=== PATIENT | female | born 1990 | race Two or more races ===

== ENCOUNTER → 2023-01-03 | Emergency (ER) | payer MEDICAID, OTHER | END | disposition left against medical advice (07) | LOC: ER 19:39 | DX: R10.9 Unspecified abdominal pain (principal); Z53.21 Procedure and treatment not carried out due to patient leaving prior to being seen by health care provider ==

== ENCOUNTER 2024-03-14 17:35 | Emergency (ER) | payer MEDICAID | END 2024-03-14 18:50 | disposition left against medical advice (07) | LOC: ER 17:38 | DX: R10.9 Unspecified abdominal pain (principal); Z53.21 Procedure and treatment not carried out due to patient leaving prior to being seen by health care provider ==

== ENCOUNTER 2024-03-20 08:19 | Emergency (ER) | payer MEDICAID ==
[~2024-03-20] VITALS: Ht 160 cm; Wt 75.2 kg
[2024-03-20] MEDS: ONDANSETRON HCL 4 MG/2 ML VIAL IV ONE (08:45)
[2024-03-20] MEDS: MORPHINE SULFATE 4 MG/ML SYR/VIAL IV ONE (08:45)
[2024-03-20 09:00] VITALS: BP 189/111; PULSE 82; RESP 18; TEMP 97.8; O2SAT 97
[2024-03-20 09:13] LABS: Urine Bacteria None Seen /hpf (None Seen)
[2024-03-20] MEDS: SODIUM CHLORIDE 0.9% 1,000 ML IV ONE (09:28)
[2024-03-20 09:34] LABS: Basophils # (auto) 0 10 ^3/uL (0-0.2); Eosinophils # (auto) 0 10 ^3/uL (0-0.8); Hemoglobin 9.3 g/dL (12.2-16.2); Monocytes # (auto) 0.8 10 ^3/uL (0-1.3); White Blood Cell 12.6 10^3/uL (4.4-10.8)
[2024-03-20 09:37] LABS: Eosinophils % (auto) 0.3 % (0.0-7.0); Hematocrit 29.8 % (36.0-46.0); Lymphocytes % (auto) 8.1 % (10.0-50.0); Mean Corpuscular Hemoglobin 20.7 pg (28.0-32.0); Mean Corpuscular Hgb Conc. 31.4 g/dL (32.0-36.0); Mean Corpuscular Volume 66.1 fL (80.0-100.0); Monocytes % (auto) 6.1 % (0.0-12.0); Neutrophils # (auto) 10.7 10 ^3/uL (1.6-8.6); Neutrophils % (auto) 85.5 % (37.0-80.0); Nucleated Red Blood Cells % 0.2 %; Platelet Count (auto) 552 10^3/uL (140-450)
[2024-03-20 09:46] LABS: Albumin 3.4 g/dL (3.2-4.8); Alkaline Phosphatase 61 U/L (46-116); Anion Gap 5 (5-15); Aspartate Aminotransferase < 8 U/L (13-40); BUN/Creatinine Ratio 22.2 (10.0-20.0); Blood Urea Nitrogen 16 mg/dL (9-23); Calcium 8.7 mg/dL (8.7-10.4); Carbon Dioxide 23 mmol/L (20-31); Chloride 108 mmol/L (98-107); Glucose 87 mg/dL (74-106); Sodium 136 mmol/L (136-145)
[2024-03-20 09:47] LABS: Bilirubin, Total 0.3 mg/dL (0.2-1.0); Total Protein 6.8 g/dL (5.7-8.2)
[2024-03-20 09:50] LABS: Alanine Aminotransferase < 9 U/L (7-40)
[2024-03-20] MEDS: IOHEXOL 300 MG/ML 100ML BOTTLE IJ ONE (09:54)
[2024-03-20 09:59] LABS: Urine Blood 3+ /uL (Negative); Urine Clarity Clear (Clear); Urine Color Colorless (Yellow); Urine Protein, UAD 2+ (Negative); Urine Specific Gravity 1.004 (1.001-1.035); Urine Urobilinogen Normal (Negative); Urine WBC 33 /hpf (0 - 5)
[2024-03-20 10:44] LABS: Lipase 28 U/L (12-53)
[2024-03-20] MEDS: KETOROLAC TROMETH 30 MG/ML 1ML VIAL IV ONE (10:45)
[2024-03-20 11:08] VITALS: PULSE 81; RESP 24; O2SAT 97
[2024-03-20 12:20] LABS: Hypochromia Marked; Platelet Estimate Increased
[2024-03-20] MEDS: PANTOPRAZOLE 40 MG/10 ML VIAL INJ IV ONE (12:45)
[2024-03-20] MEDS ORDERED: OMEP20TA PO (12:54)
[2024-03-20] MEDS ORDERED: CEFD300C2 PO (12:54)
[2024-03-20] MEDS: cefTRIAXone 1GM/50ML D5W 50 ML IV ONE (14:00)
== END 2024-03-20 15:08 | disposition home or self-care (01) ==
LOC: ER 08:19
DX: N39.0 Urinary tract infection, site not specified (principal); M32.9 Systemic lupus erythematosus, unspecified; J90 Pleural effusion, not elsewhere classified; Z32.02 Encounter for pregnancy test, result negative
CPT/HCPCS: 36415; 74177; 80053; 81001; 81025; 83690; 85025; 93005; 96361; 96365; 96375; 99285; J0696; J1885; J7030; Q9967; J2405

== ENCOUNTER 2024-03-23 19:25 | Inpatient (IN) | payer MEDICAID ==
[~2024-03-23] VITALS: Ht 160 cm; Wt 71.8 kg
[~2024-03-23 19:25] MED LIST: CEFD300C2 PO; OMEP20TA PO
[2024-03-23] MEDS: HYDROcodone-ACET 10/325MG TAB PO ONE (20:35)
[2024-03-23] MEDS: ONDANSETRON ODT 4 MG TAB PO ONE (20:35)
--- NOTE | 2024-03-23 20:39 | DVH ---
Exam: CT CT AB PEL WO CON-NO ORAL OR IV History: Right lower quadrant pain Comparison Study: None available at time of dictation. TECHNIQUE: Multidetector CT of the abdomen was performed from lung bases to pubic symphysis. Imaging was performed without IV contrast. Axial, coronal and sagittal multiplanar reformats were obtained fr om the axial data set by the technologist. Radiation Dose Information: CT Dose: CTDI volume is 6.98 mGy. Dose-length product is 421.27 mGy*cm FINDINGS: Evaluation of solid organs is limited due to lack of intravenous contrast use. Findings: Lung Bases: No acute or significant lung base finding. Trace left pleural effusion. Normal heart size . Trace pericardial effusion. Liver: The liver is normal in size. No focal lesions. Gallbladder and Biliary Tree: No calcifications in the gallbladder. Spleen: Unremarkable Pancreas: The pancreas is grossly normal in appearance. Adrenal Glands: Unremarkable Kidneys: Kidneys are grossly normal without calculi or hydronephrosis. No nephrolithiasis or hydronep hrosis. Bladder: Grossly unremarkable for degree of distention. Bowel: The stomach is grossly normal in appearance. Small bowel and colon are normal in caliber and d istribution. The appendix is not visualized; however, no secondary findings of acute appendicitis id entified. Ascites: Small amount of free fluid posterior to the uterus in the cul-de-sac. Lymphadenopathy: No mesenteric, retroperitoneal or periportal lymphadenopathy. Abdominal Wall and Mesentery: Mild amount of subcutaneous edema over the anterior abdominal wall in t he right and left. Vasculature: The visualized abdominal aorta is normal in size and caliber. Evaluation of abdominal a nd pelvic vessels is limited due to lack of intravenous contrast. Pelvic Organs: Unremarkable Musculoskeletal: No aggressive focal bony lesions, acute fractures or dislocation. Soft tissues: Unremarkable IMPRESSION: 1. Trace left pleural effusion. 2. Trace pericardial effusion 3. Small amount of fluid in the cul-de-sac. Radiation optimization: All CT scans at this facility use at least one of these dose optimization te chniques: automated exposure control mA and/or kV adjustment per patient size (includes targeted exa ms where dose is matched to clinical indication) or iterative reconstruction.
[2024-03-23 20:41] LABS: Basophils # (auto) 0 10 ^3/uL (0-0.2); Eosinophils # (auto) 0 10 ^3/uL (0-0.8); Lymphocytes # (auto) 0.4 10 ^3/uL (0.4-5.4); Monocytes # (auto) 0.6 10 ^3/uL (0-1.3); Neutrophils # (auto) 10.7 10 ^3/uL (1.6-8.6); Neutrophils % (auto) 91.1 % (37.0-80.0); White Blood Cell 11.7 10^3/uL (4.4-10.8)
[2024-03-23 20:44] LABS: Basophils % (auto) 0.1 % (0.0-2.0); Hematocrit 29.4 % (36.0-46.0); Hemoglobin 9.1 g/dL (12.2-16.2); Lymphocytes % (auto) 3.5 % (10.0-50.0); Mean Corpuscular Hemoglobin 20.8 pg (28.0-32.0); Mean Corpuscular Hgb Conc. 30.9 g/dL (32.0-36.0); Mean Corpuscular Volume 67.1 fL (80.0-100.0); Monocytes % (auto) 5.3 % (0.0-12.0); Platelet Count (auto) 514 10^3/uL (140-450); Red Blood Cells 4.38 10^6/uL (4.0-5.20); Red Cell Distribution Width 19.5 % (11.8-14.3)
[2024-03-23 20:47] LABS: Urine Bacteria FEW /hpf (None Seen); Urine Blood 2+ /uL (Negative); Urine Clarity Clear (Clear); Urine Color Colorless (Yellow); Urine Protein, UAD 2+ (Negative); Urine Specific Gravity 1.007 (1.001-1.035); Urine Urobilinogen Normal (Negative); Urine WBC 44 /hpf (0 - 5)
[2024-03-23 20:51] LABS: Chloride 108 mmol/L (98-107); Sodium 134 mmol/L (136-145)
[2024-03-23 20:52] LABS: Anion Gap 3 (5-15); Calcium 8.3 mg/dL (8.7-10.4); Carbon Dioxide 23 mmol/L (20-31)
[2024-03-23 20:57] LABS: Blood Urea Nitrogen 20 mg/dL (9-23); Glucose 113 mg/dL (74-106); Lipase 31 U/L (12-53)
[2024-03-23 21:07] LABS: Potassium 5.7 mmol/L (3.5-5.1)
[2024-03-23] MEDS: NITROFURANTOIN 100 mg CAP PO ONE (22:20)
[2024-03-23 22:23] VITALS: PULSE 85; RESP 16; O2SAT 100
[2024-03-23] MEDS: ACETAMINOPHEN 500 MG TAB PO ONE (22:23)
[2024-03-23] MEDS: cloNIDine HCL 0.1 MG TAB PO ONE (22:27)
[2024-03-24] MEDS: cloNIDine HCL 0.1 MG TAB PO ONE (00:11)
[2024-03-24] MEDS: hydrALAZINE HCL 20 MG/ML VL IV ONE (01:19)
--- NOTE | 2024-03-24 01:30 | ECG ---
[facility] Test Date: 2024-03-24 Test Time: 01:23:27 Pat Name: KEHINDE TINSLEY Department: ER Room: 0221T Gender: F Pot Operator: NICOLA : 1990 Requested By: SREEKANTH MORTENSEN Order Number: [id number] Reading MD: Arnaldo Emmanuel Measurements Intervals [place] Rate: 63 P: 13 UT: 109 QRS: 36 QRSD: 89 T: 39 QT: 426 QTc: 437 Interpretive Statements Sinus rhythm Short UT interval Electronically Signed On 03-28-2024 14:15:19 PDT by Arnaldo Emmanuel Please click the below link to view image of tracing.
--- NOTE | 2024-03-24 01:31 | ED.PDOC ---
GI ASSESSMENT HPI Comments This patient is a 37-year-old female who arrives the ED today for evaluation of right-sided lower abdominal/pelvic pain concerns for past few days. Patient was seen this facility three days ago and prescribed antibiotics for UTI. Patient states that the medication has not been effective and she continues to have white lower quadrant pain concerns. Additionally, patient arrives with a blood pressure that is 200+ over 100+. Patient states she has no history of hypertension but rather, states that she believes is this is white coat hypertension. Patient denies any fever nausea or vomiting. Chief Complaint: Abdominal Pain Time Seen by MD: 19:29 Reviewed Notes: Nurses Notes Allergies: Coded Allergies: NO KNOWN ALLERGIES (Unverified , 03/20/24) Home Meds Active Scripts Omeprazole (Gnp Omeprazole) 20 Mg Tab, 1 TAB PO DAILY for 14 Days, #14 TAB 1 Refill Prov:BALDEV MIRZA MD 03/20/24 Cefdinir (Cefdinir) 300 Mg Cap, 1 CAP PO BID for 5 Days, #14 CAP Prov:BALDEV MIRZA MD 03/20/24 Information Source: Patient Mode of Arrival: Ambulatory Timing: Days Duration: Since onset Prehospital treatment: Treatment Quality: Aching, Cramping Vomitus: None Severity: Moderate Recent: Antibiotics Recent Hx of: Other (Currently being treated for a UTI.) Pain Location: RLQ Modifying Factors: Nothing Past Medical History PAST MEDICAL HISTORY: Denies Past Medical History (Other): Recently on antibiotics for UTI. 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 all AUDIO VISUAL DESIGN ENGINEER Hx Family History Family History: Reviewed,noncontributory to illness Social History Smoker: Non-Smoker Alcohol: Denies ETOH Use Drugs: Denies Drug Use Lives In: Home Constitutional: denies: chills, diaphoresis, fatigue, fever, malaise, sweats, weakness, others EENTM: denies: blurred vision, double vision, ear bleeding, ear discharge, ear drainage, ear pain, ear ringing, eye pain, eye redness, hearing loss, mouth pain, mouth swelling, nasal discharge, nose bleeding, nose congestion, nose pain, photophobia, tearing, throat pain, throat swelling, voice changes, others Respiratory: denies: cough, hemoptysis, orthopnea, SOB at rest, shortness of breath, SOB with excertion, stridor, wheezing, others Cardiovascular: denies: chest pain, dizzy spells, diaphoresis, Dyspnea on exertion, edema, irregular heart beat, left arm pain, lightheadedness, palpitations, PND, syncope, others Gastrointestinal: reports: abdominal pain; denies: abdomen distended, blood streaked bowels, constipated, diarrhea, dysphagia, difficulty swallowing, hematemesis, melena, nausea, poor appetite, poor fluid intake, rectal bleeding, rectal pain, vomiting, others Genitourinary: denies: abnormal vagina bleeding, burning, dyspareunia, dysuria, flank pain, frequency, hematuria, incontinence, pain, , vagina discharge, urgency, others Neurological: denies: dizziness, fainting, headache, left sided numbness, left sided weakness, numbness, paresthesia, pre-existing deficit, right sided numbness, right sided weakness, seizure, speech problems, tingling, tremors, weakness, others Musculoskeletal: denies: back pain, gout, joint pain, joint swelling, muscle pain, muscle stiffness, neck pain, others Integumetry: denies: bruises, change in color, change in hair/nails, dryness, laceration, lesions, lumps, rash, wounds, others Allergic/Immunocompromised: denies: Difficulty Healing, Frequent Infections, Hives, Itching, others Hematologic/Lymphatic: denies: anemia, blood clots, easy bleeding, easy bruising, swollen glands, others Endocrine: denies: excessive hunger, excessive sweating, excessive thirst, excessive urination, flushing, intolerance to cold, intolerance to heat, unexplained weight gain, unexplained weight loss, others Psychiatric: denies: anxiety, bipolar disorder, depression, hopeless, panic disorder, schizophrenia, sleepless, suicidal, others Physical Exam General Appearance: Moderate Distress (Moderate distress due to right-sided lower abdominal pain), Normal HEENT: Normal ENT Inspection, Pharynx Normal, TMs Normal Neck: Full Range of Motion, Non-Tender, Normal, Normal Inspection Respiratory: Chest Non-Tender, Lungs Clear, No Accessory Muscle Use, No Respiratory Distress, Normal Breath Sounds Cardiovascular: No Edema, No JVD, No Murmur, No Gallop, Normal Peripheral Pulses, Regular Rate/Rhythm Breast Exam: Deferred Gastrointestinal: Other (Diffuse right-sided lower abdominal/pelvic pain radiating towards the right flank. No pulsatile masses. Abdomen was mildly rigid.) Genitalia: Deferred Pelvic: Deferred Rectal: Deferred Extremities: No calf tenderness, Normal capillary refill, Normal inspection, Normal range of motion, Non-tender, No pedal edema Neurologic: Alert, slab inspector II-XII nml as Tested, No Motor Deficits, Normal Affect, Normal Mood, No Sensory Deficits Cerebellar Function: Normal Reflexes: Normal Skin: Dry, Normal Color, Warm Lymphatic: No Adenopathy Was a procedure done? Was a procedure done?: No GI differential Dx Differential Diagnosis: Appendicitis, Bowel Obstruction, Cholangitis, Cholecystitis, Constipation, Gastritis/PUD, Gastroenteritis, Pancreatitis, UTI X-Ray, Labs, Meds, VS Vital Signs Date Time Temp Pulse Resp B/P (MAP) Pulse Ox O2 Delivery O2 Flow Rate FiO2 03/24/24 01:19 174/99 03/24/24 01:00 185/102 03/24/24 00:11 177/101 03/23/24 23:54 98.7 67 16 194/114 (140) 100 98.7 03/23/24 23:53 194/114 03/23/24 22:27 204/114 03/23/24 22:23 85 16 100 Room Air* 0 21 03/23/24 21:25 192/112 (138) 03/23/24 20:22 Room Air 03/23/24 19:36 97.7 85 18 197/117 (143) 100 03/23/24 19:36 97.7 85 18 206/125 (152) 100 97.7 Lab Test 03/23/24 20:21 03/23/24 20:20 Range/Units White Blood Count 11.7 H 4.4-10.8 10^3/uL Red Blood Count 4.38 4.0-5.20 10^6/uL Hemoglobin 9.1 L 12.2-16.2 g/dL Hematocrit 29.4 L 36.0-46.0 % Mean Corpuscular Volume 67.1 L 80.0-100.0 fL Mean Corpuscular Hemoglobin 20.8 L 28.0-32.0 pg Mean Corpuscular Hemoglobin Concent 30.9 L 32.0-36.0 g/dL Red Cell Distribution Width 19.5 H 11.8-14.3 % Platelet Count 514 H 140-450 10^3/uL Mean Platelet Volume 7.4 6.9-10.8 fL Neutrophils (%) (Auto) 91.1 H 37.0-80.0 % Lymphocytes (%) (Auto) 3.5 L 10.0-50.0 % Monocytes (%) (Auto) 5.3 0.0-12.0 % Eosinophils (%) (Auto) 0.0 0.0-7.0 % Basophils (%) (Auto) 0.1 0.0-2.0 % Neutrophils # (Auto) 10.7 H 1.6-8.6 10 ^3/uL Lymphocytes # (Auto) 0.4 0.4-5.4 10 ^3/uL Monocytes # (Auto) 0.6 0-1.3 10 ^3/uL Eosinophils # (Auto) 0 0-0.8 10 ^3/uL Basophils # (Auto) 0 0-0.2 10 ^3/uL Nucleated Red Blood Cells 0.0 % Sodium Level 134 L 136-145 mmol/L Potassium Level 5.7 *H 3.5-5.1 mmol/L Chloride Level 108 H 98-107 mmol/L Carbon Dioxide Level 23 20-31 mmol/L Anion Gap 3 L 5-15 Blood Urea Nitrogen 20 9-23 mg/dL Creatinine 0.87 0.550-1.02 mg/dL Glomerular Filtration Rate Calc 91 >90 mL/min BUN/Creatinine Ratio 23.0 H 10.0-20.0 Serum Glucose 113 H 74-106 mg/dL Calcium Level 8.3 L 8.7-10.4 mg/dL Lipase 31 12-53 U/L Beta HCG, Quantitative 0.3 L 1.5-4.2 mIU/mL Urine Color Colorless Yellow Urine Clarity Clear Clear Urine pH 6.0 5.0-9.0 Urine Specific [place] 1.007 1.001-1.035 Urine Protein 2+ H Negative Urine Ketones Negative Negative Urine Blood 2+ H Negative /uL Urine Nitrite Negative Negative Urine Bilirubin Negative Negative Urine Urobilinogen Normal Negative mg/dL Urine Leukocyte Esterase 2+ Negative /uL Urine RBC 32 0 - 4 /hpf Urine WBC 44 0 - 5 /hpf Urine Squamous Epithelial Cells Few <5 /hpf Urine Bacteria Few H None Seen /hpf Urine Glucose Normal Normal mg/dL Current Medications Medications (Trade) Dose Ordered Sig/Mica Route Start Time Stop Time Status Last Admin Nitrofurantoin Macrocrystals (Macrobid) 100 mg ONCE ONCE PO 03/23/24 22:15 03/23/24 22:16 DC 03/23/24 22:20 Acetaminophen (Tylenol Tablet) 1,000 mg ONCE ONCE PO 03/23/24 22:30 03/23/24 22:31 DC 03/23/24 22:23 Clonidine HCl (Catapres Tablet) 0.2 mg ONCE ONCE PO 03/23/24 22:30 03/23/24 22:31 DC 03/23/24 22:27 Clonidine HCl (Catapres Tablet) 0.2 mg ONCE ONCE PO 03/24/24 00:00 03/24/24 00:01 DC 03/24/24 00:11 Hydralazine HCl (Apresoline Injection) 10 mg ONCE ONCE IV 03/24/24 01:15 03/24/24 01:16 DC 03/24/24 01:19 X-Ray, Labs, Meds, VS Comment All studies performed the ED today reviewed by me personally. Serum laboratories were unremarkable for any systemic process. Urine returned a result of a positive large urinary tract infection. Or concerning was the fact with the patient's blood pressure could not be managed for some time. Patient received two doses of 0.2 clonidine and had minimal response. At time of this note, patient was currently receiving 10 mg of IV hydralazine to improve blood pressure concerns. Patient will be admitted for antibiotics to address her UTI as well as a cardiac evaluation to address her difficult to control blood pressure issues. Time of 1ST Reevaluation: 01:29 Reevaluation 1ST: Improved Consultation: PCP, Cardiology Patient Education/Counseling: Diagnosis, Treatment Family Education/Counseling: Diagnosis, Treatment Departure 1 Departure Time of Disposition: 01:30 Impression: Primary Impression: UTI (urinary tract infection) Additional Impression: Hypertension, uncontrolled Disposition: 09 ADMITTED INPATIENT Condition: Stable Discharged With: Self Critical Care Note Critical Care Time?: No Stability Stability form required: No Heart Score Heart Score: Heart Score Response (Comments) Value History Slightly Suspicious 0 EKG Repolarization Disturb 1 Age <45 0 Risk Factors No known risk factors 0 Troponin Normal limit 0 Total 1 SREEKANTH MORTENSEN PAC Mar 24, 2024 01:31
[2024-03-24] MEDS ORDERED: DOCUSATE SOD 100 MG CAP PO PRN (03:00)
[2024-03-24] MEDS ORDERED: cloNIDine HCL 0.1 MG TAB PO PRN (03:00)
[2024-03-24] MEDS: cefTRIAXone 1GM/50ML D5W 50 ML IV ONE (03:31)
[2024-03-24] MEDS: SODIUM ZIRCONIUM CYCL 10 GM PAK PO ONE ×2 (03:35→15:07)
[2024-03-24] MEDS: SODIUM CHLORIDE 0.9% 1,000 ML IV SCH (03:35)
[2024-03-24] MEDS: cefTRIAXone 1GM/50ML D5W 50 ML IV SCH (04:47)
[2024-03-24 05:02] LABS: Basophils # (auto) 0 10 ^3/uL (0-0.2); Eosinophils # (auto) 0 10 ^3/uL (0-0.8); Monocytes # (auto) 0.6 10 ^3/uL (0-1.3); Neutrophils % (auto) 87.8 % (37.0-80.0)
[2024-03-24 05:04] LABS: Basophils % (auto) 0.3 % (0.0-2.0); Hematocrit 28.8 % (36.0-46.0); Hemoglobin 8.9 g/dL (12.2-16.2); Lymphocytes # (auto) 0.6 10 ^3/uL (0.4-5.4); Lymphocytes % (auto) 6.1 % (10.0-50.0); Mean Corpuscular Hemoglobin 20.5 pg (28.0-32.0); Mean Corpuscular Volume 66.1 fL (80.0-100.0); Monocytes % (auto) 5.8 % (0.0-12.0); Neutrophils # (auto) 8.3 10 ^3/uL (1.6-8.6); Nucleated Red Blood Cells % 0.1 %; Platelet Count (auto) 431 10^3/uL (140-450); Red Blood Cells 4.35 10^6/uL (4.0-5.20); Red Cell Distribution Width 19.1 % (11.8-14.3); White Blood Cell 9.5 10^3/uL (4.4-10.8)
[2024-03-24 05:25] LABS: Albumin 3.1 g/dL (3.2-4.8); Alkaline Phosphatase 62 U/L (46-116); Anion Gap 2 (5-15); Aspartate Aminotransferase < 8 U/L (13-40); Blood Urea Nitrogen 20 mg/dL (9-23); Calcium 8.3 mg/dL (8.7-10.4); Carbon Dioxide 23 mmol/L (20-31); Chloride 110 mmol/L (98-107); Glucose 106 mg/dL (74-106); Sodium 135 mmol/L (136-145)
[2024-03-24 05:26] LABS: Bilirubin, Total 0.2 mg/dL (0.2-1.0); Total Protein 6.2 g/dL (5.7-8.2)
[2024-03-24 05:27] LABS: Alanine Aminotransferase < 9 U/L (7-40)
[2024-03-24 05:29] LABS: Potassium 5.8 mmol/L (3.5-5.1)
[2024-03-24] MEDS: ACETAMINOPHEN 325 MG TAB PO PRN (06:07)
[2024-03-24] MEDS: hydrALAZINE HCL 20 MG/ML VL IV PRN (06:07)
--- NOTE | 2024-03-24 07:24 | DVHHP2 ---
History of Present Illness Reason for Visit: Hypertensive urgency History of Present Illness The patient is a 33-year-old female with past medical history UTIs who presented to [facility] with complaint acute abdominal pain. Patient reports symptoms progressively get worse with right-sided lower abdominal/pelvic, rating 7/10 numeric scale, getting worse that prompted this visit. Patient was seen and evaluated in the ED, laboratory data shows WBC 11.7, platelets 514, hemoglobin 9.1, hematocrit 29.4 sodium 134, potassium 5.7, BUN 20, creatinine 0.87, glucose 113, urinalysis positive for urinary tract infection. Abdomen/pelvis CT revealing trace left effusion, trace pericardial effusion. Patient was started IV antibiotic regimen Rocephin, please see medication orders section in the computer. On my assessment, patient denied chest pain, no headache, no dizziness, no shortness of breath, no nausea, no vomiting, no fever, no chills. Patient was admitted for further evaluation and medical management. Past Medical History Recently on antibiotics for UTI. Past Surgical History Denies all surgeries Family History Reviewed, noncontributory to the management of this case. Past Social History The patient lives at home, denies smoking, alcohol or illicit drugs abuse. Review of Systems Constitutional: No: Fever, Chills, Sweats, Weakness, Malaise, Other Eyes: No: Pain, Vision change, Conjunctivae inflammation, Eyelid inflammation, Other, Redness ENT: No: Ear pain, Ear discharge, Nose pain, Nose discharge, Nose congestion, Mouth pain, Mouth swelling, Throat pain, Throat swelling, Other Respiratory: No: Cough, Dry, Shortness of breath, SOB with excertion, Wheezing, Hemoptysis, Pleuritic Pain, Sputum, Wheezing, Other Cardiovascular: No: Chest Pain, Palpitations, Orthopnea, Paroxysmal Noc. Dyspnea, Edema, Lt Headedness, Other Gastrointestinal: Abdominal Pain; No: Nausea, Vomiting, Diarrhea, Constipation, Melena, Hematochezia, Other Genitourinary: No Dysuria, No Frequency, No Incontinence, No Hematuria, No Retention, No Other Musculoskeletal: No: other, neck pain, shoulder pain, arm pain, back pain, hand pain, leg pain, foot pain Skin: No: Rash, Lesions, Jaundice, Bruising, Other Neurological: No: Weakness, Numbness, Incoordination, Change in speech, Confusion, Seizures, Other Allergies: Coded Allergies: NO KNOWN ALLERGIES (Unverified , 03/20/24) Medications Current Medications Medications Dose Ordered Sig/Mica Route Start Time Stop Time Status Last Admin Dose Admin Ceftriaxone Sodium 50 ml @ 100 mls/hr DAILY@0400 IV 03/24/24 04:00 03/24/24 04:47 100 MLS/HR Hydralazine HCl 10 mg Q6HP PRN IV 03/24/24 03:00 03/24/24 06:07 10 MG Clonidine HCl 0.1 mg Q6HP PRN PO 03/24/24 03:00 Sodium Chloride 1,000 ml @ 60 mls/hr [id number] IV 03/24/24 03:00 03/24/24 03:35 60 MLS/HR Acetaminophen/ Hydrocodone Bitart 1 tab Q4HP PRN PO 03/24/24 03:00 Ondansetron HCl 4 mg Q4HP PRN IV 03/24/24 03:00 Docusate Sodium 100 mg BIDPRN PRN PO 03/24/24 03:00 Acetaminophen 650 mg Q6HP PRN PO 03/24/24 03:00 03/24/24 06:07 650 MG Morphine Sulfate 2 mg Q4HPRN PRN IV 03/24/24 03:00 Exam Vital Signs Vital Signs Date Time Temp Pulse Resp B/P (MAP) Pulse Ox O2 Delivery O2 Flow Rate FiO2 03/24/24 06:07 157/99 03/24/24 05:00 70 19 100 03/23/24 23:54 98.7 98.7 03/23/24 22:23 Room Air* 0 21 General Appearance: Alert, Oriented X3, Cooperative, No acute distress HEENT: Atraumatic, PERRLA, EOMI, Mucous membr. moist/pink Respiratory: Clear to auscultation, Normal air movement Cardiovascular: Regular rate, Normal S1, Normal S2, No murmurs Abdominal: Normal bowel sounds, Soft, No hepatospenomegaly, No masses, Other (Reports tenderness) Extremities: No clubbing, No cyanosis, No edema, Normal pulses, No tenderness/swelling Skin: No rashes, No breakdown, No significant lesion Neuro: Normal gait, Normal speech, Strength at 5/5 X4 ext, Normal tone, Sensation intact, Cranial nerves 3-12 NL, Reflexes 2+ Psych/Mental Status: Mental status NL, Mood NL Labs/Xrays Labs Test 03/24/24 04:42 03/23/24 20:21 03/23/24 20:20 Range/Units White Blood Count 9.5 4.4-10.8 10^3/uL Red Blood Count 4.35 4.0-5.20 10^6/uL Hemoglobin 8.9 L 12.2-16.2 g/dL Hematocrit 28.8 L 36.0-46.0 % Mean Corpuscular Volume 66.1 L 80.0-100.0 fL Mean Corpuscular Hemoglobin 20.5 L 28.0-32.0 pg Mean Corpuscular Hemoglobin Concent 31.0 L 32.0-36.0 g/dL Red Cell Distribution Width 19.1 H 11.8-14.3 % Platelet Count 431 140-450 10^3/uL Mean Platelet Volume 7.0 6.9-10.8 fL Neutrophils (%) (Auto) 87.8 H 37.0-80.0 % Lymphocytes (%) (Auto) 6.1 L 10.0-50.0 % Monocytes (%) (Auto) 5.8 0.0-12.0 % Eosinophils (%) (Auto) 0.0 0.0-7.0 % Basophils (%) (Auto) 0.3 0.0-2.0 % Neutrophils # (Auto) 8.3 1.6-8.6 10 ^3/uL Lymphocytes # (Auto) 0.6 0.4-5.4 10 ^3/uL Monocytes # (Auto) 0.6 0-1.3 10 ^3/uL Eosinophils # (Auto) 0 0-0.8 10 ^3/uL Basophils # (Auto) 0 0-0.2 10 ^3/uL Nucleated Red Blood Cells 0.1 % Sodium Level 135 L 136-145 mmol/L Potassium Level 5.8 *H 3.5-5.1 mmol/L Chloride Level 110 H 98-107 mmol/L Carbon Dioxide Level 23 20-31 mmol/L Anion Gap 2 L 5-15 Blood Urea Nitrogen 20 9-23 mg/dL Creatinine 0.80 0.550-1.02 mg/dL Glomerular Filtration Rate Calc 101 >90 mL/min BUN/Creatinine Ratio 25.0 H 10.0-20.0 Serum Glucose 106 74-106 mg/dL Calcium Level 8.3 L 8.7-10.4 mg/dL Total Bilirubin 0.2 0.2-1.0 mg/dL Aspartate Amino Transferase (AST) < 8 L 13-40 U/L Alanine Aminotransferase (ALT) < 9 7-40 U/L Alkaline Phosphatase 62 46-116 U/L Total Protein 6.2 5.7-8.2 g/dL Albumin 3.1 L 3.2-4.8 g/dL Lipase 31 12-53 U/L Beta HCG, Quantitative 0.3 L 1.5-4.2 mIU/mL Urine Color Colorless Yellow Urine Clarity Clear Clear Urine pH 6.0 5.0-9.0 Urine Specific [place] 1.007 1.001-1.035 Urine Protein 2+ H Negative Urine Ketones Negative Negative Urine Blood 2+ H Negative /uL Urine Nitrite Negative Negative Urine Bilirubin Negative Negative Urine Urobilinogen Normal Negative mg/dL Urine Leukocyte Esterase 2+ Negative /uL Urine RBC 32 0 - 4 /hpf Urine WBC 44 0 - 5 /hpf Urine Squamous Epithelial Cells Few <5 /hpf Urine Bacteria Few H None Seen /hpf Urine Glucose Normal Normal mg/dL PATIENT: KEHINDE TINSLEY ACCT: [id number] UNIT: [id number] : 1990 LOC: ER ROOM / BED: / AGE / SEX: 33 / F ADM STATUS: REG ER SERVICE 57 ORDERING PHYSICIAN: SREEKANTH MORTENSEN PAC PROCEDURE(s): ABPL - CT AB PEL WO CON-NO ORAL OR IV REASON: Right lower quadrant pain ORDER NUMBER(s): [id number], ACCESSION NUMBER(s): [id number] Exam: CT CT AB PEL WO CON-NO ORAL OR IV History: Right lower quadrant pain Comparison Study: None available at time of dictation. TECHNIQUE: Multidetector CT of the abdomen was performed from lung bases to pubic symphysis. Imaging was performed without IV contrast. Axial, coronal and sagittal multiplanar reformats were obtained from the axial data set by the technologist. Radiation Dose Information: CT Dose: CTDI volume is 6.98 mGy. Dose-length product is 421.27 mGy*cm FINDINGS: Evaluation of solid organs is limited due to lack of intravenous contrast use. Findings: Lung Bases: No acute or significant lung base finding. Trace left pleural effusion. Normal heart size. Trace pericardial effusion. Liver: The liver is normal in size. No focal lesions. Gallbladder and Biliary Tree: No calcifications in the gallbladder. Spleen: Unremarkable Pancreas: The pancreas is grossly normal in appearance. Adrenal Glands: Unremarkable Kidneys: Kidneys are grossly normal without calculi or hydronephrosis. No nephrolithiasis or hydronephrosis. Bladder: Grossly unremarkable for degree of distention. Bowel: The stomach is grossly normal in appearance. Small bowel and colon are normal in caliber and distribution. The appendix is not visualized; however, no secondary findings of acute appendicitis identified. Ascites: Small amount of free fluid posterior to the uterus in the cul-de-sac. Lymphadenopathy: No mesenteric, retroperitoneal or periportal lymphadenopathy. Abdominal Wall and Mesentery: Mild amount of subcutaneous edema over the anterior abdominal wall in the right and left. Vasculature: The visualized abdominal aorta is normal in size and caliber. Evaluation of abdominal and pelvic vessels is limited due to lack of intravenous contrast. Pelvic Organs: Unremarkable Musculoskeletal: No aggressive focal bony lesions, acute fractures or dislocation. Soft tissues: Unremarkable IMPRESSION: 1. Trace left pleural effusion. 2. Trace pericardial effusion 3. Small amount of fluid in the cul-de-sac. Assessment/Plan Assessment/Plan Acute abdominal pain Hypertensive urgency Urinary tract infection Plan 1. Admit to telemetry unit 2. Breathing treatment 3. Pain control management 4. IV antibiotic management 5. Management of fluids and electrolytes 6. Consultation for hospitalist 7. Diagnostic test abdomen/pelvis CT 8. DVT prophylaxis on SCDs 9. Repeat labs CBC, CMP in a.m. 10. Home medication reviewed and reconciled 11. Continue with current medical management 12. Treatment plan discussed with patient and RN. Patient verbalized understanding. Plan discussed with: Patient, Other (RN) My Orders Orders - SISSY WINSTON DNP Procedure Category Date Status Time Ceftriaxone 1gm/50ml PHA 03/24/24 In Process D5w (Rocephin) 04:00 Hydralazine Injection PHA 03/24/24 In Process (Apresoline Inject 03:00 Clonidine Hcl Tablet PHA 03/24/24 In Process (Catapres Tablet) 03:00 Allergies ALEENA 03/24/24 In Process 02:57 Code Status CODE 03/24/24 Transmitted 02:57 Sodium Chloride 0.9% PHA 03/24/24 In Process 03:00 Oxygen Per Hour RT 03/24/24 Transmitted 02:57 Hydrocodone-Acet PHA 03/24/24 In Process 5/325mg Tab (Hermosa 03:00 Ondansetron Hcl PHA 03/24/24 In Process (Zofran) 03:00 Docusate Sodium PHA 03/24/24 In Process Capsule (Colace 03:00 Complete Blood Count LAB 03/25/24 Verified 04:00 Comprehensive LAB 03/25/24 Verified Metabolic Panel 04:00 Cardiac DIET 03/24/24 Transmitted Diet-2gna,Lofat,Lochol Breakfast Condition: Serious ALEENA 03/24/24 In Process 02:57 Acetaminophen Tablet PHA 03/24/24 In Process (Tylenol Tablet) 03:00 Bedrest With Bathroom ALEENA 03/24/24 In Process Privileg 02:57 Morphine Sulfate PHA 03/24/24 In Process Injection 03:00 Sequential ALEENA 03/24/24 In Process Compression Device Problem List: (1) Acute abdominal pain (2) Hypertensive urgency (3) Urinary tract infection Date of Service: Mar 24, 2024 Billing Provider: SISSY WINSTON DNP Common Visit Codes: [id number] INP/OBS CARE (HIGH) SISSY WINSTON DNP Mar 24, 2024 07:24
[2024-03-24] MEDS ORDERED: MORPHINE SULFATE INJ 2 MG/ml SYRG IV PRN (07:30)
[2024-03-24] MEDS ORDERED: NITROGLYCERIN 0.4 MG SL TAB SL PRN (07:30)
[2024-03-24 09:07] VITALS: PULSE 81; RESP 18; O2SAT 97
[2024-03-24] MEDS: HYDROcodone-ACET 5/325MG TAB PO PRN (13:24)
[2024-03-24] MEDS: ONDANSETRON HCL 4 MG/2 ML VIAL IV PRN (19:00)
[2024-03-24 19:30] VITALS: PULSE 109; RESP 22; O2SAT 99
[2024-03-24] MEDS: MORPHINE SULFATE INJ 2 MG/ml SYRG IV PRN (23:04)
[2024-03-25 06:13] LABS: Basophils # (auto) 0 10 ^3/uL (0-0.2); Eosinophils # (auto) 0 10 ^3/uL (0-0.8); Monocytes # (auto) 0.2 10 ^3/uL (0-1.3); Neutrophils # (auto) 4.8 10 ^3/uL (1.6-8.6); White Blood Cell 5.8 10^3/uL (4.4-10.8)
[2024-03-25 06:16] LABS: Basophils % (auto) 0.5 % (0.0-2.0); Eosinophils % (auto) 0.6 % (0.0-7.0); Hematocrit 31.2 % (36.0-46.0); Lymphocytes # (auto) 0.8 10 ^3/uL (0.4-5.4); Lymphocytes % (auto) 13.1 % (10.0-50.0); Mean Corpuscular Hgb Conc. 31.9 g/dL (32.0-36.0); Mean Corpuscular Volume 66.6 fL (80.0-100.0); Monocytes % (auto) 3.3 % (0.0-12.0); Neutrophils % (auto) 82.5 % (37.0-80.0); Nucleated Red Blood Cells % 0.1 %; Platelet Count (auto) 382 10^3/uL (140-450); Red Blood Cells 4.68 10^6/uL (4.0-5.20)
[2024-03-25 06:24] LABS: Mean Corpuscular Hemoglobin 21.3 pg (28.0-32.0)
[2024-03-25 07:16] LABS: Albumin 3.2 g/dL (3.2-4.8); Alkaline Phosphatase 68 U/L (46-116); Anion Gap 6 (5-15); Aspartate Aminotransferase 8 U/L (13-40); BUN/Creatinine Ratio 18.4 (10.0-20.0); Bilirubin, Total 0.3 mg/dL (0.2-1.0); Blood Urea Nitrogen 16 mg/dL (9-23); Calcium 8.4 mg/dL (8.7-10.4); Carbon Dioxide 23 mmol/L (20-31); Chloride 106 mmol/L (98-107); Glucose 78 mg/dL (74-106); Potassium 4.2 mmol/L (3.5-5.1); Sodium 135 mmol/L (136-145); Total Protein 6.3 g/dL (5.7-8.2)
[2024-03-25 07:20] LABS: Alanine Aminotransferase < 9 U/L (7-40)
[2024-03-25 07:30] VITALS: PULSE 111; RESP 16; O2SAT 99
--- NOTE | 2024-03-25 13:04 | DVHPN2 ---
Reviewed: Care Plan, H&P, Labs, Medications, Previous Orders, Radiology Changes from previous H/P or p: No Changes Eyes: No Pain, No Vision change, No Conjunctivae inflammation, No Eyelid inflammation, No Other, No Redness ENT: No Ear pain, No Ear discharge, No Nose pain, No Nose discharge, No Nose congestion, No Mouth pain, No Mouth swelling, No Throat pain, No Throat swelling, No Other Cardiovascular: No Chest Pain, No Palpitations, No Orthopnea, No Paroxysmal Noc. Dyspnea, No Edema, No Lt Headedness, No Other Respiratory: No Cough, No Dry, No Shortness of breath, No SOB with excertion, No Wheezing, No Hemoptysis, No Pleuritic Pain, No Sputum, No Other Gastrointestinal: No Nausea, No Vomiting; Abdominal Pain; No Diarrhea, No Constipation, No Melena, No Hematochezia, No Other Genitourinary: No Dysuria, No Frequency, No Incontinence, No Hematuria, No Retention, No Other Musculoskeletal: No other, No neck pain, No shoulder pain, No arm pain, No back pain, No hand pain, No leg pain, No foot pain Skin: No Rash, No Lesions, No Jaundice, No Bruising, No Other Objective Vitals Vital Signs Date Time Temp Pulse Resp B/P (MAP) Pulse Ox O2 Delivery O2 Flow Rate FiO2 03/25/24 12:00 109 16 128/73 (91) 98 03/25/24 11:26 99.2 03/25/24 07:30 Room Air* 0 21 Intake/Output Intake and Output 03/25/24 07:00 Intake Total 1480 ml Balance 1480 ml Intake IV Total 1480 ml General Appearance: Alert, Oriented X3, Cooperative HEENT: Atraumatic Abdomen: Normal bowel sounds Medications Current Medications Medications Dose Ordered Sig/Mica Route Start Time Stop Time Status Last Admin Dose Admin Ceftriaxone Sodium 50 ml @ 100 mls/hr DAILY@0400 IV 03/24/24 04:00 03/25/24 04:03 100 MLS/HR Hydralazine HCl 10 mg Q6HP PRN IV 03/24/24 03:00 03/24/24 06:07 10 MG Clonidine HCl 0.1 mg Q6HP PRN PO 03/24/24 03:00 Sodium Chloride 1,000 ml @ 60 mls/hr [id number] IV 03/24/24 03:00 03/25/24 12:21 60 MLS/HR Acetaminophen/ Hydrocodone Bitart 1 tab Q4HP PRN PO 03/24/24 03:00 03/25/24 12:29 1 TAB Ondansetron HCl 4 mg Q4HP PRN IV 03/24/24 03:00 03/24/24 19:00 4 MG Docusate Sodium 100 mg BIDPRN PRN PO 03/24/24 03:00 Acetaminophen 650 mg Q6HP PRN PO 03/24/24 03:00 03/25/24 10:22 650 MG Morphine Sulfate 2 mg Q4HPRN PRN IV 03/24/24 03:00 Nitroglycerin 0.4 mg Q5MINP PRN SL 03/24/24 07:30 Morphine Sulfate 2 mg Q30M PRN IV 03/24/24 07:30 Laboratory Results Laboratory Tests 03/25/24 05:37 Chemistry Test 03/25/24 05:37 Albumin 3.2 g/dL (3.2-4.8) Calcium Level 8.4 mg/dL (8.7-10.4) L Total Protein 6.3 g/dL (5.7-8.2) LFT Test 03/25/24 05:37 Alanine Aminotransferase (ALT) < 9 U/L (7-40) Alkaline Phosphatase 68 U/L (46-116) Aspartate Amino Transferase (AST) 8 U/L (13-40) L Total Bilirubin 0.3 mg/dL (0.2-1.0) Urinalysis Test 03/23/24 20:20 Urine Color Colorless (Yellow) Urine Clarity Clear (Clear) Urine pH 6.0 (5.0-9.0) Urine Specific [place] 1.007 (1.001-1.035) Urine Protein 2+ (Negative) H Urine Ketones Negative (Negative) Urine Blood 2+ /uL (Negative) H Urine Nitrite Negative (Negative) Urine Bilirubin Negative (Negative) Urine Urobilinogen Normal mg/dL (Negative) Urine Leukocyte Esterase 2+ /uL (Negative) Urine RBC 32 /hpf (0 - 4) Urine WBC 44 /hpf (0 - 5) Urine Squamous Epithelial Cells Few /hpf (<5) Urine Bacteria Few /hpf (None Seen) H Urine Glucose Normal mg/dL (Normal) Microbiology Microbiology Date/Time Source Procedure Growth Status 03/23/24 20:20 Voided Urine Urine Culture - Preliminary Resulted Labs and/or images reviewed: Labs reviewed by me, Image(s) reviewed by me Assessment/Plan Assessment/Plan (1) Acute abdominal pain (2) Hypertensive urgency (3) Urinary tract infection 03/2024: remain on IV ABx. Pt has several episodes of pyrexia Plan discussed with: Patient Date of Service: Mar 25, 2024 Billing Provider: BASILIA TOURE DO Common Visit Codes: [id number] INP/OBS CARE(HIGH) BASILIA TOURE DO Mar 25, 2024 13:04
[2024-03-25] MEDS: dilTIAZem 25 MG/5 ML VIAL IV ONE (21:49)
[2024-03-25 21:55] VITALS: BP 171/108; PULSE 132; RESP 96; TEMP 101; O2SAT 96
[2024-03-25 21:58] VITALS: BP 166/101; PULSE 140
[2024-03-25 22:00] VITALS: PULSE 136
[2024-03-25 22:50] VITALS: BP 147/89; PULSE 134
[2024-03-26] VITALS (9 sets, daily range): BP systolic 137–159; BP diastolic 80–103; PULSE 111–133; RESP 17–22; TEMP 98.6–99.7; O2SAT 96–99
[2024-03-26] MEDS ORDERED: METO25TA93 PO (03:20)
[2024-03-26] MEDS ORDERED: PRED20TA2 PO (03:30)
[2024-03-26] MEDS ORDERED: LOSA-533 PO (03:30)
[2024-03-26] MEDS ORDERED: FURO20TA3 PO (03:30)
[2024-03-26] MEDS ORDERED: HYDR200T36 PO (03:30)
[2024-03-26] MEDS ORDERED: FOLI-119 PO (03:30)
[2024-03-26] MEDS: HYDROCORTONE 1% TOPICAL CREAM 30 GM TUBE TOP SCH (11:16)
[2024-03-26] MEDS: PIPERACILLIN-TAZOB 3.375GM 100 ML IV SCH (20:55)
--- NOTE | 2024-03-26 23:00 | DVHPN2 ---
Subjective The patient is a 33-year-old female with past medical history UTIs who presented to [facility] with complaint acute abdominal pain. Patient reports symptoms progressively get worse with right-sided lower abdominal/pelvic, rating 7/10 numeric scale, getting worse that prompted this visit. Patient was seen and evaluated in the ED, laboratory data shows WBC 11.7, platelets 514, hemoglobin 9.1, hematocrit 29.4 sodium 134, potassium 5.7, BUN 20, creatinine 0.87, glucose 113, urinalysis positive for urinary tract infection. Abdomen/pelvis CT revealing trace left effusion, trace pericardial effusion. Patient was started IV antibiotic regimen Rocephin, please see medication orders section in the computer. On my assessment, patient denied chest pain, no headache, no dizziness, no shortness of breath, no nausea, no vomiting, no fever, no chills. Patient was admitted for further evaluation and medical management. Update - 03/26: Patient overnight having tachycardia episodes, no longer having febrile episodes. Dysuria is improving. She complains of pruritic rash on right inner thigh. She does have cats at home who is asleep with her. She continues to tolerate p.o., no nausea or vomiting, no abdominal pain. Reviewed: Care Plan, H&P, Labs, Medications, Previous Orders, Radiology Changes from previous H/P or p: No Changes General: Per HPI Objective Vitals Vital Signs Date Time Temp Pulse Resp B/P (MAP) Pulse Ox O2 Delivery O2 Flow Rate FiO2 03/26/24 21:00 98.6 121 18 137/88 (104) 98 98.6 03/26/24 08:00 Room Air* 0 21 Intake/Output Intake and Output 03/26/24 07:00 Intake Total 460 ml Balance 460 ml Intake Oral 400 ml IV Total 60 ml # Voids 2 Exam - GEN: Healthy appearing, well-developed, NAD. - HEENT: NC/AT, PERRLA, MMM. - CV: RRR, no m/r/g. - LUNGS: CTAB, no w/r/c. - ABD: Soft, NT/ND, NBS, no masses or organomegaly. No suprapubic tenderness - EXTREM: Warm, well perfused. Right medial thigh with nonblanching, pruritic rash extending from knee towards upper medial thigh, there is also similar rash on the lower back on the right side - NEURO: ambulating. grossly no focal deficits, CN2-12 intact Medications Current Medications Medications Dose Ordered Sig/Mica Route Start Time Stop Time Status Last Admin Dose Admin Hydralazine HCl 10 mg Q6HP PRN IV 03/24/24 03:00 03/26/24 04:27 10 MG Clonidine HCl 0.1 mg Q6HP PRN PO 03/24/24 03:00 Sodium Chloride 1,000 ml @ 60 mls/hr [id number] IV 03/24/24 03:00 03/25/24 12:21 60 MLS/HR Acetaminophen/ Hydrocodone Bitart 1 tab Q4HP PRN PO 03/24/24 03:00 03/26/24 20:50 1 TAB Ondansetron HCl 4 mg Q4HP PRN IV 03/24/24 03:00 03/24/24 19:00 4 MG Docusate Sodium 100 mg BIDPRN PRN PO 03/24/24 03:00 Acetaminophen 650 mg Q6HP PRN PO 03/24/24 03:00 03/25/24 10:22 650 MG Morphine Sulfate 2 mg Q4HPRN PRN IV 03/24/24 03:00 Nitroglycerin 0.4 mg Q5MINP PRN SL 03/24/24 07:30 Morphine Sulfate 2 mg Q30M PRN IV 03/24/24 07:30 Hydrocortisone 1 applic BID TOP 03/26/24 10:00 03/26/24 20:55 1 APPLIC Piperacillin Sod/ Tazobactam Sod 100 ml @ 25 mls/hr Q8HR IV 03/26/24 22:00 03/26/24 20:55 25 MLS/HR Laboratory Results Laboratory Tests 03/25/24 05:37 Urinalysis Test 03/23/24 20:20 Urine Color Colorless (Yellow) Urine Clarity Clear (Clear) Urine pH 6.0 (5.0-9.0) Urine Specific [place] 1.007 (1.001-1.035) Urine Protein 2+ (Negative) H Urine Ketones Negative (Negative) Urine Blood 2+ /uL (Negative) H Urine Nitrite Negative (Negative) Urine Bilirubin Negative (Negative) Urine Urobilinogen Normal mg/dL (Negative) Urine Leukocyte Esterase 2+ /uL (Negative) Urine RBC 32 /hpf (0 - 4) Urine WBC 44 /hpf (0 - 5) Urine Squamous Epithelial Cells Few /hpf (<5) Urine Bacteria Few /hpf (None Seen) H Urine Glucose Normal mg/dL (Normal) Microbiology Microbiology Date/Time Source Procedure Growth Status 03/25/24 15:00 Blood Blood Culture - Preliminary NO GROWTH AFTER 24 HOURS OF INCUBATION. Resulted 03/23/24 20:20 Voided Urine Urine Culture - Final Complete Labs and/or images reviewed: Labs reviewed by me, Image(s) reviewed by me Assessment/Plan Assessment/Plan Acute Pyelonephritis, complicated, with recurrent fevers Sinus tachycardia - patient admits she presented with CC of UTI/dysuria - On day 2 she also develops right thigh cellulitis -UA persistent with infection - urine culture pending - initially started on ceftriaxone, given cellulitis is also a source will escalate to Zosyn (also given recurrent febrile episodes, sinus tachycardia episodes) Right thigh rash (possible cellulitis, possible drug reaction) - we will treat as cellulitis for now Hypertensive urgency - blood pressure likely related to pain from dysuria will monitor and start antihypertensives as needed Diet regular GI prophylaxis-patient tolerating diet DVT prophylaxis patient ambulating Maintain med/tele Plan discussed with: Patient My Orders Orders - JESSY WHITTAKER MD Procedure Category Date Status Time Piperacillin-Tazob PHA 03/26/24 In Process 3.375gm (Zosyn 3.375g 22:00 Date of Service: Mar 26, 2024 Billing Provider: JESSY WHITTAKER MD Common Visit Codes: [id number] INP/OBS CARE(HIGH) JESSY WHITTAKER MD Mar 26, 2024 23:00
[2024-03-27] VITALS (10 sets, daily range): BP systolic 126–155; BP diastolic 67–94; PULSE 104–135; RESP 16–18; TEMP 97.1–98.7; O2SAT 95–97
[2024-03-27 07:28] LABS: Basophils # (auto) 0 10 ^3/uL (0-0.2); Basophils % (auto) 0.6 % (0.0-2.0); Eosinophils # (auto) 0.1 10 ^3/uL (0-0.8); Eosinophils % (auto) 1.5 % (0.0-7.0); Hematocrit 26.1 % (36.0-46.0); Hemoglobin 8.1 g/dL (12.2-16.2); Lymphocytes # (auto) 0.4 10 ^3/uL (0.4-5.4); Lymphocytes % (auto) 6.6 % (10.0-50.0); Mean Corpuscular Hemoglobin 20.7 pg (28.0-32.0); Mean Corpuscular Hgb Conc. 31.2 g/dL (32.0-36.0); Mean Corpuscular Volume 66.5 fL (80.0-100.0); Monocytes # (auto) 0.2 10 ^3/uL (0-1.3); Monocytes % (auto) 3.3 % (0.0-12.0); Neutrophils # (auto) 5.3 10 ^3/uL (1.6-8.6); Nucleated Red Blood Cells % 0.1 %; Platelet Count (auto) 245 10^3/uL (140-450); Red Blood Cells 3.93 10^6/uL (4.0-5.20)
[2024-03-27 08:26] LABS: Platelet Estimate Adequate
[2024-03-27 08:27] LABS: Hypochromia Marked; Ovalocytes FEW
[2024-03-27] MEDS: FOLIC ACID 1 MG TAB PO ONE (13:00)
[2024-03-27] MEDS: predniSONE 20 MG TAB PO ONE (13:00)
[2024-03-27] MEDS: METOPROLOL SUCCINATE XL 50 MG TAB PO ONE (13:01)
[2024-03-27] MEDS: hydrOXYchloroQUINE SULFATE 200 MG TAB PO ONE (13:01)
[2024-03-27] MEDS: predniSONE 20 MG TAB PO SCH (21:19)
--- NOTE | 2024-03-27 22:10 | DVHPN2 ---
Subjective The patient is a 33-year-old female with past medical history UTIs who presented to [facility] with complaint acute abdominal pain. Patient reports symptoms progressively get worse with right-sided lower abdominal/pelvic, rating 7/10 numeric scale, getting worse that prompted this visit. Patient was seen and evaluated in the ED, laboratory data shows WBC 11.7, platelets 514, hemoglobin 9.1, hematocrit 29.4 sodium 134, potassium 5.7, BUN 20, creatinine 0.87, glucose 113, urinalysis positive for urinary tract infection. Abdomen/pelvis CT revealing trace left effusion, trace pericardial effusion. Patient was started IV antibiotic regimen Rocephin, please see medication orders section in the computer. On my assessment, patient denied chest pain, no headache, no dizziness, no shortness of breath, no nausea, no vomiting, no fever, no chills. Patient was admitted for further evaluation and medical management. Update - 03/26: Patient overnight having tachycardia episodes, no longer having febrile episodes. Dysuria is improving. She complains of pruritic rash on right inner thigh. She does have cats at home who is asleep with her. She continues to tolerate p.o., no nausea or vomiting, no abdominal pain. - 03/27: Her right thigh rash is improving, but she having sinus tachycardia, although afebrile. Antibiotics were upgraded yesterday to Zosyn Reviewed: Care Plan, H&P, Labs, Medications, Previous Orders, Radiology Changes from previous H/P or p: No Changes General: Per HPI Objective Vitals Vital Signs Date Time Temp Pulse Resp B/P (MAP) Pulse Ox O2 Delivery O2 Flow Rate FiO2 03/27/24 17:00 97.1 104 17 150/67 (94) 96 97.1 03/27/24 07:55 Room Air* 0 21 Intake/Output Intake and Output 03/27/24 07:00 Intake Total 1759 ml Balance 1759 ml Intake Oral 1129 ml IV Total 630 ml # Voids 5 Exam - GEN: Healthy appearing, well-developed, NAD. - HEENT: NC/AT, PERRLA, MMM. - CV: RRR, no m/r/g. - LUNGS: CTAB, no w/r/c. - ABD: Soft, NT/ND, NBS, no masses or organomegaly. No suprapubic tenderness - EXTREM: Warm, well perfused. Right medial thigh with nonblanching, pruritic rash extending from knee towards upper medial thigh, there is also similar rash on the lower back on the right side - NEURO: ambulating. grossly no focal deficits, CN2-12 intact Medications Current Medications Medications Dose Ordered Sig/Mica Route Start Time Stop Time Status Last Admin Dose Admin Hydralazine HCl 10 mg Q6HP PRN IV 03/24/24 03:00 03/26/24 04:27 10 MG Clonidine HCl 0.1 mg Q6HP PRN PO 03/24/24 03:00 Sodium Chloride 1,000 ml @ 60 mls/hr [id number] IV 03/24/24 03:00 03/25/24 12:21 60 MLS/HR Acetaminophen/ Hydrocodone Bitart 1 tab Q4HP PRN PO 03/24/24 03:00 03/27/24 13:03 1 TAB Ondansetron HCl 4 mg Q4HP PRN IV 03/24/24 03:00 03/24/24 19:00 4 MG Docusate Sodium 100 mg BIDPRN PRN PO 03/24/24 03:00 Acetaminophen 650 mg Q6HP PRN PO 03/24/24 03:00 03/25/24 10:22 650 MG Morphine Sulfate 2 mg Q4HPRN PRN IV 03/24/24 03:00 Nitroglycerin 0.4 mg Q5MINP PRN SL 03/24/24 07:30 Morphine Sulfate 2 mg Q30M PRN IV 03/24/24 07:30 Hydrocortisone 1 applic BID TOP 03/26/24 10:00 03/27/24 21:21 1 APPLIC Piperacillin Sod/ Tazobactam Sod 100 ml @ 25 mls/hr Q8HR IV 03/26/24 22:00 03/27/24 21:21 25 MLS/HR Folic Acid 1 mg DAILY PO 03/28/24 10:00 Hydroxychloroquine Sulfate 200 mg DAILY PO 03/28/24 10:00 Metoprolol Succinate 25 mg DAILY PO 03/28/24 10:00 Prednisone 20 mg BID PO 03/27/24 22:00 03/27/24 21:19 20 MG Laboratory Results Laboratory Tests 03/25/24 05:37 03/27/24 06:24 Urinalysis Test 03/23/24 20:20 Urine Color Colorless (Yellow) Urine Clarity Clear (Clear) Urine pH 6.0 (5.0-9.0) Urine Specific [place] 1.007 (1.001-1.035) Urine Protein 2+ (Negative) H Urine Ketones Negative (Negative) Urine Blood 2+ /uL (Negative) H Urine Nitrite Negative (Negative) Urine Bilirubin Negative (Negative) Urine Urobilinogen Normal mg/dL (Negative) Urine Leukocyte Esterase 2+ /uL (Negative) Urine RBC 32 /hpf (0 - 4) Urine WBC 44 /hpf (0 - 5) Urine Squamous Epithelial Cells Few /hpf (<5) Urine Bacteria Few /hpf (None Seen) H Urine Glucose Normal mg/dL (Normal) Microbiology Microbiology Date/Time Source Procedure Growth Status 03/25/24 15:00 Blood Blood Culture - Preliminary NO GROWTH AFTER 48 HOURS OF INCUBATION. Resulted 03/23/24 20:20 Voided Urine Urine Culture - Final Complete Labs and/or images reviewed: Labs reviewed by me, Image(s) reviewed by me Assessment/Plan Assessment/Plan Acute Pyelonephritis, complicated, with recurrent fevers Sinus tachycardia Leukocytosis, resolved Neutrophilia, resolved - patient admits she presented with CC of UTI/dysuria - On day 2 she also develops right thigh cellulitis -UA persistent with infection - urine culture - return with mixed genet, this was a dirty sample. Repeat if needed - Zosyn (previously on ceftriaxone) - with no urine culture sample to guide antibiotic deescalation, we will continue with IV antibiotics until the patient shows improvement. We will deescalate empirically for outpatient treatment if patient keeps improving Right thigh rash (possible cellulitis, possible drug reaction) - we will treat as cellulitis for now - p.r.n. Benadryl, precipitated this with drug reaction versus allergic dermatitis Hypertensive urgency - blood pressure likely related to pain from dysuria will monitor and start antihypertensives as needed Hyperkalemia (resolved) -hyperkalemia on initial labs, resolved after IV Diet regular GI prophylaxis-patient tolerating diet DVT prophylaxis patient ambulating Maintain med/tele Plan discussed with: Patient My Orders Orders - JESSY WHITTAKER MD Procedure Category Date Status Time Folic Acid Tablet PHA 03/28/24 In Process 10:00 Hydroxychloroquine PHA 03/28/24 In Process Tablet (Plaquenil Tab 10:00 Metoprolol Xl PHA 03/28/24 In Process Succinate (Toprol Xl) 10:00 Prednisone Tablet PHA 03/27/24 In Process 22:00 Date of Service: Mar 27, 2024 Billing Provider: JESSY WHITTAKER MD Common Visit Codes: [id number] INP/OBS CARE(HIGH) JESSY WHITTAKER MD Mar 27, 2024 22:10
[2024-03-28] VITALS (8 sets, daily range): BP systolic 132–158; BP diastolic 78–110; PULSE 97–115; RESP 17–20; TEMP 97.9–98.6; O2SAT 95–99
[2024-03-28 07:02] LABS: Basophils # (auto) 0 10 ^3/uL (0-0.2); Eosinophils # (auto) 0 10 ^3/uL (0-0.8); Hemoglobin 8.6 g/dL (12.2-16.2); Lymphocytes # (auto) 0.3 10 ^3/uL (0.4-5.4); Monocytes # (auto) 0.1 10 ^3/uL (0-1.3); Monocytes % (auto) 3.4 % (0.0-12.0); Neutrophils # (auto) 3.1 10 ^3/uL (1.6-8.6); White Blood Cell 3.5 10^3/uL (4.4-10.8)
[2024-03-28 07:05] LABS: Basophils % (auto) 0.1 % (0.0-2.0); Hematocrit 27.1 % (36.0-46.0); Lymphocytes % (auto) 8.2 % (10.0-50.0); Mean Corpuscular Hgb Conc. 31.6 g/dL (32.0-36.0); Mean Corpuscular Volume 66.3 fL (80.0-100.0); Neutrophils % (auto) 88.3 % (37.0-80.0); Nucleated Red Blood Cells % 0.1 %; Platelet Count (auto) 278 10^3/uL (140-450); Red Blood Cells 4.08 10^6/uL (4.0-5.20)
[2024-03-28] MEDS: diphenhdrAMINE HCL 50 MG/1 ML VL IV ONE (08:21)
--- NOTE | 2024-03-28 08:28 | DVHINCON2 ---
Date Seen: Mar 28, [address] Moore Reason for Consultation Sinus tachycardia History of Present Illness Torie Starks is a 33-year-old female patient who presents to the ED with complaint of right lower quadrant stabbing abdominal pain intensity 7/10 which has progressively been getting worse. Patient reports multiple UTIs, one recently diagnosed less than one month ago under antibiotic treatment. Patient also complains of right lower extremity rash which is painful and started less than five days before her admission. Denies palpitation, syncope, chest pain, dyspnea, nausea, vomiting, diarrhea, dysuria, pollakiuria, sick contacts and motor or sensory deficits. Cardiology was consulted for sinus tachycardia. Past medical history: Systemic lupus erythematosus treated with hydr ochloroquine and prednisone, multiple UTIs Surgical history: Denies Family history: Noncontributory Social history: Denies current tobacco, alcohol and other drug abuse Allergies: Denies Home medication: Folic acid 1 mg p.o. daily, furosemide 20 mg p.o. daily, hydroxychloroquine 200 mg p.o. daily, losartan 25 mg p.o. b.i.d., metoprolol 25 mg p.o. daily, omeprazole 20 mg p.o. daily, prednisone 20 mg p.o. b.i.d. Patient seen and examined at bedside. Patient is not complaining of palpitations at this time, does not have abdominal pain nor pain on her rash at this moment. Past Medical History Per HPI Past Surgical History Per HPI Family History: Hypertension G8 FATHER Family History Per HPI Social History Per HPI Allergies: Coded Allergies: NO KNOWN ALLERGIES (Unverified , 03/20/24) Home Meds Active Scripts Omeprazole (Gnp Omeprazole) 20 Mg Tab, 1 TAB PO DAILY for 14 Days, #14 TAB 1 Refill Prov:BALDEV MIRZA MD 03/20/24 Cefdinir (Cefdinir) 300 Mg Cap, 1 CAP PO BID for 5 Days, #14 CAP Prov:BALDEV MIRZA MD 03/20/24 Reported Medications Losartan Potassium (Losartan Potassium) 25 Mg Tab, 25 MG PO BID for 30 Days, MG 03/26/24 Prednisone (Prednisone) 20 Mg Tab, 20 MG PO BID, MG 03/26/24 Hydroxychloroquine Sulfate (Hydroxychloroquine Sulfat) 200 Mg Tab, 200 MG PO, TAB 03/26/24 Furosemide (Furosemide) 20 Mg Tab, 20 MG PO DAILY for 30 Days, MG 03/26/24 Folic Acid (Folic Acid) 1 Mg Tab, 1 MG PO, TAB 03/26/24 Metoprolol Succinate (Metoprolol Succinate Er) 25 Mg Tab, 1 TAB PO DAILY, #30 TAB 5 Refills 03/26/24 Current Medications Current Medications Medications (Trade) Dose Ordered Sig/Mica Route PRN Reason Start Time Stop Time Status Last Admin Folic Acid 1 mg DAILY PO 03/28/24 10:00 Hydroxychloroquine Sulfate (Plaquenil Tablet) 200 mg DAILY PO 03/28/24 10:00 Metoprolol Succinate (Toprol Xl) 25 mg DAILY PO 03/28/24 10:00 Prednisone 20 mg BID PO 03/27/24 22:00 03/27/24 21:19 Review of Systems Per HPI Vital Signs Vital Signs Date Time Temp Pulse Resp B/P (MAP) Pulse Ox O2 Delivery O2 Flow Rate FiO2 03/28/24 05:00 98.0 99 18 158/92 (114) 95 98.0 03/27/24 20:00 Room Air* 0 21 Physical Exam Patient lying in bed, in no acute distress General: Lucid, afebrile, mucosae are moist Cardiovascular: Normal S1 and S2. No murmurs, gallops or rubs Respiratory: Normal ventilation mechanics. Clear lung sounds on auscultation Abdomen: Soft, nontender, no organomegaly, normal bowel sounds MSK/skin: Mobilizes 4 limbs. Skin is dry and warm, presents lower right extremity rash in L3-L4 dermatome which is macular papular vesicular. Neurological: Oriented in 3 spheres. No motor no sensitive deficits. Pupils are isocoric and reactive Labs/Diagnostic Data Labs Test 03/28/24 05:53 03/27/24 06:24 03/25/24 05:37 03/24/24 22:36 Range/Units White Blood Count 3.5 #L 4.4-10.8 10^3/uL Red Blood Count 4.08 4.0-5.20 10^6/uL Hemoglobin 8.6 L 12.2-16.2 g/dL Hematocrit 27.1 L 36.0-46.0 % Mean Corpuscular Volume 66.3 L 80.0-100.0 fL Mean Corpuscular Hemoglobin 21.0 L 28.0-32.0 pg Mean Corpuscular Hemoglobin Concent 31.6 L 32.0-36.0 g/dL Red Cell Distribution Width 19.0 H 11.8-14.3 % Platelet Count 278 140-450 10^3/uL Mean Platelet Volume 7.5 6.9-10.8 fL Neutrophils (%) (Auto) 88.3 H 37.0-80.0 % Lymphocytes (%) (Auto) 8.2 L 10.0-50.0 % Monocytes (%) (Auto) 3.4 0.0-12.0 % Eosinophils (%) (Auto) 0.0 0.0-7.0 % Basophils (%) (Auto) 0.1 0.0-2.0 % Neutrophils # (Auto) 3.1 1.6-8.6 10 ^3/uL Lymphocytes # (Auto) 0.3 L 0.4-5.4 10 ^3/uL Monocytes # (Auto) 0.1 0-1.3 10 ^3/uL Eosinophils # (Auto) 0 0-0.8 10 ^3/uL Basophils # (Auto) 0 0-0.2 10 ^3/uL Nucleated Red Blood Cells 0.1 % D-Dimer, Quantitative 2.42 H 0.0-0.49 mg/L FEU Hypochromasia (manual) Marked Microcytosis Marked Ovalocytes Few Sodium Level 135 L 136-145 mmol/L Potassium Level 4.2 3.5-5.1 mmol/L Chloride Level 106 98-107 mmol/L Carbon Dioxide Level 23 20-31 mmol/L Anion Gap 6 5-15 Blood Urea Nitrogen 16 9-23 mg/dL Creatinine 0.87 0.550-1.02 mg/dL Glomerular Filtration Rate Calc 91 >90 mL/min BUN/Creatinine Ratio 18.4 10.0-20.0 Serum Glucose 78 74-106 mg/dL Calcium Level 8.4 L 8.7-10.4 mg/dL Total Bilirubin 0.3 0.2-1.0 mg/dL Aspartate Amino Transferase (AST) 8 L 13-40 U/L Alanine Aminotransferase (ALT) < 9 7-40 U/L Alkaline Phosphatase 68 46-116 U/L Total Protein 6.3 5.7-8.2 g/dL Albumin 3.2 3.2-4.8 g/dL Lactic Acid Level 1.2 0.4-2.0 mmol/L Test 03/23/24 20:21 03/23/24 20:20 Range/Units Lipase 31 12-53 U/L Beta HCG, Quantitative 0.3 L 1.5-4.2 mIU/mL Urine Color Colorless Yellow Urine Clarity Clear Clear Urine pH 6.0 5.0-9.0 Urine Specific [place] 1.007 1.001-1.035 Urine Protein 2+ H Negative Urine Ketones Negative Negative Urine Blood 2+ H Negative /uL Urine Nitrite Negative Negative Urine Bilirubin Negative Negative Urine Urobilinogen Normal Negative mg/dL Urine Leukocyte Esterase 2+ Negative /uL Urine RBC 32 0 - 4 /hpf Urine WBC 44 0 - 5 /hpf Urine Squamous Epithelial Cells Few <5 /hpf Urine Bacteria Few H None Seen /hpf Urine Glucose Normal Normal mg/dL Microbiology Date/Time Source Procedure Growth Status 03/25/24 15:00 Blood Blood Culture - Preliminary NO GROWTH AFTER 48 HOURS OF INCUBATION. Resulted 03/23/24 20:20 Voided Urine Urine Culture - Final Complete Assessment Sinus tachycardia probably secondary to infectious process Probable pyelonephritis Probable herpes zoster History of systemic lupus erythematosus - under immunosuppressants Bicytopenia Plan/Recommendation Sinus tachycardia probably secondary to underlying cause (probable infection). Ordered echocardiogram, pending TSH is within normal limits. Ordered UDS, pending Patient may need diagnosis of herpes zoster, if positive she will receive antiviral treatment and gabapentin. May have to be isolated. Discussed case with Dr. Jay, patient, family, hospitalist and nurses: Suggest treating underlying cause of sinus tachycardia, ruling out herpes zoster, and continue with IV antibiotics for pyelonephritis. Awaiting results of echocardiogram Plan discussed with: Patient, Spouse, Other (Hospitalist and nurses) Date of Service: Mar 28, 2024 Billing Provider: CHERYL JAY MD Cardiology Common Codes: [id number] INP/OBS CARE (High), [id number] CARE 30-74 MIN JOSUÉ MATHUR RESIDENT Mar 28, 2024 08:28
[2024-03-28 09:20] LABS: Magnesium 2.7 mg/dL (1.6-2.6)
[2024-03-28 09:21] LABS: Phosphorus 3.4 mg/dL (2.4-5.1)
[2024-03-28 09:26] LABS: Hypochromia Moderate; Platelet Estimate Adequate
[2024-03-28] MEDS: diphenhdrAMINE HCL 25 MG CAP PO SCH (10:00)
[2024-03-28] MEDS: diphenhdrAMINE-ZINC ACETATE 1 APPLIC APPL TOP ONE (10:30)
[2024-03-28] MEDS: METOPROLOL SUCCINATE XL 50 MG TAB PO SCH (10:33)
[2024-03-28] MEDS: hydrOXYchloroQUINE SULFATE 200 MG TAB PO SCH (10:33)
[2024-03-28] MEDS: FOLIC ACID 1 MG TAB PO SCH (10:33)
[2024-03-28] MEDS: CYANOCOBALAMIN 500 MCG TAB PO SCH (10:33)
[2024-03-28] MEDS: ERGOCALCIFEROL 50,000 UNIT(1.25MG) CAP PO SCH (10:39)
--- NOTE | 2024-03-28 13:26 | DVHSR ---
APPROVED REPORT EXAM: Two-dimensional and M-mode echocardiogram with Doppler and color Doppler. Blood Pressure: 158/92 mmHg INDICATION Tachycardia RISK FACTORS Height: 63, Weight: 167 DIMENSIONS LVDd4.8 (3.8-5.7cm)LA (2D)4.3 (1.9-4.0cm)Aortic Root3.5 (2.0-3.7cm) LVDs3.4 (2.5-4.0cm)LA (MM) (1.9-4.0cm)Aortic Cusp Exc2.2 (1.5-2.0cm) EF (%) 55.0 (55-70%)Rt. Atrium3.7 (1.9-4.0cm)Asc. Aorta cm IVSd1.2 (0.7-1.1cm)RV (D) (1.8-2.4cm) PWd1.1 (0.7-1.1cm) Mitral Valve MitralMitral Stenosis E wave1.11m/sMV Mean GR.mmHg A wave1.14m/sMV Peak GR.97mmHg E/A ratio1.02D MVAcm2 DECEL [id number] 1/2 Timems Aortic Valve Aortic ValveAortic Stenosis V11.14m/Deanne Mean GR.5mmHg V21.64m/Deanne Peak GR.11mmHg LVOT Diameter2.3 (1.8-2.4cm)Doppler AVA2.89cm2 Pulmonic Valve V21.39m/s Conclusion Normal left ventricular size and dimension. Normal left ventricular systolic function estimated ejec tion fraction 55%. There is a grade 1 diastolic dysfunction. Normal right ventricular size and dimension. Normal right ventricular systolic function. Normal biatrial size and dimension. Normal aortic valve structure. Normal mitral structure function Normal tricuspid valve structure function. Pulmonary valve is grossly normal. No pericardial effusion.
[2024-03-28] MEDS: CLINDAMYCIN 600MG IV 50 ML IV SCH (14:00)
--- NOTE | 2024-03-28 21:37 | DVHPN2 ---
Subjective The patient is a 33-year-old female with past medical history UTIs who presented to [facility] with complaint acute abdominal pain. Patient reports symptoms progressively get worse with right-sided lower abdominal/pelvic, rating 7/10 numeric scale, getting worse that prompted this visit. Patient was seen and evaluated in the ED, laboratory data shows WBC 11.7, platelets 514, hemoglobin 9.1, hematocrit 29.4 sodium 134, potassium 5.7, BUN 20, creatinine 0.87, glucose 113, urinalysis positive for urinary tract infection. Abdomen/pelvis CT revealing trace left effusion, trace pericardial effusion. Patient was started IV antibiotic regimen Rocephin, please see medication orders section in the computer. On my assessment, patient denied chest pain, no headache, no dizziness, no shortness of breath, no nausea, no vomiting, no fever, no chills. Patient was admitted for further evaluation and medical management. Update - 03/26: Patient overnight having tachycardia episodes, no longer having febrile episodes. Dysuria is improving. She complains of pruritic rash on right inner thigh. She does have cats at home who is asleep with her. She continues to tolerate p.o., no nausea or vomiting, no abdominal pain. - 03/27: Her right thigh rash is improving, but she having sinus tachycardia, although afebrile. Antibiotics were upgraded yesterday to Zosyn - 03/28 - her sinus tachycardia overnight remains but a little improved in right. We will have to consult Cardiology today. She is not feeling her UTI symptoms any longer. The rash in her right thigh appears to be confined but progressing in stage. The rash is not bothering her anymore, there is no report of pruritus, pain/burning or weeping of wounds. Reviewed: Care Plan, H&P, Labs, Medications, Previous Orders, Radiology Changes from previous H/P or p: No Changes General: Per HPI Objective Vitals Vital Signs Date Time Temp Pulse Resp B/P (MAP) Pulse Ox O2 Delivery O2 Flow Rate FiO2 03/28/24 20:54 97.9 115 17 132/78 (96) 97 97.9 03/28/24 08:00 Room Air* 0 21 Intake/Output Intake and Output 03/28/24 06:59 Intake Total 1300 ml Balance 1300 ml Intake Oral 1100 ml IV Total 200 ml # Voids 2 Exam - GEN: Healthy appearing, well-developed, NAD. - HEENT: NC/AT, PERRLA, MMM. - CV: RRR, no m/r/g. - LUNGS: CTAB, no w/r/c. - ABD: Soft, NT/ND, NBS, no masses or organomegaly. No suprapubic tenderness, no CVA tenderness - EXTREM: Warm, well perfused. Right medial thigh with nonblanching, pruritic rash extending from knee towards upper medial thigh, there is also similar rash on the lower back on the right side. Rash remains confined to its original size but is progressing stage. There is no purulent drainage anywhere, no blisters,. - NEURO: ambulating. grossly no focal deficits, CN2-12 intact Medications Current Medications Medications Dose Ordered Sig/Mica Route Start Time Stop Time Status Last Admin Dose Admin Hydralazine HCl 10 mg Q6HP PRN IV 03/24/24 03:00 03/28/24 04:01 10 MG Clonidine HCl 0.1 mg Q6HP PRN PO 03/24/24 03:00 Sodium Chloride 1,000 ml @ 60 mls/hr [id number] IV 03/24/24 03:00 03/25/24 12:21 60 MLS/HR Acetaminophen/ Hydrocodone Bitart 1 tab Q4HP PRN PO 03/24/24 03:00 03/27/24 22:47 1 TAB Ondansetron HCl 4 mg Q4HP PRN IV 03/24/24 03:00 03/24/24 19:00 4 MG Docusate Sodium 100 mg BIDPRN PRN PO 03/24/24 03:00 Acetaminophen 650 mg Q6HP PRN PO 03/24/24 03:00 03/25/24 10:22 650 MG Morphine Sulfate 2 mg Q4HPRN PRN IV 03/24/24 03:00 Nitroglycerin 0.4 mg Q5MINP PRN SL 03/24/24 07:30 Morphine Sulfate 2 mg Q30M PRN IV 03/24/24 07:30 Hydrocortisone 1 applic BID TOP 03/26/24 10:00 03/28/24 10:39 1 APPLIC Piperacillin Sod/ Tazobactam Sod 100 ml @ 25 mls/hr Q8HR IV 03/26/24 22:00 03/28/24 14:09 25 MLS/HR Folic Acid 1 mg DAILY PO 03/28/24 10:00 03/28/24 10:33 1 MG Hydroxychloroquine Sulfate 200 mg DAILY PO 03/28/24 10:00 03/28/24 10:33 200 MG Metoprolol Succinate 25 mg DAILY PO 03/28/24 10:00 03/28/24 10:33 25 MG Prednisone 20 mg BID PO 03/27/24 22:00 03/28/24 10:39 20 MG Cyanocobalamin 1,000 mcg DAILY PO 03/28/24 10:00 03/28/24 10:33 1,000 MCG Ergocalciferol 50,000 unit Q7D PO 03/28/24 09:45 03/28/24 10:39 50,000 UNIT Diphenhydramine HCl 25 mg BID PO 03/28/24 10:00 Clindamycin Phosphate 50 ml @ 50 mls/hr Q8HR IV 03/28/24 14:00 Laboratory Results Laboratory Tests 03/25/24 05:37 03/28/24 05:53 Chemistry Test 03/28/24 05:53 Magnesium Level 2.7 mg/dL (1.6-2.6) H Phosphorus Level 3.4 mg/dL (2.4-5.1) Coagulation Test 03/28/24 05:53 D-Dimer, Quantitative 2.42 mg/L FEU (0.0-0.49) H Lipid panel Test 03/28/24 05:53 Cholesterol Level 141 mg/dL (< 200) HDL Cholesterol 41 mg/dL (40-59) Triglycerides Level 121 mg/dL (< 150) Cardiac Markers Test 03/28/24 05:53 B-Type Natriuretic Peptide 199.18 pg/mL (0-100) HgA1c, TSH Test 03/28/24 05:53 Hemoglobin A1c 4.9 % A1C (<5.7) Thyroid Stimulating Hormone (TSH) 2.34 uIU/mL (0.55-4.78) Urinalysis Test 03/23/24 20:20 Urine Color Colorless (Yellow) Urine Clarity Clear (Clear) Urine pH 6.0 (5.0-9.0) Urine Specific [place] 1.007 (1.001-1.035) Urine Protein 2+ (Negative) H Urine Ketones Negative (Negative) Urine Blood 2+ /uL (Negative) H Urine Nitrite Negative (Negative) Urine Bilirubin Negative (Negative) Urine Urobilinogen Normal mg/dL (Negative) Urine Leukocyte Esterase 2+ /uL (Negative) Urine RBC 32 /hpf (0 - 4) Urine WBC 44 /hpf (0 - 5) Urine Squamous Epithelial Cells Few /hpf (<5) Urine Bacteria Few /hpf (None Seen) H Urine Glucose Normal mg/dL (Normal) Microbiology Microbiology Date/Time Source Procedure Growth Status 03/25/24 15:00 Blood Blood Culture - Preliminary NO GROWTH AFTER 72 HOURS OF INCUBATION. Resulted 03/23/24 20:20 Voided Urine Urine Culture - Final Complete Labs and/or images reviewed: Labs reviewed by me, Image(s) reviewed by me Assessment/Plan Assessment/Plan update - 03/28 - her sinus tachycardia overnight remains but a little improved in right. We will have to consult Cardiology today. She is not feeling her UTI symptoms any longer. The rash in her right thigh appears to be confined but progressing in stage. The rash is not bothering her anymore, there is no report of pruritus, pain/burning or weeping of wounds. Acute Pyelonephritis, complicated, with recurrent fevers Sinus tachycardia Leukocytosis, resolved Neutrophilia, resolved - patient admits she presented with CC of UTI/dysuria - On day 2 she also develops right thigh cellulitis -UA persistent with infection - urine culture - return with mixed genet, this was a dirty sample. Repeat if needed - Zosyn (previously on ceftriaxone) - with no urine culture sample to guide antibiotic deescalation, we will continue with IV antibiotics until the patient shows improvement. We will deescalate empirically for outpatient treatment if patient keeps improving Sinus tachycardia -we started her home metoprolol (might for her blood pressure). Her rate remains high overnight cardiology is consulted today - cardiology thinks it is likely from the infection. They are obtaining TSH - we will obtain D-dimer, although there is no hypoxia no shortness - if these symptoms occur PE will be higher on ddx Right thigh rash (possible cellulitis, possible drug reaction) - we will treat as cellulitis for now. This is appearing less like cellulitis, most likely allergic dermatitis. Cardiology raises concern for possible shingles mixed this is done appear like. No vesicles to sample for PCR - scheduled Benadryl ,,will add 1 time Benadryl, - for possibility of allergic dermatitis - if wound becomes vesicular drainage, we will sample for VZV PCR. Shingles possible because she is immunocompromised - we will obtain Infectious Disease consult rule out erysipelas versus History of SLE - continue home medications, hydroxychloroquine, prednisone Hypertensive urgency - blood pressure likely related to pain from dysuria will monitor and start antihypertensives as needed Hyperkalemia (resolved) -hyperkalemia on initial labs, resolved after IV Diet regular GI prophylaxis-patient tolerating diet DVT prophylaxis patient ambulating Maintain med/tele Plan discussed with: Patient My Orders Orders - JESSY WHITTAKER MD Procedure Category Date Status Time * Cardiology Consult CONS 03/28/24 Transmitted 07:33 Record Ekg ALEENA 03/28/24 In Process 07:34 Diphenhdramine PHA 03/28/24 In Process Capsule (Benadryl 10:00 * Infectious [place]- CONS 03/28/24 Transmitted Wilfred Lopez 13:10 Clindamycin 600mg Iv PHA 03/28/24 In Process (Cleocin Iv) 14:00 Date of Service: Mar 28, 2024 Billing Provider: JESSY WHITTAKER MD Common Visit Codes: [id number] INP/OBS CARE(HIGH) JESSY WHITTAKER MD Mar 28, 2024 21:37
[2024-03-29] VITALS (8 sets, daily range): BP systolic 134–161; BP diastolic 84–103; PULSE 94–115; RESP 16–18; TEMP 97.4–98.3; O2SAT 97–100
[2024-03-29 06:53] LABS: Albumin 2.9 g/dL (3.2-4.8); Alkaline Phosphatase 62 U/L (46-116); Anion Gap 5 (5-15); Aspartate Aminotransferase 9 U/L (13-40); BUN/Creatinine Ratio 21.4 (10.0-20.0); Basophils # (auto) 0 10 ^3/uL (0-0.2); Basophils % (auto) 0.1 % (0.0-2.0); Blood Urea Nitrogen 25 mg/dL (9-23); Calcium 8.2 mg/dL (8.7-10.4); Carbon Dioxide 22 mmol/L (20-31); Chloride 109 mmol/L (98-107); Eosinophils # (auto) 0 10 ^3/uL (0-0.8); Glucose 122 mg/dL (74-106); Mean Corpuscular Hemoglobin 20.6 pg (28.0-32.0); Mean Corpuscular Volume 66.4 fL (80.0-100.0); Monocytes # (auto) 0.3 10 ^3/uL (0-1.3); Neutrophils # (auto) 4.7 10 ^3/uL (1.6-8.6); Potassium 5.2 mmol/L (3.5-5.1); Red Cell Distribution Width 19.2 % (11.8-14.3); Sodium 136 mmol/L (136-145)
[2024-03-29 06:54] LABS: Bilirubin, Total 0.2 mg/dL (0.2-1.0); Total Protein 5.8 g/dL (5.7-8.2)
[2024-03-29 06:55] LABS: Alanine Aminotransferase < 9 U/L (7-40)
[2024-03-29 06:57] LABS: Lymphocytes # (auto) 0.5 10 ^3/uL (0.4-5.4); Monocytes % (auto) 4.9 % (0.0-12.0); Platelet Count (auto) 329 10^3/uL (140-450); Red Blood Cells 3.91 10^6/uL (4.0-5.20); White Blood Cell 5.4 10^3/uL (4.4-10.8)
[2024-03-29 08:43] LABS: Hypochromia Marked; Platelet Estimate Adequate
--- NOTE | 2024-03-29 09:10 | DVHPNRES ---
Progress Note Date Seen: Mar 29, 2024 Resident Creating Document: JOSUÉ MATHUR RESIDENT Medical Necessity Reason Pt with a Central, PICC or Fol: No Subjective Review of Systems Torie Starks is a 33-year-old female patient who presents to the ED with complaint of right lower quadrant stabbing abdominal pain intensity 7/10 which has progressively been getting worse. Patient reports multiple UTIs, one recently diagnosed less than one month ago under antibiotic treatment. Patient also complains of right lower extremity rash which is painful and started less than five days before her admission. Denies palpitation, syncope, chest pain, dyspnea, nausea, vomiting, diarrhea, dysuria, pollakiuria, sick contacts and motor or sensory deficits. Cardiology was consulted for sinus tachycardia. Past medical history: Systemic lupus erythematosus treated with hydrochloroquine and prednisone, multiple UTIs Surgical history: Denies Family history: Noncontributory Social history: Denies current tobacco, alcohol and other drug abuse Allergies: Denies Home medication: Folic acid 1 mg p.o. daily, furosemide 20 mg p.o. daily, hydroxychloroquine 200 mg p.o. daily, losartan 25 mg p.o. b.i.d., metoprolol 25 mg p.o. daily, omeprazole 20 mg p.o. daily, prednisone 20 mg p.o. b.i.d. Patient seen and examined at bedside. Patient is not complaining of palpitations at this time, does not have abdominal pain nor pain on her rash at this moment. Complementary workup: EKG: Normal sinus rhythm at 90 beats per minute, no ST alteration Abdomen and pelvis CT: Trace pleural empiric cardial effusion, trace fluid in cul-de-sac Echocardiogram: LVEF 55%, grade 1 diastolic dysfunction, normal RV systolic function. No pericardial effusion Objective vital signs Vital Sign Date Time Temp Pulse Resp B/P (MAP) Pulse Ox O2 Delivery O2 Flow Rate FiO2 03/29/24 04:50 98.3 106 17 150/99 (116) 98 98.3 03/28/24 20:00 Room Air* 0 21 Total Intake and Output 03/28/24 03/28/24 03/29/24 14:59 22:59 06:59 Intake Total 100 ml 650 ml 1420 ml Balance 100 ml 650 ml 1420 ml medications Current Medications Medications Dose Ordered Sig/Mica Route Start Time Stop Time Status Last Admin Dose Admin Hydralazine HCl 10 mg Q6HP PRN IV 03/24/24 03:00 03/28/24 04:01 10 MG Clonidine HCl 0.1 mg Q6HP PRN PO 03/24/24 03:00 Sodium Chloride 1,000 ml @ 60 mls/hr [id number] IV 03/24/24 03:00 03/25/24 12:21 60 MLS/HR Acetaminophen/ Hydrocodone Bitart 1 tab Q4HP PRN PO 03/24/24 03:00 03/27/24 22:47 1 TAB Ondansetron HCl 4 mg Q4HP PRN IV 03/24/24 03:00 03/24/24 19:00 4 MG Docusate Sodium 100 mg BIDPRN PRN PO 03/24/24 03:00 Acetaminophen 650 mg Q6HP PRN PO 03/24/24 03:00 03/25/24 10:22 650 MG Morphine Sulfate 2 mg Q4HPRN PRN IV 03/24/24 03:00 Nitroglycerin 0.4 mg Q5MINP PRN SL 03/24/24 07:30 Morphine Sulfate 2 mg Q30M PRN IV 03/24/24 07:30 Hydrocortisone 1 applic BID TOP 03/26/24 10:00 03/28/24 22:31 1 APPLIC Piperacillin Sod/ Tazobactam Sod 100 ml @ 25 mls/hr Q8HR IV 03/26/24 22:00 03/29/24 05:39 25 MLS/HR Folic Acid 1 mg DAILY PO 03/28/24 10:00 03/28/24 10:33 1 MG Hydroxychloroquine Sulfate 200 mg DAILY PO 03/28/24 10:00 03/28/24 10:33 200 MG Metoprolol Succinate 25 mg DAILY PO 03/28/24 10:00 03/28/24 10:33 25 MG Prednisone 20 mg BID PO 03/27/24 22:00 03/28/24 21:09 20 MG Cyanocobalamin 1,000 mcg DAILY PO 03/28/24 10:00 03/28/24 10:33 1,000 MCG Ergocalciferol 50,000 unit Q7D PO 03/28/24 09:45 03/28/24 10:39 50,000 UNIT Diphenhydramine HCl 25 mg BID PO 03/28/24 10:00 03/28/24 21:11 25 MG Clindamycin Phosphate 50 ml @ 50 mls/hr Q8HR IV 03/28/24 14:00 03/29/24 05:39 50 MLS/HR Examination Patient lying in bed, in no acute distress General: Lucid, afebrile, mucosae are moist Cardiovascular: Normal S1 and S2. No murmurs, gallops or rubs Respiratory: Normal ventilation mechanics. Clear lung sounds on auscultation Abdomen: Soft, nontender, no organomegaly, normal bowel sounds MSK/skin: Mobilizes 4 limbs. Skin is dry and warm, presents lower right extremity rash in L3-L4 dermatome which is macular papular vesicular. Neurological: Oriented in 3 spheres. No motor no sensitive deficits. Pupils are isocoric and reactive laboratory and microbiology Laboratory Tests 03/29/24 05:42 Test 03/29/24 05:42 Range/Units Serum Glucose 122 H 74-106 mg/dL Microbiology Date/Time Source Procedure Growth Status 03/25/24 15:00 Blood Blood Culture - Preliminary NO GROWTH AFTER 72 HOURS OF INCUBATION. Resulted 03/23/24 20:20 Voided Urine Urine Culture - Final Complete Problem List/Assessment/Plan Problem List/Assessment/Plan Assessment Sinus tachycardia probably secondary to infectious process Probable pyelonephritis Probable herpes zoster History of systemic lupus erythematosus - under immunosuppressants Bicytopenia Plan/Recommendation Sinus tachycardia probably secondary to underlying cause (probable infection). Echocardiogram: Within normal limits. TSH is within normal limits. Ordered UDS, pending Patient may need diagnosis of herpes zoster, if positive she will receive antiviral treatment and gabapentin. May have to be isolated. Discussed case with Dr. Perdomo, patient, family, hospitalist and nurses: Suggest treating underlying cause of sinus tachycardia, ruling out herpes zoster, and continue with IV antibiotics for pyelonephritis. Echocardiogram is within normal limits. We will sign off the case at this time. Thank you for including us in patient's care. Please reconsult if needed. Plan discussed with: Patient, Other (Nurses) My Orders My Orders Orders - JOSUÉ MATHUR RESIDENT Procedure Category Date Status Time Cyanocobalamin PHA 03/28/24 In Process (Vitamin B-12) 10:00 Ergocalciferol PHA 03/28/24 In Process (Vitamin D 50,000 09:45 Dietary Evaluation Review Comments: Follow cardiac 2gN Lofat LoChol Diet, monitor intake to meet 75% of her needs Expected Outcomes/Goals: gradual weight loss Visit Coding Cardiology RES Date of Service: Mar 29, 2024 Billing Provider: CHERYL PERDOMO MD Cardiology Common Codes: [id number] HOSP CARE(High, [id number] CARE 30-74 MIN JOSUÉ MATHUR RESIDENT Mar 29, 2024 09:10
[2024-03-29] MEDS ORDERED: VALA500T33 PO (18:10)
[2024-03-29] MEDS ORDERED: CLIN1CAP70 PO (18:10)
[2024-03-29] MEDS ORDERED: CIPR-173 PO (18:10)
--- NOTE | 2024-03-29 18:17 | DVHDS2 ---
Discharge Summary Date of Admission Mar 24, 2024 at 07:23 Date of Discharge: Mar 29, 2024 Admitting Diagnosis UTI cystitis Labs/Diagnostic Data: Laboratory Results Test 03/29/24 05:42 03/28/24 05:53 03/27/24 06:24 03/24/24 22:36 White Blood Count 5.4 10^3/uL (4.4-10.8) Red Blood Count 3.91 10^6/uL (4.0-5.20) Hemoglobin 8.0 g/dL (12.2-16.2) Hematocrit 26.0 % (36.0-46.0) Mean Corpuscular Volume 66.4 fL (80.0-100.0) Mean Corpuscular Hemoglobin 20.6 pg (28.0-32.0) Mean Corpuscular Hemoglobin Concent 31.0 g/dL (32.0-36.0) Red Cell Distribution Width 19.2 % (11.8-14.3) Platelet Count 329 10^3/uL (140-450) Mean Platelet Volume 7.3 fL (6.9-10.8) Neutrophils (%) (Auto) 86.0 % (37.0-80.0) Lymphocytes (%) (Auto) 9.0 % (10.0-50.0) Monocytes (%) (Auto) 4.9 % (0.0-12.0) Eosinophils (%) (Auto) 0.0 % (0.0-7.0) Basophils (%) (Auto) 0.1 % (0.0-2.0) Neutrophils # (Auto) 4.7 10 ^3/uL (1.6-8.6) Lymphocytes # (Auto) 0.5 10 ^3/uL (0.4-5.4) Monocytes # (Auto) 0.3 10 ^3/uL (0-1.3) Eosinophils # (Auto) 0 10 ^3/uL (0-0.8) Basophils # (Auto) 0 10 ^3/uL (0-0.2) Nucleated Red Blood Cells 0.0 % Platelet Estimate Adequate Hypochromasia (manual) Marked Microcytosis Marked Sodium Level 136 mmol/L (136-145) Potassium Level 5.2 mmol/L (3.5-5.1) Chloride Level 109 mmol/L (98-107) Carbon Dioxide Level 22 mmol/L (20-31) Anion Gap 5 (5-15) Blood Urea Nitrogen 25 mg/dL (9-23) Creatinine 1.17 mg/dL (0.550-1.02) Glomerular Filtration Rate Calc 64 mL/min (>90) BUN/Creatinine Ratio 21.4 (10.0-20.0) Serum Glucose 122 mg/dL (74-106) Calcium Level 8.2 mg/dL (8.7-10.4) Total Bilirubin 0.2 mg/dL (0.2-1.0) Aspartate Amino Transferase (AST) 9 U/L (13-40) Alanine Aminotransferase (ALT) < 9 U/L (7-40) Alkaline Phosphatase 62 U/L (46-116) Total Protein 5.8 g/dL (5.7-8.2) Albumin 2.9 g/dL (3.2-4.8) D-Dimer, Quantitative 2.42 mg/L FEU (0.0-0.49) Hemoglobin A1c 4.9 % A1C (<5.7) Phosphorus Level 3.4 mg/dL (2.4-5.1) Magnesium Level 2.7 mg/dL (1.6-2.6) Troponin I High Sensitivity < 3 ng/L (</=34) B-Type Natriuretic Peptide 199.18 pg/mL (0-100) Triglycerides Level 121 mg/dL (< 150) Cholesterol Level 141 mg/dL (< 200) LDL Cholesterol 79 mg/dL (< 100) HDL Cholesterol 41 mg/dL (40-59) Vitamin B12 Level 339 pg/mL (211-911) Vitamin D 25-Hydroxy 31.6 ng/mL (30.0-100) Thyroid Stimulating Hormone (TSH) 2.34 uIU/mL (0.55-4.78) Ovalocytes Few Lactic Acid Level 1.2 mmol/L (0.4-2.0) Test 03/23/24 20:21 03/23/24 20:20 Lipase 31 U/L (12-53) Beta HCG, Quantitative 0.3 mIU/mL (1.5-4.2) Urine Color Colorless (Yellow) Urine Clarity Clear (Clear) Urine pH 6.0 (5.0-9.0) Urine Specific [place] 1.007 (1.001-1.035) Urine Protein 2+ (Negative) Urine Ketones Negative (Negative) Urine Blood 2+ /uL (Negative) Urine Nitrite Negative (Negative) Urine Bilirubin Negative (Negative) Urine Urobilinogen Normal mg/dL (Negative) Urine Leukocyte Esterase 2+ /uL (Negative) Urine RBC 32 /hpf (0 - 4) Urine WBC 44 /hpf (0 - 5) Urine Squamous Epithelial Cells Few /hpf (<5) Urine Bacteria Few /hpf (None Seen) Urine Glucose Normal mg/dL (Normal) Other Laboratory Tests 03/29/24 05:42 Brief Hx & Hospital Course: The patient is a 33-year-old female with past medical history UTIs, SLE, HTN, who presented to [facility] with complaint acute abdominal pain. Patient reports symptoms progressively get worse with right-sided lower abdominal/pelvic, rating 7/10 numeric scale, getting worse that prompted this visit. urinalysis positive for urinary tract infection and she had CVA ttp, with suprapubic ttp. Abdomen/pelvis CT revealing trace left effusion, trace pericardial effusion. Patient was started IV antibiotic CTX, upgraded to zosyn when she started having tachycardia and febrile episodes. Ucx with mix genet, likely dirty catch. Pyelonephritis treated empirically with zosyn and outpt further with cipro. Then she had R leg/back rash, likely shingles > allergic dermatitis. She had cats recently give but is also on HCQ+pdn for SLE causing immunosuppression. She is given valacyclovir at d/c. She also has sinus tachycardia likely 2/2 pyelo +shingles but rates are not very high, cardiology evaluated (TSH nl. UDS pending but she is never drug user). her VSS, OOB ambulating and tolerating PO, she is safe to dc with close f/u outpt with plan below. Diagnosis: Acute Pyelonephritis, complicated, with recurrent fevers; Shingles VZV infection on LE dermatome in setting of immunosuppression from pharmaceuticals; Sinus tachycardia; Leukocytosis, resolved; Neutrophilia, resolved; Hx SLE on immunosuppressants; HTN; hypertensive urgency (resolved); hyperkalemia (resolved) visit and plan required 35 min. discharge plan: - for UTI take cipro 500mg 2x/day for 5 days - for rash- take valacyclovir 1000mg 3x/day for 14 days and take clindamycin 300mg 4x/day for 5 days. limit contact of household members with rash (cover rash during day). follow-up with PCP and see nanotechnologist. 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 Off until atleast april 09 2024. - return to ED if rash starts worsening or develop recurrent dysuria with fevers. Condition at Discharge: Fair Final Diagnosis/Problems List pyelonephritis Discharge Disposition: Home Discharge Instruct/Medications Diet: Regular Activity: No Restrictions, As Tolerated Follow Up/Referral: PCP, cardiology, dermatology Medications: as below Discharge Statement: "Patient was advised to return to the ER or call 911 if any headaches, dizziness, shortness of breath, chest pain, abdominal pain, bleeding, fevers, or worsening of medical condition. Patient was counseled about treatment plan, medications, possible side effects, patientverbalized understanding. All questions were answered to the best of my ability. This discharge took greater then 30 minutes in planning, reviewing documentation, counseling the patient, and discussing with other team members." ASSESSMENT ASSESSMENT Hospital Course as above Assessment Acute Pyelonephritis, complicated, with recurrent fevers; Shingles VZV infection on LE dermatome in setting of immunosuppression from pharmaceuticals; Sinus tachycardia; Leukocytosis, resolved; Neutrophilia, resolved; Hx SLE on immunosuppressants; HTN; hypertensive urgency (resolved); hyperkalemia (resolved) Date of Service: Mar 29, 2024 Billing Provider: JESSY WHITTAKER MD Common Visit Codes: 10926-GLC/OBS DISCH DAY >30min JESSY WHITTAKER MD Mar 29, 2024 18:17
--- NOTE | 2024-03-29 18:54 | DVHINCON2 ---
Date of service: Mar 28, 2024 Family History: Hypertension G8 FATHER Allergies: Coded Allergies: NO KNOWN ALLERGIES (Unverified , 03/20/24) Home Meds Active Scripts Ciprofloxacin Hcl (Cipro) 500 Mg Tab, 500 MG PO BID for 5 Days, #10 TAB Prov:JESSY WHITTAKER MD 03/29/24 Clindamycin Hcl (Clindamycin Hcl) 300 Mg Cap, 300 MG PO QID for 5 Days, #20 CAP Prov:JESSY WHITTAKER MD 03/29/24 Valacyclovir Hcl (Valacyclovir Hcl) 500 Mg Tab, 1000 MG PO TID for 14 Days, #84 TAB Prov:JESSY WHITTAKER MD 03/29/24 Omeprazole (Gnp Omeprazole) 20 Mg Tab, 1 TAB PO DAILY for 14 Days, #14 TAB 1 Refill Prov:BALDEV MIRZA MD 03/20/24 Reported Medications Losartan Potassium (Losartan Potassium) 25 Mg Tab, 25 MG PO BID for 30 Days, MG 03/26/24 Prednisone (Prednisone) 20 Mg Tab, 20 MG PO BID, MG 03/26/24 Hydroxychloroquine Sulfate (Hydroxychloroquine Sulfat) 200 Mg Tab, 200 MG PO, TAB 03/26/24 Furosemide (Furosemide) 20 Mg Tab, 20 MG PO DAILY for 30 Days, MG 03/26/24 Folic Acid (Folic Acid) 1 Mg Tab, 1 MG PO, TAB 03/26/24 Metoprolol Succinate (Metoprolol Succinate Er) 25 Mg Tab, 1 TAB PO DAILY, #30 TAB 5 Refills 03/26/24 Discontinued Scripts Cefdinir (Cefdinir) 300 Mg Cap, 1 CAP PO BID for 5 Days, #14 CAP Prov:BALDEV MIRZA MD 03/20/24 Vital Signs Vital Signs Date Time Temp Pulse Resp B/P (MAP) Pulse Ox O2 Delivery O2 Flow Rate FiO2 03/29/24 16:10 98.1 115 16 146/94 (111) 98 98.1 03/29/24 08:00 Room Air* 0 21 Labs/Diagnostic Data Labs Test 03/29/24 05:42 03/28/24 05:53 03/27/24 06:24 03/24/24 22:36 Range/Units White Blood Count 5.4 # 4.4-10.8 10^3/uL Red Blood Count 3.91 L 4.0-5.20 10^6/uL Hemoglobin 8.0 L 12.2-16.2 g/dL Hematocrit 26.0 L 36.0-46.0 % Mean Corpuscular Volume 66.4 L 80.0-100.0 fL Mean Corpuscular Hemoglobin 20.6 L 28.0-32.0 pg Mean Corpuscular Hemoglobin Concent 31.0 L 32.0-36.0 g/dL Red Cell Distribution Width 19.2 H 11.8-14.3 % Platelet Count 329 140-450 10^3/uL Mean Platelet Volume 7.3 6.9-10.8 fL Neutrophils (%) (Auto) 86.0 H 37.0-80.0 % Lymphocytes (%) (Auto) 9.0 L 10.0-50.0 % Monocytes (%) (Auto) 4.9 0.0-12.0 % Eosinophils (%) (Auto) 0.0 0.0-7.0 % Basophils (%) (Auto) 0.1 0.0-2.0 % Neutrophils # (Auto) 4.7 1.6-8.6 10 ^3/uL Lymphocytes # (Auto) 0.5 0.4-5.4 10 ^3/uL Monocytes # (Auto) 0.3 0-1.3 10 ^3/uL Eosinophils # (Auto) 0 0-0.8 10 ^3/uL Basophils # (Auto) 0 0-0.2 10 ^3/uL Nucleated Red Blood Cells 0.0 % Platelet Estimate Adequate Hypochromasia (manual) Marked Microcytosis Marked Sodium Level 136 136-145 mmol/L Potassium Level 5.2 H 3.5-5.1 mmol/L Chloride Level 109 H 98-107 mmol/L Carbon Dioxide Level 22 20-31 mmol/L Anion Gap 5 5-15 Blood Urea Nitrogen 25 H 9-23 mg/dL Creatinine 1.17 #H 0.550-1.02 mg/dL Glomerular Filtration Rate Calc 64 >90 mL/min BUN/Creatinine Ratio 21.4 H 10.0-20.0 Serum Glucose 122 H 74-106 mg/dL Calcium Level 8.2 L 8.7-10.4 mg/dL Total Bilirubin 0.2 0.2-1.0 mg/dL Aspartate Amino Transferase (AST) 9 L 13-40 U/L Alanine Aminotransferase (ALT) < 9 7-40 U/L Alkaline Phosphatase 62 46-116 U/L Total Protein 5.8 5.7-8.2 g/dL Albumin 2.9 L 3.2-4.8 g/dL D-Dimer, Quantitative 2.42 H 0.0-0.49 mg/L FEU Hemoglobin A1c 4.9 <5.7 % A1C Phosphorus Level 3.4 2.4-5.1 mg/dL Magnesium Level 2.7 H 1.6-2.6 mg/dL Troponin I High Sensitivity < 3 L </=34 ng/L B-Type Natriuretic Peptide 199.18 0-100 pg/mL Triglycerides Level 121 < 150 mg/dL Cholesterol Level 141 < 200 mg/dL LDL Cholesterol 79 < 100 mg/dL HDL Cholesterol 41 40-59 mg/dL Vitamin B12 Level 339 211-911 pg/mL Vitamin D 25-Hydroxy 31.6 30.0-100 ng/mL Thyroid Stimulating Hormone (TSH) 2.34 0.55-4.78 uIU/mL Ovalocytes Few Lactic Acid Level 1.2 0.4-2.0 mmol/L Test 03/23/24 20:21 03/23/24 20:20 Range/Units Lipase 31 12-53 U/L Beta HCG, Quantitative 0.3 L 1.5-4.2 mIU/mL Urine Color Colorless Yellow Urine Clarity Clear Clear Urine pH 6.0 5.0-9.0 Urine Specific [place] 1.007 1.001-1.035 Urine Protein 2+ H Negative Urine Ketones Negative Negative Urine Blood 2+ H Negative /uL Urine Nitrite Negative Negative Urine Bilirubin Negative Negative Urine Urobilinogen Normal Negative mg/dL Urine Leukocyte Esterase 2+ Negative /uL Urine RBC 32 0 - 4 /hpf Urine WBC 44 0 - 5 /hpf Urine Squamous Epithelial Cells Few <5 /hpf Urine Bacteria Few H None Seen /hpf Urine Glucose Normal Normal mg/dL Microbiology Date/Time Source Procedure Growth Status 03/25/24 15:00 Blood Blood Culture - Preliminary NO GROWTH AFTER 72 HOURS OF INCUBATION. Resulted 03/23/24 20:20 Voided Urine Urine Culture - Final Complete Plan/Recommendation ASSESSMENT AND PLAN: ID Problem List:- Lupus UTI Abdominal pain Rash Hypertensive urgency Assessment:- Torie Starks is a 33-year-old female with a past medical history of lupus, who presents with acute abdominal pain and lower extremity swelling related to lupus. The pain is progressively worse in the right lower abdominal and pelvic area, characterized by a burning sensation. The patient has a rash on the right thigh and buttock that is not macular, papular, with no vesicles, drainage, or open wounds. The rash is widespread, not following dermatomes, with thin plaques and papules. Laboratory results show leukocytosis with WBC of 11, thrombocytosis with platelets of 514, hemoglobin of 9.1, glucose of 113, creatinine of 1.7, and a positive urinalysis for UTI. Plan:- 1. Restart Prednisone 20 mg daily. 2. Rheumatology consultation for adjusting Prednisone dose and controlling the lupus flare. 3. If lupus rash worsens or signs of acute decompensation appear, patient should return to the ER for urgent rheumatology evaluation. 4. For UTI, due to positive urine culture with mixed gram-positive genet, start Keflex 500 mg QID for 5 days. 5. Monitor for hypertensive urgency and ensure blood pressure control. 6. continue ceftriaxone while inpatient for uti 7. low concern for shingles at this time, can stop acyclovir Isolation Precautions:- Standard Assessment and plan were discussed with the patient as written above. Plan is subject to change pending incorporation of new incoming information/diagnostics. Updates may be added as addendum at the bottom (or top) of this note.- Thank you for the interesting consult. ID will continue to follow. Please contact Infectious Disease for any questions or concerns. Josette Lopez M.D.- [facility] History: The patient's chart and medications were reviewed in detail and the patient was seen and examined. History obtained from: patient and medical records History:- Torie Starks is a 33-year-old female with a past medical history of lupus diagnosed last year. She presents with acute abdominal pain, progressively worse on the right lower abdominal and pelvic area with a burning sensation. She also has a rash on the right thigh and buttock which has been getting progressively worse. Review of Systems:- A complete 10 system review of systems was completed and negative except as noted in the HPI or here. ROS:- -CONSTITUTIONAL:- Denies weight loss, fever, and chills. -HEENT:- Denies changes in vision and hearing. -RESPIRATORY:- Denies SOB and cough. -CV:- Denies palpitations and CP. -GI:- Denies abdominal pain, nausea, vomiting, and diarrhea. -:- Denies dysuria and urinary frequency. -MSK:- Denies myalgia and joint pain. -SKIN:- Denies rash and pruritus. -NEUROLOGICAL:- Denies headache and syncope. -PSYCHIATRIC:- Denies recent changes in mood. Denies anxiety and depression. Past Medical History:- Lupus, diagnosed last year. Recent UTI. Past Surgical History:- History reviewed. No pertinent surgical history. Home Medications:- Prednisone 20 mg tablet, 1 tablet daily. Hydroxychloroquine 200 mg tablet, 1 tablet daily. Folic Acid 1 mg tablet, 1 tablet daily. Furosemide 40 mg tablet, 1 tablet daily. Metoprolol 25 mg tablet, 1 tablet daily. Omeprazole 20 mg tablet, 1 tablet daily. Allergies:- No known allergies. Family History:- Prostate cancer (Father) Diabetes (Sister) Prostate cancer (Brother) Social History:- Marital status: Smoking status: Never Alcohol use: Never Drug use: Never Objective:- Vital Signs on Arrival:- Temp: 36.3 C (97.4 F) BP: 110/68 Pulse: 75 Resp: 16 SpO2: 96% Physical Exam:- -General:- NAD -Neck:- Supple. No masses. -HEENT:- PERRL. Normal lids and conjunctiva. Moist mucous membranes. Oropharynx without lesions, exudates, or excessive erythema. Normal appearance of the external aspects of the nose and ears. -Heart:- Regular rhythm, normal rate. No murmur. No lower extremity edema. -Lungs:- Normal respiratory effort. Clear to auscultation bilaterally. No wheezes. No crackles. -Abdomen:- Soft. Non-tender. Non-distended. No masses or abdominal hernia. -Msk:- No digital cyanosis. Normal strength and tone in all 4 limbs. -Skin:- Warm and dry, no rashes. Noted rash on right lower extremity and buttock. -Neuro:- Alert. No facial droop or slurred speech. Extra-ocular movements intact. Sensation intact to soft touch in all 4 limbs. -Psych:- Appropriate mood. Full affect. Oriented to person, place, time, and situation. Lines:- Active Lines Diagnostic Studies:- Available diagnostic studies were reviewed personally. Significant relevant results and findings are outlined below or addressed in the Assessment and Plan above. Pertinent Imaging:- -XR Chest 2 Vw- -Impression:- 1. No pneumothorax. 2. Normal lung volumes. The lungs are grossly clear. 3. The cardiac silhouette is within normal limits. No pulmonary vascular congestion. No pleural effusion. 4. Osteopenia. Degenerative changes in the shoulders and spine. High riding humerus bilaterally with decreased acromiohumeral interval suggestive of underlying rotator cuff pathology. -XR Foot Left 3 + Vw- -Impression:- No fracture, dislocation, or destructive osseous lesion seen. Osteopenia. Scattered degenerative changes. Plan discussed with: Patient JOSETTE LOPEZ MD Mar 29, 2024 18:53
--- NOTE | 2024-03-30 17:27 | DVHPN2 ---
Consult Progress Note Date Seen: Mar 29, 2024 Subjective Patient reports: Feels better (rash is unchanged, no pain) Objective vital signs Vital Sign Date Time Temp Pulse Resp B/P (MAP) Pulse Ox O2 Delivery O2 Flow Rate FiO2 03/29/24 21:00 97.4 108 18 149/88 (108) 98 97.4 03/29/24 20:00 Room Air* 0 21 Total Intake and Output 03/29/24 03/29/24 03/30/24 15:00 23:00 07:00 Intake Total 150 ml 600 ml Balance 150 ml 600 ml medications Physical Exam:- -General:- NAD -Neck:- Supple. No masses. -HEENT:- PERRL. Normal lids and conjunctiva. Moist mucous membranes. Oropharynx without lesions, exudates, or excessive erythema. Normal appearance of the external aspects of the nose and ears. -Heart:- Regular rhythm, normal rate. No murmur. No lower extremity edema. -Lungs:- Normal respiratory effort. Clear to auscultation bilaterally. No wheezes. No crackles. -Abdomen:- Soft. Non-tender. Non-distended. No masses or abdominal hernia. -Msk:- No digital cyanosis. Normal strength and tone in all 4 limbs. -Skin:- Warm and dry, no rashes. Noted rash on right lower extremity and buttock. -Neuro:- Alert. No facial droop or slurred speech. Extra-ocular movements intact. Sensation intact to soft touch in all 4 limbs. -Psych:- Appropriate mood. Full affect. Oriented to person, place, time, and situation. laboratory and microbiology Laboratory Tests 03/29/24 05:42 Test 03/29/24 05:42 Range/Units Serum Glucose 122 H 74-106 mg/dL Problem List/Assessment/Plan Problem List/Assessment/Plan ASSESSMENT AND PLAN: ID Problem List:- Lupus UTI Abdominal pain Rash Hypertensive urgency Assessment:- Torie Starks is a 33-year-old female with a past medical history of lupus, who presents with acute abdominal pain and lower extremity swelling related to lupus. The pain is progressively worse in the right lower abdominal and pelvic area, characterized by a burning sensation. The patient has a rash on the right thigh and buttock that is not macular, papular, with no vesicles, drainage, or open wounds. The rash is widespread, not following dermatomes, with thin plaques and papules. Laboratory results show leukocytosis with WBC of 11, thrombocytosis with platelets of 514, hemoglobin of 9.1, glucose of 113, creatinine of 1.7, and a positive urinalysis for UTI. Plan:- 1. Restart Prednisone 20 mg daily. 2. Rheumatology consultation for adjusting Prednisone dose and controlling the lupus flare. 3. If lupus rash worsens or signs of acute decompensation appear, patient should return to the ER for urgent rheumatology evaluation. 4. For UTI, due to positive urine culture with mixed gram-positive genet, start Keflex 500 mg QID for 5 days. 5. Monitor for hypertensive urgency and ensure blood pressure control. 6. continue ceftriaxone while inpatient for uti 7. low concern for shingles at this time, can stop acyclovir Isolation Precautions:- Standard Assessment and plan were discussed with the patient as written above. Plan is subject to change pending incorporation of new incoming information/diagnostics. Updates may be added as addendum at the bottom (or top) of this note.- Thank you for the interesting consult. ID will continue to follow. Please contact Infectious Disease for any questions or concerns. Reynaldo Lopez M.D.- [facility] Plan discussed with: Patient Dietary Evaluation Review Comments: Follow cardiac 2gN Lofat LoChol Diet, monitor intake to meet 75% of her needs Expected Outcomes/Goals: gradual weight loss REYNALDO LOPEZ MD Mar 30, 2024 17:27
== END 2024-03-29 21:50 | disposition home or self-care (01) | DRG 463 ==
LOC: ER 19:25 → TELE 03-24 07:23 → TELE-EAST 03-24 14:50 → TELE 03-24 21:34 → TELE-CENTR 03-25 19:40
PROVIDERS: ADMIT Nurse Practitioner Family; ATTEND Student in an Organized Health Care Education/Training Program
DX: N10 Acute pyelonephritis (principal); D84.821 Immunodeficiency due to drugs; M32.9 Systemic lupus erythematosus, unspecified; I16.0 Hypertensive urgency; I10 Essential (primary) hypertension; B02.9 Zoster without complications; D75.839 Thrombocytosis, unspecified; T50.995A Adverse effect of other drugs, medicaments and biological substances, initial encounter; E87.5 Hyperkalemia; Z79.60 Long term (current) use of unspecified immunomodulators and immunosuppressants; Z83.3 Family history of diabetes mellitus; Z82.49 Family history of ischemic heart disease and other diseases of the circulatory system; Z80.42 Family history of malignant neoplasm of prostate; Y92.89 Other specified places as the place of occurrence of the external cause
CPT/HCPCS: 36415; 74176; 80048; 80053; 80061; 81001; 82306; 82607; 83036; 83605; 83690; 83735; 83880; 84100; 84443; 84484; 84702; 85025; 85379; 87040; 87086; 93005; 93306; G0378; J2405; J2543; J3490; Q0162

== ENCOUNTER 2024-04-20 15:48 | Emergency (ER) | payer MEDICAID ==
[~2024-04-20] VITALS: Ht 160 cm; Wt 65.4 kg
[~2024-04-20 15:48] MED LIST changes: -CEFD300C2 PO; +CIPR-173 PO; +FOLI-119 PO; +FURO20TA3 PO; +HYDR200T36 PO; +LOSA-533 PO; +METO25TA93 PO; +PRED20TA2 PO
[2024-04-20 15:59] VITALS: BP 153/103; TEMP 98
[2024-04-20 16:41] VITALS: PULSE 108; RESP 18; O2SAT 97
[2024-04-20] MEDS ORDERED: CLOB0.05 TOP (16:46)
[2024-04-20] MEDS ORDERED: CEPH500C PO (16:46)
--- NOTE | 2024-04-20 16:47 | ED.PDOC ---
History of Present Illness(SKN HPI Comments A 33 YEAR OLD FEMALE PRESENTS TO THE ED WITH COMPLAINT OF RASH OF RIGHT THIGH AND RIGHT LOWER LEG. PATIENT STATES SHE HAS A RASH ON HER RIGHT THIGH THAT EXT ENDS TO HER RIGHT LOWER LEG FOR THE PAST 1 WEEK. PATIENT REPORTS THIS RASH HAS BEEN ITCHING. PATIENT NOTES THAT SHE WAS HERE IN THIS ED 1 WEEK AGO WHEN SHE WAS ADMITTED AND WAS TOLD SHE WAS SHINGLES, BUT NOTES SHE HAS NEVER WENT AWAY. PATIENT DENIES FEVER, CHILLS, SHORTNESS OF BREATH, CHEST PAIN, ABDOMINAL PAIN, NAUSEA, VOMITING, HEADACHE, OR OTHER COMPLAINTS. NO OTHER SYMPTOMS OR MODIFYING FACTORS AT THIS TIME. PATIENT IS ALERT, ORIENTED X 4, AND HAS STEADY GAIT. Chief Complaint: Rash Time Seen by MD: 16:06 History of Present Illness: Nurses Notes, Medications, Allergies Allergies: Coded Allergies: NO KNOWN ALLERGIES (Unverified , 03/20/24) Home Meds Active Scripts Clobetasol Propionate (Clobetasol Propionate) 0.05 % Oin, 1 APPLIC TOP BID, #30 GRAMS Prov:SHELLI HAGEN 04/20/24 Cephalexin Monohydrate (Cephalexin) 500 Mg Cap, 1 CAP PO TID, #24 CAP Prov:SHELLI HAGEN 04/20/24 Ciprofloxacin Hcl (Cipro) 500 Mg Tab, 500 MG PO BID for 5 Days, #10 TAB Prov:JESSY WHITTAKER MD 03/29/24 Omeprazole (Gnp Omeprazole) 20 Mg Tab, 1 TAB PO DAILY for 14 Days, #14 TAB 1 Refill Prov:BALDEV MIRZA MD 03/20/24 Reported Medications Losartan Potassium (Losartan Potassium) 25 Mg Tab, 25 MG PO BID for 30 Days, MG 03/26/24 Prednisone (Prednisone) 20 Mg Tab, 20 MG PO BID, MG 03/26/24 Hydroxychloroquine Sulfate (Hydroxychloroquine Sulfat) 200 Mg Tab, 200 MG PO, TAB 03/26/24 Furosemide (Furosemide) 20 Mg Tab, 20 MG PO DAILY for 30 Days, MG 03/26/24 Folic Acid (Folic Acid) 1 Mg Tab, 1 MG PO, TAB 03/26/24 Metoprolol Succinate (Metoprolol Succinate Er) 25 Mg Tab, 1 TAB PO DAILY, #30 TAB 5 Refills 03/26/24 Information Source: Patient Mode of Arrival: Ambulatory Severity: Moderate Timing: Days Duration: Since onset, Days Prehospital treatment: None Location: Leg (RIGHT LOWER LEG), Other (RIGHT THIGH) Mechanism: Spontaneous Onset Developed: Pruritus, Rash Occurence: Indoors Object: None Condition of Object: None Retained Foreign Body: No Wound Type: None Immunization Status of Animal: NA Tetanus: Unknown History of: None Associated Signs and Symptoms: Redness Past Medical History PAST MEDICAL HISTORY: Denies Surgical History: Denies all surgeries SUPERVISOR DENTURE DEPARTMENT History: Denies all SUPERVISOR DENTURE DEPARTMENT Hx Family History Family History: Reviewed,noncontributory to illness Social History Smoker: Non-Smoker Alcohol: Denies ETOH Use Drugs: Denies Drug Use Lives In: Home Constitutional: denies: chills, diaphoresis, fatigue, fever, malaise, sweats, weakness, others EENTM: denies: blurred vision, double vision, ear bleeding, ear discharge, ear drainage, ear pain, ear ringing, eye pain, eye redness, hearing loss, mouth pain, mouth swelling, nasal discharge, nose bleeding, nose congestion, nose pain, photophobia, tearing, throat pain, throat swelling, voice changes, others Respiratory: denies: cough, hemoptysis, orthopnea, SOB at rest, shortness of breath, SOB with excertion, stridor, wheezing, others Cardiovascular: denies: chest pain, dizzy spells, diaphoresis, Dyspnea on exertion, edema, irregular heart beat, left arm pain, lightheadedness, palpitations, PND, syncope, others Gastrointestinal: denies: abdomen distended, abdominal pain, blood streaked bowels, constipated, diarrhea, dysphagia, difficulty swallowing, hematemesis, melena, nausea, poor appetite, poor fluid intake, rectal bleeding, rectal pain, vomiting, others Genitourinary: denies: abnormal vagina bleeding, burning, dyspareunia, dysuria, flank pain, frequency, hematuria, incontinence, pain, , vagina discharge, urgency, others Neurological: denies: dizziness, fainting, headache, left sided numbness, left sided weakness, numbness, paresthesia, pre-existing deficit, right sided numbness, right sided weakness, seizure, speech problems, tingling, tremors, weakness, others Musculoskeletal: denies: back pain, gout, joint pain, joint swelling, muscle pain, muscle stiffness, neck pain, others Integumetry: reports: rash; denies: bruises, change in color, change in hair/nails, dryness, laceration, lesions, lumps, wounds, others Allergic/Immunocompromised: reports: Itching; denies: Difficulty Healing, Frequent Infections, Hives, others Hematologic/Lymphatic: denies: anemia, blood clots, easy bleeding, easy bruising, swollen glands, others Endocrine: denies: excessive hunger, excessive sweating, excessive thirst, excessive urination, flushing, intolerance to cold, intolerance to heat, unexplained weight gain, unexplained weight loss, others Psychiatric: denies: anxiety, bipolar disorder, depression, hopeless, panic disorder, schizophrenia, sleepless, suicidal, others All Other Systems: Reviewed and Negative Physical Exam General Appearance: No Apparent Distress, Normal HEENT: Normal ENT Inspection, PERRL/EOMI, Pharynx Normal, TMs Normal Neck: Full Range of Motion, Non-Tender, Normal, Normal Inspection Respiratory: Chest Non-Tender, Lungs Clear, No Accessory Muscle Use, No Respiratory Distress, Normal Breath Sounds Cardiovascular: No Edema, No JVD, No Murmur, No Gallop, Normal Peripheral Pulses, Regular Rate/Rhythm Breast Exam: Deferred Gastrointestinal: No Organomegaly, Non Tender, No Pulsatile Mass, Normal Bowel Sounds, Soft Genitalia: Deferred Pelvic: Deferred Rectal: Deferred Extremities: No calf tenderness, Normal capillary refill, Normal inspection, Normal range of motion, Non-tender, No pedal edema Musculoskeletal : Apperance: Normal Neurologic: Alert, combat systems officer II-XII nml as Tested, No Motor Deficits, Normal Affect, Normal Mood, No Sensory Deficits Cerebellar Function: Normal Reflexes: Normal Skin: Dry, Rash (ECZEMATOUS PAPULAR AND MACULAR SKIN RASH ON RIGHT THIGH TO RIGHT LOWER LEG, NO OPEN WOUND AND SWELLING. ), Warm Peripheral Pulses: 2+ carotid (R), 2+ carotid (L), 2+ dorsalis pedis (R), 2+ dorsalis pedis (L) Lymphatic: No Adenopathy Was a procedure done? Was a procedure done?: No Differential Diagnosis (INTG) Differential Diagnosis: N/A Differential Diagnosis: Atopic dermatitis, Contact Dermatitis, Impetigo, Intertrigo, Scabies, Tinea, Urticaria Differential Diagnosis: N/A Abscess: N/A Differential Diagnosis: N/A X-Ray, Labs, Meds, VS Vital Signs Date Time Temp Pulse Resp B/P (MAP) Pulse Ox O2 Delivery O2 Flow Rate FiO2 04/20/24 16:41 108 18 97 Room Air 04/20/24 15:59 98.0 108 18 153/103 (120) 97 98.0 04/20/24 15:59 98.0 108 18 153/103 (120) 97 Time of 1ST Reevaluation: 17:00 Reevaluation 1ST: Unchanged Patient Education/Counseling: Diagnosis, Treatment, Need For Follow Up Family Education/Counseling: Diagnosis, Treatment, Need For Follow Up Medical Screening: No EMC Exist At This Time Departure 1 Departure Time of Disposition: 17:00 Impression: Primary Impression: Atopic dermatitis Qualified Codes: L20.9 - Atopic dermatitis, unspecified Disposition: HOME / SELF CARE / HOMELESS Condition: Stable Additional Instructions: FOLLOW-UP WITH PCP IN 1 TO 2 DAYS. TAKE MEDICATIONS PRESCRIBED. RETURN TO ED FOR ANY NEW OR WORSENING SYMPTOMS. e-Prescriptions Clobetasol Propionate (Clobetasol Propionate) 0.05 % Oin 1 APPLIC TOP BID, #30 GRAMS Prov: HSELLI HAGEN 04/20/24 Cephalexin Monohydrate (Cephalexin) 500 Mg Cap 1 CAP PO TID, #24 CAP Prov: SHELLI HAGEN 04/20/24 Discharged With: Self Critical Care Note Critical Care Time?: No Stability Stability form required: No I personally scribed for SHELLI HAGEN ([email or web address]) on 04/20/24 at 16:47. Electronically submitted by [employer] ([email or web address]). SHELLI HAGEN Apr 20, 2024 16:47
== END 2024-04-20 16:52 | disposition home or self-care (01) ==
LOC: ER 15:48
DX: L20.9 Atopic dermatitis, unspecified (principal); Z79.52 Long term (current) use of systemic steroids; Z79.899 Other long term (current) drug therapy

== ENCOUNTER 2024-11-08 11:01 | Emergency (ER) | payer MEDICAID ==
[~2024-11-08] VITALS: Ht 160 cm; Wt 68.3 kg
[~2024-11-08 11:01] MED LIST changes: +CEPH500C PO; +CLOB0.05 TOP
--- NOTE | 2024-11-08 11:50 | ED.PDOC ---
History of Present Illness(SKN HPI Comments 34 y.o female with PMHx of lupus, presents to the ED with a bilateral malar rash, notably more pronounced on the left side. The rash presented 2 days ago, appearing erythematous and nonpruritic, with no associated scaling or ulceration. Patient denies fever, chills, chest pain, SOB. Patient is currently on 10mg Prednisone taken consistently without symptom relief. Chief Complaint: Face pain Time Seen by MD: 11:38 Primary Care Provider: MOUNIKA History of Present Illness: Nurses Notes, Medications, Allergies Allergies: Coded Allergies: NO KNOWN ALLERGIES (Unverified , 03/20/24) Home Meds Active Scripts Prednisone (Prednisone) 20 Mg Tab, 20 MG PO DAILY for 5 Days, #5 MG Prov:GUSTAVO VELASQUEZ MD 11/08/24 Clobetasol Propionate (Clobetasol Propionate) 0.05 % Oin, 1 APPLIC TOP BID, #30 GRAMS Prov:SHELLI HAGEN 04/20/24 Cephalexin Monohydrate (Cephalexin) 500 Mg Cap, 1 CAP PO TID, #24 CAP Prov:SHELLI HAGEN 04/20/24 Ciprofloxacin Hcl (Cipro) 500 Mg Tab, 500 MG PO BID for 5 Days, #10 TAB Prov:JESSY WHITTAKER MD 03/29/24 Omeprazole (Gnp Omeprazole) 20 Mg Tab, 1 TAB PO DAILY for 14 Days, #14 TAB 1 Refill Prov:BALDEV MIRZA MD 03/20/24 Reported Medications Losartan Potassium (Losartan Potassium) 25 Mg Tab, 25 MG PO BID for 30 Days, MG 03/26/24 Prednisone (Prednisone) 20 Mg Tab, 20 MG PO BID, MG 03/26/24 Hydroxychloroquine Sulfate (Hydroxychloroquine Sulfat) 200 Mg Tab, 200 MG PO, TAB 03/26/24 Furosemide (Furosemide) 20 Mg Tab, 20 MG PO DAILY for 30 Days, MG 03/26/24 Folic Acid (Folic Acid) 1 Mg Tab, 1 MG PO, TAB 03/26/24 Metoprolol Succinate (Metoprolol Succinate Er) 25 Mg Tab, 1 TAB PO DAILY, #30 TAB 5 Refills 03/26/24 Information Source: Patient Mode of Arrival: Ambulatory Severity: Moderate Timing: Days (2) Duration: Since onset Location: Face Mechanism: Spontaneous Onset Developed: Facial Swelling Object: None Condition of Object: None History of: Previous Similar Rash (Lupus ) Associated Signs and Symptoms: Swelling, Pain Past Medical History PAST MEDICAL HISTORY: HTN Past Medical History (Other): Lupus Surgical History: Denies all surgeries [employer] History: Denies all [employer] Hx Family History Family History: Reviewed,noncontributory to illness Social History Smoker: Non-Smoker Alcohol: Denies ETOH Use Drugs: Denies Drug Use Lives In: Home Constitutional: denies: chills, diaphoresis, fatigue, fever, malaise, sweats, weakness, others EENTM: denies: blurred vision, double vision, ear bleeding, ear discharge, ear drainage, ear pain, ear ringing, eye pain, eye redness, hearing loss, mouth pain, mouth swelling, nasal discharge, nose bleeding, nose congestion, nose pain, photophobia, tearing, throat pain, throat swelling, voice changes, others Respiratory: denies: cough, hemoptysis, orthopnea, SOB at rest, shortness of breath, SOB with excertion, stridor, wheezing, others Cardiovascular: denies: chest pain, dizzy spells, diaphoresis, Dyspnea on exertion, edema, irregular heart beat, left arm pain, lightheadedness, palpitations, PND, syncope, others Gastrointestinal: denies: abdomen distended, abdominal pain, blood streaked bowels, constipated, diarrhea, dysphagia, difficulty swallowing, hematemesis, melena, nausea, poor appetite, poor fluid intake, rectal bleeding, rectal pain, vomiting, others Genitourinary: denies: abnormal vagina bleeding, burning, dyspareunia, dysuria, flank pain, frequency, hematuria, incontinence, pain, , vagina discharge, urgency, others Neurological: denies: dizziness, fainting, headache, left sided numbness, left sided weakness, numbness, paresthesia, pre-existing deficit, right sided numbness, right sided weakness, seizure, speech problems, tingling, tremors, weakness, others Musculoskeletal: denies: back pain, gout, joint pain, joint swelling, muscle pain, muscle stiffness, neck pain, others Integumetry: reports: rash (face ); denies: bruises, change in color, change in hair/nails, dryness, laceration, lesions, lumps, wounds, others Allergic/Immunocompromised: denies: Difficulty Healing, Frequent Infections, Hives, Itching, others Hematologic/Lymphatic: denies: anemia, blood clots, easy bleeding, easy bruising, swollen glands, others Endocrine: denies: excessive hunger, excessive sweating, excessive thirst, excessive urination, flushing, intolerance to cold, intolerance to heat, unexplained weight gain, unexplained weight loss, others Psychiatric: denies: anxiety, bipolar disorder, depression, hopeless, panic disorder, schizophrenia, sleepless, suicidal, others All Other Systems: Reviewed and Negative Physical Exam General Appearance: Moderate Distress HEENT: Normal ENT Inspection, Pharynx Normal, TMs Normal Neck: Full Range of Motion, Non-Tender, Normal, Normal Inspection Respiratory: Chest Non-Tender, Lungs Clear, No Accessory Muscle Use, No Respiratory Distress, Normal Breath Sounds Cardiovascular: No Edema, No JVD, No Murmur, No Gallop, Normal Peripheral Pulses, Regular Rate/Rhythm Breast Exam: Deferred Gastrointestinal: No Organomegaly, Non Tender, No Pulsatile Mass, Normal Bowel Sounds, Soft Genitalia: Deferred Pelvic: Deferred Rectal: Deferred Extremities: No calf tenderness, Normal capillary refill, Normal inspection, Normal range of motion, Non-tender, No pedal edema Musculoskeletal : Apperance: Normal Neurologic: Alert, clinical trial leader II-XII nml as Tested, No Motor Deficits, Normal Affect, Normal Mood, No Sensory Deficits Cerebellar Function: Normal Reflexes: Normal Skin: Rash (Face) Peripheral Pulses: 3+ Radial (R), 3+ Radial (L) Lymphatic: No Adenopathy Was a procedure done? Was a procedure done?: No Differential Diagnosis (INTG) Differential Diagnosis: Other (SLE) Differential Diagnosis: Contact Dermatitis, Drug Reaction, Lyme disease, Psoriasis, Rosacea X-Ray, Labs, Meds, VS Vital Signs Date Time Temp Pulse Resp B/P (MAP) Pulse Ox O2 Delivery O2 Flow Rate FiO2 11/08/24 11:20 98.1 80 18 172/90 (117) 98 98.1 Lab Test 11/08/24 11:41 Range/Units Urine Color Colorless Yellow Urine Clarity Turbid H Clear Urine pH 6.0 5.0-9.0 Urine Specific [place] 1.006 1.001-1.035 Urine Protein 2+ H Negative Urine Ketones Negative Negative Urine Blood 2+ H Negative /uL Urine Nitrite Negative Negative Urine Bilirubin Negative Negative Urine Urobilinogen Normal Negative mg/dL Urine Leukocyte Esterase 2+ Negative /uL Urine RBC 5 0 - 4 /hpf Urine Microscopic WBC 16 H 0-5 /HPF Urine Squamous Epithelial Cells Few <5 /hpf Urine Bacteria Few H None Seen /hpf Urine Glucose Normal Normal mg/dL Patient alert. Has a butterfly rash on her face. Vitals stable. Answering all questions. Saturation pristine on room air. No tongue swelling. Complaining full sentence. No distress. No leg swelling. Urinalysis shows UTI. Was given steroid. Was given prescription of prednisolone Macrobid. Explained to the patient. Was told to follow up with her primary care physician. Was told to come back if there is any problem. Time of 1ST Reevaluation: 11:44 Reevaluation 1ST: Improved Patient Education/Counseling: Diagnosis, Treatment Family Education/Counseling: No Family Present Departure 1 Departure Time of Disposition: 12:39 Impression: Primary Impression: Hypertensive urgency Additional Impressions: SLE exacerbation Urinary tract infection Qualified Codes: N30.00 - Acute cystitis without hematuria Disposition: HOME / SELF CARE / HOMELESS Condition: Good e-Prescriptions Nitrofurantoin Monohydrate Mac (Macrobid) 100 Mg Cap 100 MG PO BID for 7 Days, #14 CAP Prov: GUSTAVO VELASQUEZ MD 11/08/24 Prednisone (Prednisone) 20 Mg Tab 20 MG PO DAILY for 5 Days, #5 MG Prov: GUSTAVO VELASQUEZ MD 11/08/24 Discharged With: Self Critical Care Note Critical Care Time?: No Stability Stability form required: No I personally scribed for GUSTAVO VELASQUEZ MD ([email or web address]) on 11/08/24 at 11:50. Electronically submitted by Krys Quiroz ([facility]). GUSTAVO VELASQUEZ MD Nov 08, 2024 11:50
[2024-11-08] MEDS ORDERED: PRED20TA2 PO (11:56)
[2024-11-08 12:04] LABS: Urine Bacteria FEW /hpf (None Seen); Urine Blood 2+ /uL (Negative); Urine Clarity Turbid (Clear); Urine Color Colorless (Yellow); Urine Protein, UAD 2+ (Negative); Urine Specific Gravity 1.006 (1.001-1.035); Urine Squamous Epithelial Cell FEW /hpf (<5); Urine Urobilinogen Normal (Negative); Urine WBC 16 /HPF (0-5)
[2024-11-08] MEDS ORDERED: NITR-87 PO (12:40)
[2024-11-08] MEDS: predniSONE 20 MG TAB PO ONE (12:53)
[2024-11-08 12:57] VITALS: BP 143/93; PULSE 80; RESP 19; TEMP 99.2; O2SAT 97
== END 2024-11-08 13:09 | disposition home or self-care (01) ==
LOC: ER 11:01
DX: I16.0 Hypertensive urgency (principal); M32.9 Systemic lupus erythematosus, unspecified; N39.0 Urinary tract infection, site not specified; I10 Essential (primary) hypertension; Z87.898 Personal history of other specified conditions; Z79.899 Other long term (current) drug therapy
CPT/HCPCS: 81001; 99283; J7512

== ENCOUNTER 2025-03-20 09:40 | Inpatient (IN) | payer MEDICAID ==
[~2025-03-20] VITALS: Ht 160 cm; Wt 78.8 kg
[~2025-03-20 09:40] MED LIST changes: +NITR-87 PO
[2025-03-20 10:07] VITALS: PULSE 84; RESP 19; O2SAT 95
--- NOTE | 2025-03-20 10:17 | ED.PDOC ---
History of Present Illness HPI Comments 34-year-old female presents to the ER with a prior medical history of lupus, hypertension(normally elevated in the ER) and the chief complaint of back pain. Patient reports on having back pain which started yesterday, that came in go. The back pain today is more constant in has a pinching feeling. In triage the patient had the 1st blood pressure of 234 systolic in the 2nd blood pressure being 222 systolic. Denies any other symptoms at this time. Denies chills, fever, N/V/D, SOB, CP. No other associated symptoms, modifiers, recent injuries or sick contacts present at this time. Chief Complaint: Back Pain Time Seen by MD: 10:15 Primary Care Provider: MOUNIKA Gonzalez Notes: Nurses Notes, Medications, Allergies Allergies: Coded Allergies: NO KNOWN ALLERGIES (Unverified , 03/20/24) Home Meds Active Scripts Nitrofurantoin Monohydrate Mac (Macrobid) 100 Mg Cap, 100 MG PO BID for 7 Days, #14 CAP Prov:GUSTAVO VELASQUEZ MD 11/08/24 Prednisone (Prednisone) 20 Mg Tab, 20 MG PO DAILY for 5 Days, #5 MG Prov:GUSTAVO VELASQUEZ MD 11/08/24 Clobetasol Propionate (Clobetasol Propionate) 0.05 % Oin, 1 APPLIC TOP BID, #30 GRAMS Prov:SHELLI HAGEN 04/20/24 Cephalexin Monohydrate (Cephalexin) 500 Mg Cap, 1 CAP PO TID, #24 CAP Prov:SHELLI HAGEN 04/20/24 Ciprofloxacin Hcl (Cipro) 500 Mg Tab, 500 MG PO BID for 5 Days, #10 TAB Prov:JESSY WHITTAKER MD 03/29/24 Omeprazole (Gnp Omeprazole) 20 Mg Tab, 1 TAB PO DAILY for 14 Days, #14 TAB 1 Refill Prov:BALDEV MIRZA MD 03/20/24 Reported Medications Losartan Potassium (Losartan Potassium) 25 Mg Tab, 25 MG PO BID for 30 Days, MG 03/26/24 Prednisone (Prednisone) 20 Mg Tab, 20 MG PO BID, MG 03/26/24 Hydroxychloroquine Sulfate (Hydroxychloroquine Sulfat) 200 Mg Tab, 200 MG PO, TAB 03/26/24 Furosemide (Furosemide) 20 Mg Tab, 20 MG PO DAILY for 30 Days, MG 03/26/24 Folic Acid (Folic Acid) 1 Mg Tab, 1 MG PO, TAB 03/26/24 Metoprolol Succinate (Metoprolol Succinate Er) 25 Mg Tab, 1 TAB PO DAILY, #30 TAB 5 Refills 03/26/24 Information Source: Patient Mode of Arrival: Ambulatory Severity: Moderate Timing: Hours Duration: Since onset, Hours Prehospital treatment: None Past Medical History PAST MEDICAL HISTORY: HTN (Normally elevated in the ER) Past Medical History (Other): Lupus Surgical History: Denies all surgeries [employer] History: Denies all O[employer] Hx Family History Family History: Reviewed,noncontributory to illness, Unknown Social History Smoker: Non-Smoker Alcohol: Denies ETOH Use Drugs: Denies Drug Use Lives In: Home Constitutional: denies: chills, diaphoresis, fatigue, fever, malaise, sweats, weakness, others EENTM: denies: blurred vision, double vision, ear bleeding, ear discharge, ear drainage, ear pain, ear ringing, eye pain, eye redness, hearing loss, mouth pain, mouth swelling, nasal discharge, nose bleeding, nose congestion, nose pain, photophobia, tearing, throat pain, throat swelling, voice changes, others Respiratory: denies: cough, hemoptysis, orthopnea, SOB at rest, shortness of breath, SOB with excertion, stridor, wheezing, others Cardiovascular: denies: chest pain, dizzy spells, diaphoresis, Dyspnea on exertion, edema, irregular heart beat, left arm pain, lightheadedness, palpitations, PND, syncope, others Gastrointestinal: denies: abdomen distended, abdominal pain, blood streaked bowels, constipated, diarrhea, dysphagia, difficulty swallowing, hematemesis, melena, nausea, poor appetite, poor fluid intake, rectal bleeding, rectal pain, vomiting, others Genitourinary: denies: abnormal vagina bleeding, burning, dyspareunia, dysuria, flank pain, frequency, hematuria, incontinence, pain, , vagina discharge, urgency, others Neurological: denies: dizziness, fainting, headache, left sided numbness, left sided weakness, numbness, paresthesia, pre-existing deficit, right sided numbness, right sided weakness, seizure, speech problems, tingling, tremors, weakness, others Musculoskeletal: reports: back pain; denies: gout, joint pain, joint swelling, muscle pain, muscle stiffness, neck pain, others Integumetry: denies: bruises, change in color, change in hair/nails, dryness, laceration, lesions, lumps, rash, wounds, others Allergic/Immunocompromised: denies: Difficulty Healing, Frequent Infections, Hives, Itching, others Hematologic/Lymphatic: denies: anemia, blood clots, easy bleeding, easy bruising, swollen glands, others Endocrine: denies: excessive hunger, excessive sweating, excessive thirst, excessive urination, flushing, intolerance to cold, intolerance to heat, unexplained weight gain, unexplained weight loss, others Psychiatric: denies: anxiety, bipolar disorder, depression, hopeless, panic disorder, schizophrenia, sleepless, suicidal, others All Other Systems: Reviewed and Negative Physical Exam General Appearance: Moderate Distress, Normal HEENT: Normal ENT Inspection, Pharynx Normal, TMs Normal Neck: Full Range of Motion, Non-Tender, Normal, Normal Inspection Respiratory: Chest Non-Tender, Lungs Clear, No Accessory Muscle Use, No Respiratory Distress, Normal Breath Sounds Cardiovascular: No Edema, No JVD, No Murmur, No Gallop, Normal Peripheral Pulses, Regular Rate/Rhythm Breast Exam: Deferred Gastrointestinal: No Organomegaly, Non Tender, No Pulsatile Mass, Normal Bowel Sounds, Soft Genitalia: Deferred Pelvic: Deferred Rectal: Deferred Extremities: No calf tenderness, Normal capillary refill, Normal inspection, Normal range of motion, Non-tender, No pedal edema Musculoskeletal : Apperance: Normal Neurologic: Alert, scrap kettle tender II-XII nml as Tested, No Motor Deficits, Normal Affect, Normal Mood, No Sensory Deficits Cerebellar Function: Normal Reflexes: Normal Skin: Dry, Normal Color, Warm Peripheral Pulses: 3+ Radial (R), 3+ Radial (L) Lymphatic: No Adenopathy Was a procedure done? Was a procedure done?: No Differential Dx Considerations may include: Anemia Electrolyte imbalance X-Ray, Labs, Meds, VS Vital Signs Date Time Temp Pulse Resp B/P (MAP) Pulse Ox O2 Delivery O2 Flow Rate FiO2 03/20/25 10:07 84 19 95 Room Air* 0 21 03/20/25 09:57 232/121 03/20/25 09:49 232/121 (158) 03/20/25 09:48 97.5 105 18 224/125 (158) 100 97.5 03/20/25 09:44 97.5 105 15 224/125 100 97.5 Lab Test 03/20/25 10:22 Range/Units White Blood Count 7.9 4.4-10.8 10^3/uL Red Blood Count 3.51 L 4.0-5.20 10^6/uL Hemoglobin 9.0 L 12.2-16.2 g/dL Hematocrit 27.7 L 36.0-46.0 % Mean Corpuscular Volume 78.9 L 80.0-100.0 fL Mean Corpuscular Hemoglobin 25.6 L 28.0-32.0 pg Mean Corpuscular Hemoglobin Concent 32.5 32.0-36.0 g/dL Red Cell Distribution Width 18.8 H 11.8-14.3 % Platelet Count 263 140-450 10^3/uL Mean Platelet Volume 8.4 6.9-10.8 fL Neutrophils (%) (Auto) 76.7 37.0-80.0 % Lymphocytes (%) (Auto) 13.7 10.0-50.0 % Monocytes (%) (Auto) 7.9 0.0-12.0 % Eosinophils (%) (Auto) 1.5 0.0-7.0 % Basophils (%) (Auto) 0.2 0.0-2.0 % Neutrophils # (Auto) 6.1 1.6-8.6 10 ^3/uL Lymphocytes # (Auto) 1.1 0.4-5.4 10 ^3/uL Monocytes # (Auto) 0.6 0-1.3 10 ^3/uL Eosinophils # (Auto) 0.1 0-0.8 10 ^3/uL Basophils # (Auto) 0 0-0.2 10 ^3/uL Nucleated Red Blood Cells 0.0 % Sodium Level 138 136-145 mmol/L Potassium Level 4.6 3.5-5.1 mmol/L Chloride Level 107 98-107 mmol/L Carbon Dioxide Level 20 20-31 mmol/L Anion Gap 11 5-15 Blood Urea Nitrogen 43 H 9-23 mg/dL Creatinine 2.53 H 0.550-1.02 mg/dL Glomerular Filtration Rate Calc 25 >90 mL/min BUN/Creatinine Ratio 17.0 10.0-20.0 Serum Glucose 85 74-106 mg/dL Calcium Level 8.3 L 8.7-10.4 mg/dL Current Medications Medications (Trade) Dose Ordered Sig/Mica Route Start Time Stop Time Status Last Admin Clonidine HCl (Catapres Tablet) 0.2 mg ONCE STAT PO 03/20/25 09:51 03/20/25 09:53 DC 03/20/25 09:57 Patient alert. Blood pressure elevated. BUN creatinine elevated. Saturation pristine on room air. WBC within normal limits. Was given clonidine. She does have a history of autoimmune disease. Explained to the patient. Continue monitoring. Time of 1ST Reevaluation: 10:45 Reevaluation 1ST: Unchanged Patient Education/Counseling: Diagnosis, Treatment, Prognosis Family Education/Counseling: No Family Present SEPSIS Sepsis Screen Date sepsis recognized/suspect: Mar 20, 2025 Time Sepsis recognized/suspect: 946 Recent Procedure: No On Antibiotic Therapy: No Respiratory Rate >20: No Heart Rate >90: Yes Temp<36 C (96.8 F) or >38.3 C: No SBP <90 or MAP <65 mmHG: No New Acute Mental Status Change: No Is the patient on CPAP, BIPAP,: No Physician Orders Urinalysis (03/20/25 09:54) Vital Signs Date Time Temp Pulse Resp B/P (MAP) Pulse Ox O2 Delivery O2 Flow Rate FiO2 03/20/25 10:07 84 19 95 Room Air* 0 21 03/20/25 09:57 232/121 03/20/25 09:49 232/121 (158) 03/20/25 09:48 97.5 105 18 224/125 (158) 100 97.5 03/20/25 09:44 97.5 105 15 224/125 100 97.5 Laboratory Tests Test 03/20/25 10:22 White Blood Count 7.9 10^3/uL (4.4-10.8) Medications Medications Dose Ordered Sig/Mica Route Start Time Stop Time Status Last Admin Dose Admin Clonidine HCl 0.2 mg ONCE STAT PO 03/20/25 09:51 03/20/25 09:53 DC 03/20/25 09:57 Departure 1 Departure Time of Disposition: 11:56 Impression: Primary Impression: Hypertensive emergency Disposition: ADMITTED INPATIENT Admit to: Med Surg Condition: Guarded Critical Care Note Critical Care Time?: Yes (90 min-critical care time only) Stability Stability form required: No Heart Score Heart Score: Heart Score Response (Comments) Value History N/A 0 EKG N/A 0 Age N/A 0 Risk Factors N/A 0 Troponin N/A 0 Total 0 I personally scribed for GUSTAVO VELASQUEZ MD ([email or web address]) on 03/20/25 at 10:17. Electronically submitted by Eliazar Drew ([email or web address]). GUSTAVO VELASQUEZ MD Mar 20, 2025 10:17
[2025-03-20 10:43] LABS: Mean Corpuscular Hemoglobin 25.6 pg (28.0-32.0); Mean Corpuscular Volume 78.9 fL (80.0-100.0); Nucleated Red Blood Cells % 0.0 %
[2025-03-20 10:45] LABS: Hematocrit 27.7 % (36.0-46.0); Hemoglobin 9.0 g/dL (12.2-16.2)
[2025-03-20 10:52] LABS: Potassium 4.6 mmol/L (3.5-5.1); Sodium 138 mmol/L (136-145)
[2025-03-20 10:53] LABS: Anion Gap 11 (5-15); Carbon Dioxide 20 mmol/L (20-31)
[2025-03-20 10:58] LABS: BUN/Creatinine Ratio 17.0 (10.0-20.0); Blood Urea Nitrogen 43 mg/dL (9-23); Calcium 8.3 mg/dL (8.7-10.4); Chloride 107 mmol/L (98-107); Glucose 85 mg/dL (74-106)
[2025-03-20 12:32] LABS: Urine Protein, UAD 2+ (Negative)
--- NOTE | 2025-03-20 14:38 | DVHHP2 ---
History of Present Illness Reason for Visit: Hypertensive urgency and back pain History of Present Illness Torie Starks is a 34 year old female with past medical history of UTIs, lupus, and hypertension who presents to the ED with back pain that started yesterday, reports that the pain is 8/10 pressure-like and intermittent nature. She states that it is worse when she is sitting down. She also reports that her blood pressure has been high systolics in the 230s. She reports that she is compliant with her medications. She states that she had eaten food with hot sauce yesterday. She reports that her daughter is home sick with a cold. She denies any recent trauma or injury, recent travels, recent ingestion of spoiled food, chest pain, fever, chills, lightheadedness, weakness, dizziness, abdominal pain nausea, vomiting, diarrhea, or urinary symptoms. She also reports that she has no history of kidney issues. Cardiovascular: HTN Renal/: UTI Past Medical History Lupus Past Surgical History: None Family History: Hypertension, Other (Dad with hypertension) Smoke: No ALCOHOL: none Drugs: None Lives: with Family Domestic Violence: Neg Review of Systems Constitutional: Yes: Other (High blood pressure) Musculoskeletal: back pain Allergies: Coded Allergies: NO KNOWN ALLERGIES (Unverified , 03/20/24) Exam Vital Signs Vital Signs Date Time Temp Pulse Resp B/P (MAP) Pulse Ox O2 Delivery O2 Flow Rate FiO2 03/20/25 14:02 195/109 03/20/25 10:07 84 19 95 Room Air* 0 21 03/20/25 09:48 97.5 97.5 General Appearance: Alert, Oriented X3, Cooperative, No acute distress HEENT: Atraumatic, PERRLA, EOMI, Mucous membr. moist/pink Respiratory: Normal air movement Cardiovascular: Normal S1, Normal S2 Abdominal: Normal bowel sounds, Soft Extremities: No clubbing, No cyanosis Skin: No significant lesion Neuro: Normal gait, Normal speech, Strength at 5/5 X4 ext, Normal tone, Sensation intact Psych/Mental Status: Mental status NL, Mood NL Labs/Xrays Labs Test 03/20/25 12:08 03/20/25 10:22 Range/Units Urine Color Colorless Yellow Urine Clarity Clear Clear Urine pH 6.0 5.0-9.0 Urine Specific [place] 1.007 1.001-1.035 Urine Protein 2+ H Negative Urine Ketones Negative Negative Urine Blood 1+ H Negative /uL Urine Nitrite Negative Negative Urine Bilirubin Negative Negative Urine Urobilinogen Normal Negative mg/dL Urine Leukocyte Esterase Negative Negative /uL Urine RBC 1 0 - 4 /hpf Urine Microscopic WBC 2 0-5 /HPF Urine Squamous Epithelial Cells Few <5 /hpf Urine Bacteria None seen None Seen /hpf Urine Glucose Normal Normal mg/dL White Blood Count 7.9 4.4-10.8 10^3/uL Red Blood Count 3.51 L 4.0-5.20 10^6/uL Hemoglobin 9.0 L 12.2-16.2 g/dL Hematocrit 27.7 L 36.0-46.0 % Mean Corpuscular Volume 78.9 L 80.0-100.0 fL Mean Corpuscular Hemoglobin 25.6 L 28.0-32.0 pg Mean Corpuscular Hemoglobin Concent 32.5 32.0-36.0 g/dL Red Cell Distribution Width 18.8 H 11.8-14.3 % Platelet Count 263 140-450 10^3/uL Mean Platelet Volume 8.4 6.9-10.8 fL Neutrophils (%) (Auto) 76.7 37.0-80.0 % Lymphocytes (%) (Auto) 13.7 10.0-50.0 % Monocytes (%) (Auto) 7.9 0.0-12.0 % Eosinophils (%) (Auto) 1.5 0.0-7.0 % Basophils (%) (Auto) 0.2 0.0-2.0 % Neutrophils # (Auto) 6.1 1.6-8.6 10 ^3/uL Lymphocytes # (Auto) 1.1 0.4-5.4 10 ^3/uL Monocytes # (Auto) 0.6 0-1.3 10 ^3/uL Eosinophils # (Auto) 0.1 0-0.8 10 ^3/uL Basophils # (Auto) 0 0-0.2 10 ^3/uL Nucleated Red Blood Cells 0.0 % Sodium Level 138 136-145 mmol/L Potassium Level 4.6 3.5-5.1 mmol/L Chloride Level 107 98-107 mmol/L Carbon Dioxide Level 20 20-31 mmol/L Anion Gap 11 5-15 Blood Urea Nitrogen 43 H 9-23 mg/dL Creatinine 2.53 H 0.550-1.02 mg/dL Glomerular Filtration Rate Calc 25 >90 mL/min BUN/Creatinine Ratio 17.0 10.0-20.0 Serum Glucose 85 74-106 mg/dL Calcium Level 8.3 L 8.7-10.4 mg/dL SEPSIS Sepsis Screen Date sepsis recognized/suspect: Mar 20, 2025 Time Sepsis recognized/suspect: 09 Recent Procedure: No On Antibiotic Therapy: No Respiratory Rate >20: No Heart Rate >90: Yes Temp<36 C (96.8 F) or >38.3 C: No SBP <90 or MAP <65 mmHG: No New Acute Mental Status Change: No Is the patient on CPAP, BIPAP,: No Vital Signs Date Time Temp Pulse Resp B/P (MAP) Pulse Ox O2 Delivery O2 Flow Rate FiO2 03/20/25 14:02 195/109 03/20/25 10:07 84 19 95 Room Air* 0 21 03/20/25 09:57 232/121 03/20/25 09:49 232/121 (158) 03/20/25 09:48 97.5 105 18 224/125 (158) 100 97.5 03/20/25 09:44 97.5 105 15 224/125 100 97.5 Laboratory Tests Test 03/20/25 10:22 White Blood Count 7.9 10^3/uL (4.4-10.8) Medications Medications Dose Ordered Sig/Mica Route Start Time Stop Time Status Last Admin Dose Admin Clonidine HCl 0.2 mg ONCE STAT PO 03/20/25 09:51 03/20/25 09:53 DC 03/20/25 09:57 0.2 MG Assessment/Plan Assessment/Plan Assessment Hypertensive urgency Intractable back pain unrelieved with p.o. medications History of lupus History of hypertension History of UTIs Plan Admit to [facility] Nicardipine drip Antiemetics Pain management X-ray lumbar spine Chest x-ray ordered EKG ordered Echo on 03/28/24 ejection fraction 55% IV morphine Diet Home medications reconciled DVT prophylaxis admitted SCDs PUD prophylaxis-PPIs Discussed plan of care with patient and nurse [id number] Preventive counseling healthy eating habits, physical activity, and regular checkups Plan discussed with: Patient Date of Service: Mar 20, 2025 Billing Provider: TERELL RILEY Common Visit Codes: 46475-[id number] INP/OBS CARE (HIGH) Secondary Visit Codes: [id number] COUNSELING IND TERELL RILEY [facility] Mar 20, 2025 14:38
[2025-03-20] MEDS ORDERED: MORPHINE SULFATE INJ 2 MG/ml SYRG IV PRN ×2 (14:45)
[2025-03-20] MEDS ORDERED: NITROGLYCERIN 0.4 MG SL TAB SL PRN (14:45)
--- NOTE | 2025-03-20 15:02 | DVH ---
XY LUMBAR SPINE 3 VIEW, HISTORY: back pain COMPARISON: None TECHNICAL DATA: Frontal and lateral views were obtained of the lumbar spine . FINDINGS: There are 5 lumbar type vertebral bodies. Lumbar curvature is within normal limits. There is no spond ylolisthesis. Vertebral body heights are maintained. Disk heights are normal. The facet joints appear normal. The sacroiliac joints are symmetric. Paraspinal soft tissues are within normal limits. IMPRESSION: No acute fracture or dislocation of the lumbar spine.
--- NOTE | 2025-03-20 16:00 | DVH ---
CHEST RADIOGRAPH Indication: baseline Technique: XY CHEST XRAY 1 VIEW COMPARISON: None FINDINGS: The cardiac silhouette is enlarged. The lungs demonstrate bilateral patchy airspace opacities, most p ronounced in the lower lungs, [id number]. The pulmonary vasculature is prominent. Large left pleural effusion. There is no pneumothorax. IMPRESSION: Cardiomegaly with pulmonary vascular congestion and bilateral patchy airspace opacities, left-greater -than-right. Large left pleural effusion.
[2025-03-20] MEDS: FUROSEMIDE 40 MG/4 ML VIAL IV SCH (17:40)
[2025-03-20] MEDS: LABETALOL HCL 20 MG/4 ML VL IV PRN (17:40)
[2025-03-20] MEDS: LABETALOL HCL 20 MG/4 ML VL IV ONE (17:41)
[2025-03-20] MEDS: HYDROcodone-ACET 5/325MG TAB PO PRN (17:41)
[2025-03-20 19:52] VITALS: PULSE 91; RESP 23; O2SAT 100
[2025-03-20] MEDS ORDERED: PATIENTS OWN MEDICATION (Prednisone 20 MG) PO SCH (22:00)
[2025-03-21] MEDS: ONDANSETRON HCL 4 MG/2 ML VIAL IV PRN (00:07)
[2025-03-21 05:11] LABS: Hematocrit 25.3 % (36.0-46.0); Hemoglobin 8.2 g/dL (12.2-16.2); Mean Corpuscular Hemoglobin 25.7 pg (28.0-32.0); Mean Corpuscular Volume 78.7 fL (80.0-100.0); Nucleated Red Blood Cells % 0.1 %
[2025-03-21 05:27] LABS: Anion Gap 10 (5-15); BUN/Creatinine Ratio 15.5 (10.0-20.0); Glucose 79 mg/dL (74-106); Sodium 137 mmol/L (136-145); Total Protein 5.9 g/dL (5.7-8.2)
[2025-03-21 05:34] LABS: Alanine Aminotransferase < 9 U/L (7-40); Albumin 2.8 g/dL (3.2-4.8); Alkaline Phosphatase 46 U/L (46-116); Bilirubin, Total 0.3 mg/dL (0.2-1.0); Blood Urea Nitrogen 45 mg/dL (9-23); Calcium 8.0 mg/dL (8.7-10.4); Carbon Dioxide 19 mmol/L (20-31); Chloride 108 mmol/L (98-107)
[2025-03-21 05:36] LABS: Potassium 5.8 mmol/L (3.5-5.1)
[2025-03-21] MEDS: ALBUTEROL SULF 2.5 MG/0.5ML(0.5%) NEB SOLN NEB ONE ×2 (06:09→23:28)
[2025-03-21] MEDS: CALCIUM GLUC 1,000mg/50ml-NS 50 ML IV ONE ×2 (06:19→15:30)
[2025-03-21] MEDS: SODIUM BICARB 8.4% 50Meq/50ml SYR INJ IV ONE ×2 (06:23→23:59)
[2025-03-21] MEDS: DEXTROSE (50%) 50ML SYRG IV ONE ×3 (06:25→23:59)
[2025-03-21] MEDS: SODIUM ZIRCONIUM CYCL 10 GM PAK PO ONE ×2 (06:29→16:01)
[2025-03-21] MEDS: DEXTROSE (25%) 10 ML SYRG IV ONE (06:39)
[2025-03-21] MEDS: InsuLIN REG 1unit/0.01ml Soln (100units/ml) IV ONE ×2 (06:40→16:23)
[2025-03-21 07:30] VITALS: PULSE 129; RESP 20; O2SAT 96
[2025-03-21] MEDS: METOPROLOL SUCCINATE XL 50 MG TAB PO SCH (09:54)
[2025-03-21] MEDS: predniSONE 20 MG TAB PO SCH (10:01)
[2025-03-21] MEDS: PANTOPRAZOLE 40 MG TAB PO SCH (10:01)
[2025-03-21] MEDS: FOLIC ACID 1 MG TAB PO SCH (10:02)
[2025-03-21] MEDS ORDERED: SODIUM CHLORIDE 0.9% 1,000 ML IV SCH (12:30)
--- NOTE | 2025-03-21 12:44 | DVHINCON2 ---
Date of service: Mar 21, 2025 Referring Physician nichelle Reason for Consultation MELLY History of Present Illness 34 years old female with past medical history of lupus diagnosed two years ago, hypertension diagnosed two years ago presented with chief complaints of low back pain left-sided acutely and uncontrolled high blood pressure at home Patient follows [facility] [place],, patient tells me she had a kidney biopsy done two years ago in [place] however she is not aware of the results she said she can not remember,, she has never seen a horse exerciser Admits to taking lupus medications every day,, Past Medical History As per HPI Allergies: Coded Allergies: NO KNOWN ALLERGIES (Unverified , 03/20/24) Home Meds Active Scripts Nitrofurantoin Monohydrate Mac (Macrobid) 100 Mg Cap, 100 MG PO BID for 7 Days, #14 CAP Prov:GUSTAVO VELASQUEZ MD 11/08/24 Prednisone (Prednisone) 20 Mg Tab, 20 MG PO DAILY for 5 Days, #5 MG Prov:GUSTAVO VELASQUEZ MD 11/08/24 Clobetasol Propionate (Clobetasol Propionate) 0.05 % Oin, 1 APPLIC TOP BID, #30 GRAMS Prov:SHELLI HAGEN 04/20/24 Cephalexin Monohydrate (Cephalexin) 500 Mg Cap, 1 CAP PO TID, #24 CAP Prov:SHELLI HAGEN 04/20/24 Ciprofloxacin Hcl (Cipro) 500 Mg Tab, 500 MG PO BID for 5 Days, #10 TAB Prov:JESSY WHITTAKER MD 03/29/24 Omeprazole (Gnp Omeprazole) 20 Mg Tab, 1 TAB PO DAILY for 14 Days, #14 TAB 1 Refill Prov:BALDEV MIRZA MD 03/20/24 Reported Medications Losartan Potassium (Losartan Potassium) 25 Mg Tab, 25 MG PO BID for 30 Days, MG 03/26/24 Prednisone (Prednisone) 20 Mg Tab, 20 MG PO BID, MG 03/26/24 Hydroxychloroquine Sulfate (Hydroxychloroquine Sulfat) 200 Mg Tab, 200 MG PO, TAB 03/26/24 Furosemide (Furosemide) 20 Mg Tab, 20 MG PO DAILY for 30 Days, MG 03/26/24 Folic Acid (Folic Acid) 1 Mg Tab, 1 MG PO, TAB 03/26/24 Metoprolol Succinate (Metoprolol Succinate Er) 25 Mg Tab, 1 TAB PO DAILY, #30 TAB 5 Refills 03/26/24 Current Medications Current Medications Medications (Trade) Dose Ordered Sig/Mica Route PRN Reason Start Time Stop Time Status Last Admin Acetaminophen/ Hydrocodone Bitart ([place] 5/325MG Tab) 1 tab Q4HP PRN PO MODERATE PAIN (4-6 PAIN SCALE) 03/20/25 14:45 03/21/25 10:01 Ondansetron HCl (Zofran) 4 mg Q4HP PRN IV NAUSEA / VOMITING 03/20/25 14:45 03/21/25 06:54 Acetaminophen (Tylenol Tablet) 650 mg Q6HP PRN PO PAIN SCALE 1-3 OR TEMP>100.4 03/20/25 14:45 Morphine Sulfate 2 mg Q4HPRN PRN IV SEVERE PAIN (7-10 PAIN SCALE) 03/20/25 14:45 Nitroglycerin (Ntrostat Sublingual) 0.4 mg Q5MINP PRN SL FOR CHEST PAIN 03/20/25 14:45 Morphine Sulfate 2 mg Q30M PRN IV FOR CHEST PAIN 03/20/25 14:45 Nicardipine/ Sodium Chloride 200 ml @ 50 mls/hr Q4H IV 03/20/25 14:45 03/20/25 20:00 Hydroxychloroquine Sulfate (Plaquenil Tablet) 200 mg DAILY PO 03/21/25 10:00 03/21/25 10:02 Metoprolol Succinate (Toprol Xl) 25 mg DAILY PO 03/21/25 10:00 03/21/25 09:54 Pantoprazole Sodium (Protonix Tablet) 40 mg DAILY PO 03/21/25 10:00 03/21/25 10:01 Patient Own Medication 20 mg BID PO 03/20/25 22:00 03/20/25 15:04 DC Folic Acid 1 mg DAILY PO 03/21/25 10:00 03/21/25 10:02 Furosemide (Lasix Injection) 40 mg DAILY IV 03/20/25 14:45 03/21/25 10:00 Prednisone 20 mg DAILY PO 03/21/25 10:00 03/21/25 12:32 DC 03/21/25 10:01 Labetalol HCl (Labetalol HCl) 20 mg Q2HPRN PRN IV SBP>160 03/20/25 17:45 03/20/25 17:40 Sodium Chloride 1,000 ml @ 100 mls/hr Q10H IV 03/21/25 12:30 UNV Family History: Hypertension G8 FATHER Social History denies Review of Systems HEENT-denies headache, denies vision changes, no hearing issue, denies neck complaints, denies throat issues Respiratory system-denies cough, denies shortness of breath Cardiovascular system-denies chest pain, denies palpitations Abdomen-denies abdominal pain, denies nausea, denies vomiting, denies constipation or diarrhea Musculoskeletal-denies swelling in the legs, positive low back pain more on the left Genitourinary-denies urinary symptoms like dysuria, stream issues Neuro-denies dizziness, denies seizures Psychiatric-denies psychiatric history H&P Exam Vital Signs/I&O Vital Sign Date Time Temp Pulse Resp B/P (MAP) Pulse Ox O2 Delivery O2 Flow Rate FiO2 03/21/25 11:30 110 23 124/67 (86) 96 03/21/25 07:30 Room Air* 0 21 03/21/25 07:30 98.3 98.3 Intake and Output 03/20/25 03/21/25 19:00 07:00 Intake Total 275 ml Balance 275 ml Intake IV Total 275 ml Physical Exam General-not in any distress HEENT-normocephalic, no icterus, no pallor, neck supple Respiratory-reduced air entry at bases [id number] heard, no murmurs appreciated Abdominal-soft, nontender, nondistended Musculoskeletal-no pedal edema, no calf tenderness Genitourinary-deferred Neuro-awake alert oriented x3, Psychiatric-not agitated, cooperative, Labs/Diagnostic Data Labs/Diagnostic Data Laboratory Tests Test 03/21/25 12:31 03/21/25 10:22 03/21/25 04:49 03/20/25 12:08 Range/Units White Blood Count 5.5 # 4.4-10.8 10^3/uL Red Blood Count 3.21 L 4.0-5.20 10^6/uL Hemoglobin 8.2 L 12.2-16.2 g/dL Hematocrit 25.3 L 36.0-46.0 % Mean Corpuscular Volume 78.7 L 80.0-100.0 fL Mean Corpuscular Hemoglobin 25.7 L 28.0-32.0 pg Mean Corpuscular Hemoglobin Concent 32.6 32.0-36.0 g/dL Red Cell Distribution Width 18.6 H 11.8-14.3 % Platelet Count 206 140-450 10^3/uL Mean Platelet Volume 8.0 6.9-10.8 fL Neutrophils (%) (Auto) 79.2 37.0-80.0 % Lymphocytes (%) (Auto) 10.8 10.0-50.0 % Monocytes (%) (Auto) 7.6 0.0-12.0 % Eosinophils (%) (Auto) 1.5 0.0-7.0 % Basophils (%) (Auto) 0.9 0.0-2.0 % Neutrophils # (Auto) 4.4 1.6-8.6 10 ^3/uL Lymphocytes # (Auto) 0.6 0.4-5.4 10 ^3/uL Monocytes # (Auto) 0.4 0-1.3 10 ^3/uL Eosinophils # (Auto) 0.1 0-0.8 10 ^3/uL Basophils # (Auto) 0.1 0-0.2 10 ^3/uL Nucleated Red Blood Cells 0.1 % Sodium Level 137 136-145 mmol/L Potassium Level 5.8 *H 3.5-5.1 mmol/L Chloride Level 108 H 98-107 mmol/L Carbon Dioxide Level 19 L 20-31 mmol/L Anion Gap 10 5-15 Blood Urea Nitrogen 45 H 9-23 mg/dL Creatinine 2.91 H 0.550-1.02 mg/dL Glomerular Filtration Rate Calc 21 >90 mL/min BUN/Creatinine Ratio 15.5 10.0-20.0 Serum Glucose 79 74-106 mg/dL Calcium Level 8.0 L 8.7-10.4 mg/dL Total Bilirubin 0.3 0.2-1.0 mg/dL Aspartate Amino Transferase (AST) 15 13-40 U/L Alanine Aminotransferase (ALT) < 9 7-40 U/L Alkaline Phosphatase 46 46-116 U/L Total Protein 5.9 5.7-8.2 g/dL Albumin 2.8 L 3.2-4.8 g/dL Urine Color Colorless Yellow Urine Clarity Clear Clear Urine pH 6.0 5.0-9.0 Urine Specific [place] 1.007 1.001-1.035 Urine Protein 2+ H Negative Urine Ketones Negative Negative Urine Blood 1+ H Negative /uL Urine Nitrite Negative Negative Urine Bilirubin Negative Negative Urine Urobilinogen Normal Negative mg/dL Urine Leukocyte Esterase Negative Negative /uL Urine RBC 1 0 - 4 /hpf Urine Microscopic WBC 2 0-5 /HPF Urine Squamous Epithelial Cells Few <5 /hpf Urine Bacteria None seen None Seen /hpf Urine Glucose Normal Normal mg/dL Test 03/20/25 10:22 Range/Units White Blood Count 7.9 4.4-10.8 10^3/uL Red Blood Count 3.51 L 4.0-5.20 10^6/uL Hemoglobin 9.0 L 12.2-16.2 g/dL Hematocrit 27.7 L 36.0-46.0 % Mean Corpuscular Volume 78.9 L 80.0-100.0 fL Mean Corpuscular Hemoglobin 25.6 L 28.0-32.0 pg Mean Corpuscular Hemoglobin Concent 32.5 32.0-36.0 g/dL Red Cell Distribution Width 18.8 H 11.8-14.3 % Platelet Count 263 140-450 10^3/uL Mean Platelet Volume 8.4 6.9-10.8 fL Neutrophils (%) (Auto) 76.7 37.0-80.0 % Lymphocytes (%) (Auto) 13.7 10.0-50.0 % Monocytes (%) (Auto) 7.9 0.0-12.0 % Eosinophils (%) (Auto) 1.5 0.0-7.0 % Basophils (%) (Auto) 0.2 0.0-2.0 % Neutrophils # (Auto) 6.1 1.6-8.6 10 ^3/uL Lymphocytes # (Auto) 1.1 0.4-5.4 10 ^3/uL Monocytes # (Auto) 0.6 0-1.3 10 ^3/uL Eosinophils # (Auto) 0.1 0-0.8 10 ^3/uL Basophils # (Auto) 0 0-0.2 10 ^3/uL Nucleated Red Blood Cells 0.0 % Sodium Level 138 136-145 mmol/L Potassium Level 4.6 3.5-5.1 mmol/L Chloride Level 107 98-107 mmol/L Carbon Dioxide Level 20 20-31 mmol/L Anion Gap 11 5-15 Blood Urea Nitrogen 43 H 9-23 mg/dL Creatinine 2.53 H 0.550-1.02 mg/dL Glomerular Filtration Rate Calc 25 >90 mL/min BUN/Creatinine Ratio 17.0 10.0-20.0 Serum Glucose 85 74-106 mg/dL Calcium Level 8.3 L 8.7-10.4 mg/dL Assessment Acute kidney injury--in the setting of hypertensive emergency plus history of systemic lupus erythematosus rule out lupus nephritis Hypertensive emergency Hyperkalemia Systemic lupus erythematosus Pleural effusion Cardiomegaly on chest x-ray recs Check ELVIA comprehensive panel, C3, C4, Anca panel, ESR, CRP, quantify proteinuria, NS iv as ordered+lasix for kaliuresis Medical management of hyperkalemia as ordered Recommend kidney biopsy for definitive diagnosis given history of lupus Pulse dose steroids for three days In March 2024 patient has normal kidney function Patient reports she has not done any blood work in the past one year Hold losartan Continue Plaquenil All questions answered discussed with bedside Reviewed vital signs, lab work, imaging studies, medications, microbiology, other physician recommendations Total time spent 80 minutes More than 50% of the time spent providing direct [id number] care . Thank you for allowing me to participate in the care of your patient. Plan discussed with: Patient, Spouse MARY AZAR MD Mar 21, 2025 12:44
[2025-03-21] MEDS ORDERED: methylPREDNISolone SOD SUCC 40 MG/ML VL IV SCH (12:45)
[2025-03-21] MEDS: SODIUM CHLORIDE 0.9% 1,000 ML IV SCH (12:45)
--- NOTE | 2025-03-21 13:14 | DVH ---
INDICATION: MELLY TECHNIQUE: Multiple real-time sonographic images of the kidneys and bladder were obtained. COMPARISON: None FINDINGS: RIGHT kidney measures 10.8 cm in length. Increased cortical echogenicity No hydronephrosis. LEFT kidney measures 11.2 cm in length. Increased cortical echogenicity. No hydronephrosis. Left pleural No large intraluminal masses are seen in the bladder. Prevoid bladder volume 673 ML. No postvoid bladder image received. IMPRESSION: 1. 10.8 cm long right kidney. 11.2 cm long left kidney. 2. Echogenic renal cortex bilaterally 3. Incidental finding of the left pleural effusion.
[2025-03-21 13:25] LABS: Magnesium 1.7 mg/dL (1.6-2.6)
--- NOTE | 2025-03-21 13:32 | DVHINCON2 ---
Date of service: Mar 21, [address] Doyle Reason for Consultation Left pleural effusion History of Present Illness 34-year-old woman history of UTIs, lupus, chronic kidney disease, hypertension who presented with back pain. She reports 8/10 pressure-like an intermittent in nature. It is worse when she is sitting down. She also notes that her blood pressure has been elevated in the 200s. Chest x-ray was notable for left pleural effusion. She states that she previously had pleural effusion drained in the past. Pulmonary consultation is called for evaluation of left pleural effusion and possible thoracentesis. Review of systems: 14 point review of systems is negative unless otherwise noted above. Past medical history: Hypertension, UTIs, systemic lupus erythematosus Past surgical history: Prior left thoracentesis Medications: Reviewed Allergies: No known drug allergies. Family history: No family history of premature CAD. No family history of lung disease Father with hypertension. Social history: Nonsmoker. No alcohol or illicit drug use. Lives with family. Family History: Hypertension G8 FATHER Allergies: Coded Allergies: NO KNOWN ALLERGIES (Unverified , 03/20/24) Home Meds Active Scripts Nitrofurantoin Monohydrate Mac (Macrobid) 100 Mg Cap, 100 MG PO BID for 7 Days, #14 CAP Prov:GUSTAVO VELASQUEZ MD 11/08/24 Prednisone (Prednisone) 20 Mg Tab, 20 MG PO DAILY for 5 Days, #5 MG Prov:GUSTAVO VELASQUEZ MD 11/08/24 Clobetasol Propionate (Clobetasol Propionate) 0.05 % Oin, 1 APPLIC TOP BID, #30 GRAMS Prov:SHELLI HAGEN 04/20/24 Cephalexin Monohydrate (Cephalexin) 500 Mg Cap, 1 CAP PO TID, #24 CAP Prov:SHELLI HAGEN 04/20/24 Ciprofloxacin Hcl (Cipro) 500 Mg Tab, 500 MG PO BID for 5 Days, #10 TAB Prov:JESSY WHITTAKER MD 03/29/24 Omeprazole (Gnp Omeprazole) 20 Mg Tab, 1 TAB PO DAILY for 14 Days, #14 TAB 1 Refill Prov:BALDEV MIRZA MD 03/20/24 Reported Medications Losartan Potassium (Losartan Potassium) 25 Mg Tab, 25 MG PO BID for 30 Days, MG 03/26/24 Prednisone (Prednisone) 20 Mg Tab, 20 MG PO BID, MG 03/26/24 Hydroxychloroquine Sulfate (Hydroxychloroquine Sulfat) 200 Mg Tab, 200 MG PO, TAB 03/26/24 Furosemide (Furosemide) 20 Mg Tab, 20 MG PO DAILY for 30 Days, MG 03/26/24 Folic Acid (Folic Acid) 1 Mg Tab, 1 MG PO, TAB 03/26/24 Metoprolol Succinate (Metoprolol Succinate Er) 25 Mg Tab, 1 TAB PO DAILY, #30 TAB 5 Refills 03/26/24 Current Medications Current Medications Medications (Trade) Dose Ordered Sig/Mica Route PRN Reason Start Time Stop Time Status Last Admin Acetaminophen/ Hydrocodone Bitart ([place] 5/325MG Tab) 1 tab Q4HP PRN PO MODERATE PAIN (4-6 PAIN SCALE) 03/20/25 14:45 03/21/25 10:01 Ondansetron HCl (Zofran) 4 mg Q4HP PRN IV NAUSEA / VOMITING 03/20/25 14:45 03/21/25 06:54 Acetaminophen (Tylenol Tablet) 650 mg Q6HP PRN PO PAIN SCALE 1-3 OR TEMP>100.4 03/20/25 14:45 Morphine Sulfate 2 mg Q4HPRN PRN IV SEVERE PAIN (7-10 PAIN SCALE) 03/20/25 14:45 Nitroglycerin (Ntrostat Sublingual) 0.4 mg Q5MINP PRN SL FOR CHEST PAIN 03/20/25 14:45 Morphine Sulfate 2 mg Q30M PRN IV FOR CHEST PAIN 03/20/25 14:45 Nicardipine/ Sodium Chloride 200 ml @ 50 mls/hr Q4H IV 03/20/25 14:45 03/20/25 20:00 Hydroxychloroquine Sulfate (Plaquenil Tablet) 200 mg DAILY PO 03/21/25 10:00 03/21/25 10:02 Metoprolol Succinate (Toprol Xl) 25 mg DAILY PO 03/21/25 10:00 03/21/25 09:54 Pantoprazole Sodium (Protonix Tablet) 40 mg DAILY PO 03/21/25 10:00 03/21/25 10:01 Patient Own Medication 20 mg BID PO 03/20/25 22:00 03/20/25 15:04 DC Folic Acid 1 mg DAILY PO 03/21/25 10:00 03/21/25 10:02 Furosemide (Lasix Injection) 40 mg DAILY IV 03/20/25 14:45 03/21/25 10:00 Prednisone 20 mg DAILY PO 03/21/25 10:00 03/21/25 12:32 DC 03/21/25 10:01 Labetalol HCl (Labetalol HCl) 20 mg Q2HPRN PRN IV SBP>160 03/20/25 17:45 03/20/25 17:40 Sodium Chloride 1,000 ml @ 100 mls/hr Q10H IV 03/21/25 12:30 03/21/25 12:45 DC Methylprednisolone Sodium Succinate (Solu Medrol) 1,000 mg DAILY IV 03/21/25 12:45 03/23/25 10:01 Cancel Sodium Chloride 1,000 ml @ 75 mls/hr [id number] IV 03/21/25 12:45 Vital Signs Vital Signs Date Time Temp Pulse Resp B/P (MAP) Pulse Ox O2 Delivery O2 Flow Rate FiO2 03/21/25 13:00 104 19 137/81 (99) 99 03/21/25 07:30 Room Air* 0 21 03/21/25 07:30 98.3 98.3 Physical Exam Gen.: Patient lying in bed in no apparent distress. On supplemental oxygen. He is breathing comfortably on room air. Head: Normocephalic, atraumatic Eyes: EOMI/PERRLA. Ears: Normal hearing. Normal anatomy. Neck/trachea: Trachea midline, supple. Nose: Normal external anatomy. Mouth: Moist mucous membranes. Chest: Decreased air entry bilaterally. No wheezing or rhonchi. Dullness to percussion in the left lower lung field. Basilar crackles in left lower lung field. Cardio vascular: Positive S1, positive S2. Regular rate and rhythm. Abdomen: Positive bowel sounds in all 4 quadrants. Soft, non-tender, non- distended. : Deferred. Rectal: Deferred Skin: Warm, dry. Extremities: 2+ radial pulses bilaterally. No lower extremity edema. Neuro: Awake, alert, oriented x3. No gross motor or sensory deficits. Cranial nerves II through XII intact. Gait not assessed. Labs/Diagnostic Data Labs Test 03/21/25 12:40 03/21/25 10:22 03/21/25 04:49 03/20/25 12:08 Range/Units Phosphorus Level 6.3 H 2.4-5.1 mg/dL Magnesium Level 1.7 1.6-2.6 mg/dL White Blood Count 5.5 # 4.4-10.8 10^3/uL Red Blood Count 3.21 L 4.0-5.20 10^6/uL Hemoglobin 8.2 L 12.2-16.2 g/dL Hematocrit 25.3 L 36.0-46.0 % Mean Corpuscular Volume 78.7 L 80.0-100.0 fL Mean Corpuscular Hemoglobin 25.7 L 28.0-32.0 pg Mean Corpuscular Hemoglobin Concent 32.6 32.0-36.0 g/dL Red Cell Distribution Width 18.6 H 11.8-14.3 % Platelet Count 206 140-450 10^3/uL Mean Platelet Volume 8.0 6.9-10.8 fL Neutrophils (%) (Auto) 79.2 37.0-80.0 % Lymphocytes (%) (Auto) 10.8 10.0-50.0 % Monocytes (%) (Auto) 7.6 0.0-12.0 % Eosinophils (%) (Auto) 1.5 0.0-7.0 % Basophils (%) (Auto) 0.9 0.0-2.0 % Neutrophils # (Auto) 4.4 1.6-8.6 10 ^3/uL Lymphocytes # (Auto) 0.6 0.4-5.4 10 ^3/uL Monocytes # (Auto) 0.4 0-1.3 10 ^3/uL Eosinophils # (Auto) 0.1 0-0.8 10 ^3/uL Basophils # (Auto) 0.1 0-0.2 10 ^3/uL Nucleated Red Blood Cells 0.1 % Sodium Level 137 136-145 mmol/L Potassium Level 5.8 *H 3.5-5.1 mmol/L Chloride Level 108 H 98-107 mmol/L Carbon Dioxide Level 19 L 20-31 mmol/L Anion Gap 10 5-15 Blood Urea Nitrogen 45 H 9-23 mg/dL Creatinine 2.91 H 0.550-1.02 mg/dL Glomerular Filtration Rate Calc 21 >90 mL/min BUN/Creatinine Ratio 15.5 10.0-20.0 Serum Glucose 79 74-106 mg/dL Calcium Level 8.0 L 8.7-10.4 mg/dL Total Bilirubin 0.3 0.2-1.0 mg/dL Aspartate Amino Transferase (AST) 15 13-40 U/L Alanine Aminotransferase (ALT) < 9 7-40 U/L Alkaline Phosphatase 46 46-116 U/L Total Protein 5.9 5.7-8.2 g/dL Albumin 2.8 L 3.2-4.8 g/dL Urine Color Colorless Yellow Urine Clarity Clear Clear Urine pH 6.0 5.0-9.0 Urine Specific [place] 1.007 1.001-1.035 Urine Protein 2+ H Negative Urine Ketones Negative Negative Urine Blood 1+ H Negative /uL Urine Nitrite Negative Negative Urine Bilirubin Negative Negative Urine Urobilinogen Normal Negative mg/dL Urine Leukocyte Esterase Negative Negative /uL Urine RBC 1 0 - 4 /hpf Urine Microscopic WBC 2 0-5 /HPF Urine Squamous Epithelial Cells Few <5 /hpf Urine Bacteria None seen None Seen /hpf Urine Glucose Normal Normal mg/dL Assessment Impression: Acute hypoxic respiratory failure secondary to compressive atelectasis due to pleural effusion Left pleural effusion Compressive atelectasis due to pleural effusion Hypertensive urgency Systemic lupus erythematosus Plan: Supplemental oxygen Keep O2 saturation above 92%. Consent for left thoracentesis Plan for left thoracentesis this afternoon Obtain supplies. Will send pleural fluid for cell count and differential, cultures and cytology. Chest x-ray imaging report reviewed. Large left pleural effusion. Cardiomegaly with pulmonary vascular congestion. Bilateral patchy airspace opacities, [id number]. Diuresis tolerated. Monitor renal function Monitor ins and outs Monitor electrolytes. Received IV steroids. BP control per Nephrology. DVT prophylaxis GI prophylaxis-Protonix Prognosis: Poor given multiple comorbidities. Rest of plan per hospitalist and other consultants. Thank you Dr. Doyle for allowing me to participate in this patient's care. Further recommendations will depend on patient's clinical course. Please do not hesitate to contact me if you have any questions or concerns. This medical document was created using an electronic medical record system with [employer] system. Although this document has been carefully reviewed, there may still be some phonetic and typographical errors. These areas are purely typographical due to imperfections of the software programs, and do not reflect any compromise in the patient's medical care. Plan discussed with: Patient, Other (RN [place], Dr Doyle) Visit Coding Pulmonary Billing Provider: NORI SINGH MD Date of Service if different f: Mar 21, 2025 Common Visit Codes: [id number] INP/OBS CARE (HIGH) NORI SINGH MD Mar 21, 2025 13:32
[2025-03-21 13:40] LABS: Iron 14.0 ug/dL (50-170)
[2025-03-21 13:43] LABS: Total Iron Binding Capacity 240.0 ug/dL (250-425)
--- NOTE | 2025-03-21 14:14 | DVHPN2 ---
Subjective Continues to having minor lower back pain Reviewed: Care Plan, H&P, Labs, Medications Changes from previous H/P or p: No Changes General: Per HPI Musculoskeletal: back pain Objective Vitals Vital Signs Date Time Temp Pulse Resp B/P (MAP) Pulse Ox O2 Delivery O2 Flow Rate FiO2 03/21/25 13:00 104 19 137/81 (99) 99 03/21/25 07:30 Room Air* 0 21 03/21/25 07:30 98.3 98.3 Intake/Output Intake and Output 03/21/25 07:00 Intake Total 275 ml Balance 275 ml Intake IV Total 275 ml General Appearance: Alert, Oriented X3, Cooperative, mild distress HEENT: Atraumatic, PERRLA Lungs: Normal air movement, Other (Decreased breath sounds in lower lobe) Cardiovascular: Normal S1, Normal S2 Abdomen: Normal bowel sounds, Soft, No tenderness Musculoskeletal: Normal sensory function, Normal motor function Neuro: Normal gait, Normal speech Psych/Mental Status: Mental status NL, Mood NL Medications Current Medications Medications Dose Ordered Sig/Mica Route Start Time Stop Time Status Last Admin Dose Admin Acetaminophen/ Hydrocodone Bitart 1 tab Q4HP PRN PO 03/20/25 14:45 03/21/25 10:01 1 TAB Ondansetron HCl 4 mg Q4HP PRN IV 03/20/25 14:45 03/21/25 06:54 4 MG Acetaminophen 650 mg Q6HP PRN PO 03/20/25 14:45 Morphine Sulfate 2 mg Q4HPRN PRN IV 03/20/25 14:45 Nitroglycerin 0.4 mg Q5MINP PRN SL 03/20/25 14:45 Morphine Sulfate 2 mg Q30M PRN IV 03/20/25 14:45 Hydroxychloroquine Sulfate 200 mg DAILY PO 03/21/25 10:00 03/21/25 10:02 200 MG Metoprolol Succinate 25 mg DAILY PO 03/21/25 10:00 03/21/25 09:54 25 MG Pantoprazole Sodium 40 mg DAILY PO 03/21/25 10:00 03/21/25 10:01 40 MG Folic Acid 1 mg DAILY PO 03/21/25 10:00 03/21/25 10:02 1 MG Furosemide 40 mg DAILY IV 03/20/25 14:45 03/21/25 10:00 40 MG Labetalol HCl 20 mg Q2HPRN PRN IV 03/20/25 17:45 03/20/25 17:40 20 MG Methylprednisolone Sodium Succinate 1,000 mg DAILY IV 03/21/25 12:45 03/23/25 10:01 Cancel Sodium Chloride 1,000 ml @ 75 mls/hr [id number] IV 03/21/25 12:45 03/21/25 12:45 75 MLS/HR Labetalol HCl 10 mg Q2HPRN PRN IV 03/21/25 13:45 UNV Laboratory Results Laboratory Tests 03/21/25 04:49 Chemistry Test 03/21/25 04:49 03/21/25 10:22 Albumin 2.8 g/dL (3.2-4.8) L Calcium Level 8.0 mg/dL (8.7-10.4) L Total Protein 5.9 g/dL (5.7-8.2) Magnesium Level 1.7 mg/dL (1.6-2.6) Phosphorus Level 6.3 mg/dL (2.4-5.1) H Cardiac Markers Test 03/21/25 10:22 B-Type Natriuretic Peptide 548.49 pg/mL (0-100) LFT Test 03/21/25 04:49 Alanine Aminotransferase (ALT) < 9 U/L (7-40) Alkaline Phosphatase 46 U/L (46-116) Aspartate Amino Transferase (AST) 15 U/L (13-40) Total Bilirubin 0.3 mg/dL (0.2-1.0) Urinalysis Test 03/20/25 12:08 Urine Color Colorless (Yellow) Urine Clarity Clear (Clear) Urine pH 6.0 (5.0-9.0) Urine Specific [place] 1.007 (1.001-1.035) Urine Protein 2+ (Negative) H Urine Ketones Negative (Negative) Urine Blood 1+ /uL (Negative) H Urine Nitrite Negative (Negative) Urine Bilirubin Negative (Negative) Urine Urobilinogen Normal mg/dL (Negative) Urine Leukocyte Esterase Negative /uL (Negative) Urine RBC 1 /hpf (0 - 4) Urine Microscopic WBC 2 /HPF (0-5) Urine Squamous Epithelial Cells Few /hpf (<5) Urine Bacteria None seen /hpf (None Seen) Urine Glucose Normal mg/dL (Normal) Labs and/or images reviewed: Labs reviewed by me, Image(s) reviewed by me Assessment/Plan Assessment/Plan Impression: -hypertensive crisis -probable lupus flare -acute kidney injury, probable lupus nephritis -large left pleural effusion -microcytic, hypochromic anemia Plan: -consultations: Nephrology, pulmonology, rheumatology -weaned off of nicardipine drip, add p.o. antihypertensives -plans for thoracentesis -IV fluids per Nephrology -ESR, CRP elevated. Iron panel reveals ZOILA -nicardipine drip weaned off. Transfer to telemetry floor -weaned off O2 supplementation to keep saturation greater than 93% Total time spent with patient discussing and formulating plan of care: 35 minutes. This medical document was created using an electronic medical record system with [employer] dictation system. Although this document has been carefully reviewed, there may still be some phonetic and typographical errors. These areas are purely typographical due to imperfections of the software programs, and do not reflect any compromise in the patient's medical care. Plan discussed with: Patient, Other (RN) My Orders Orders - JUSTIN YEPEZ NP Procedure Category Date Status Time Potassium LAB 03/21/25 Logged 13:38 Transfer Orders XFER 03/21/25 Transmitted 13:38 Labetalol Hcl PHA 03/21/25 Logged (Labetalol Hcl) 13:45 * Rheumatology Consult CONS 03/21/25 Transmitted Date of Service: Mar 21, 2025 Billing Provider: JUSTIN YEPEZ NP Common Visit Codes: [id number] INP/OBS CARE(HIGH) JUSTIN YEPEZ NP Mar 21, 2025 14:14
[2025-03-21] MEDS: methylPREDNISolone SOD SUCC 1,000 MG in SODIUM CHL 0.9% 250 ML IV ONE (14:45)
[2025-03-21] MEDS ORDERED: SODIUM BICARB 8.4% 50Meq/50ml SYR Vial IV ONE (15:30)
[2025-03-21] MEDS: SODIUM BICARB 8.4% 50Meq/50ml SYR Vial IV ONE (16:23)
[2025-03-21 17:00] VITALS: BP 172/105; PULSE 116; RESP 18; TEMP 98.2; O2SAT 97
--- NOTE | 2025-03-21 17:32 | DVHNC2 ---
Procedure - Ultrasound-guided thoracentesis procedure note: Physician: Dr Jong Ontiveros [employer] Supervisor: Misty ALVARADO, JENNY Hanna Time out time: 1710 pm Patient medications and allergies reviewed. The risks and benefits of the procedure and the sedation options and risk were discussed with the patient. All questions were answered and informed consent was obtained. Patient identification and proposed procedure were verified prior to the procedure by the physician, and a nurse in the patient's room. The heart rate, respiratory rate, oxygen saturations, blood pressure, adequacy of pulmonary ventilation, and response to care were monitored throughout the procedure. The physical status of the patient was reassessed after the procedure. Date: 03/21/25 Consent: Consent was obtained from patient's healthcare proxy prior to procedure. Indication, risks, and benefits were explained at length. Procedure summary: A time out was performed and a chest x-ray was reviewed prior to procedure. The appropriate site was confirmed and marked. My hands were washed immediately prior to the procedure, I wore a surgical cap, mask with protective eyewear, sterile gown and sterile gloves throughout the procedure. The patient was prepped and draped in a sterile manner using chlorhexidine scrub after the appropriate level was percussed and confirmed by ultrasound. 1% lidocaine was used to anesthetize the skin, subcutaneous tissue, superior aspect of the rib periosteum and parietal pleura. A finder needle was then introduced over the superior aspect of the rib to locate the pleural fluid; yellow fluid was aspirated. A 10 blade scalpel was used to shubham the skin at the insertion site. Thoracentesis needle was then introduced through the skin incision into the pleural space using negative aspiration pressure. The thoracentesis catheter was then threaded without difficulty. 700 mL's of yellow colored fluid were removed without difficulty. The catheter was then removed. No immediate complications were noted during the procedure. A postprocedure chest x-ray is pending at the time of this note. The pleural fluid will be sent for cultures and cytology. Estimated blood loss is less than 5 mL's. CPT: 87802 Visit Coding Pulmonary Billing Provider: NORI ONTIVEROS MD Date of Service if different f: Mar 21, 2025 Common Visit Codes: PROCEDURE ONLY Procedure Codes: [id number] W/PUNCT (82064 Left thoracentesis) NORI ONTIVEROS MD Mar 21, 2025 17:32
--- NOTE | 2025-03-21 18:11 | DVH ---
Indication: S/P left thora r/o PTX Technique: XY CHEST XRAY 1 VIEWXY Comparison: 03/20/2025 FINDINGS/IMPRESSION: Cardiac silhouette enlarged. Bibasilar airspace opacities, [id number]. Moderate left pleural effusion, decreased from prior. Small right pleural effusion, slightly increas ed. No pneumothorax. Pulmonary vasculature is prominent.
[2025-03-21] MEDS ORDERED: CHOL20007 PO (18:19)
[2025-03-21 20:00] VITALS: PULSE 87; RESP 20; O2SAT 95
[2025-03-21 21:00] VITALS: BP 173/100; PULSE 92; RESP 20; TEMP 98.1; O2SAT 95
[2025-03-21] MEDS: SODIUM ZIRCONIUM CYCL 10 GM PAK PO SCH (22:30)
[2025-03-21] MEDS: CHOLECALCIFEROL (VITD3) 1,000UNIT=25mCg TAB PO ONE (22:46)
[2025-03-21 23:15] VITALS: PULSE 86; RESP 16; O2SAT 93
[2025-03-21 23:30] VITALS: PULSE 103; RESP 16; O2SAT 99
[2025-03-22] VITALS (10 sets, daily range): BP systolic 148–170; BP diastolic 85–97; PULSE 89–113; RESP 16–20; TEMP 97.6–98.1; O2SAT 17–100
[2025-03-22] MEDS: InsuLIN REG 1unit/0.01ml Soln (100units/ml) IV ONE (00:06)
[2025-03-22] MEDS: ACETAMINOPHEN 325 MG TAB PO PRN (00:15)
[2025-03-22 07:41] LABS: Anion Gap 15 (5-15); Carbon Dioxide 22 mmol/L (20-31); Chloride 100 mmol/L (98-107); Potassium 4.7 mmol/L (3.5-5.1); Sodium 137 mmol/L (136-145)
[2025-03-22 07:47] LABS: BUN/Creatinine Ratio 12.6 (10.0-20.0)
[2025-03-22 07:51] LABS: Glucose 149 mg/dL (74-106)
[2025-03-22 07:52] LABS: Blood Urea Nitrogen 47 mg/dL (9-23)
[2025-03-22 07:53] LABS: Calcium 8.2 mg/dL (8.7-10.4)
[2025-03-22] MEDS: FERROUS SULFATE 325mg EC TAB PO SCH (08:07)
[2025-03-22] MEDS: CALCIUM ACETATE 667 MG CAP PO SCH (08:07)
[2025-03-22 08:40] LABS: INR 0.97 (0.9-1.15); Partial Thromboplastin Time 27.3 SEC (24.5-34.5); Prothrombin Time 10.3 sec (9.3-11.8)
[2025-03-22] MEDS: CHOLECALCIFEROL (VITD3) 1,000UNIT=25mCg TAB PO SCH (09:27)
[2025-03-22 10:25] LABS: Hepatitis C Antibody Negative (Negative)
[2025-03-22 10:29] LABS: Hepatitis B Surface Antigen Negative (Negative)
[2025-03-22 11:08] LABS: Anti-Centromere B Antibody <0.2 AI (0.0-0.9); Anti-Jo-1 Antibody <0.2 AI (0.0-0.9); Anti-dsDNA Antibody >300 IU/mL (0-9); Antichromatin Antibody >8.0 AI (0.0-0.9); Antiscleroderma-70 Antibody 0.2 AI (0.0-0.9); Sjogren's Anti-SS-A Antibody >8.0 AI (0.0-0.9); Sjogren's Anti-SS-B Antibody 6.0 AI (0.0-0.9)
--- NOTE | 2025-03-22 11:20 | DVHPN2 ---
Subjective DOS: 03/22/2025 Patient seen and examined at bedside. Breathing comfortably on room air. Overnight events reviewed. Reviewed: Care Plan, H&P, Labs, Medications Changes from previous H/P or p: No Changes General: Per HPI Musculoskeletal: back pain Objective Vitals Vital Signs Date Time Temp Pulse Resp B/P (MAP) Pulse Ox O2 Delivery O2 Flow Rate FiO2 03/22/25 09:29 169/97 03/22/25 09:28 98 03/22/25 09:00 97.6 16 97 97.6 03/22/25 08:10 Room Air* 0 21 Intake/Output Intake and Output 03/22/25 07:00 Intake Total 740 ml Balance 740 ml Intake Oral 440 ml IV Total 300 ml # Voids 2 Exam Gen.: Patient lying in bed in no apparent distress. She is breathing comfortably on room air. Head: Normocephalic, atraumatic Eyes: EOMI/PERRLA. Ears: Normal hearing. Normal anatomy. Neck/trachea: Trachea midline, supple. Nose: Normal external anatomy. Mouth: Moist mucous membranes. Chest: Decreased air entry bilaterally. No wheezing or rhonchi. Dullness to percussion in the left lower lung field. Basilar crackles in left lower lung field. Cardio vascular: Positive S1, positive S2. Regular rate and rhythm. Abdomen: Positive bowel sounds in all 4 quadrants. Soft, non-tender, non- distended. : Deferred. Rectal: Deferred Skin: Warm, dry. Extremities: 2+ radial pulses bilaterally. No lower extremity edema. Neuro: Awake, alert, oriented x3. No gross motor or sensory deficits. Cranial nerves II through XII intact. Gait not assessed. General Appearance: Alert, Oriented X3, Cooperative, mild distress HEENT: Atraumatic, PERRLA Lungs: Normal air movement, Other (Decreased breath sounds in lower lobe) Cardiovascular: Normal S1, Normal S2 Abdomen: Normal bowel sounds, Soft, No tenderness Musculoskeletal: Normal sensory function, Normal motor function Neuro: Normal gait, Normal speech Psych/Mental Status: Mental status NL, Mood NL Medications Current Medications Medications Dose Ordered Sig/Mica Route Start Time Stop Time Status Last Admin Dose Admin Acetaminophen/ Hydrocodone Bitart 1 tab Q4HP PRN PO 03/20/25 14:45 03/21/25 10:01 1 TAB Ondansetron HCl 4 mg Q4HP PRN IV 03/20/25 14:45 03/21/25 06:54 4 MG Acetaminophen 650 mg Q6HP PRN PO 03/20/25 14:45 03/22/25 00:15 650 MG Morphine Sulfate 2 mg Q4HPRN PRN IV 03/20/25 14:45 Hold Nitroglycerin 0.4 mg Q5MINP PRN SL 03/20/25 14:45 Morphine Sulfate 2 mg Q30M PRN IV 03/20/25 14:45 Metoprolol Succinate 25 mg DAILY PO 03/21/25 10:00 03/22/25 09:28 25 MG Pantoprazole Sodium 40 mg DAILY PO 03/21/25 10:00 03/22/25 10:08 40 MG Folic Acid 1 mg DAILY PO 03/21/25 10:00 03/22/25 09:27 1 MG Furosemide 40 mg DAILY IV 03/20/25 14:45 03/22/25 09:29 40 MG Labetalol HCl 20 mg Q2HPRN PRN IV 03/20/25 17:45 03/22/25 08:02 20 MG Methylprednisolone Sodium Succinate 1,000 mg DAILY IV 03/21/25 12:45 03/23/25 10:01 Cancel Sodium Chloride 1,000 ml @ 75 mls/hr [id number] IV 03/21/25 12:45 03/22/25 02:05 75 MLS/HR Labetalol HCl 10 mg Q2HPRN PRN IV 03/21/25 13:45 Zirconium Oxide 10 gm Q8HR PO 03/21/25 22:00 03/22/25 06:03 10 GM Amlodipine Besylate 10 mg DAILY PO 03/22/25 10:00 03/22/25 09:28 10 MG Clonidine HCl 0.1 mg Q6HP PRN PO 03/21/25 21:15 Cholecalciferol 4,000 unit DAILY PO 03/22/25 10:00 03/22/25 09:27 4,000 UNIT Ferrous Sulfate 325 mg BIDWM PO 03/22/25 08:00 03/22/25 08:07 325 MG Calcium Acetate 667 mg TIDWMEALS PO 03/22/25 08:00 03/22/25 08:07 667 MG Hydroxychloroquine Sulfate 200 mg BID PO 03/21/25 21:30 03/22/25 09:28 200 MG Laboratory Results Laboratory Tests 03/21/25 04:49 03/22/25 04:56 Chemistry Test 03/22/25 04:56 Calcium Level 8.2 mg/dL (8.7-10.4) L Coagulation Test 03/22/25 04:56 Prothrombin Time 10.3 sec (9.3-11.8) Prothrombin Time INR 0.97 (0.9-1.15) Activated Partial Thromboplast Time 27.3 SEC (24.5-34.5) Urinalysis Test 03/20/25 12:08 Urine Color Colorless (Yellow) Urine Clarity Clear (Clear) Urine pH 6.0 (5.0-9.0) Urine Specific [place] 1.007 (1.001-1.035) Urine Protein 2+ (Negative) H Urine Ketones Negative (Negative) Urine Blood 1+ /uL (Negative) H Urine Nitrite Negative (Negative) Urine Bilirubin Negative (Negative) Urine Urobilinogen Normal mg/dL (Negative) Urine Leukocyte Esterase Negative /uL (Negative) Urine RBC 1 /hpf (0 - 4) Urine Microscopic WBC 2 /HPF (0-5) Urine Squamous Epithelial Cells Few /hpf (<5) Urine Bacteria None seen /hpf (None Seen) Urine Glucose Normal mg/dL (Normal) Microbiology Microbiology Date/Time Source Procedure Growth Status 03/21/25 17:26 Pleural Fluid Gram Stain Pending Resulted 03/21/25 17:26 Pleural Fluid Body Fluid Culture - Preliminary Resulted Assessment/Plan Assessment/Plan Impression: Acute hypoxic respiratory failure secondary to compressive atelectasis due to pleural effusion Left pleural effusion Compressive atelectasis due to pleural effusion Hypertensive urgency Systemic lupus erythematosus Obesity Events: Breathing on room air Supplemental oxygen PRN Continue bronchodilators Continue steroids Incentive spirometry On hydroxychloroquine IV steroids x1 given. Accu-Cheks, ISS. Diurese with Lasix Monitor renal function. Monitor electrolytes. Supplement as necessary. Follow up Nephrology recommendations Blood pressure control per Nephrology Awaiting IR for kidney biopsy S/p left thoracentesis on 03/21/25 with 700 mL's of yellow colored fluid removed from left pleural space Pleural fluid sent for cell count and differential, cultures and cytology. Preliminary results show no growth. Postprocedure CXR showed bibasilar airspace opacities, [id number]. Moderate left pleural effusion, decreased from prior. Small right pleural effusion, slightly increased. No pneumothorax. Labs and imaging reviewed. Rest of plan as noted below. Plan: Supplemental oxygen PRN Keep O2 saturation above 92%. Diurese as tolerated. Monitor renal function Monitor ins and outs Monitor electrolytes. BP control per Nephrology. Incentive spirometry Continue steroids Continue bronchodilators Recommend diet and lifestyle modifications for weight reduction Obesity complicates all care DVT prophylaxis GI prophylaxis-Protonix Prognosis: Poor given multiple comorbidities. Rest of plan per hospitalist and other consultants. Thank you Dr. Doyle for allowing me to participate in this patient's care. Further recommendations will depend on patient's clinical course. Please do not hesitate to contact me if you have any questions or concerns. This medical document was created using an electronic medical record system with datangoation system. Although this document has been carefully reviewed, there may still be some phonetic and typographical errors. These areas are purely typographical due to imperfections of the software programs, and do not reflect any compromise in the patient's medical care. Plan discussed with: Patient, Other (JENNY Edwards) My Orders Orders - NORI SINGH MD Procedure Category Date Status Time Communication Order ORDERS 03/21/25 Transmitted 13:23 Body Fluid Culture W/ SYED 03/21/25 In Process GS 13:23 Glucose Body Fluid LAB 03/21/25 In Process 13:23 Protein, Body Fluid LAB 03/21/25 In Process 13:23 Lactate LAB 03/21/25 In Process Dehydrogenase, Fluid 13:23 Cytology SYED 03/21/25 Transmitted 13:23 Obtain Consent For: ORDERS 03/21/25 Transmitted 13:23 Obtain Consent For ALEENA 03/21/25 In Process Anesthesia 13:23 Chest Xray 1 View XY 03/21/25 Resulted 17:26 Visit Coding Pulmonary Billing Provider: NORI SINGH MD Date of Service if different f: Mar 22, 2025 Common Visit Codes: [id number] INP/OBS CARE(HIGH) NORI SINGH MD Mar 22, 2025 11:20
--- NOTE | 2025-03-22 15:57 | DVHPN2 ---
Subjective Reports that her breathing and for back pain has improved. Reviewed: Care Plan, H&P, Labs, Medications Changes from previous H/P or p: No Changes General: Per HPI Musculoskeletal: back pain Objective Vitals Vital Signs Date Time Temp Pulse Resp B/P (MAP) Pulse Ox O2 Delivery O2 Flow Rate FiO2 03/22/25 14:11 113 18 149/93 (111) 03/22/25 13:00 98.0 100 98.0 03/22/25 10:08 Room Air* 0 21 Intake/Output Intake and Output 03/22/25 07:00 Intake Total 740 ml Balance 740 ml Intake Oral 440 ml IV Total 300 ml # Voids 2 General Appearance: Alert, Oriented X3, Cooperative, mild distress HEENT: Atraumatic, PERRLA Lungs: Normal air movement, Other (Decreased breath sounds in lower lobe) Cardiovascular: Normal S1, Normal S2 Abdomen: Normal bowel sounds, Soft, No tenderness Musculoskeletal: Normal sensory function, Normal motor function Neuro: Normal gait, Normal speech Skin: Dry, Intact Psych/Mental Status: Mental status NL, Mood NL Medications Current Medications Medications Dose Ordered Sig/Mica Route Start Time Stop Time Status Last Admin Dose Admin Acetaminophen/ Hydrocodone Bitart 1 tab Q4HP PRN PO 03/20/25 14:45 03/21/25 10:01 1 TAB Ondansetron HCl 4 mg Q4HP PRN IV 03/20/25 14:45 03/21/25 06:54 4 MG Acetaminophen 650 mg Q6HP PRN PO 03/20/25 14:45 03/22/25 11:32 650 MG Morphine Sulfate 2 mg Q4HPRN PRN IV 03/20/25 14:45 Hold Nitroglycerin 0.4 mg Q5MINP PRN SL 03/20/25 14:45 Morphine Sulfate 2 mg Q30M PRN IV 03/20/25 14:45 Metoprolol Succinate 25 mg DAILY PO 03/21/25 10:00 03/22/25 09:28 25 MG Pantoprazole Sodium 40 mg DAILY PO 03/21/25 10:00 03/22/25 10:08 40 MG Folic Acid 1 mg DAILY PO 03/21/25 10:00 03/22/25 09:27 1 MG Furosemide 40 mg DAILY IV 03/20/25 14:45 03/22/25 09:29 40 MG Labetalol HCl 20 mg Q2HPRN PRN IV 03/20/25 17:45 03/22/25 08:02 20 MG Methylprednisolone Sodium Succinate 1,000 mg DAILY IV 03/21/25 12:45 03/23/25 10:01 Cancel Sodium Chloride 1,000 ml @ 75 mls/hr [id number] IV 03/21/25 12:45 03/22/25 02:05 75 MLS/HR Labetalol HCl 10 mg Q2HPRN PRN IV 03/21/25 13:45 Zirconium Oxide 10 gm Q8HR PO 03/21/25 22:00 03/22/25 06:03 10 GM Amlodipine Besylate 10 mg DAILY PO 03/22/25 10:00 03/22/25 09:28 10 MG Clonidine HCl 0.1 mg Q6HP PRN PO 03/21/25 21:15 Cholecalciferol 4,000 unit DAILY PO 03/22/25 10:00 03/22/25 09:27 4,000 UNIT Ferrous Sulfate 325 mg BIDWM PO 03/22/25 08:00 03/22/25 08:07 325 MG Calcium Acetate 667 mg TIDWMEALS PO 03/22/25 08:00 03/22/25 11:32 667 MG Hydroxychloroquine Sulfate 200 mg BID PO 03/21/25 21:30 03/22/25 09:28 200 MG Methylprednisolone Sodium Succinate 1000 mg/Sodium Chloride 250 ml @ 300 mls/hr DAILY IV 03/22/25 15:45 03/23/25 10:49 Laboratory Results Laboratory Tests 03/21/25 04:49 03/22/25 04:56 Chemistry Test 03/22/25 04:56 Calcium Level 8.2 mg/dL (8.7-10.4) L Coagulation Test 03/22/25 04:56 Prothrombin Time 10.3 sec (9.3-11.8) Prothrombin Time INR 0.97 (0.9-1.15) Activated Partial Thromboplast Time 27.3 SEC (24.5-34.5) Urinalysis Test 03/20/25 12:08 Urine Color Colorless (Yellow) Urine Clarity Clear (Clear) Urine pH 6.0 (5.0-9.0) Urine Specific [place] 1.007 (1.001-1.035) Urine Protein 2+ (Negative) H Urine Ketones Negative (Negative) Urine Blood 1+ /uL (Negative) H Urine Nitrite Negative (Negative) Urine Bilirubin Negative (Negative) Urine Urobilinogen Normal mg/dL (Negative) Urine Leukocyte Esterase Negative /uL (Negative) Urine RBC 1 /hpf (0 - 4) Urine Microscopic WBC 2 /HPF (0-5) Urine Squamous Epithelial Cells Few /hpf (<5) Urine Bacteria None seen /hpf (None Seen) Urine Glucose Normal mg/dL (Normal) Microbiology Microbiology Date/Time Source Procedure Growth Status 03/21/25 17:26 Pleural Fluid Gram Stain - Final Resulted 03/21/25 17:26 Pleural Fluid Body Fluid Culture - Preliminary Resulted Labs and/or images reviewed: Labs reviewed by me, Image(s) reviewed by me Assessment/Plan Assessment/Plan Impression: -hypertensive crisis -probable lupus flare -acute kidney injury, probable lupus nephritis -large left pleural effusion -microcytic, hypochromic anemia Plan: -consultations: Nephrology, pulmonology, rheumatology -increase antihypertensives -IV fluids per Nephrology -continue with pulse dose steroids -plans for kidney biopsy this Tuesday -repeat BMP daily Total time spent with patient discussing and formulating plan of care: 35 minutes. This medical document was created using an electronic medical record system with [employer] dictation system. Although this document has been carefully reviewed, there may still be some phonetic and typographical errors. These areas are purely typographical due to imperfections of the software programs, and do not reflect any compromise in the patient's medical care. Plan discussed with: Patient, Other (RN) My Orders Orders - JUSTIN YEPEZ NP Procedure Category Date Status Time Methylprednisolone PHA 03/22/25 In Process Sod Succ (Solu Medrol 15:45 Date of Service: Mar 22, 2025 Billing Provider: JUSTIN YEPEZ NP Common Visit Codes: [id number] INP/OBS CARE(HIGH) JUSTIN YEPEZ NP Mar 22, 2025 15:57
[2025-03-22] MEDS: methylPREDNISolone SOD SUCC 1,000 MG in SODIUM CHL 0.9% 250 ML IV SCH (18:11)
[2025-03-23] VITALS (10 sets, daily range): BP systolic 137–167; BP diastolic 80–98; PULSE 78–105; RESP 17–20; TEMP 97.5–98; O2SAT 95–99
[2025-03-23 05:23] LABS: Anion Gap 15 (5-15); Carbon Dioxide 22 mmol/L (20-31); Chloride 100 mmol/L (98-107); Potassium 3.9 mmol/L (3.5-5.1); Sodium 137 mmol/L (136-145)
[2025-03-23 05:24] LABS: Calcium 8.4 mg/dL (8.7-10.4)
[2025-03-23 05:29] LABS: BUN/Creatinine Ratio 11.2 (10.0-20.0)
[2025-03-23 05:32] LABS: Blood Urea Nitrogen 47 mg/dL (9-23); Glucose 132 mg/dL (74-106)
--- NOTE | 2025-03-23 12:29 | DVHPN2 ---
Progress Note - Dictate Date Seen: Mar 23, 2025 Medical Necessity Reason Pt with a Central, PICC or Fol: No Subjective Awake and alert vital signs Vital Sign Date Time Temp Pulse Resp B/P (MAP) Pulse Ox O2 Delivery O2 Flow Rate FiO2 03/23/25 09:59 151/93 03/23/25 09:58 94 03/23/25 09:00 97.9 17 96 97.9 03/23/25 08:02 Room Air* 0 21 Total Intake and Output 03/22/25 03/22/25 03/23/25 14:59 22:59 06:59 Intake Total 1725 ml 800 ml Balance 1725 ml 800 ml medications Current Medications Medications Dose Ordered Sig/Mica Route Start Time Stop Time Status Last Admin Dose Admin Acetaminophen/ Hydrocodone Bitart 1 tab Q4HP PRN PO 03/20/25 14:45 03/21/25 10:01 1 TAB Acetaminophen 650 mg Q6HP PRN PO 03/20/25 14:45 03/23/25 10:58 650 MG Metoprolol Succinate 25 mg DAILY PO 03/21/25 10:00 03/23/25 09:58 25 MG Pantoprazole Sodium 40 mg DAILY PO 03/21/25 10:00 03/23/25 10:58 40 MG Folic Acid 1 mg DAILY PO 03/21/25 10:00 03/23/25 09:56 1 MG Furosemide 40 mg DAILY IV 03/20/25 14:45 03/23/25 09:59 40 MG Labetalol HCl 20 mg Q2HPRN PRN IV 03/20/25 17:45 03/23/25 05:21 20 MG Methylprednisolone Sodium Succinate 1,000 mg DAILY IV 03/21/25 12:45 03/23/25 10:01 Cancel Labetalol HCl 10 mg Q2HPRN PRN IV 03/21/25 13:45 Zirconium Oxide 10 gm Q8HR PO 03/21/25 22:00 03/23/25 05:30 10 GM Amlodipine Besylate 10 mg DAILY PO 03/22/25 10:00 03/23/25 09:57 10 MG Clonidine HCl 0.1 mg Q6HP PRN PO 03/21/25 21:15 Cholecalciferol 4,000 unit DAILY PO 03/22/25 10:00 03/23/25 09:55 4,000 UNIT Ferrous Sulfate 325 mg BIDWM PO 03/22/25 08:00 03/23/25 08:15 325 MG Calcium Acetate 667 mg TIDWMEALS PO 03/22/25 08:00 03/23/25 10:58 667 MG Hydroxychloroquine Sulfate 200 mg BID PO 03/21/25 21:30 03/23/25 09:57 200 MG Ceftriaxone Sodium 50 ml @ 100 mls/hr DAILY@09 IV 03/24/25 09:00 UNV Sodium Chloride 1,000 ml @ 75 mls/hr [id number] IV 03/23/25 12:30 UNV Acetaminophen/ Hydrocodone Bitart 1 tab Q6HPRN PRN PO 03/23/25 12:30 UNV objective Gen: nad heent: nc/at, mmm lungs: cta anteriorly cvs: no rub abd: soft, bowel sounds audible ext: no edema skin: no rash neuro: alert and oriented laboratory and microbiology Laboratory Tests 03/23/25 04:34 03/21/25 04:49 Test 03/23/25 04:34 Range/Units Serum Glucose 132 H 74-106 mg/dL Assessment/Plan IMP: 1) Hemodynamically mediated MELLY/VMN + lupus nephritis flare 2) hypertensive emergency - resolved 3) hyperkalemia - resolved 4) SLE REC: - I discussed with Torie regarding continued increase in serum creatinine. I suspect this may be more related to hemodynamic injury from delta in blood pressure that may be Outside the range of renal autoregulation - currently day 3. Of pulse dose corticosteroids - we discussed outpatient follow up in [facility], we will consider additional therapy with calcineurin inhibitor to current regimen for lupus. - patient did endorse that she has intermittently been nonadherent with outpatient therapy for lupus - we will continue to follow as inpatient Plan discussed with: Patient MARCI LI MD Mar 23, 2025 12:29
[2025-03-23 13:07] LABS: Glucose, Body Fluid 125.0 mg/dL (.); LD, Body Fluid 181.0 IU/L (.)
[2025-03-23] MEDS: SODIUM CHLORIDE 0.9% 1,000 ML IV SCH (13:27)
--- NOTE | 2025-03-23 14:30 | DVHSR ---
APPROVED REPORT EXAM: Two-dimensional and M-mode echocardiogram with Doppler and color Doppler. Blood Pressure: 124/67 mmHg INDICATION CHF EVAL RISK FACTORS Height: 63, Weight: 161 DIMENSIONS LVDd4.5 (3.8-5.7cm)LA (2D)3.5 (1.9-4.0cm)Aortic Root3.7 (2.0-3.7cm) LVDs3.1 (2.5-4.0cm)LA (MM) (1.9-4.0cm)Aortic Cusp Exc1.9 (1.5-2.0cm) EF (%) 61.0 (55-70%)Rt. Atrium3.4 (1.9-4.0cm)Asc. Aorta cm Mitral Valve MitralMitral Stenosis E wave0.97m/sMV Mean GR.mmHg A wave1.20m/sMV Peak GR.mmHg E/A ratio0.82D MVAcm2 DECEL [id number] 1/2 [id number] IVRTmsDop MVA4.43cm2 Aortic Valve Aortic ValveAortic Stenosis V11.32m/Deanne Mean GR.6mmHg V21.62m/Deanne Peak GR.10mmHg LVOT Diameter2.0 (1.8-2.4cm)Doppler AVA2.56cm2 Pulmonic Valve V21.29m/s Conclusion Technically difficult study. Sinus rhythm. Mild aortic root enlargement. Concentric LVH. Valves are normal. EF of 55-60% with normal RV function. Mild TR. Moderate pericardial effusion noted primarily in the lateral wall. Fibrinoid deposition noted. No e vidence for tamponade. Pleural effusion also noted.
--- NOTE | 2025-03-23 15:27 | DVHPN2 ---
Progress Note - Dictate Date Seen: Mar 23, 2025 Medical Necessity Reason Pt with a Central, PICC or Fol: No vital signs Vital Sign Date Time Temp Pulse Resp B/P (MAP) Pulse Ox O2 Delivery O2 Flow Rate FiO2 03/23/25 14:12 100 18 139/87 (104) 03/23/25 13:00 97.9 96 97.9 03/23/25 10:05 Room Air* 0 21 Total Intake and Output 03/22/25 03/22/25 03/23/25 15:00 23:00 07:00 Intake Total 1725 ml 800 ml Balance 1725 ml 800 ml medications Current Medications Medications Dose Ordered Sig/Mica Route Start Time Stop Time Status Last Admin Dose Admin Acetaminophen 650 mg Q6HP PRN PO 03/20/25 14:45 03/23/25 10:58 650 MG Metoprolol Succinate 25 mg DAILY PO 03/21/25 10:00 03/23/25 09:58 25 MG Pantoprazole Sodium 40 mg DAILY PO 03/21/25 10:00 03/23/25 10:58 40 MG Folic Acid 1 mg DAILY PO 03/21/25 10:00 03/23/25 09:56 1 MG Labetalol HCl 20 mg Q2HPRN PRN IV 03/20/25 17:45 03/23/25 05:21 20 MG Methylprednisolone Sodium Succinate 1,000 mg DAILY IV 03/21/25 12:45 03/23/25 10:01 Cancel Labetalol HCl 10 mg Q2HPRN PRN IV 03/21/25 13:45 Amlodipine Besylate 10 mg DAILY PO 03/22/25 10:00 03/23/25 09:57 10 MG Clonidine HCl 0.1 mg Q6HP PRN PO 03/21/25 21:15 Cholecalciferol 4,000 unit DAILY PO 03/22/25 10:00 03/23/25 09:55 4,000 UNIT Ferrous Sulfate 325 mg BIDWM PO 03/22/25 08:00 03/23/25 08:15 325 MG Hydroxychloroquine Sulfate 200 mg BID PO 03/21/25 21:30 03/23/25 09:57 200 MG Ceftriaxone Sodium 50 ml @ 100 mls/hr DAILY@09 IV 03/24/25 09:00 Sodium Chloride 1,000 ml @ 75 mls/hr [id number] IV 03/23/25 12:30 03/23/25 13:27 75 MLS/HR Acetaminophen/ Hydrocodone Bitart 1 tab Q6HPRN PRN PO 03/23/25 12:30 laboratory and microbiology Laboratory Tests 03/23/25 04:34 03/21/25 04:49 Test 03/23/25 04:34 Range/Units Serum Glucose 132 H 74-106 mg/dL Assessment/Plan Impression Acute hypoxemic respiratory failure Left pleural effusions Pneumonia Atelectasis Patient seen and examined Events Low oxygen requirements On 2 liters nasal cannula No acute events S/p thoracentesis Labs and imaging reviewed Management Supplemental oxygen Titrate to maintain sats 90% or above Incentive spirometry Continue antibiotics F/u cultures Bronchodilators Monitor renal function Monitor electrolytes Supplement as needed DVT prophylaxis Plan discussed with: Patient SITA JO MD Mar 23, 2025 15:27
--- NOTE | 2025-03-23 15:56 | DVHPN2 ---
Subjective no complaints Reviewed: Care Plan, H&P, Labs, Medications Changes from previous H/P or p: No Changes General: Per HPI Musculoskeletal: back pain Objective Vitals Vital Signs Date Time Temp Pulse Resp B/P (MAP) Pulse Ox O2 Delivery O2 Flow Rate FiO2 03/23/25 14:12 100 18 139/87 (104) 03/23/25 13:00 97.9 96 97.9 03/23/25 10:05 Room Air* 0 21 Intake/Output Intake and Output 03/23/25 07:00 Intake Total 2525 ml Balance 2525 ml Intake Oral 1600 ml IV Total 925 ml # Voids 5 General Appearance: Alert, Oriented X3, Cooperative, mild distress HEENT: Atraumatic, PERRLA Lungs: Normal air movement, Other (Decreased breath sounds in lower lobe) Cardiovascular: Normal S1, Normal S2 Abdomen: Normal bowel sounds, Soft, No tenderness Musculoskeletal: Normal sensory function, Normal motor function Neuro: Normal gait, Normal speech Skin: Dry, Intact Psych/Mental Status: Mental status NL, Mood NL Medications Current Medications Medications Dose Ordered Sig/Mica Route Start Time Stop Time Status Last Admin Dose Admin Acetaminophen 650 mg Q6HP PRN PO 03/20/25 14:45 03/23/25 10:58 650 MG Metoprolol Succinate 25 mg DAILY PO 03/21/25 10:00 03/23/25 09:58 25 MG Pantoprazole Sodium 40 mg DAILY PO 03/21/25 10:00 03/23/25 10:58 40 MG Folic Acid 1 mg DAILY PO 03/21/25 10:00 03/23/25 09:56 1 MG Labetalol HCl 20 mg Q2HPRN PRN IV 03/20/25 17:45 03/23/25 05:21 20 MG Methylprednisolone Sodium Succinate 1,000 mg DAILY IV 03/21/25 12:45 03/23/25 10:01 Cancel Labetalol HCl 10 mg Q2HPRN PRN IV 03/21/25 13:45 Amlodipine Besylate 10 mg DAILY PO 03/22/25 10:00 03/23/25 09:57 10 MG Clonidine HCl 0.1 mg Q6HP PRN PO 03/21/25 21:15 Cholecalciferol 4,000 unit DAILY PO 03/22/25 10:00 03/23/25 09:55 4,000 UNIT Ferrous Sulfate 325 mg BIDWM PO 03/22/25 08:00 03/23/25 08:15 325 MG Hydroxychloroquine Sulfate 200 mg BID PO 03/21/25 21:30 03/23/25 09:57 200 MG Ceftriaxone Sodium 50 ml @ 100 mls/hr DAILY@09 IV 03/24/25 09:00 Sodium Chloride 1,000 ml @ 75 mls/hr [id number] IV 03/23/25 12:30 03/23/25 13:27 75 MLS/HR Acetaminophen/ Hydrocodone Bitart 1 tab Q6HPRN PRN PO 03/23/25 12:30 Laboratory Results Laboratory Tests 03/21/25 04:49 03/23/25 04:34 Chemistry Test 03/23/25 04:34 Calcium Level 8.4 mg/dL (8.7-10.4) L Urinalysis Test 03/20/25 12:08 Urine Color Colorless (Yellow) Urine Clarity Clear (Clear) Urine pH 6.0 (5.0-9.0) Urine Specific [place] 1.007 (1.001-1.035) Urine Protein 2+ (Negative) H Urine Ketones Negative (Negative) Urine Blood 1+ /uL (Negative) H Urine Nitrite Negative (Negative) Urine Bilirubin Negative (Negative) Urine Urobilinogen Normal mg/dL (Negative) Urine Leukocyte Esterase Negative /uL (Negative) Urine RBC 1 /hpf (0 - 4) Urine Microscopic WBC 2 /HPF (0-5) Urine Squamous Epithelial Cells Few /hpf (<5) Urine Bacteria None seen /hpf (None Seen) Urine Glucose Normal mg/dL (Normal) Microbiology Microbiology Date/Time Source Procedure Growth Status 03/21/25 17:26 Pleural Fluid Gram Stain - Final Resulted 03/21/25 17:26 Pleural Fluid Body Fluid Culture - Preliminary Resulted Labs and/or images reviewed: Labs reviewed by me, Image(s) reviewed by me Assessment/Plan Assessment/Plan acute renal insufficiency//lupus nephritis- on high dose steroids awaiting biopsy on 03/25/25/gfr stable/lytes stable/no acidosis h/o sle anemia due to above- stable/no active bleeding ambulatory status htn stable Plan discussed with: Patient, Other My Orders Orders - KATY HADLEY MD Procedure Category Date Status Time Ceftriaxone 1gm/50ml PHA 10/19/25 In Process (Rocephin) 09:00 Sodium Chloride 0.9% PHA 03/23/25 In Process 12:30 Hydrocodone-Acet PHA 03/23/25 In Process 5/325mg Tab ([place] 12:30 Date of Service: Mar 23, 2025 Billing Provider: KATY HADLEY MD Common Visit Codes: [id number] INP/OBS CARE(MOD) KATY HADLEY MD Mar 23, 2025 15:56
[2025-03-24] VITALS (9 sets, daily range): BP systolic 142–165; BP diastolic 51–93; PULSE 69–103; RESP 17–20; TEMP 97.6–98.1; O2SAT 94–100
[2025-03-24 07:09] LABS: Chloride 101 mmol/L (98-107); Potassium 3.6 mmol/L (3.5-5.1); Sodium 139 mmol/L (136-145)
[2025-03-24 07:10] LABS: Anion Gap 15 (5-15); Carbon Dioxide 23 mmol/L (20-31)
[2025-03-24 07:15] LABS: BUN/Creatinine Ratio 12.6 (10.0-20.0); Glucose 105 mg/dL (74-106)
[2025-03-24 07:39] LABS: Blood Urea Nitrogen 54 mg/dL (9-23); Calcium 7.8 mg/dL (8.7-10.4)
--- NOTE | 2025-03-24 14:14 | DVHPN2 ---
Progress Note - Dictate Date Seen: Mar 24, 2025 Medical Necessity Reason Pt with a Central, PICC or Fol: No vital signs Vital Sign Date Time Temp Pulse Resp B/P (MAP) Pulse Ox O2 Delivery O2 Flow Rate FiO2 03/24/25 10:00 96 Room Air* 0 21 03/24/25 09:00 98.1 101 17 162/90 (114) 98.1 Total Intake and Output 03/23/25 03/23/25 03/24/25 15:00 23:00 07:00 Intake Total 675 ml 1325 ml 300 ml Balance 675 ml 1325 ml 300 ml medications Current Medications Medications Dose Ordered Sig/Mica Route Start Time Stop Time Status Last Admin Dose Admin Acetaminophen 650 mg Q6HP PRN PO 03/20/25 14:45 03/24/25 00:44 650 MG Metoprolol Succinate 25 mg DAILY PO 03/21/25 10:00 03/24/25 08:09 25 MG Pantoprazole Sodium 40 mg DAILY PO 03/21/25 10:00 03/24/25 08:14 40 MG Folic Acid 1 mg DAILY PO 03/21/25 10:00 03/24/25 08:15 1 MG Labetalol HCl 20 mg Q2HPRN PRN IV 03/20/25 17:45 03/23/25 05:21 20 MG Methylprednisolone Sodium Succinate 1,000 mg DAILY IV 03/21/25 12:45 03/23/25 10:01 Cancel Labetalol HCl 10 mg Q2HPRN PRN IV 03/21/25 13:45 Amlodipine Besylate 10 mg DAILY PO 03/22/25 10:00 03/24/25 08:19 10 MG Clonidine HCl 0.1 mg Q6HP PRN PO 03/21/25 21:15 Cholecalciferol 4,000 unit DAILY PO 03/22/25 10:00 03/24/25 08:18 4,000 UNIT Ferrous Sulfate 325 mg BIDWM PO 03/22/25 08:00 03/24/25 08:16 325 MG Hydroxychloroquine Sulfate 200 mg BID PO 03/21/25 21:30 03/24/25 08:16 200 MG Ceftriaxone Sodium 50 ml @ 100 mls/hr DAILY@09 IV 03/24/25 09:00 03/24/25 08:21 100 MLS/HR Acetaminophen/ Hydrocodone Bitart 1 tab Q6HPRN PRN PO 03/23/25 12:30 laboratory and microbiology Laboratory Tests 03/24/25 05:29 03/21/25 04:49 Test 03/24/25 05:29 Range/Units Serum Glucose 105 74-106 mg/dL Assessment/Plan Impression Acute hypoxemic respiratory failure Left pleural effusions Pneumonia Atelectasis Patient seen and examined Events Low oxygen requirements On 2 liters nasal cannula No acute events S/p thoracentesis Fluid analysis shows nonspecific results Labs and imaging reviewed Chest x-ray shows left pleural effusions Management Supplemental oxygen Titrate to maintain sats 90% or above Incentive spirometry Continue antibiotics F/u cultures Bronchodilators Monitor renal function Monitor electrolytes Supplement as needed DVT prophylaxis Dietary Evaluation Review Recommendations by RD: Dietary education by RD Comments: 1) Add 45g CCHO restriction to cardiac 2g K diet 2) Collect Hba1c 3) Refer to outpatient RD/[facility] for weight management 4) Follow-up with cardiology, nephrology, and rheumatology 4) Continue to monitor I&O, labs, and skin integrity Expected Outcomes/Goals: 1) appetite and labs to improve 2) gradual wt loss 3) f/u in 3-5 days Plan discussed with: Patient SITA JO MD Mar 24, 2025 14:14
--- NOTE | 2025-03-24 16:13 | DVHPN2 ---
Progress Note - Dictate Date Seen: Mar 24, 2025 Medical Necessity Reason Pt with a Central, PICC or Fol: No Subjective States he feels well this afternoon vital signs Vital Sign Date Time Temp Pulse Resp B/P (MAP) Pulse Ox O2 Delivery O2 Flow Rate FiO2 03/24/25 13:00 98.1 100 17 153/91 (111) 98 98.1 03/24/25 10:00 Room Air* 0 21 Total Intake and Output 03/23/25 03/23/25 03/24/25 15:00 23:00 07:00 Intake Total 675 ml 1325 ml 300 ml Balance 675 ml 1325 ml 300 ml medications Current Medications Medications Dose Ordered Sig/Mica Route Start Time Stop Time Status Last Admin Dose Admin Acetaminophen 650 mg Q6HP PRN PO 03/20/25 14:45 03/24/25 00:44 650 MG Metoprolol Succinate 25 mg DAILY PO 03/21/25 10:00 03/24/25 08:09 25 MG Pantoprazole Sodium 40 mg DAILY PO 03/21/25 10:00 03/24/25 08:14 40 MG Folic Acid 1 mg DAILY PO 03/21/25 10:00 03/24/25 08:15 1 MG Labetalol HCl 20 mg Q2HPRN PRN IV 03/20/25 17:45 03/23/25 05:21 20 MG Methylprednisolone Sodium Succinate 1,000 mg DAILY IV 03/21/25 12:45 03/23/25 10:01 Cancel Labetalol HCl 10 mg Q2HPRN PRN IV 03/21/25 13:45 Amlodipine Besylate 10 mg DAILY PO 03/22/25 10:00 03/24/25 08:19 10 MG Clonidine HCl 0.1 mg Q6HP PRN PO 03/21/25 21:15 Cholecalciferol 4,000 unit DAILY PO 03/22/25 10:00 03/24/25 08:18 4,000 UNIT Ferrous Sulfate 325 mg BIDWM PO 03/22/25 08:00 03/24/25 08:16 325 MG Hydroxychloroquine Sulfate 200 mg BID PO 03/21/25 21:30 03/24/25 08:16 200 MG Ceftriaxone Sodium 50 ml @ 100 mls/hr DAILY@09 IV 03/24/25 09:00 03/24/25 08:21 100 MLS/HR Acetaminophen/ Hydrocodone Bitart 1 tab Q6HPRN PRN PO 03/23/25 12:30 objective Gen: nad heent: nc/at, mmm lungs: cta anteriorly cvs: no rub abd: soft, bowel sounds audible ext: no edema skin: no rash neuro: alert and oriented laboratory and microbiology Laboratory Tests 03/24/25 05:29 03/21/25 04:49 Test 03/24/25 05:29 Range/Units Serum Glucose 105 74-106 mg/dL Assessment/Plan IMP: 1) Hemodynamically mediated MELLY/VMN + lupus nephritis flare - serum creatinine appears to be reaching plateau 2) hypertensive emergency - resolved 3) hyperkalemia - resolved 4) SLE REC: - anticipate potential discharge early this week, consideration for calcineurin inhibitor therapy as part of lupus regimen as outpatient - I discussed with Torie regarding continued increase in serum creatinine. I suspect this may be more related to hemodynamic injury from delta in blood pressure that may be Outside the range of renal autoregulation - s/p day 3. Of pulse dose corticosteroids - we discussed outpatient follow up in [facility], we will consider additional therapy with calcineurin inhibitor to current regimen for lupus. - patient did endorse that she has intermittently been nonadherent with outpatient therapy for lupus - we will continue to follow as inpatient Dietary Evaluation Review Recommendations by RD: Dietary education by RD Comments: 1) Add 45g CCHO restriction to cardiac 2g K diet 2) Collect Hba1c 3) Refer to outpatient RD/[facility] for weight management 4) Follow-up with cardiology, nephrology, and rheumatology 4) Continue to monitor I&O, labs, and skin integrity Expected Outcomes/Goals: 1) appetite and labs to improve 2) gradual wt loss 3) f/u in 3-5 days Plan discussed with: Patient MARCI LI MD Mar 24, 2025 16:13
--- NOTE | 2025-03-24 17:29 | DVHPN2 ---
Subjective no complaints Reviewed: Care Plan, H&P, Labs, Medications Changes from previous H/P or p: No Changes General: Per HPI Musculoskeletal: back pain Objective Vitals Vital Signs Date Time Temp Pulse Resp B/P (MAP) Pulse Ox O2 Delivery O2 Flow Rate FiO2 03/24/25 17:00 97.9 94 17 159/93 (115) 96 97.9 03/24/25 10:00 Room Air* 0 21 Intake/Output Intake and Output 03/24/25 07:00 Intake Total 2300 ml Balance 2300 ml Intake Oral 900 ml IV Total 1400 ml # Voids 3 # Bowel Movements 2 General Appearance: Alert, Oriented X3, Cooperative, mild distress HEENT: Atraumatic, PERRLA Lungs: Normal air movement, Other (Decreased breath sounds in lower lobe) Cardiovascular: Normal S1, Normal S2 Abdomen: Normal bowel sounds, Soft, No tenderness Musculoskeletal: Normal sensory function, Normal motor function Neuro: Normal gait, Normal speech Skin: Dry, Intact Psych/Mental Status: Mental status NL, Mood NL Medications Current Medications Medications Dose Ordered Sig/Mica Route Start Time Stop Time Status Last Admin Dose Admin Acetaminophen 650 mg Q6HP PRN PO 03/20/25 14:45 03/24/25 00:44 650 MG Metoprolol Succinate 25 mg DAILY PO 03/21/25 10:00 03/24/25 08:09 25 MG Pantoprazole Sodium 40 mg DAILY PO 03/21/25 10:00 03/24/25 08:14 40 MG Folic Acid 1 mg DAILY PO 03/21/25 10:00 03/24/25 08:15 1 MG Labetalol HCl 20 mg Q2HPRN PRN IV 03/20/25 17:45 03/23/25 05:21 20 MG Methylprednisolone Sodium Succinate 1,000 mg DAILY IV 03/21/25 12:45 03/23/25 10:01 Cancel Labetalol HCl 10 mg Q2HPRN PRN IV 03/21/25 13:45 Amlodipine Besylate 10 mg DAILY PO 03/22/25 10:00 03/24/25 08:19 10 MG Clonidine HCl 0.1 mg Q6HP PRN PO 03/21/25 21:15 Cholecalciferol 4,000 unit DAILY PO 03/22/25 10:00 03/24/25 08:18 4,000 UNIT Ferrous Sulfate 325 mg BIDWM PO 03/22/25 08:00 03/24/25 08:16 325 MG Hydroxychloroquine Sulfate 200 mg BID PO 03/21/25 21:30 03/24/25 08:16 200 MG Ceftriaxone Sodium 50 ml @ 100 mls/hr DAILY@09 IV 03/24/25 09:00 03/24/25 08:21 100 MLS/HR Acetaminophen/ Hydrocodone Bitart 1 tab Q6HPRN PRN PO 03/23/25 12:30 Laboratory Results Laboratory Tests 03/21/25 04:49 03/24/25 05:29 Chemistry Test 03/24/25 05:29 Calcium Level 7.8 mg/dL (8.7-10.4) L Urinalysis Test 03/20/25 12:08 Urine Color Colorless (Yellow) Urine Clarity Clear (Clear) Urine pH 6.0 (5.0-9.0) Urine Specific [place] 1.007 (1.001-1.035) Urine Protein 2+ (Negative) H Urine Ketones Negative (Negative) Urine Blood 1+ /uL (Negative) H Urine Nitrite Negative (Negative) Urine Bilirubin Negative (Negative) Urine Urobilinogen Normal mg/dL (Negative) Urine Leukocyte Esterase Negative /uL (Negative) Urine RBC 1 /hpf (0 - 4) Urine Microscopic WBC 2 /HPF (0-5) Urine Squamous Epithelial Cells Few /hpf (<5) Urine Bacteria None seen /hpf (None Seen) Urine Glucose Normal mg/dL (Normal) Microbiology Microbiology Date/Time Source Procedure Growth Status 03/21/25 17:26 Pleural Fluid Gram Stain - Final Resulted 03/21/25 17:26 Pleural Fluid Body Fluid Culture - Preliminary Resulted Labs and/or images reviewed: Labs reviewed by me, Image(s) reviewed by me Assessment/Plan Assessment/Plan acute renal insufficiency//lupus nephritis- on high dose steroids awaiting biopsy on 03/25/25/gfr stable/lytes stable/no acidosis h/o sle anemia due to above- stable/no active bleeding ambulatory status htn stable Plan discussed with: Patient, Other (parents at bedside today) Date of Service: Mar 24, 2025 Billing Provider: KATY HADLEY MD Common Visit Codes: [id number] INP/OBS CARE(MOD) KATY HADLEY MD Mar 24, 2025 17:29
[2025-03-25] VITALS (8 sets, daily range): BP systolic 151–166; BP diastolic 87–99; PULSE 65–114; RESP 18–20; TEMP 98–98.2; O2SAT 10–99
[2025-03-25] MEDS: LABETALOL HCL 20 MG/4 ML VL IV PRN (01:20)
[2025-03-25 06:20] LABS: Hematocrit 27.3 % (36.0-46.0); Hemoglobin 8.9 g/dL (12.2-16.2); Mean Corpuscular Hemoglobin 25.7 pg (28.0-32.0); Mean Corpuscular Volume 78.5 fL (80.0-100.0); Nucleated Red Blood Cells % 0.0 %
[2025-03-25 06:21] LABS: Chloride 106 mmol/L (98-107); Sodium 141 mmol/L (136-145)
[2025-03-25 06:22] LABS: Anion Gap 14 (5-15); Carbon Dioxide 21 mmol/L (20-31)
[2025-03-25 06:23] LABS: Calcium 7.7 mg/dL (8.7-10.4); Potassium 3.1 mmol/L (3.5-5.1)
[2025-03-25 06:27] LABS: BUN/Creatinine Ratio 14.6 (10.0-20.0); Glucose 92 mg/dL (74-106)
[2025-03-25 06:28] LABS: Blood Urea Nitrogen 60 mg/dL (9-23)
[2025-03-25] MEDS: LIDOCAINE 2%HCL (LOCAL ANESTH.) INJ 10ml MDV ONE ×2 (09:14→11:03)
[2025-03-25] MEDS ORDERED: MIDAZOLAM HCL 2MG/2ML 2ml VIAL (1mg/ml) IV ONE (09:15)
[2025-03-25] MEDS ORDERED: fentaNYL CITRATE 100 MCG/2 ML VL IV ONE (09:15)
[2025-03-25] MEDS: MYCOPHENOLATE 500 MG TAB PO SCH (10:30)
[2025-03-25] MEDS: MIDAZOLAM HCL 2MG/2ML 2ml VIAL (1mg/ml) IV ONE (11:00)
[2025-03-25] MEDS: fentaNYL CITRATE 100 MCG/2 ML VL IV ONE (11:00)
[2025-03-25] MEDS: hydrALAZINE HCL 20 MG/ML VL ONE (11:18)
--- NOTE | 2025-03-25 11:20 | DVHPN2 ---
Subjective Reports that her breathing and for back pain has improved. Reviewed: Care Plan, H&P, Labs, Medications Changes from previous H/P or p: No Changes General: Per HPI Musculoskeletal: back pain Objective Vitals Vital Signs Date Time Temp Pulse Resp B/P (MAP) Pulse Ox O2 Delivery O2 Flow Rate FiO2 03/25/25 10:05 98.2 94 18 154/87 (109) 96 98.2 03/25/25 10:00 Room Air 0.0 03/25/25 10:00 21 Intake/Output Intake and Output 03/25/25 07:00 Intake Total 1690 ml Balance 1690 ml Intake Oral 1640 ml IV Total 50 ml # Voids 5 # Bowel Movements 2 General Appearance: Alert, Oriented X3, Cooperative, mild distress HEENT: Atraumatic, PERRLA Lungs: Normal air movement, Other (Decreased breath sounds in lower lobe) Cardiovascular: Normal S1, Normal S2 Abdomen: Normal bowel sounds, Soft, No tenderness Musculoskeletal: Normal sensory function, Normal motor function Neuro: Normal gait, Normal speech Skin: Dry, Intact Psych/Mental Status: Mental status NL, Mood NL Medications Current Medications Medications Dose Ordered Sig/Mica Route Start Time Stop Time Status Last Admin Dose Admin Acetaminophen 650 mg Q6HP PRN PO 03/20/25 14:45 03/24/25 00:44 650 MG Metoprolol Succinate 25 mg DAILY PO 03/21/25 10:00 03/24/25 08:09 25 MG Pantoprazole Sodium 40 mg DAILY PO 03/21/25 10:00 03/24/25 08:14 40 MG Folic Acid 1 mg DAILY PO 03/21/25 10:00 03/24/25 08:15 1 MG Labetalol HCl 20 mg Q2HPRN PRN IV 03/20/25 17:45 03/24/25 22:08 20 MG Methylprednisolone Sodium Succinate 1,000 mg DAILY IV 03/21/25 12:45 03/23/25 10:01 Cancel Labetalol HCl 10 mg Q2HPRN PRN IV 03/21/25 13:45 03/25/25 01:20 10 MG Amlodipine Besylate 10 mg DAILY PO 03/22/25 10:00 03/24/25 08:19 10 MG Clonidine HCl 0.1 mg Q6HP PRN PO 03/21/25 21:15 Cholecalciferol 4,000 unit DAILY PO 03/22/25 10:00 03/24/25 08:18 4,000 UNIT Ferrous Sulfate 325 mg BIDWM PO 03/22/25 08:00 03/24/25 17:39 325 MG Hydroxychloroquine Sulfate 200 mg BID PO 03/21/25 21:30 03/24/25 22:06 200 MG Ceftriaxone Sodium 50 ml @ 100 mls/hr DAILY@09 IV 03/24/25 09:00 03/25/25 08:54 100 MLS/HR Acetaminophen/ Hydrocodone Bitart 1 tab Q6HPRN PRN PO 03/23/25 12:30 Prednisone 20 mg TID PO 03/25/25 14:00 Mycophenolate Mofetil 500 mg BID PO 03/25/25 10:30 Atorvastatin Calcium 10 mg HS PO 03/25/25 22:00 Laboratory Results Laboratory Tests 03/25/25 05:39 Chemistry Test 03/25/25 05:39 Calcium Level 7.7 mg/dL (8.7-10.4) L Urinalysis Test 03/20/25 12:08 Urine Color Colorless (Yellow) Urine Clarity Clear (Clear) Urine pH 6.0 (5.0-9.0) Urine Specific [place] 1.007 (1.001-1.035) Urine Protein 2+ (Negative) H Urine Ketones Negative (Negative) Urine Blood 1+ /uL (Negative) H Urine Nitrite Negative (Negative) Urine Bilirubin Negative (Negative) Urine Urobilinogen Normal mg/dL (Negative) Urine Leukocyte Esterase Negative /uL (Negative) Urine RBC 1 /hpf (0 - 4) Urine Microscopic WBC 2 /HPF (0-5) Urine Squamous Epithelial Cells Few /hpf (<5) Urine Bacteria None seen /hpf (None Seen) Urine Glucose Normal mg/dL (Normal) Microbiology Microbiology Date/Time Source Procedure Growth Status 03/21/25 17:26 Pleural Fluid Gram Stain - Final Resulted 03/21/25 17:26 Pleural Fluid Body Fluid Culture - Preliminary Resulted Labs and/or images reviewed: Labs reviewed by me, Image(s) reviewed by me Assessment/Plan Assessment/Plan Impression: -hypertensive crisis -probable lupus flare -acute kidney injury, probable lupus nephritis -large left pleural effusion -microcytic, hypochromic anemia Plan: -consultations: Nephrology, pulmonology, rheumatology -increase antihypertensives -nephrology consultation: Discussed case with Dr. Rosas. Recommendations reviewed. Will start CellCept, prednisone -consult long term care social worker for transfer insurance to in network -plans for renal biopsy today -repeat BMP daily Total time spent with patient discussing and formulating plan of care: 35 minutes. This medical document was created using an electronic medical record system with [employer] dictation system. Although this document has been carefully reviewed, there may still be some phonetic and typographical errors. These areas are purely typographical due to imperfections of the software programs, and do not reflect any compromise in the patient's medical care. Plan discussed with: Patient, Other (RN) My Orders Orders - JUSTIN YEPEZ NP Procedure Category Date Status Time Ct Guidance For CT 03/25/25 Logged Needle Placeme 10:[address] 03/25/25 Logged Contrast 10:57 Us Guidance For US 03/25/25 Logged Needle Placeme 11:08 Date of Service: Mar 25, 2025 Billing Provider: JUSTIN YEPEZ NP Common Visit Codes: [id number] INP/OBS CARE(HIGH) JUSTIN YEPEZ NP Mar 25, 2025 11:20
--- NOTE | 2025-03-25 12:48 | DVH ---
US US GUIDANCE FOR NEEDLE PLACEME, HISTORY: KIDNEY BIOPSY PROCEDURE: Informed consent was obtained. Limited ultrasound of the left kidney was obtained. The ov erlying skin was prepped with chlorhexidine which was allowed to dry and draped in the usual sterile fashion. Time out was performed. 20 mg Hydralazine was given IV. The skin and soft tissue were infilt rated with 1% lidocaine, and IV sedation was administered. Under real-time ultrasound guidance, 1 bio psy specimen was obtained using Tachyusince 18 gauge core biopsy needle; these were given to the electro n director of religious activities in attendance. 10 minutes of manual pressure was held. Post biopsy scan was performed. No immediate complication was noted. SEDATION: Dr. French Machuca was personally responsible for the administration of moderate sedation during the procedure performed, including the use of an independent trained observer who had no other duties during the procedure. The drugs utilized were IV fentanyl and versed (see nursing log for details). The total time of supervision by the attending physician was approximately 30 minutes. FINDINGS: Limited intraprocedural ultrasound demonstrates biopsy needle within the renal cortex of l eft kidney. No significant post procedural hematoma is noted. IMPRESSION: Ultrasound biopsy of the left kidney. Pathology results pending.
--- NOTE | 2025-03-25 13:22 | DVHPN2 ---
Progress Note - Dictate Date Seen: Mar 25, 2025 Medical Necessity Reason Pt with a Central, PICC or Fol: No vital signs Vital Sign Date Time Temp Pulse Resp B/P (MAP) Pulse Ox O2 Delivery O2 Flow Rate FiO2 03/25/25 13:02 98.1 93 20 160/99 (119) 97 98.1 03/25/25 10:00 Room Air 0.0 03/25/25 10:00 21 Total Intake and Output 03/24/25 03/24/25 03/25/25 15:00 23:00 07:00 Intake Total 50 ml 750 ml 890 ml Balance 50 ml 750 ml 890 ml medications Current Medications Medications Dose Ordered Sig/Mica Route Start Time Stop Time Status Last Admin Dose Admin Acetaminophen 650 mg Q6HP PRN PO 03/20/25 14:45 03/24/25 00:44 650 MG Pantoprazole Sodium 40 mg DAILY PO 03/21/25 10:00 03/24/25 08:14 40 MG Folic Acid 1 mg DAILY PO 03/21/25 10:00 03/24/25 08:15 1 MG Labetalol HCl 20 mg Q2HPRN PRN IV 03/20/25 17:45 03/24/25 22:08 20 MG Methylprednisolone Sodium Succinate 1,000 mg DAILY IV 03/21/25 12:45 03/23/25 10:01 Cancel Labetalol HCl 10 mg Q2HPRN PRN IV 03/21/25 13:45 03/25/25 01:20 10 MG Amlodipine Besylate 10 mg DAILY PO 03/22/25 10:00 03/24/25 08:19 10 MG Clonidine HCl 0.1 mg Q6HP PRN PO 03/21/25 21:15 Cholecalciferol 4,000 unit DAILY PO 03/22/25 10:00 03/24/25 08:18 4,000 UNIT Ferrous Sulfate 325 mg BIDWM PO 03/22/25 08:00 03/24/25 17:39 325 MG Hydroxychloroquine Sulfate 200 mg BID PO 03/21/25 21:30 03/24/25 22:06 200 MG Ceftriaxone Sodium 50 ml @ 100 mls/hr DAILY@09 IV 03/24/25 09:00 03/25/25 08:54 100 MLS/HR Acetaminophen/ Hydrocodone Bitart 1 tab Q6HPRN PRN PO 03/23/25 12:30 Prednisone 20 mg TID PO 03/25/25 14:00 Mycophenolate Mofetil 500 mg BID PO 03/25/25 10:30 Atorvastatin Calcium 10 mg HS PO 03/25/25 22:00 Metoprolol Succinate 50 mg DAILY PO 03/26/25 10:00 laboratory and microbiology Laboratory Tests 03/25/25 05:39 Test 03/25/25 05:39 Range/Units Serum Glucose 92 74-106 mg/dL Assessment/Plan Impression Acute hypoxemic respiratory failure Left pleural effusions Pneumonia Atelectasis Patient seen and examined Events Low oxygen requirements On room air No distress S/p thoracentesis Fluid analysis shows nonspecific results Labs and imaging reviewed Chest x-ray shows left pleural effusions Management Supplemental oxygen Titrate to maintain sats 90% or above Incentive spirometry Continue antibiotics F/u cultures Bronchodilators Monitor renal function Monitor electrolytes Supplement as needed Possible renal biopsy F/u with results DVT prophylaxis Dietary Evaluation Review Recommendations by RD: Dietary education by RD Comments: 1) Add 45g CCHO restriction to cardiac 2g K diet 2) Collect Hba1c 3) Refer to outpatient RD/CDCES for weight management 4) Follow-up with cardiology, nephrology, and rheumatology 4) Continue to monitor I&O, labs, and skin integrity Expected Outcomes/Goals: 1) appetite and labs to improve 2) gradual wt loss 3) f/u in 3-5 days Plan discussed with: Patient SITA JO MD Mar 25, 2025 13:22
[2025-03-25] MEDS: SODIUM CHLORIDE 0.9% 1,000 ML IV ONE (14:00)
[2025-03-25] MEDS: predniSONE 20 MG TAB PO SCH (14:28)
[2025-03-25] MEDS: FUROSEMIDE 40 MG/4 ML VIAL IV ONE (14:34)
[2025-03-25] MEDS ORDERED: SIMETHICONE 80 MG CHEWABLE TABLET PO PRN (14:45)
--- NOTE | 2025-03-25 15:58 | DVHPN2 ---
Progress Note Date Seen: Mar 25, 2025 Medical Necessity Reason Pt with a Central, PICC or Fol: No Subjective Patient reports: Feels better Objective vital signs Vital Sign Date Time Temp Pulse Resp B/P (MAP) Pulse Ox O2 Delivery O2 Flow Rate FiO2 03/25/25 14:34 135/88 03/25/25 13:02 98.1 93 20 97 98.1 03/25/25 10:00 Room Air 0.0 03/25/25 10:00 21 Total Intake and Output 03/24/25 03/24/25 03/25/25 15:00 23:00 07:00 Intake Total 50 ml 750 ml 890 ml Balance 50 ml 750 ml 890 ml medications Current Medications Medications Dose Ordered Sig/Mica Route Start Time Stop Time Status Last Admin Dose Admin Acetaminophen 650 mg Q6HP PRN PO 03/20/25 14:45 03/24/25 00:44 650 MG Pantoprazole Sodium 40 mg DAILY PO 03/21/25 10:00 03/24/25 08:14 40 MG Folic Acid 1 mg DAILY PO 03/21/25 10:00 03/24/25 08:15 1 MG Labetalol HCl 20 mg Q2HPRN PRN IV 03/20/25 17:45 03/24/25 22:08 20 MG Methylprednisolone Sodium Succinate 1,000 mg DAILY IV 03/21/25 12:45 03/23/25 10:01 Cancel Labetalol HCl 10 mg Q2HPRN PRN IV 03/21/25 13:45 03/25/25 01:20 10 MG Amlodipine Besylate 10 mg DAILY PO 03/22/25 10:00 03/24/25 08:19 10 MG Clonidine HCl 0.1 mg Q6HP PRN PO 03/21/25 21:15 Cholecalciferol 4,000 unit DAILY PO 03/22/25 10:00 03/24/25 08:18 4,000 UNIT Ferrous Sulfate 325 mg BIDWM PO 03/22/25 08:00 03/24/25 17:39 325 MG Hydroxychloroquine Sulfate 200 mg BID PO 03/21/25 21:30 03/24/25 22:06 200 MG Ceftriaxone Sodium 50 ml @ 100 mls/hr DAILY@09 IV 03/24/25 09:00 03/25/25 08:54 100 MLS/HR Acetaminophen/ Hydrocodone Bitart 1 tab Q6HPRN PRN PO 03/23/25 12:30 Prednisone 20 mg TID PO 03/25/25 14:00 03/25/25 14:28 20 MG Mycophenolate Mofetil 500 mg BID PO 03/25/25 10:30 Atorvastatin Calcium 10 mg HS PO 03/25/25 22:00 Metoprolol Succinate 50 mg DAILY PO 03/26/25 10:00 Ondansetron HCl 4 mg Q6HP PRN PO 03/25/25 14:00 Dimethicone 40 mg QIDP PRN PO 03/25/25 14:45 Examination: GENERAL:Normal, CVS:Normal, ABDOMEN:Abnormal, SKIN:Abnormal laboratory and microbiology Laboratory Tests 03/25/25 05:39 Test 03/25/25 05:39 Range/Units Serum Glucose 92 74-106 mg/dL Microbiology Date/Time Source Procedure Growth Status 03/21/25 17:26 Pleural Fluid Gram Stain - Final Resulted 03/21/25 17:26 Pleural Fluid Body Fluid Culture - Preliminary Resulted Problem List/Assessment/Plan Problem List/Assessment/Plan 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 prednisone today -start CellCept p.o. b.i.d., continue hydroxychloroquine p.o. -I discussed with the patient importance of biopsy of the kidney to classify the stage of lupus nephritis in order to guide medical therapy (completed biopsy today 03/25). We will follow up results in the outpatient -patient will also require outpatient coordination to start Benlysta in the outpatient as part of full immunosuppression regimen -start RIVERA inhibitor therapy after review of labs and quantify proteinuria -dramatic loss and renal function GFR was greater than 90% in 2023 currently GFR proximally 14% -I explained to patient at bedside there is no emergent indication for dialysis at this time however patient requires aggressive and prompt medical immunosuppression to prevent permanent renal function loss Hypertension -RIVERA inhibitor/ARB will be resumed tomorrow once medically stable Continue other p.o. blood pressure medications and low-salt -convert to oral diuretic therapy Anemia likely in the setting of kidney disease and lupus -check iron stores - stuart boosting agents while inpatient Replace electrolytes daily Explained to patient and at bedside given significant disease require very close renal follow up to prevent dialysis this includes treatment with immunosuppressive agents and kidney biopsy. 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 for proper coordination of lupus treatment after discharge high medical complexity Plan discussed with: Patient, Spouse My Orders My Orders Orders - NITHYA HURT MD Procedure Category Date Status Time Urine LAB 03/25/25 Logged Protein/Creatinine Prednisone Tablet PHA 03/25/25 In Process 14:00 Mycophenolate Mofetil PHA 03/25/25 In Process (Cellcept) 10:30 Atorvastatin (Lipitor) PHA 03/25/25 In Process 22:00 Sodium Chloride 0.9% PHA 03/25/25 In Process 14:00 Ondansetron Po PHA 03/25/25 In Process (Zofran Po) 14:00 Simethicone Tab PHA 03/25/25 In Process (Mylicon Tab) 14:45 Complete Blood Count LAB 03/26/25 Verified 04:00 Dietary Evaluation Review Recommendations by RD: Dietary education by RD Comments: 1) Add 45g CCHO restriction to cardiac 2g K diet 2) Collect Hba1c 3) Refer to outpatient RD/CD[facility] for weight management 4) Follow-up with cardiology, nephrology, and rheumatology 4) Continue to monitor I&O, labs, and skin integrity Expected Outcomes/Goals: 1) appetite and labs to improve 2) gradual wt loss 3) f/u in 3-5 days Total Time (mins): NITHYA KEN MD Mar 25, 2025 15:58
[2025-03-25] MEDS: HYDROcodone-ACET 5/325MG TAB PO PRN (16:27)
[2025-03-25] MEDS: ONDANSETRON ODT 4 MG TAB PO PRN (16:27)
[2025-03-25] MEDS: EPOETIN ALFA-EPBX 10,000 UNIT/1ML VIAL SC ONE (22:40)
[2025-03-25] MEDS: ATORVASTATIN 20 MG TAB PO SCH (22:41)
[2025-03-26] VITALS (9 sets, daily range): BP systolic 154–173; BP diastolic 90–106; PULSE 75–99; RESP 18–20; TEMP 96.9–98.1; O2SAT 97–99
[2025-03-26 07:07] LABS: Nucleated Red Blood Cells % 0.1 %
[2025-03-26 07:09] LABS: Hematocrit 26.4 % (36.0-46.0); Hemoglobin 8.7 g/dL (12.2-16.2); Mean Corpuscular Hemoglobin 25.7 pg (28.0-32.0); Mean Corpuscular Volume 77.9 fL (80.0-100.0)
[2025-03-26 07:12] LABS: Chloride 106 mmol/L (98-107); Sodium 140 mmol/L (136-145)
[2025-03-26 07:13] LABS: Anion Gap 13 (5-15); Carbon Dioxide 21 mmol/L (20-31)
[2025-03-26 07:17] LABS: Calcium 7.3 mg/dL (8.7-10.4); Potassium 3.3 mmol/L (3.5-5.1)
[2025-03-26 07:18] LABS: Glucose 132 mg/dL (74-106); Iron 34.0 ug/dL (50-170)
[2025-03-26 07:19] LABS: BUN/Creatinine Ratio 13.9 (10.0-20.0)
[2025-03-26 07:22] LABS: Blood Urea Nitrogen 53 mg/dL (9-23)
[2025-03-26 07:23] LABS: Total Iron Binding Capacity 225.0 ug/dL (250-425)
[2025-03-26] MEDS: FUROSEMIDE 20 MG TAB PO SCH (09:34)
[2025-03-26] MEDS: METOPROLOL SUCCINATE XL 50 MG TAB PO SCH (09:35)
[2025-03-26] MEDS ORDERED: METOPROLOL SUCCINATE XL 50 MG TAB PO SCH (10:00)
--- NOTE | 2025-03-26 11:48 | DVHPN2 ---
Progress Note Date Seen: Mar 26, 2025 Medical Necessity Reason Pt with a Central, PICC or Fol: No Subjective Patient reports: Feels better Objective vital signs Vital Sign Date Time Temp Pulse Resp B/P (MAP) Pulse Ox O2 Delivery O2 Flow Rate FiO2 03/26/25 10:00 98 Room Air* 0 21 03/26/25 09:35 96 173/99 03/26/25 08:55 97.6 20 97.6 Total Intake and Output 03/25/25 03/25/25 03/26/25 15:00 23:00 07:00 Intake Total 550 ml 480 ml Balance 550 ml 480 ml medications Current Medications Medications Dose Ordered Sig/Mica Route Start Time Stop Time Status Last Admin Dose Admin Acetaminophen 650 mg Q6HP PRN PO 03/20/25 14:45 03/25/25 16:33 650 MG Pantoprazole Sodium 40 mg DAILY PO 03/21/25 10:00 03/26/25 09:35 40 MG Folic Acid 1 mg DAILY PO 03/21/25 10:00 03/26/25 09:34 1 MG Labetalol HCl 20 mg Q2HPRN PRN IV 03/20/25 17:45 03/26/25 05:38 20 MG Methylprednisolone Sodium Succinate 1,000 mg DAILY IV 03/21/25 12:45 03/23/25 10:01 Cancel Labetalol HCl 10 mg Q2HPRN PRN IV 03/21/25 13:45 03/25/25 01:20 10 MG Amlodipine Besylate 10 mg DAILY PO 03/22/25 10:00 03/26/25 09:35 10 MG Clonidine HCl 0.1 mg Q6HP PRN PO 03/21/25 21:15 03/26/25 06:45 0.1 MG Cholecalciferol 4,000 unit DAILY PO 03/22/25 10:00 03/26/25 09:35 4,000 UNIT Ferrous Sulfate 325 mg BIDWM PO 03/22/25 08:00 03/26/25 08:00 325 MG Hydroxychloroquine Sulfate 200 mg BID PO 03/21/25 21:30 03/26/25 09:35 200 MG Ceftriaxone Sodium 50 ml @ 100 mls/hr DAILY@09 IV 03/24/25 09:00 03/26/25 09:00 100 MLS/HR Acetaminophen/ Hydrocodone Bitart 1 tab Q6HPRN PRN PO 03/23/25 12:30 03/25/25 16:27 1 TAB Prednisone 20 mg TID PO 03/25/25 14:00 03/26/25 05:38 20 MG Mycophenolate Mofetil 500 mg BID PO 03/25/25 10:30 03/26/25 09:34 500 MG Atorvastatin Calcium 10 mg HS PO 03/25/25 22:00 03/25/25 22:41 10 MG Ondansetron HCl 4 mg Q6HP PRN PO 03/25/25 14:00 03/25/25 16:27 4 MG Dimethicone 40 mg QIDP PRN PO 03/25/25 14:45 Furosemide 40 mg DAILY PO 03/26/25 10:00 03/26/25 09:34 40 MG Metoprolol Succinate 100 mg DAILY PO 03/26/25 10:00 03/26/25 09:35 100 MG Examination: GENERAL:Normal, CVS:Normal, MSK:Normal, SKIN:Normal laboratory and microbiology Laboratory Tests 03/26/25 06:08 Test 03/26/25 06:08 Range/Units Serum Glucose 132 H 74-106 mg/dL Microbiology Date/Time Source Procedure Growth Status 03/21/25 17:26 Pleural Fluid Gram Stain - Final Resulted 03/21/25 17:26 Pleural Fluid Body Fluid Culture - Preliminary Resulted Problem List/Assessment/Plan Problem List/Assessment/Plan 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 prednisone 60 -CellCept p.o. b.i.d., 500mg po. increase to 1000mg po BID next week , and 1500mg po BID is target goal if tolerates in 3 weeks continue hydroxychloroquine p.o. -s/p kidney biopsy will review outpatient -patient will also require outpatient coordination to start Benlysta in the outpatient as part of full immunosuppression regimen -start RIVERA inhibitor therapy after review of labs and quantify proteinuria--> outpatient -dramatic loss and renal function GFR was greater than 90% in 2023 currently GFR proximally 14% -I explained to patient at bedside there is no emergent indication for dialysis at this time however patient requires aggressive and prompt medical immunosuppression to prevent permanent renal function loss Hypertension -RIVERA inhibitor/ARB will be resumed after DC Continue other p.o. 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 for proper coordination of lupus treatment after discharge IF BP is normalized within next 24 hrs on po resume can be discharged with finalized medications high medical complexity cellcept 500 BID , x7 days, then 1000mg po BID x 30 days prednisone 60mg (20 TID) for 7 days then 40mg po daily x 30 days hydroxychloroquine 200mg po BID PPI daily - 6 month supply metoprolol 100 mg XL daily amlodipine 10 oral iron MVI lasix 40mg po daily Plan discussed with: Patient My Orders My Orders Orders - NITHYA HURT MD Procedure Category Date Status Time Ondansetron Po PHA 03/25/25 In Process (Zofran Po) 14:00 Simethicone Tab PHA 03/25/25 In Process (Mylicon Tab) 14:45 Furosemide Tablet PHA 03/26/25 In Process (Lasix Tablet) 10:00 Metoprolol Xl PHA 03/26/25 In Process Succinate (Toprol Xl) 10:00 Cardiac DIET 03/26/25 Transmitted Diet-2gna,Lofat,Lochol Breakfast Basic Metabolic Panel LAB 03/27/25 Verified 04:00 Communication Order ORDERS 03/26/25 Transmitted 08:57 Dietary Evaluation Review Recommendations by RD: Dietary education by RD Comments: 1) Add 45g CCHO restriction to cardiac 2g K diet 2) Collect Hba1c 3) Refer to outpatient RD/[facility] for weight management 4) Follow-up with cardiology, nephrology, and rheumatology 4) Continue to monitor I&O, labs, and skin integrity Expected Outcomes/Goals: 1) appetite and labs to improve 2) gradual wt loss 3) f/u in 3-5 days Total Time (mins): 60 NITHYA HURT MD Mar 26, 2025 11:48
--- NOTE | 2025-03-26 12:16 | DVHPN2 ---
Subjective Patient seems that she is feeling anxious. Reviewed: Care Plan, H&P, Labs, Medications Changes from previous H/P or p: No Changes General: Per HPI Musculoskeletal: back pain Objective Vitals Vital Signs Date Time Temp Pulse Resp B/P (MAP) Pulse Ox O2 Delivery O2 Flow Rate FiO2 03/26/25 12:09 84 168/94 03/26/25 10:00 98 Room Air* 0 21 03/26/25 08:55 97.6 20 97.6 Intake/Output Intake and Output 03/26/25 07:00 Intake Total 1030 ml Balance 1030 ml Intake Oral 1030 ml # Voids 5 # Bowel Movements 1 General Appearance: Alert, Oriented X3, Cooperative, mild distress HEENT: Atraumatic, PERRLA Lungs: Normal air movement, Other (Decreased breath sounds in lower lobe) Cardiovascular: Normal S1, Normal S2 Abdomen: Normal bowel sounds, Soft, No tenderness Musculoskeletal: Normal sensory function, Normal motor function Neuro: Normal gait, Normal speech Skin: Dry, Intact Psych/Mental Status: Mental status NL, Mood NL Medications Current Medications Medications Dose Ordered Sig/Mica Route Start Time Stop Time Status Last Admin Dose Admin Acetaminophen 650 mg Q6HP PRN PO 03/20/25 14:45 03/25/25 16:33 650 MG Pantoprazole Sodium 40 mg DAILY PO 03/21/25 10:00 03/26/25 09:35 40 MG Folic Acid 1 mg DAILY PO 03/21/25 10:00 03/26/25 09:34 1 MG Labetalol HCl 20 mg Q2HPRN PRN IV 03/20/25 17:45 03/26/25 12:09 20 MG Methylprednisolone Sodium Succinate 1,000 mg DAILY IV 03/21/25 12:45 03/23/25 10:01 Cancel Labetalol HCl 10 mg Q2HPRN PRN IV 03/21/25 13:45 03/25/25 01:20 10 MG Amlodipine Besylate 10 mg DAILY PO 03/22/25 10:00 03/26/25 09:35 10 MG Clonidine HCl 0.1 mg Q6HP PRN PO 03/21/25 21:15 03/26/25 06:45 0.1 MG Cholecalciferol 4,000 unit DAILY PO 03/22/25 10:00 03/26/25 09:35 4,000 UNIT Ferrous Sulfate 325 mg BIDWM PO 03/22/25 08:00 03/26/25 08:00 325 MG Hydroxychloroquine Sulfate 200 mg BID PO 03/21/25 21:30 03/26/25 09:35 200 MG Ceftriaxone Sodium 50 ml @ 100 mls/hr DAILY@09 IV 03/24/25 09:00 03/26/25 09:00 100 MLS/HR Acetaminophen/ Hydrocodone Bitart 1 tab Q6HPRN PRN PO 03/23/25 12:30 03/25/25 16:27 1 TAB Prednisone 20 mg TID PO 03/25/25 14:00 03/26/25 05:38 20 MG Mycophenolate Mofetil 500 mg BID PO 03/25/25 10:30 03/26/25 09:34 500 MG Atorvastatin Calcium 10 mg HS PO 03/25/25 22:00 03/25/25 22:41 10 MG Ondansetron HCl 4 mg Q6HP PRN PO 03/25/25 14:00 03/25/25 16:27 4 MG Dimethicone 40 mg QIDP PRN PO 03/25/25 14:45 Furosemide 40 mg DAILY PO 03/26/25 10:00 03/26/25 09:34 40 MG Metoprolol Succinate 100 mg DAILY PO 03/26/25 10:00 03/26/25 09:35 100 MG Clonidine HCl 0.1 mg BID PO 03/26/25 12:15 UNV Laboratory Results Laboratory Tests 03/26/25 06:08 Chemistry Test 03/26/25 06:08 Calcium Level 7.3 mg/dL (8.7-10.4) L Phosphorus Level 6.8 mg/dL (2.4-5.1) H Urinalysis Test 03/20/25 12:08 Urine Color Colorless (Yellow) Urine Clarity Clear (Clear) Urine pH 6.0 (5.0-9.0) Urine Specific [place] 1.007 (1.001-1.035) Urine Protein 2+ (Negative) H Urine Ketones Negative (Negative) Urine Blood 1+ /uL (Negative) H Urine Nitrite Negative (Negative) Urine Bilirubin Negative (Negative) Urine Urobilinogen Normal mg/dL (Negative) Urine Leukocyte Esterase Negative /uL (Negative) Urine RBC 1 /hpf (0 - 4) Urine Microscopic WBC 2 /HPF (0-5) Urine Squamous Epithelial Cells Few /hpf (<5) Urine Bacteria None seen /hpf (None Seen) Urine Glucose Normal mg/dL (Normal) Microbiology Microbiology Date/Time Source Procedure Growth Status 03/21/25 17:26 Pleural Fluid Gram Stain - Final Resulted 03/21/25 17:26 Pleural Fluid Body Fluid Culture - Preliminary Resulted Labs and/or images reviewed: Labs reviewed by me, Image(s) reviewed by me Assessment/Plan Assessment/Plan Impression: -hypertensive crisis -probable lupus flare -acute kidney injury, probable lupus nephritis -large left pleural effusion -microcytic, hypochromic anemia Plan: -consultations: Nephrology, pulmonology, rheumatology -antihypertensive regimen discussed with Nephrology. Clonidine 0.10 banana b.i.d. -Xanax p.r.n. anxiety -nephrology consultation: Discussed case with Dr. Rosas. Recommendations reviewed. -BMP tomorrow Total time spent with patient discussing and formulating plan of care: 35 minutes. This medical document was created using an electronic medical record system with [employer] dictation system. Although this document has been carefully reviewed, there may still be some phonetic and typographical errors. These areas are purely typographical due to imperfections of the software programs, and do not reflect any compromise in the patient's medical care. Plan discussed with: Patient, Other (RN) My Orders Orders - JUSTIN YEPEZ NP Procedure Category Date Status Time Clonidine Hcl Tablet PHA 03/26/25 Logged (Catapres Tablet) 12:15 Date of Service: Mar 26, 2025 Billing Provider: JUSTIN YEPEZ NP Common Visit Codes: [id number] INP/OBS CARE(HIGH) JUSTIN YEPEZ NP Mar 26, 2025 12:16
--- NOTE | 2025-03-26 14:36 | DVH ---
CHEST RADIOGRAPH Indication: pleural effusion Technique: Single frontal view of the chest was obtained Comparison: XY CHEST XRAY 1 VIEW on DOS: 03/21/25, XY CHEST XRAY 1 VIEW on DOS: 03/20/25, XR CHEST 1 VIEW on DOS: 01/12/23, US PLEURAL EFFUSION CHEST on DOS: 01/10/23, XR CHEST 1 VIEW on DOS: 01/08/23 FINDINGS: Lines and Tubes: None Lungs: No focal consolidation. Pleura: Small bilateral pleural effusions [id number]. No pneumothorax. Cardiomediastinal contours: Cardiomegaly Bones: No acute osseous abnormality. IMPRESSION: Small bilateral pleural effusions [id number].
[2025-03-26] MEDS: ALPRAZolam 0.25 MG TAB PO PRN (14:45)
[2025-03-26] MEDS: POTASSIUM CHL 20 Meq TABLET PO ONE (14:45)
--- NOTE | 2025-03-26 14:50 | DVHPN2 ---
Progress Note - Dictate Date Seen: Mar 26, 2025 Medical Necessity Reason Pt with a Central, PICC or Fol: No vital signs Vital Sign Date Time Temp Pulse Resp B/P (MAP) Pulse Ox O2 Delivery O2 Flow Rate FiO2 03/26/25 14:45 167/103 03/26/25 13:00 97.9 84 20 98 97.9 03/26/25 10:00 Room Air* 0 21 Total Intake and Output 03/25/25 03/25/25 03/26/25 15:00 23:00 07:00 Intake Total 550 ml 480 ml Balance 550 ml 480 ml medications Current Medications Medications Dose Ordered Sig/Mica Route Start Time Stop Time Status Last Admin Dose Admin Acetaminophen 650 mg Q6HP PRN PO 03/20/25 14:45 03/25/25 16:33 650 MG Pantoprazole Sodium 40 mg DAILY PO 03/21/25 10:00 03/26/25 09:35 40 MG Folic Acid 1 mg DAILY PO 03/21/25 10:00 03/26/25 09:34 1 MG Labetalol HCl 20 mg Q2HPRN PRN IV 03/20/25 17:45 Hold 03/26/25 12:09 20 MG Methylprednisolone Sodium Succinate 1,000 mg DAILY IV 03/21/25 12:45 03/23/25 10:01 Cancel Labetalol HCl 10 mg Q2HPRN PRN IV 03/21/25 13:45 03/25/25 01:20 10 MG Amlodipine Besylate 10 mg DAILY PO 03/22/25 10:00 03/26/25 09:35 10 MG Clonidine HCl 0.1 mg Q6HP PRN PO 03/21/25 21:15 03/26/25 06:45 0.1 MG Cholecalciferol 4,000 unit DAILY PO 03/22/25 10:00 03/26/25 09:35 4,000 UNIT Ferrous Sulfate 325 mg BIDWM PO 03/22/25 08:00 03/26/25 08:00 325 MG Hydroxychloroquine Sulfate 200 mg BID PO 03/21/25 21:30 03/26/25 09:35 200 MG Ceftriaxone Sodium 50 ml @ 100 mls/hr DAILY@09 IV 03/24/25 09:00 03/26/25 09:00 100 MLS/HR Acetaminophen/ Hydrocodone Bitart 1 tab Q6HPRN PRN PO 03/23/25 12:30 03/25/25 16:27 1 TAB Prednisone 20 mg TID PO 03/25/25 14:00 03/26/25 14:45 20 MG Mycophenolate Mofetil 500 mg BID PO 03/25/25 10:30 03/26/25 09:34 500 MG Atorvastatin Calcium 10 mg HS PO 03/25/25 22:00 03/25/25 22:41 10 MG Ondansetron HCl 4 mg Q6HP PRN PO 03/25/25 14:00 03/25/25 16:27 4 MG Dimethicone 40 mg QIDP PRN PO 03/25/25 14:45 Metoprolol Succinate 100 mg DAILY PO 03/26/25 10:00 03/26/25 09:35 100 MG Clonidine HCl 0.1 mg BID PO 03/26/25 12:15 03/26/25 14:45 0.1 MG Alprazolam 0.25 mg Q12HP PRN PO 03/26/25 12:15 03/26/25 14:45 0.25 MG Furosemide 40 mg DAILY PO 03/27/25 10:00 laboratory and microbiology Laboratory Tests 03/26/25 06:08 Test 03/26/25 06:08 Range/Units Serum Glucose 132 H 74-106 mg/dL Assessment/Plan Impression Acute hypoxemic respiratory failure Left pleural effusions Pneumonia Atelectasis Hx of lupus Patient seen and examined Events Low oxygen requirements On room air No distress S/p thoracentesis S/p renal biopsy Labs and imaging reviewed Chest x-ray shows left pleural effusions Management Supplemental oxygen Titrate to maintain sats 90% or above Incentive spirometry Continue antibiotics F/u cultures Bronchodilators Monitor renal function Monitor electrolytes Supplement as needed Possible renal biopsy F/u with results DVT prophylaxis Dietary Evaluation Review Recommendations by RD: Dietary education by RD Comments: 1) Add 45g CCHO restriction to cardiac 2g K diet 2) Collect Hba1c 3) Refer to outpatient RD/CDCES for weight management 4) Follow-up with cardiology, nephrology, and rheumatology 4) Continue to monitor I&O, labs, and skin integrity Expected Outcomes/Goals: 1) appetite and labs to improve 2) gradual wt loss 3) f/u in 3-5 days Plan discussed with: Patient SITA JO MD Mar 26, 2025 14:50
[2025-03-26 17:01] LABS: Protein, Urine 214.5 mg/dL (1-14)
[2025-03-27] VITALS (9 sets, daily range): BP systolic 135–171; BP diastolic 79–110; PULSE 73–89; RESP 16–18; TEMP 97.3–98.5; O2SAT 97–100
[2025-03-27 07:35] LABS: Anion Gap 13 (5-15); Carbon Dioxide 21 mmol/L (20-31); Chloride 104 mmol/L (98-107); Potassium 4.4 mmol/L (3.5-5.1); Sodium 138 mmol/L (136-145)
[2025-03-27 07:41] LABS: BUN/Creatinine Ratio 20.1 (10.0-20.0)
[2025-03-27 07:46] LABS: Blood Urea Nitrogen 67 mg/dL (9-23); Calcium 8.0 mg/dL (8.7-10.4); Glucose 113 mg/dL (74-106)
[2025-03-27] MEDS ORDERED: CLON0.2T PO (08:56)
[2025-03-27] MEDS ORDERED: PRED20TA2 PO (08:56)
[2025-03-27] MEDS ORDERED: AMLO1TAB23 PO (08:56)
[2025-03-27] MEDS ORDERED: METO-6 PO (08:56)
[2025-03-27] MEDS ORDERED: PANT40TA2 PO (08:56)
[2025-03-27] MEDS ORDERED: FURO1TAB31 PO (08:56)
[2025-03-27] MEDS ORDERED: ALPR0.25 PO (08:56)
[2025-03-27] MEDS ORDERED: MYCO500T3 PO (08:56)
[2025-03-27] MEDS: EPOETIN ALFA-EPBX 10,000 UNIT/1ML VIAL SC ONE (10:23)
[2025-03-27] MEDS: FUROSEMIDE 40 MG TAB PO SCH (10:25)
--- NOTE | 2025-03-27 13:44 | DVHPN2 ---
Progress Note Date Seen: Mar 27, 2025 Medical Necessity Reason Pt with a Central, PICC or Fol: No Subjective Patient reports: Feels better Objective vital signs Vital Sign Date Time Temp Pulse Resp B/P (MAP) Pulse Ox O2 Delivery O2 Flow Rate FiO2 03/27/25 13:00 97.6 89 18 171/110 (130) 100 97.6 03/26/25 20:00 Room Air* 0 21 Total Intake and Output 03/26/25 03/26/25 03/27/25 15:00 23:00 07:00 Intake Total 300 ml 400 ml 600 ml Balance 300 ml 400 ml 600 ml medications Current Medications Medications Dose Ordered Sig/Mica Route Start Time Stop Time Status Last Admin Dose Admin Acetaminophen 650 mg Q6HP PRN PO 03/20/25 14:45 03/27/25 00:41 650 MG Pantoprazole Sodium 40 mg DAILY PO 03/21/25 10:00 03/27/25 10:25 40 MG Folic Acid 1 mg DAILY PO 03/21/25 10:00 03/27/25 10:23 1 MG Labetalol HCl 20 mg Q2HPRN PRN IV 03/20/25 17:45 Hold 03/26/25 12:09 20 MG Methylprednisolone Sodium Succinate 1,000 mg DAILY IV 03/21/25 12:45 03/23/25 10:01 Cancel Labetalol HCl 10 mg Q2HPRN PRN IV 03/21/25 13:45 03/27/25 04:43 10 MG Amlodipine Besylate 10 mg DAILY PO 03/22/25 10:00 03/27/25 10:24 10 MG Clonidine HCl 0.1 mg Q6HP PRN PO 03/21/25 21:15 03/27/25 06:33 0.1 MG Cholecalciferol 4,000 unit DAILY PO 03/22/25 10:00 03/27/25 10:25 4,000 UNIT Ferrous Sulfate 325 mg BIDWM PO 03/22/25 08:00 03/27/25 08:00 325 MG Hydroxychloroquine Sulfate 200 mg BID PO 03/21/25 21:30 03/27/25 10:24 200 MG Ceftriaxone Sodium 50 ml @ 100 mls/hr DAILY@09 IV 03/24/25 09:00 03/27/25 09:00 100 MLS/HR Acetaminophen/ Hydrocodone Bitart 1 tab Q6HPRN PRN PO 03/23/25 12:30 03/25/25 16:27 1 TAB Prednisone 20 mg TID PO 03/25/25 14:00 03/27/25 06:33 20 MG Mycophenolate Mofetil 500 mg BID PO 03/25/25 10:30 03/27/25 10:27 500 MG Atorvastatin Calcium 10 mg HS PO 03/25/25 22:00 03/26/25 22:12 10 MG Ondansetron HCl 4 mg Q6HP PRN PO 03/25/25 14:00 03/25/25 16:27 4 MG Dimethicone 40 mg QIDP PRN PO 03/25/25 14:45 Metoprolol Succinate 100 mg DAILY PO 03/26/25 10:00 03/27/25 10:26 100 MG Alprazolam 0.25 mg Q12HP PRN PO 03/26/25 12:15 03/27/25 12:00 0.25 MG Furosemide 40 mg DAILY PO 03/27/25 10:00 03/27/25 10:25 40 MG Clonidine HCl 0.2 mg BID PO 03/27/25 10:00 03/27/25 10:49 0.2 MG Examination: GENERAL:Normal, CVS:Normal, SKIN:Normal laboratory and microbiology Laboratory Tests 03/27/25 06:21 03/26/25 06:08 Test 03/27/25 06:21 Range/Units Serum Glucose 113 H 74-106 mg/dL Microbiology Date/Time Source Procedure Growth Status 03/21/25 17:26 Pleural Fluid Gram Stain - Final Complete 03/21/25 17:26 Pleural Fluid Body Fluid Culture - Final Complete Problem List/Assessment/Plan Problem List/Assessment/Plan 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 prednisone 60 -CellCept p.o. b.i.d., 500mg po. increase to 1000mg po BID next week , and 1500mg po BID is target goal if tolerates in 3 weeks continue hydroxychloroquine p.o. -s/p kidney biopsy will review outpatient -patient will also require outpatient coordination to start Benlysta in the outpatient as part of full immunosuppression regimen -start RIVERA inhibitor therapy after review of labs and quantify proteinuria--> outpatient scheduled -dramatic loss and renal function GFR was greater than 90% in 2023 currently GFR proximally 14% -I explained to patient at bedside there is no emergent indication for dialysis at this time however patient requires aggressive and prompt medical immunosuppression to prevent permanent renal function loss Hypertension -RIVERA inhibitor/ARB will be resumed after DC Continue other p.o. blood pressure medications and low-salt clonidine increased today due to high BP - oral anxiety meds Anemia likely in the setting of kidney disease and lupus - stuart boosting agents while inpatient Replace electrolytes daily For continued coordination of care advised patient to change insurance to in network coverage Patient will also require an outpatient sample dye mixer for proper coordination of lupus treatment after discharge IF BP is normalized within next 24 hrs on po resume can be discharged with finalized medications high medical complexity DC is pending stable BP level cellcept 500 BID , x7 days, then 1000mg po BID x 30 days prednisone 60mg (20 TID) for 7 days then 40mg po daily x 30 days hydroxychloroquine 200mg po BID PPI daily - 6 month supply metoprolol 100 mg XL daily amlodipine 10 cloinidine BID, adjustable oral iron MVI lasix 40mg po daily Plan discussed with: Patient, Spouse Dietary Evaluation Review Recommendations by RD: Dietary education by RD Comments: 1) Add 45g CCHO restriction to cardiac 2g K diet 2) Collect Hba1c 3) Refer to outpatient RD/CDCES for weight management 4) Follow-up with cardiology, nephrology, and rheumatology 4) Continue to monitor I&O, labs, and skin integrity Expected Outcomes/Goals: 1) appetite and labs to improve 2) gradual wt loss 3) f/u in 3-5 days NITHYA HURT MD Mar 27, 2025 13:44
--- NOTE | 2025-03-27 14:00 | DVHPN2 ---
Subjective Patient seems that she is feeling anxious. Reviewed: Care Plan, H&P, Labs, Medications Changes from previous H/P or p: No Changes General: Per HPI Musculoskeletal: back pain Objective Vitals Vital Signs Date Time Temp Pulse Resp B/P (MAP) Pulse Ox O2 Delivery O2 Flow Rate FiO2 03/27/25 13:00 97.6 89 18 171/110 (130) 100 97.6 03/26/25 20:00 Room Air* 0 21 Intake/Output Intake and Output 03/27/25 07:00 Intake Total 1300 ml Balance 1300 ml Intake Oral 1250 ml IV Total 50 ml # Voids 6 General Appearance: Alert, Oriented X3, Cooperative, mild distress HEENT: Atraumatic, PERRLA Lungs: Normal air movement, Other (Decreased breath sounds in lower lobe) Cardiovascular: Normal S1, Normal S2 Abdomen: Normal bowel sounds, Soft, No tenderness Musculoskeletal: Normal sensory function, Normal motor function Neuro: Normal gait, Normal speech Skin: Dry, Intact Psych/Mental Status: Mental status NL, Mood NL Medications Current Medications Medications Dose Ordered Sig/Mica Route Start Time Stop Time Status Last Admin Dose Admin Acetaminophen 650 mg Q6HP PRN PO 03/20/25 14:45 03/27/25 00:41 650 MG Pantoprazole Sodium 40 mg DAILY PO 03/21/25 10:00 03/27/25 10:25 40 MG Folic Acid 1 mg DAILY PO 03/21/25 10:00 03/27/25 10:23 1 MG Labetalol HCl 20 mg Q2HPRN PRN IV 03/20/25 17:45 Hold 03/26/25 12:09 20 MG Methylprednisolone Sodium Succinate 1,000 mg DAILY IV 03/21/25 12:45 03/23/25 10:01 Cancel Labetalol HCl 10 mg Q2HPRN PRN IV 03/21/25 13:45 03/27/25 04:43 10 MG Amlodipine Besylate 10 mg DAILY PO 03/22/25 10:00 03/27/25 10:24 10 MG Clonidine HCl 0.1 mg Q6HP PRN PO 03/21/25 21:15 03/27/25 06:33 0.1 MG Cholecalciferol 4,000 unit DAILY PO 03/22/25 10:00 03/27/25 10:25 4,000 UNIT Ferrous Sulfate 325 mg BIDWM PO 03/22/25 08:00 03/27/25 08:00 325 MG Hydroxychloroquine Sulfate 200 mg BID PO 03/21/25 21:30 03/27/25 10:24 200 MG Ceftriaxone Sodium 50 ml @ 100 mls/hr DAILY@09 IV 03/24/25 09:00 03/27/25 09:00 100 MLS/HR Acetaminophen/ Hydrocodone Bitart 1 tab Q6HPRN PRN PO 03/23/25 12:30 03/25/25 16:27 1 TAB Prednisone 20 mg TID PO 03/25/25 14:00 03/27/25 06:33 20 MG Mycophenolate Mofetil 500 mg BID PO 03/25/25 10:30 03/27/25 10:27 500 MG Atorvastatin Calcium 10 mg HS PO 03/25/25 22:00 03/26/25 22:12 10 MG Ondansetron HCl 4 mg Q6HP PRN PO 03/25/25 14:00 03/25/25 16:27 4 MG Dimethicone 40 mg QIDP PRN PO 03/25/25 14:45 Metoprolol Succinate 100 mg DAILY PO 03/26/25 10:00 03/27/25 10:26 100 MG Alprazolam 0.25 mg Q12HP PRN PO 03/26/25 12:15 03/27/25 12:00 0.25 MG Furosemide 40 mg DAILY PO 03/27/25 10:00 03/27/25 10:25 40 MG Clonidine HCl 0.2 mg BID PO 03/27/25 10:00 03/27/25 10:49 0.2 MG Laboratory Results Laboratory Tests 03/26/25 06:08 03/27/25 06:21 Chemistry Test 03/27/25 06:21 Calcium Level 8.0 mg/dL (8.7-10.4) L Urinalysis Test 03/20/25 12:08 03/26/25 12:01 Urine Color Colorless (Yellow) Urine Clarity Clear (Clear) Urine pH 6.0 (5.0-9.0) Urine Specific [place] 1.007 (1.001-1.035) Urine Protein 2+ (Negative) H Urine Ketones Negative (Negative) Urine Blood 1+ /uL (Negative) H Urine Nitrite Negative (Negative) Urine Bilirubin Negative (Negative) Urine Urobilinogen Normal mg/dL (Negative) Urine Leukocyte Esterase Negative /uL (Negative) Urine RBC 1 /hpf (0 - 4) Urine Microscopic WBC 2 /HPF (0-5) Urine Squamous Epithelial Cells Few /hpf (<5) Urine Bacteria None seen /hpf (None Seen) Urine Glucose Normal mg/dL (Normal) Urine Creatinine 72.32 mg/dL (30.0-125.0) Urine Protein/Creatinine Ratio 2.97 Urine Total Protein 214.5 mg/dL (1-14) H Microbiology Microbiology Date/Time Source Procedure Growth Status 03/21/25 17:26 Pleural Fluid Gram Stain - Final Complete 03/21/25 17:26 Pleural Fluid Body Fluid Culture - Final Complete Labs and/or images reviewed: Labs reviewed by me, Image(s) reviewed by me Assessment/Plan Assessment/Plan Impression: -hypertensive crisis -probable lupus flare -acute kidney injury, probable lupus nephritis -large left pleural effusion -microcytic, hypochromic anemia Plan: -consultations: Nephrology, pulmonology, rheumatology -antihypertensive regimen discussed with Nephrology. , continue metoprolol, clonidine increased to 0.2 b.i.d., amlodipine 10, furosemide -continue prednisone 20 mg p.o. t.i.d., hydroxychloroquine, and CellCept -Xanax p.r.n. anxiety -nephrology consultation: Discussed case with Dr. Rosas. Recommendations reviewed. -BMP tomorrow Total time spent with patient discussing and formulating plan of care: 35 minutes. This medical document was created using an electronic medical record system with [employer] dictation system. Although this document has been carefully reviewed, there may still be some phonetic and typographical errors. These areas are purely typographical due to imperfections of the software programs, and do not reflect any compromise in the patient's medical care. Plan discussed with: Patient, Other (RN) My Orders Orders - JUSTIN YEPEZ NP Procedure Category Date Status Time Clonidine Hcl Tablet PHA 03/27/25 In Process (Catapres Tablet) 10:00 Date of Service: Mar 27, 2025 Billing Provider: JUSTIN YEPEZ NP Common Visit Codes: [id number] INP/OBS CARE(HIGH) JUSTIN YEPEZ NP Mar 27, 2025 14:00
[2025-03-27] MEDS: LABETALOL HCL 200 MG TAB PO ONE (14:49)
--- NOTE | 2025-03-27 19:21 | DVHPN2 ---
Progress Note - Dictate Date Seen: Mar 27, 2025 Medical Necessity Reason Pt with a Central, PICC or Fol: No vital signs Vital Sign Date Time Temp Pulse Resp B/P (MAP) Pulse Ox O2 Delivery O2 Flow Rate FiO2 03/27/25 17:00 97.7 82 17 135/79 (97) 97 97.7 03/27/25 08:00 Room Air* 0 21 Total Intake and Output 03/26/25 03/26/25 03/27/25 15:00 23:00 07:00 Intake Total 300 ml 400 ml 600 ml Balance 300 ml 400 ml 600 ml medications Current Medications Medications Dose Ordered Sig/Mica Route Start Time Stop Time Status Last Admin Dose Admin Acetaminophen 650 mg Q6HP PRN PO 03/20/25 14:45 03/27/25 00:41 650 MG Pantoprazole Sodium 40 mg DAILY PO 03/21/25 10:00 03/27/25 10:25 40 MG Folic Acid 1 mg DAILY PO 03/21/25 10:00 03/27/25 10:23 1 MG Labetalol HCl 20 mg Q2HPRN PRN IV 03/20/25 17:45 Hold 03/26/25 12:09 20 MG Methylprednisolone Sodium Succinate 1,000 mg DAILY IV 03/21/25 12:45 03/23/25 10:01 Cancel Labetalol HCl 10 mg Q2HPRN PRN IV 03/21/25 13:45 03/27/25 04:43 10 MG Amlodipine Besylate 10 mg DAILY PO 03/22/25 10:00 03/27/25 10:24 10 MG Clonidine HCl 0.1 mg Q6HP PRN PO 03/21/25 21:15 03/27/25 06:33 0.1 MG Cholecalciferol 4,000 unit DAILY PO 03/22/25 10:00 03/27/25 10:25 4,000 UNIT Ferrous Sulfate 325 mg BIDWM PO 03/22/25 08:00 03/27/25 17:54 325 MG Hydroxychloroquine Sulfate 200 mg BID PO 03/21/25 21:30 03/27/25 10:24 200 MG Ceftriaxone Sodium 50 ml @ 100 mls/hr DAILY@09 IV 03/24/25 09:00 03/27/25 09:00 100 MLS/HR Acetaminophen/ Hydrocodone Bitart 1 tab Q6HPRN PRN PO 03/23/25 12:30 03/25/25 16:27 1 TAB Prednisone 20 mg TID PO 03/25/25 14:00 03/27/25 14:00 20 MG Mycophenolate Mofetil 500 mg BID PO 03/25/25 10:30 03/27/25 10:27 500 MG Atorvastatin Calcium 10 mg HS PO 03/25/25 22:00 03/26/25 22:12 10 MG Ondansetron HCl 4 mg Q6HP PRN PO 03/25/25 14:00 03/25/25 16:27 4 MG Dimethicone 40 mg QIDP PRN PO 03/25/25 14:45 Alprazolam 0.25 mg Q12HP PRN PO 03/26/25 12:15 03/27/25 12:00 0.25 MG Furosemide 40 mg DAILY PO 03/27/25 10:00 03/27/25 10:25 40 MG Clonidine HCl 0.2 mg BID PO 03/27/25 10:00 03/27/25 10:49 0.2 MG Labetalol HCl 200 mg Q12HR PO 03/27/25 22:00 laboratory and microbiology Laboratory Tests 03/27/25 06:21 03/26/25 06:08 Test 03/27/25 06:21 Range/Units Serum Glucose 113 H 74-106 mg/dL Assessment/Plan Impression Acute hypoxemic respiratory failure Left pleural effusions Pneumonia Atelectasis Hx of lupus Patient seen and examined Events Low oxygen requirements On room air No distress S/p thoracentesis S/p renal biopsy Labs and imaging reviewed Chest x-ray shows left pleural effusions Management Supplemental oxygen Titrate to maintain sats 90% or above Incentive spirometry Continue antibiotics F/u cultures Bronchodilators Monitor renal function Monitor electrolytes Supplement as needed Possible renal biopsy F/u with results DVT prophylaxis Dietary Evaluation Review Recommendations by RD: Dietary education by RD Comments: 1) Add 45g CCHO restriction to cardiac 2g K diet 2) Collect Hba1c 3) Refer to outpatient RD/CDCES for weight management 4) Follow-up with cardiology, nephrology, and rheumatology 4) Continue to monitor I&O, labs, and skin integrity Expected Outcomes/Goals: 1) appetite and labs to improve 2) gradual wt loss 3) f/u in 3-5 days Plan discussed with: Patient SITA JO MD Mar 27, 2025 19:21
[2025-03-27] MEDS: LABETALOL HCL 200 MG TAB PO SCH (22:14)
[2025-03-28] VITALS (7 sets, daily range): BP systolic 144–157; BP diastolic 78–93; PULSE 77–93; RESP 16–19; TEMP 82.2–98.5; O2SAT 96–99
[2025-03-28 07:02] LABS: Hemoglobin 8.8 g/dL (12.2-16.2)
[2025-03-28 07:06] LABS: Hematocrit 26.6 % (36.0-46.0); Mean Corpuscular Hemoglobin 26.1 pg (28.0-32.0); Mean Corpuscular Volume 78.4 fL (80.0-100.0)
[2025-03-28 07:08] LABS: Chloride 104 mmol/L (98-107); Potassium 4.3 mmol/L (3.5-5.1)
[2025-03-28 07:09] LABS: Anion Gap 12 (5-15)
[2025-03-28 07:14] LABS: BUN/Creatinine Ratio 18.0 (10.0-20.0)
[2025-03-28 07:16] LABS: Blood Urea Nitrogen 59 mg/dL (9-23); Calcium 7.9 mg/dL (8.7-10.4); Carbon Dioxide 20 mmol/L (20-31); Glucose 107 mg/dL (74-106); Sodium 136 mmol/L (136-145)
[2025-03-28 07:40] LABS: Total Cells Counted 100.0 (100)
[2025-03-28] MEDS ORDERED: LABE100T7 PO (10:29)
--- NOTE | 2025-03-28 10:51 | DVHDS2 ---
Discharge Summary Date of Admission Mar 20, 2025 at 14:33 Date of Discharge: Mar 28, 2025 Admitting Diagnosis Hypertensive urgency Labs/Diagnostic Data: Laboratory Results Test 03/28/25 04:44 03/26/25 12:01 03/26/25 06:08 03/25/25 05:39 White Blood Count 9.4 10^3/uL (4.4-10.8) Red Blood Count 3.39 10^6/uL (4.0-5.20) Hemoglobin 8.8 g/dL (12.2-16.2) Hematocrit 26.6 % (36.0-46.0) Mean Corpuscular Volume 78.4 fL (80.0-100.0) Mean Corpuscular Hemoglobin 26.1 pg (28.0-32.0) Mean Corpuscular Hemoglobin Concent 33.3 g/dL (32.0-36.0) Red Cell Distribution Width 17.8 % (11.8-14.3) Platelet Count 400 10^3/uL (140-450) Mean Platelet Volume 7.9 fL (6.9-10.8) Neutrophils (%) (Auto) % (37.0-80.0) Lymphocytes (%) (Auto) % (10.0-50.0) Monocytes (%) (Auto) % (0.0-12.0) Basophils (%) (Auto) % (0.0-2.0) Neutrophils # (Auto) 10 ^3/uL (1.6-8.6) Lymphocytes # (Auto) 10 ^3/uL (0.4-5.4) Monocytes # (Auto) 10 ^3/uL (0-1.3) Differential Total Cells Counted 100.0 (100) Neutrophils % (Manual) 96 (37.0-80.0) Band Neutrophils % (Manual) 1 Lymphocytes % (Manual) 1 (10.0-50.0) Monocytes % (Manual) 1 (0-12) Eosinophils % (Manual) 0 (0-7) Basophils % (Manual) 0 (0.0-2.0) Metamyelocytes % (manual) 1 Myelocytes % (Manual) 0 Promyelocytes % (Manual) 0 Blast Cells % (Manual) 0 Reactive Lymphocytes 0 Platelet Estimate Adequate Microcytosis Slight Sodium Level 136 mmol/L (136-145) Potassium Level 4.3 mmol/L (3.5-5.1) Chloride Level 104 mmol/L (98-107) Carbon Dioxide Level 20 mmol/L (20-31) Anion Gap 12 (5-15) Blood Urea Nitrogen 59 mg/dL (9-23) Creatinine 3.28 mg/dL (0.550-1.02) Glomerular Filtration Rate Calc 18 mL/min (>90) BUN/Creatinine Ratio 18.0 (10.0-20.0) Serum Glucose 107 mg/dL (74-106) Calcium Level 7.9 mg/dL (8.7-10.4) Phosphorus Level 5.5 mg/dL (2.4-5.1) Urine Creatinine 72.32 mg/dL (30.0-125.0) Urine Protein/Creatinine Ratio 2.97 Urine Total Protein 214.5 mg/dL (1-14) Eosinophils (%) (Auto) 0.0 % (0.0-7.0) Eosinophils # (Auto) 0 10 ^3/uL (0-0.8) Basophils # (Auto) 0 10 ^3/uL (0-0.2) Nucleated Red Blood Cells 0.1 % Iron Level 34 ug/dL (50-170) Total Iron Binding Capacity 225 ug/dL (250-425) Percent Iron Saturation 15.1 % (15-50) Ferritin 72.5 ng/mL (10-291) C-Reactive Protein High Sensitivity 0.75 mg/dL (<1.0) Test 03/22/25 19:53 03/22/25 04:56 03/21/25 17:26 03/21/25 12:40 POC Glucose 235 mg/dl (70-106) Prothrombin Time 10.3 sec (9.3-11.8) Prothrombin Time INR 0.97 (0.9-1.15) Activated Partial Thromboplast Time 27.3 SEC (24.5-34.5) Body Fluid Source Pleural fluid Body Fluid pH 8.0 Body Fluid WBC (Manual) 1036 CUMM (0-200) Body Fluid RBC (Manual) 402 CUMM (0-2000) Body Fluid Mononuclear Cells 52 % Body Fluid Polymorphonuclear Cells 48 % (0-25) Body Fluid Glucose 125 mg/dL (.) Body Fluid Total Protein 2.9 g/dL (.) Body Fluid Lactate Dehydrogenase 181 IU/L (.) Anti-Nuclear Antibody Comment Comment (.) Cytoplasmic ANCA (c-ANCA) Antibody <1:20 titer (Neg:<1:20) Anti-Proteinase 3 (c-ANCA) <0.2 units (0.0-0.9) Atypical p-ANCA <1:20 titer (Neg:<1:20) Perinuclear ANCA (p-ANCA) Antibody <1:20 titer (Neg:<1:20) Myeloperoxidase Antibody <0.2 units (0.0-0.9) NEGRITO-1 Antibody <0.2 AI (0.0-0.9) SS-A/Ro Antibody >8.0 AI (0.0-0.9) SS-B/La Antibody 6.0 AI (0.0-0.9) Sm Antibody >8.0 AI (0.0-0.9) WINDOW TINTER Antibody 6.6 AI (0.0-0.9) Scl-70 (Scleroderma) Antibody 0.2 AI (0.0-0.9) Anti-Double Strand DNA Antibody >300 IU/mL (0-9) Chromatin Antibody >8.0 AI (0.0-0.9) Centromere B Antibody <0.2 AI (0.0-0.9) Complement C3 82 mg/dL (82-167) Complement C4 11 mg/dL (12-38) Test 03/21/25 10:22 03/21/25 04:49 03/20/25 12:08 Erythrocyte Sedimentation Rate 99 mm/hr (0-20) Magnesium Level 1.7 mg/dL (1.6-2.6) B-Type Natriuretic Peptide 548.49 pg/mL (0-100) Vitamin D 25-Hydroxy 13.5 ng/mL (30.0-100) Hepatitis B Surface Antigen Negative (Negative) Hepatitis C Antibody Negative (Negative) Total Bilirubin 0.3 mg/dL (0.2-1.0) Aspartate Amino Transferase (AST) 15 U/L (13-40) Alanine Aminotransferase (ALT) < 9 U/L (7-40) Alkaline Phosphatase 46 U/L (46-116) Total Protein 5.9 g/dL (5.7-8.2) Albumin 2.8 g/dL (3.2-4.8) Urine Color Colorless (Yellow) Urine Clarity Clear (Clear) Urine pH 6.0 (5.0-9.0) Urine Specific [place] 1.007 (1.001-1.035) Urine Protein 2+ (Negative) Urine Ketones Negative (Negative) Urine Blood 1+ /uL (Negative) Urine Nitrite Negative (Negative) Urine Bilirubin Negative (Negative) Urine Urobilinogen Normal mg/dL (Negative) Urine Leukocyte Esterase Negative /uL (Negative) Urine RBC 1 /hpf (0 - 4) Urine Microscopic WBC 2 /HPF (0-5) Urine Squamous Epithelial Cells Few /hpf (<5) Urine Bacteria None seen /hpf (None Seen) Urine Glucose Normal mg/dL (Normal) Other Laboratory Tests 03/28/25 04:44 Brief Hx & Hospital Course: History of Present Illness Torie Starks is a 34 year old female with past medical history of UTIs, lupus, and hypertension who presents to the ED with back pain that started yesterday, reports that the pain is 8/10 pressure-like and intermittent nature. She states that it is worse when she is sitting down. She also reports that her blood pressure has been high systolics in the 230s. She reports that she is compliant with her medications. She states that she had eaten food with hot sauce yesterday. She reports that her daughter is home sick with a cold. She denies any recent trauma or injury, recent travels, recent ingestion of spoiled food, chest pain, fever, chills, lightheadedness, weakness, dizziness, abdominal pain nausea, vomiting, diarrhea, or urinary symptoms. She also reports that she has no history of kidney issues. Course of hospitalization: Pulmonology consultation was obtained with the patient undergoing thoracentesis. Patient continued to have severe hypertension, eventually weaned off of nicardipine drip. Follow up patient was found to be in acute lupus flare-up, with noted lupus nephritis. Nephrology consultation was obtained. Patient had titration of oral antihypertensives, with the patient currently on labetalol 300 mg p.o. b.i.d., clonidine 0.2 mg p.o. patient b.i.d., amlodipine 10 mg p.o. daily,, in additional Lasix. Patient had pulse dose of Solu-Medrol, 1 g x 3 days, then titrated on prednisone 20 mg p.o. t.i.d.. Patient underwent renal biopsy, with pending results. Long discussion was made regarding patient's history of lupus, for which there is questions if patient was compliant, and closely monitored with her medications by her upsetter setter up who was out of this area. Patient recently moved his [place] two years ago, but continues to have her insurance out of network for this area. Social service consultation has been obtained, for which her insurance will be changed to this network area. Patient will follow up with discharge Clinic in one week, nephrology in 1-2 weeks, as instructed to obtain a PCP as well as obtain referral to upsetter setter up within this area. Both the patient and has been are agreeable with discharge plan. Physical examination General: Alert and Oriented x3. No acute distress. Well-nourished. Eyes: EOMI. Anicteric. HENT: Moist mucous membranes. Lungs: Clear to auscultation bilaterally. No accessory muscle use. Cardiovascular: Regular rate and rhythm. No murmur. No JVD. Abdomen: Soft, non-tender and non-distended. No palpable masses. Extremities: No edema. Non-tender. Skin: No rashes or lesions. Warm. Neurologic: No focal neurological deficits. CN II-XII grossly intact, but not individually tested. Psychiatric: Cooperative. Appropriate mood and affect. Anxious Total time spent with patient discussing and formulating plan of care: 35 minutes. This medical document was created using an electronic medical record system with [employer] dictation system. Although this document has been carefully reviewed, there may still be some phonetic and typographical errors. These areas are purely typographical due to imperfections of the software programs, and do not reflect any compromise in the patient's medical care. Consults/Reason for consult Pulmonology: Acute respiratory failure with pleural effusion Nephrology: Acute kidney injury Condition at Discharge: Guarded Final Diagnosis/Problems List Lupus nephritis -hypertensive crisis -lupus flare -acute kidney injury, lupus nephritis -large left pleural effusion -microcytic, hypochromic anemia Discharge Disposition: Home Discharge Instruct/Medications Diet: Cardiac 2g Na,low cholest Activity: No Restrictions, As Tolerated Follow Up/Referral: Follow up with Dr. Rosas in 1-2 weeks Follow up with [facility] clinic in 1 week Establish PCP in 1-2 weeks Establish Flat Examiner stacey in this area Medications: Amlodipine 10 mg p.o. daily Labetalol 300 mg p.o. b.i.d. Clonidine 0.2 mg p.o. b.i.d. Furosemide 40 mg p.o. daily Prednisone 20 mg p.o. t.i.d. CellCept 500 mg p.o. b.i.d., then 1000 mg p.o. b.i.d. after one week of initiation, then 5000 mg p.o. b.i.d. on week three Xanax 0.25 mg p.o. b.i.d. for anxiety Scheduled Amlodipine Besylate (Amlodipine Besylate), 10 MG PO DAILY Cephalexin Monohydrate (Cephalexin), 1 CAP PO TID Cholecalciferol (Vitamin D3), 1,000 UNIT PO DAILY, (Reported) Ciprofloxacin Hcl (Cipro), 500 MG PO BID Clobetasol Propionate (Clobetasol Propionate), 1 APPLIC TOP BID Clonidine Hydrochloride (Clonidine Hcl), 1 TAB PO BID Furosemide (Furosemide), 20 MG PO DAILY, (Reported) Furosemide (Lasix), 40 MG PO DAILY Labetalol Hcl (Labetalol Hcl), 3 TAB PO BID Losartan Potassium (Losartan Potassium), 25 MG PO BID, (Reported) Metoprolol Succinate (Metoprolol Succinate Er), 1 TAB PO DAILY, (Reported) Mycophenolate Mofetil (Mycophenolate Mofetil), 500 MG PO BID Nitrofurantoin Monohydrate Mac (Macrobid), 100 MG PO BID Omeprazole (Gnp Omeprazole), 1 TAB PO DAILY Pantoprazole Sodium Sesquihydr (Protonix), 40 MG PO DAILY Prednisone (Prednisone), 20 MG PO BID, (Reported) Prednisone (Prednisone), 20 MG PO DAILY Prednisone (Prednisone), 20 MG PO TID Scheduled PRN Alprazolam (Xanax), 1 TAB PO BID PRN Miscellaneous Medications Folic Acid (Folic Acid), 1 MG PO, (Reported) Hydroxychloroquine Sulfate (Hydroxychloroquine Sulfat), 200 MG PO, (Reported) 36 Discharge Statement: "Patient was advised to return to the ER or call 911 if any headaches, dizziness, shortness of breath, chest pain, abdominal pain, bleeding, fevers, or worsening of medical condition. Patient was counseled about treatment plan, medications, possible side effects, patientverbalized understanding. All questions were answered to the best of my ability. This discharge took greater then 30 minutes in planning, reviewing documentation, counseling the patient, and discussing with other team members." ASSESSMENT ASSESSMENT Assessment Lupus nephritis Date of Service: Mar 28, 2025 Billing Provider: JUSTIN YEPEZ NP Common Visit Codes: 31248-HMI/OBS DISCH DAY >30min JUSTIN YEPEZ NP Mar 28, 2025 10:51
--- NOTE | 2025-03-28 23:04 | DVHPN2 ---
Subjective DOS: 03/28/2025 Patient seen and examined at bedside. Breathing comfortably on room air. Overnight events reviewed. Reviewed: Care Plan, H&P, Labs, Medications Changes from previous H/P or p: No Changes General: Per HPI Musculoskeletal: back pain Objective Vitals Vital Signs Date Time Temp Pulse Resp B/P (MAP) Pulse Ox O2 Delivery O2 Flow Rate FiO2 03/28/25 12:39 97.8 77 18 144/78 (100) 98 97.8 03/28/25 10:00 Room Air 0.0 03/28/25 10:00 21 Intake/Output Intake and Output 03/28/25 07:00 Intake Total 2200 ml Balance 2200 ml Intake Oral 2200 ml # Voids 3 # Bowel Movements 1 General Appearance: Alert, Oriented X3, Cooperative, No acute distress HEENT: Atraumatic, PERRLA Lungs: Normal air movement, Other (Decreased breath sounds in lower lobe) Cardiovascular: Normal S1, Normal S2 Abdomen: Normal bowel sounds, Soft, No tenderness Musculoskeletal: Normal sensory function, Normal motor function Neuro: Normal gait, Normal speech Skin: Dry, Intact Psych/Mental Status: Mental status NL, Mood NL Medications Current Medications Medications Dose Ordered Sig/Mica Route Start Time Stop Time Status Last Admin Dose Admin Methylprednisolone Sodium Succinate 1,000 mg DAILY IV 03/21/25 12:45 03/23/25 10:01 Cancel Laboratory Results Laboratory Tests 03/28/25 04:44 Chemistry Test 03/28/25 04:44 Calcium Level 7.9 mg/dL (8.7-10.4) L Phosphorus Level 5.5 mg/dL (2.4-5.1) H Urinalysis Test 03/20/25 12:08 03/26/25 12:01 Urine Color Colorless (Yellow) Urine Clarity Clear (Clear) Urine pH 6.0 (5.0-9.0) Urine Specific [place] 1.007 (1.001-1.035) Urine Protein 2+ (Negative) H Urine Ketones Negative (Negative) Urine Blood 1+ /uL (Negative) H Urine Nitrite Negative (Negative) Urine Bilirubin Negative (Negative) Urine Urobilinogen Normal mg/dL (Negative) Urine Leukocyte Esterase Negative /uL (Negative) Urine RBC 1 /hpf (0 - 4) Urine Microscopic WBC 2 /HPF (0-5) Urine Squamous Epithelial Cells Few /hpf (<5) Urine Bacteria None seen /hpf (None Seen) Urine Glucose Normal mg/dL (Normal) Urine Creatinine 72.32 mg/dL (30.0-125.0) Urine Protein/Creatinine Ratio 2.97 Urine Total Protein 214.5 mg/dL (1-14) H Microbiology Microbiology Date/Time Source Procedure Growth Status 03/21/25 17:26 Pleural Fluid Gram Stain - Final Complete 03/21/25 17:26 Pleural Fluid Body Fluid Culture - Final Complete Assessment/Plan Assessment/Plan Impression: Acute hypoxic respiratory failure secondary to compressive atelectasis due to pleural effusion Left pleural effusion Compressive atelectasis due to pleural effusion Hypertensive urgency Systemic lupus erythematosus Obesity Events: Breathing on room air Supplemental oxygen PRN No acute overnight events. Complete abx course. Continue steroids Incentive spirometry S/p renal biopsy Patient is stable for discharge from the pulmonary standpoint. S/p left thoracentesis on 03/21/25 with 700 mL's of yellow colored fluid removed from left pleural space Pleural fluid sent for cell count and differential, cultures and cytology. Culture results show no growth. Labs and imaging reviewed. Rest of plan as noted below. Plan: Supplemental oxygen PRN Keep O2 saturation above 92%. Complete antibiotics Continue steroids Bronchodilators PRN Incentive spirometry Diurese w/ Lasix to maintain euvolemia Monitor renal function Monitor ins and outs Monitor electrolytes. Follow up Nephrology recommendations Blood pressure control per Nephrology Accu-Cheks, ISS. Recommend diet and lifestyle modifications for weight reduction Obesity complicates all care DVT prophylaxis GI prophylaxis-Protonix Prognosis: Poor given multiple comorbidities. Rest of plan per hospitalist and other consultants. Thank you Dr. Doyle for allowing me to participate in this patient's care. Further recommendations will depend on patient's clinical course. Please do not hesitate to contact me if you have any questions or concerns. This medical document was created using an electronic medical record system with [employer] dictation system. Although this document has been carefully reviewed, there may still be some phonetic and typographical errors. These areas are purely typographical due to imperfections of the software programs, and do not reflect any compromise in the patient's medical care. Plan discussed with: Patient, Other ([facility]) Visit Coding Pulmonary Billing Provider: NORI SINGH MD Date of Service if different f: Mar 28, 2025 Common Visit Codes: [id number] INP/OBS CARE(HIGH) NORI SINGH MD Mar 28, 2025 23:04
== END 2025-03-28 13:19 | disposition home or self-care (01) | DRG 346 ==
LOC: ER 09:40 → OVERFLOW 14:33 → TELE-WESTW 03-21 16:59
PROVIDERS: ADMIT Nurse Practitioner Acute Care; ATTEND Nurse Practitioner Acute Care
PROC: 0W9B3ZZ Drainage of Left Pleural Cavity, Percutaneous Approach (ICD-10-PCS; principal; 2025-03-21)
PROC: 0TB13ZX Excision of Left Kidney, Percutaneous Approach, Diagnostic (ICD-10-PCS; 2025-03-25)
DX: M32.14 Glomerular disease in systemic lupus erythematosus (principal); N17.0 Acute kidney failure with tubular necrosis; J96.01 Acute respiratory failure with hypoxia; I16.1 Hypertensive emergency; J91.8 Pleural effusion in other conditions classified elsewhere; E87.5 Hyperkalemia; E66.9 Obesity, unspecified; D50.9 Iron deficiency anemia, unspecified; J98.11 Atelectasis; I13.10 Hypertensive heart and chronic kidney disease without heart failure, with stage 1 through stage 4 chronic kidney disease, or unspecified chronic kidney disease; N18.9 Chronic kidney disease, unspecified; Z82.49 Family history of ischemic heart disease and other diseases of the circulatory system; Z79.899 Other long term (current) drug therapy; Z68.30 Body mass index [BMI] 30.0-30.9, adult
CPT/HCPCS: 32555; 36415; 50200; 71045; 72100; 76775; 76942; 80048; 80053; 81001; 82306; 82570; 82728; 82962; 83516; 83520; 83540; 83550; 83735; 83880; 83986; 84100; 84132; 84156; 84300; 85007; 85025; 85027; 85610; 85652; 85730; 86141; 86160; 86225; 86235; 86256; 86803; 86850; 86900; 86901; 87071; 87081; 87205; 87340; 89051; 93306; 94640; 96374; 99291; 99292; G0378; J1815; J2003; J2250; J2405; J7517; Q0162

== ENCOUNTER 2025-04-06 14:53 | Inpatient (IN) | payer MEDICAID ==
[~2025-04-06] VITALS: Ht 160 cm; Wt 73.0 kg
[~2025-04-06 14:53] MED LIST changes: +ALPR0.25 PO; +AMLO1TAB23 PO; -CEPH500C PO; +CHOL20007 PO; -CIPR-173 PO; -CLOB0.05 TOP; +CLON0.2T PO; +FURO1TAB31 PO; -FURO20TA3 PO; +LABE100T7 PO; -LOSA-533 PO; -METO25TA93 PO; +MYCO500T3 PO; -NITR-87 PO; -OMEP20TA PO; +PANT40TA2 PO
--- NOTE | 2025-04-06 15:19 | ECG ---
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
--- NOTE | 2025-04-06 15:52 | ED.PDOC ---
History of Present Illness HPI Comments 34-year-old female presents to the ER with a prior medical history of lupus, hypertension(normally elevated) and the chief complaint of a headache and back pain. Patient reports on having back pain which started yesterday that is intermittent and now more localized to the left lower side. The back pain today is more constant in has a pinching feeling. Patient mentions head pain is more of a tingling sensation that is localized to the occipital region and is constant. She denies any recent head trauma, vision change. Denies chills, fever, N/V/D, SOB, CP. No other associated symptoms, modifiers, or sick contacts present at this time. Chief Complaint: Shortness of Breath Time Seen by MD: 15:27 Primary Care Provider: MOUNIKA Gonzalez Notes: Nurses Notes, Medications, Allergies Allergies: Coded Allergies: NO KNOWN ALLERGIES (Unverified , 03/20/24) Home Meds Active Scripts Labetalol Hcl (Labetalol Hcl) 100 Mg Tab, 3 TAB PO BID for 30 Days, #180 TAB 3 Refills Prov:JUSTIN YEPEZ TERMITE CONTROL SERVICER 03/28/25 Alprazolam (Xanax) 0.25 Mg Tb, 1 TAB PO BID PRN for 7 Days, #14 TAB Prov:JUSTIN YEPEZ TERMITE CONTROL SERVICER 03/27/25 Mycophenolate Mofetil (Mycophenolate Mofetil) 500 Mg Tab, 500 MG PO BID for 30 Days, #84 TAB 500 mg p.o. b.i.d. until 03/31/2025, Then 1000 mg p.o. b.i.d. for seven days, Then 1500 mg p.o. b.i.d. for two weeks. To be re-evaluated by PCP, payment specialist, or clinic lead thereafter. Prov:JUSTIN YEPEZ TERMITE CONTROL SERVICER 03/27/25 Pantoprazole Sodium Sesquihydr (Protonix) 40 Mg Tab, 40 MG PO DAILY for 30 Days, #30 TAB 1 Refill Prov:JUSTIN YEPEZ TERMITE CONTROL SERVICER 03/27/25 Amlodipine Besylate (Amlodipine Besylate) 10 Mg Tab, 10 MG PO DAILY for 30 Days, #30 TAB 2 Refills Prov:JUSTIN YEPEZ TERMITE CONTROL SERVICER 03/27/25 Clonidine Hydrochloride (Clonidine Hcl) 0.2 Mg Tab, 1 TAB PO BID, #60 TAB 5 Refills Prov:LUCHOANDERSON TERMITE CONTROL SERVICER 03/27/25 Furosemide (Lasix) 40 Mg Tab, 40 MG PO DAILY for 30 Days, #30 TAB 1 Refill Prov:JUSTIN YEPEZ TERMITE CONTROL SERVICER 03/27/25 Prednisone (Prednisone) 20 Mg Tab, 20 MG PO TID for 30 Days, #90 MG 1 Refill Prov:JUSTIN YEPEZ NP 03/27/25 Reported Medications Cholecalciferol (VITAMIN D3) 2,000 Unit Tab, 1000 UNIT PO DAILY, TAB 03/21/25 Hydroxychloroquine Sulfate (Hydroxychloroquine Sulfat) 200 Mg Tab, 200 MG PO, TAB 03/26/24 Folic Acid (Folic Acid) 1 Mg Tab, 1 MG PO, TAB 03/26/24 Information Source: Patient Mode of Arrival: Ambulatory Severity: Moderate Timing: Days Duration: Since onset Past Medical History PAST MEDICAL HISTORY: HTN Past Medical History (Other): lupus Surgical History: Denies all surgeries INFORMATION SYSTEMS COORDINATOR History: Denies all INFORMATION SYSTEMS COORDINATOR Hx Family History Family History: Reviewed,noncontributory to illness, Unknown Social History Smoker: Non-Smoker Alcohol: Denies ETOH Use Drugs: Denies Drug Use Lives In: Home Constitutional: denies: chills, diaphoresis, fatigue, fever, malaise, sweats, weakness, others EENTM: denies: blurred vision, double vision, ear bleeding, ear discharge, ear drainage, ear pain, ear ringing, eye pain, eye redness, hearing loss, mouth pain, mouth swelling, nasal discharge, nose bleeding, nose congestion, nose pain, photophobia, tearing, throat pain, throat swelling, voice changes, others Respiratory: denies: cough, hemoptysis, orthopnea, SOB at rest, shortness of breath, SOB with excertion, stridor, wheezing, others Cardiovascular: denies: chest pain, dizzy spells, diaphoresis, Dyspnea on exertion, edema, irregular heart beat, left arm pain, lightheadedness, palpitations, PND, syncope, others Gastrointestinal: denies: abdomen distended, abdominal pain, blood streaked bowels, constipated, diarrhea, dysphagia, difficulty swallowing, hematemesis, melena, nausea, poor appetite, poor fluid intake, rectal bleeding, rectal pain, vomiting, others Genitourinary: denies: abnormal vagina bleeding, burning, dyspareunia, dysuria, flank pain, frequency, hematuria, incontinence, pain, , vagina discharge, urgency, others Neurological: reports: headache; denies: dizziness, fainting, left sided numbness, left sided weakness, numbness, paresthesia, pre-existing deficit, right sided numbness, right sided weakness, seizure, speech problems, tingling, tremors, weakness, others Musculoskeletal: denies: back pain, gout, joint pain, joint swelling, muscle pain, muscle stiffness, neck pain, others Integumetry: denies: bruises, change in color, change in hair/nails, dryness, laceration, lesions, lumps, rash, wounds, others Allergic/Immunocompromised: denies: Difficulty Healing, Frequent Infections, Hives, Itching, others Hematologic/Lymphatic: denies: anemia, blood clots, easy bleeding, easy bruising, swollen glands, others Endocrine: denies: excessive hunger, excessive sweating, excessive thirst, excessive urination, flushing, intolerance to cold, intolerance to heat, unexplained weight gain, unexplained weight loss, others Psychiatric: denies: anxiety, bipolar disorder, depression, hopeless, panic disorder, schizophrenia, sleepless, suicidal, others All Other Systems: Reviewed and Negative Physical Exam General Appearance: Moderate Distress HEENT: Normal ENT Inspection, Pharynx Normal, TMs Normal Neck: Full Range of Motion, Non-Tender, Normal, Normal Inspection Respiratory: Chest Non-Tender, Lungs Clear, No Accessory Muscle Use, No Respiratory Distress, Normal Breath Sounds Cardiovascular: No Edema, No JVD, No Murmur, No Gallop, Normal Peripheral Pulses, Regular Rate/Rhythm Breast Exam: Deferred Gastrointestinal: No Organomegaly, Non Tender, No Pulsatile Mass, Normal Bowel Sounds, Soft Genitalia: Deferred Pelvic: Deferred Rectal: Deferred Extremities: No calf tenderness, Normal capillary refill, Normal inspection, Normal range of motion, Non-tender, No pedal edema Musculoskeletal : Apperance: Normal Neurologic: Alert, shower enclosure installer II-XII nml as Tested, No Motor Deficits, Normal Affect, Normal Mood, No Sensory Deficits Cerebellar Function: Normal Reflexes: Normal Skin: Dry, Normal Color, Warm Peripheral Pulses: 3+ Radial (R), 3+ Radial (L) Lymphatic: No Adenopathy Was a procedure done? Was a procedure done?: No Differential Dx Considerations may include: Lupus flare up, migraine, clustered headache X-Ray, Labs, Meds, VS Vital Signs Date Time Temp Pulse Resp B/P (MAP) Pulse Ox O2 Delivery O2 Flow Rate FiO2 04/06/25 16:34 169/97 04/06/25 16:30 99 18 98 Room Air 04/06/25 16:30 97.8 99 18 169/97 (121) 98 97.8 04/06/25 15:11 102 04/06/25 14:54 98.4 103 20 174/112 98 98.4 Lab Test 04/06/25 15:52 Range/Units White Blood Count 10.9 H 4.4-10.8 10^3/uL Red Blood Count 3.29 L 4.0-5.20 10^6/uL Hemoglobin 8.6 L 12.2-16.2 g/dL Hematocrit 26.5 L 36.0-46.0 % Mean Corpuscular Volume 80.6 80.0-100.0 fL Mean Corpuscular Hemoglobin 26.3 L 28.0-32.0 pg Mean Corpuscular Hemoglobin Concent 32.6 32.0-36.0 g/dL Red Cell Distribution Width 20.5 H 11.8-14.3 % Platelet Count 332 140-450 10^3/uL Mean Platelet Volume 7.5 6.9-10.8 fL Neutrophils (%) (Auto) 37.0-80.0 % Lymphocytes (%) (Auto) 10.0-50.0 % Monocytes (%) (Auto) 0.0-12.0 % Basophils (%) (Auto) 0.0-2.0 % Neutrophils # (Auto) 1.6-8.6 10 ^3/uL Lymphocytes # (Auto) 0.4-5.4 10 ^3/uL Monocytes # (Auto) 0-1.3 10 ^3/uL Differential Total Cells Counted Pending Neutrophils % (Manual) Pending Band Neutrophils % (Manual) Pending Lymphocytes % (Manual) Pending Monocytes % (Manual) Pending Eosinophils % (Manual) Pending Basophils % (Manual) Pending Metamyelocytes % (manual) Pending Myelocytes % (Manual) Pending Promyelocytes % (Manual) Pending Blast Cells % (Manual) Pending Reactive Lymphocytes Pending Platelet Estimate Pending Sodium Level 137 136-145 mmol/L Potassium Level 5.0 3.5-5.1 mmol/L Chloride Level 105 98-107 mmol/L Carbon Dioxide Level 17 L 20-31 mmol/L Anion Gap 15 5-15 Blood Urea Nitrogen 60 H 9-23 mg/dL Creatinine 3.67 H 0.550-1.02 mg/dL Glomerular Filtration Rate Calc 16 >90 mL/min BUN/Creatinine Ratio 16.3 10.0-20.0 Serum Glucose 106 74-106 mg/dL Calcium Level 8.6 L 8.7-10.4 mg/dL Current Medications Medications (Trade) Dose Ordered Sig/Mica Route Start Time Stop Time Status Last Admin Clonidine HCl (Catapres Tablet) 0.2 mg ONCE ONCE PO 04/06/25 15:30 04/06/25 15:31 DC 04/06/25 16:34 [place] [address] Ph: [phone] DIAGNOSTIC IMAGING Diagnostic Imaging Report : [id number] Signed PATIENT: KEHINDE TINSLEY ACCT: [id number] UNIT: [id number] : 1990 LOC: ER ROOM / BED: / AGE / SEX: 34 / F ADM STATUS: REG ER SERVICE 1529 ORDERING PHYSICIAN: GUSTAVO VELASQUEZ MD PROCEDURE(s): HWOCT - HEAD WITHOUT CONTRAST REASON: headache ORDER NUMBER(s): [id number], ACCESSION NUMBER(s): [id number] CLINICAL HISTORY: headache TECHNIQUE: Helical scanning was performed of the head from the skull base to the vertex. Multiplanar reconstructions were performed. This exam was performed according to our departmental dose optimization program. Up-to-date CT equipment and radiation dose reduction techniques are utilized as appropriate. CTDI 59 DLP 949 COMPARISON: None FINDINGS: There is no evidence for acute intracranial hemorrhage, acute ischemic changes, mass, mass effect, or extra-axial fluid collection. There is no hydrocephalus or midline shift. There is no effacement of the cerebral sulci and basal subarachnoid cisterns. The mello-white matter differentiation is well maintained. The imaged paranasal sinuses are clear. The sella is empty. IMPRESSION: NO ACUTE INTRACRANIAL ABNORMALITY SEEN. ATED BY: NEIL ZAYAS MD DICTATED DATE/TIME: 04/06/25 160 SIGNED BY: NEIL ZAYAS MD SIGNED DATE/TIME: 04/06/25 160 CC: Patient alert. Came in complaining of headache with body aches. CT of the head reviewed does not show any acute process. Vitals stable. WBC slightly elevated. Anemia. 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 Possibly cerebritis pain Possibly need MRI. Was recently discharged from this hospital. She continues to come here for similar symptoms. She does not need long-term care. Rheumatology consultation. Explained to the patient. She insists on stating that there is something wrong with her. She will be admitted for further workup. Explained to the patient. Time of 1ST Reevaluation: 15:50 Reevaluation 1ST: Unchanged Patient Education/Counseling: Diagnosis, Treatment, Prognosis Family Education/Counseling: No Family Present SEPSIS Sepsis Screen Date sepsis recognized/suspect: Apr 06, 2025 Time Sepsis recognized/suspect: 1502 Recent Procedure: No On Antibiotic Therapy: No Respiratory Rate >20: No Heart Rate >90: Yes Temp<36 C (96.8 F) or >38.3 C: No SBP <90 or MAP <65 mmHG: No New Acute Mental Status Change: No Is the patient on CPAP, BIPAP,: No Physician Orders Urinalysis (04/06/25 15:29) Head Without Contrast (04/06/25 15:29) Complete Blood Count (04/06/25 16:45) Manual Differential (04/06/25 15:52) Vital Signs Date Time Temp Pulse Resp B/P (MAP) Pulse Ox O2 Delivery O2 Flow Rate FiO2 04/06/25 16:34 169/97 04/06/25 16:30 99 18 98 Room Air 04/06/25 16:30 97.8 99 18 169/97 (121) 98 97.8 04/06/25 15:11 102 04/06/25 14:54 98.4 103 20 174/112 98 98.4 Laboratory Tests Test 04/06/25 15:52 White Blood Count 10.9 10^3/uL (4.4-10.8) H Medications Medications Dose Ordered Sig/Mica Route Start Time Stop Time Status Last Admin Dose Admin Clonidine HCl 0.2 mg ONCE ONCE PO 04/06/25 15:30 04/06/25 15:31 DC 04/06/25 16:34 Departure 1 Departure Time of Disposition: 17:06 Impression: Primary Impression: Lupus cerebritis Additional Impression: Lupus nephritis Disposition: ADMITTED INPATIENT Admit to: Med Surg Condition: Guarded Critical Care Note Critical Care Time?: No Stability Stability form required: No I personally scribed for GUSTAVO VELASQUEZ MD ([email or web address]) on 04/06/25 at 15:52. Electronically submitted by Krys Quiroz ([email or web address]). I personally scribed for GUSTAVO VELASQUEZ MD ([email or web address]) on 04/06/25 at 16:40. Electronically submitted by Guillermo Mae ([email or web address]). GUSTAVO VELASQUEZ MD Apr 06, 2025 15:52
--- NOTE | 2025-04-06 16:03 | DVH ---
CLINICAL HISTORY: headache TECHNIQUE: Helical scanning was performed of the head from the skull base to the vertex. Multiplanar reconstructions were performed. This exam was performed according to our departmental dose optimizat ion program. Up-to-date CT equipment and radiation dose reduction techniques are utilized as appropri ate. CTDI 59 DLP 949 COMPARISON: None FINDINGS: There is no evidence for acute intracranial hemorrhage, acute ischemic changes, mass, mass effect, or extra-axial fluid collection. There is no hydrocephalus or midline shift. There is no effacement of the cerebral sulci and basal subarachnoid cisterns. The mello-white matter differentiation is well glynn ntained. The imaged paranasal sinuses are clear. The sella is empty. IMPRESSION: NO ACUTE INTRACRANIAL ABNORMALITY SEEN.
[2025-04-06 16:24] LABS: Anion Gap 15 (5-15); Chloride 105 mmol/L (98-107); Potassium 5.0 mmol/L (3.5-5.1); Sodium 137 mmol/L (136-145)
[2025-04-06 16:31] LABS: BUN/Creatinine Ratio 16.3 (10.0-20.0)
[2025-04-06 16:38] LABS: Blood Urea Nitrogen 60 mg/dL (9-23); Calcium 8.6 mg/dL (8.7-10.4); Carbon Dioxide 17 mmol/L (20-31); Glucose 106 mg/dL (74-106)
[2025-04-06 16:57] LABS: Hematocrit 26.5 % (36.0-46.0); Hemoglobin 8.6 g/dL (12.2-16.2); Mean Corpuscular Hemoglobin 26.3 pg (28.0-32.0); Mean Corpuscular Volume 80.6 fL (80.0-100.0)
[2025-04-06 17:09] LABS: Total Cells Counted 100.0 (100)
[2025-04-06 17:36] LABS: Urine Protein, UAD 2+ (Negative)
[2025-04-06] MEDS ORDERED: MORPHINE SULFATE INJ 2 MG/ml SYRG IV PRN (21:00)
--- NOTE | 2025-04-06 21:06 | DVHHPRES ---
History of Present Illness Resident Creating Document: JOSUÉ MATHUR History of Present Illness Torie Starks is a 34-year-old female patient who presents to the ED with chief complaint of dyspnea in Functional Class II associated with tingling sensation in head which started the day of her admission, associated with cloudy urine. Patient reports to have been discharged one week from hospital with diagnosis of probable lupus nephritis, status post biopsy. Since discharge patient has been suffering from insomnia and anxiety. She has been compliant with her medicat ion. Denies any other associated symptoms. Patient has been diagnosed with lupus two years ago, does not have a residential child care counselor, she has moved recently to [place] and has no primary or residential child care counselor. Past medical history: Hypertension, dyslipidemia, lupus diagnosed two years ago with recent diagnosis of probable lupus nephritis, anxiety Surgical history: Denies Family history: Hypertension and father Social history: Lives in [place] with family (next of kin is boyfriend and parents). She recently moved from [place]. Denies current tobacco, alcohol and other drug abuse Allergies: Denies Home medication: Mycophenolate, prednisone, furosemide, hydrochloroquine, clonidine Patient seen and examined at bedside. Currently has no new complaints. Past Medical History Per HPI Past Surgical History Per HPI Family History Per HPI Past Social History Per HPI Review of Systems Review of Systems Per HPI Allergies: Coded Allergies: NO KNOWN ALLERGIES (Unverified , 03/20/24) Exam Vital Signs Vital Signs Date Time Temp Pulse Resp B/P (MAP) Pulse Ox O2 Delivery O2 Flow Rate FiO2 04/06/25 16:34 169/97 04/06/25 16:30 99 18 98 Room Air 04/06/25 16:30 97.8 97.8 Exam Patient lying in bed, in no acute distress General: Lucid, afebrile, mucosae are moist Cardiovascular: Normal S1 and S2. No murmurs, gallops or rubs Respiratory: Normal ventilation mechanics. Clear lung sounds on auscultation Abdomen: Soft, nontender, no organomegaly, normal bowel sounds MSK/skin: Mobilizes 4 limbs. Skin is dry and warm. Bilateral suprapatellar pitting edema Neurological: Oriented in 3 spheres. No motor no sensitive deficits. Pupils are isocoric and reactive Labs/Xrays Labs Test 04/06/25 15:52 04/06/25 00:00 Range/Units White Blood Count 10.9 H 4.4-10.8 10^3/uL Red Blood Count 3.29 L 4.0-5.20 10^6/uL Hemoglobin 8.6 L 12.2-16.2 g/dL Hematocrit 26.5 L 36.0-46.0 % Mean Corpuscular Volume 80.6 80.0-100.0 fL Mean Corpuscular Hemoglobin 26.3 L 28.0-32.0 pg Mean Corpuscular Hemoglobin Concent 32.6 32.0-36.0 g/dL Red Cell Distribution Width 20.5 H 11.8-14.3 % Platelet Count 332 140-450 10^3/uL Mean Platelet Volume 7.5 6.9-10.8 fL Neutrophils (%) (Auto) 37.0-80.0 % Lymphocytes (%) (Auto) 10.0-50.0 % Monocytes (%) (Auto) 0.0-12.0 % Basophils (%) (Auto) 0.0-2.0 % Neutrophils # (Auto) 1.6-8.6 10 ^3/uL Lymphocytes # (Auto) 0.4-5.4 10 ^3/uL Monocytes # (Auto) 0-1.3 10 ^3/uL Differential Total Cells Counted 100.0 100 Neutrophils % (Manual) 97 H 37.0-80.0 Band Neutrophils % (Manual) 0 Lymphocytes % (Manual) 2 L 10.0-50.0 Monocytes % (Manual) 1 0-12 Eosinophils % (Manual) 0 0-7 Basophils % (Manual) 0 0.0-2.0 Metamyelocytes % (manual) 0 Myelocytes % (Manual) 0 Promyelocytes % (Manual) 0 Blast Cells % (Manual) 0 Reactive Lymphocytes 0 Platelet Estimate Adequate Sodium Level 137 136-145 mmol/L Potassium Level 5.0 3.5-5.1 mmol/L Chloride Level 105 98-107 mmol/L Carbon Dioxide Level 17 L 20-31 mmol/L Anion Gap 15 5-15 Blood Urea Nitrogen 60 H 9-23 mg/dL Creatinine 3.67 H 0.550-1.02 mg/dL Glomerular Filtration Rate Calc 16 >90 mL/min BUN/Creatinine Ratio 16.3 10.0-20.0 Serum Glucose 106 74-106 mg/dL Calcium Level 8.6 L 8.7-10.4 mg/dL Urine Color Light-brown Yellow Urine Clarity Ex.turbid Clear Urine pH 5.5 5.0-9.0 Urine Specific [place] 1.009 1.001-1.035 Urine Protein 2+ H Negative Urine Ketones Negative Negative Urine Blood 2+ H Negative /uL Urine Nitrite Negative Negative Urine Bilirubin Negative Negative Urine Urobilinogen Normal Negative mg/dL Urine Leukocyte Esterase 2+ Negative /uL Urine RBC 22 0 - 4 /hpf Urine Microscopic WBC 16 H 0-5 /HPF Urine Squamous Epithelial Cells Many <5 /hpf Urine Bacteria Mod H None Seen /hpf Urine Glucose Normal Normal mg/dL SEPSIS Sepsis Screen Date sepsis recognized/suspect: Apr 06, 2025 Time Sepsis recognized/suspect: 1502 Recent Procedure: No On Antibiotic Therapy: No Respiratory Rate >20: No Heart Rate >90: Yes Temp<36 C (96.8 F) or >38.3 C: No SBP <90 or MAP <65 mmHG: No New Acute Mental Status Change: No Is the patient on CPAP, BIPAP,: No Physician Orders Head Without Contrast (04/06/25 15:29) Admit (04/06/25 20:53) Code Status (04/06/25 20:53) Acetaminophen Tablet (Tylenol Tablet) (04/06/25 21:00) Ondansetron Hcl (Zofran) (04/06/25 21:00) Complete Blood Count (04/07/25 04:00) Comprehensive Metabolic Panel (04/07/25 04:00) Npo (Nothing By Mouth) Diet (04/07/25 Breakfast) Echo 2d Mode Cardiac Dop (04/06/25 20:53) Morphine Sulfate Injection (04/06/25 21:00) Enoxaparin Sodium (Lovenox) (04/07/25 10:00) Oxygen By Nasal Cannula (04/06/25 20:53) Stat Ekg For Chest Pain (04/06/25 20:53) Notify Of Changes From Base (04/06/25 20:53) Regional Maintenance Manager For 24 Hours (04/06/25 20:53) Emergency Dysrhythmia Protocol (04/06/25 20:53) Rhythm Strips Once Every Shift (04/06/25 20:53) Blood Culture (04/06/25 20:53) Urine Bacterial Culture (04/06/25 20:53) Respiratory Culture W/ Gs (04/06/25 20:53) Vitamin D, 25-Hydroxy (04/06/25 20:53) Vitamin B12 (04/06/25 20:53) Thyroid Stimulating Hormone (04/06/25 20:53) PTPTT (04/06/25 20:53) Lactic Acid W/ Reflex Order (04/06/25 20:53) Hemoglobin A1c (04/06/25 20:53) Drug Screen (04/06/25 20:53) Ammonia (04/06/25 20:53) Lipid Panel (04/06/25 20:53) Electrocardigram (04/06/25 20:53) Hepatic Panel (04/06/25 20:53) Abg W/ Co-Ox (04/06/25 20:53) Furosemide Tablet (Lasix Tablet) (04/07/25 10:00) Pantoprazole Tablet (Protonix Tablet) (04/07/25 10:00) (Nf) Amlodipine Besylate (04/07/25 10:00) (Nf) Cholecalciferol (Vitamin D3) (04/07/25 10:00) (Nf) Prednisone (04/06/25 22:00) Cefepime 1gm/50ml (Maxipime 1gm/50ml) (04/06/25 22:00) Magnesium (04/06/25 20:53) Phosphorus (04/06/25 20:53) Chest Xray 1 View (04/06/25 21:01) Mrsa Screen (04/06/25 21:05) Vital Signs Date Time Temp Pulse Resp B/P (MAP) Pulse Ox O2 Delivery O2 Flow Rate FiO2 04/06/25 16:34 169/97 04/06/25 16:30 99 18 98 Room Air 04/06/25 16:30 97.8 99 18 169/97 (121) 98 97.8 04/06/25 15:11 102 04/06/25 14:54 98.4 103 20 174/112 98 98.4 Laboratory Tests Test 04/06/25 15:52 White Blood Count 10.9 10^3/uL (4.4-10.8) H Medications Medications Dose Ordered Sig/Mica Route Start Time Stop Time Status Last Admin Dose Admin Clonidine HCl 0.2 mg ONCE ONCE PO 04/06/25 15:30 04/06/25 15:31 DC 04/06/25 16:34 0.2 MG Assessment/Plan Assessment/Plan ASSESSMENT Sepsis secondary to UTI Complicated UTI MELLY hemodynamically mediated (VMN) Probable lupus nephritis Systemic lupus erythematous Respiratory alkalosis with metabolic acidosis Hyperphosphatemia Normocytic anemia Hypertension Dyslipidemia Anxiety PLAN Admit patient to telemetry Currently on empiric IV antibiotic (cefepime) Ordered panculture Consulted nephrology. Completing anemia and urinary workup Indicated IV furosemide Strict I&Os Evaluate electrolytes daily If hemoglobin goes below seven, transfuse. Completed head CT: No acute intracranial pathology continue prednisone. Discontinued mycophenolate and hydroxychloroquine due to unresolved infection. Goals of care discussed with patient for over 18 minutes: Full code status Discussed plan with Dr. Jordan, patient and nurses: Admit patient to telemetry. Currently under empiric IV antibiotic. Awaiting results of culture. Patient has poor prognosis. Plan discussed with: Patient, Other (Nurses) My Orders Orders - JOSUÉ MATHUR RESIDENT Procedure Category Date Status Time Admit ADMIT 04/06/25 Transmitted 20:53 Code Status CODE 04/06/25 Transmitted 20:53 Acetaminophen Tablet PHA 04/06/25 Logged (Tylenol Tablet) 21:00 Ondansetron Hcl PHA 04/06/25 Logged (Zofran) 21:00 Complete Blood Count LAB 04/07/25 Verified 04:00 Comprehensive LAB 04/07/25 Verified Metabolic Panel 04:00 Npo (Nothing By DIET 04/07/25 Transmitted Mouth) Diet Breakfast Echo 2d Mode Cardiac US 04/06/25 Logged DOP 20:53 Morphine Sulfate PHA 04/06/25 Logged Injection 21:00 Enoxaparin Sodium PHA 04/07/25 Logged (Lovenox) 10:00 Oxygen By Nasal RT 04/06/25 Transmitted Cannula 20:53 Stat Ekg For Chest [facility] 04/06/25 In Process Pain 20:53 Notify Of Changes [facility] 04/06/25 In Process From Base 20:53 Regional Maintenance Manager For [facility] 04/06/25 In Process 24 Hours 20:53 Emergency Dysrhythmia [facility] 04/06/25 In Process Protocol 20:53 Rhythm Strips Once [facility] 04/06/25 In Process Every Shift 20:53 Blood Culture [facility] 04/06/25 Logged 20:53 Urine Bacterial [facility] 04/06/25 In Process Culture 20:53 Respiratory Culture [facility] 04/06/25 Logged W/ Gs 20:53 Vitamin D, 25-Hydroxy LAB 04/06/25 Logged 20:53 Vitamin B12 LAB 04/06/25 Logged 20:53 Thyroid Stimulating LAB 04/06/25 Logged Hormone 20:53 PTPTT LAB 04/06/25 Logged 20:53 Lactic Acid W/ Reflex LAB 04/06/25 Logged Order 20:53 Hemoglobin A1c LAB 04/06/25 Logged 20:53 Drug Screen LAB 04/06/25 In Process 20:53 Ammonia LAB 04/06/25 Logged 20:53 Lipid Panel LAB 04/06/25 Logged 20:53 Electrocardigram EKG 04/06/25 Logged 20:53 Hepatic Panel LAB 04/06/25 Logged 20:53 Abg W/ Co-Ox RT 04/06/25 Logged 20:53 Furosemide Tablet PHA 04/07/25 Logged (Lasix Tablet) 10:00 Pantoprazole Tablet PHA 04/07/25 Logged (Protonix Tablet) 10:00 (Nf) Amlodipine PHA 04/07/25 Logged Besylate 10:00 (Nf) Cholecalciferol PHA 04/07/25 Logged (Vitamin D3) 10:00 (Nf) Prednisone PHA 04/06/25 Logged 22:00 Cefepime 1gm/50ml PHA 04/06/25 Logged (Maxipime 1gm/50ml) 22:00 Magnesium LAB 04/06/25 Logged 20:53 Phosphorus LAB 04/06/25 Logged 20:53 Chest Xray 1 View XY 04/06/25 Transmitted 21:01 Mrsa Screen [facility] 04/06/25 Verified 21:05 Date of Service: Apr 06, 2025 Billing Provider: CARISSA JORDAN MD Common Visit Codes: [id number] INP/OBS CARE (HIGH) Secondary Visit Codes: [id number] CARE PLAN 30 MINUTES JOSUÉ MATHUR RESIDENT Apr 06, 2025 21:06
[2025-04-06 21:22] LABS: Base Excess -6.9 mmol/L (-2.0-3.0)
[2025-04-06 21:33] LABS: Alanine Aminotransferase 12 U/L (7-40); Albumin 3.7 g/dL (3.2-4.8); Alkaline Phosphatase 54 U/L (46-116); Bilirubin, Total 0.4 mg/dL (0.2-1.0); Cholesterol 195 mg/dL (< 200); Magnesium 2.1 mg/dL (1.6-2.6); Total Protein 6.7 g/dL (5.7-8.2)
[2025-04-06 21:34] LABS: Bilirubin, Direct < 0.1 mg/dL (<0.3); HDL Cholesterol 70 mg/dL (40-59); Triglycerides 164 mg/dL (< 150)
--- NOTE | 2025-04-06 21:49 | DVH ---
CHEST RADIOGRAPH Indication: SOB Technique: Single frontal view of the chest was obtained COMPARISON: XY CHEST XRAY 1 VIEW on DOS: 03/26/25 FINDINGS: Lines and Tubes: None Lungs / Pleura: Small left pleural effusion and atelectasis/consolidation at left lung base. Right jennie ng is clear. No pulmonary edema. Cardiomediastinal contours: Unremarkable IMPRESSION: Small left pleural effusion and atelectasis/consolidation at left lung base.
[2025-04-06 21:52] LABS: INR 0.95 (0.9-1.15); Partial Thromboplastin Time 26.0 SEC (24.5-34.5); Prothrombin Time 10.1 sec (9.3-11.8)
[2025-04-07] VITALS (10 sets, daily range): BP systolic 136–171; BP diastolic 80–107; PULSE 89–120; RESP 16–21; TEMP 97.7–98.2; O2SAT 95–100
[2025-04-07] MEDS: predniSONE 20 MG TAB PO SCH (01:30)
[2025-04-07] MEDS: CEFEPIME 1GM/50ML 50 ML IV SCH (01:31)
[2025-04-07] MEDS: ACETAMINOPHEN 325 MG TAB PO PRN (02:40)
[2025-04-07 06:00] LABS: Hemoglobin 8.4 g/dL (12.2-16.2); Mean Corpuscular Hemoglobin 26.2 pg (28.0-32.0)
[2025-04-07 06:04] LABS: Hematocrit 26.0 % (36.0-46.0); Mean Corpuscular Volume 81.4 fL (80.0-100.0); Nucleated Red Blood Cells % 0.1 %
[2025-04-07 06:09] LABS: Alanine Aminotransferase 10 U/L (7-40); Alkaline Phosphatase 50 U/L (46-116); Anion Gap 15 (5-15); BUN/Creatinine Ratio 16.0 (10.0-20.0); Chloride 106 mmol/L (98-107); Glucose 75 mg/dL (74-106); Potassium 4.4 mmol/L (3.5-5.1); Sodium 139 mmol/L (136-145); Total Protein 6.5 g/dL (5.7-8.2)
[2025-04-07 06:10] LABS: Albumin 3.6 g/dL (3.2-4.8)
[2025-04-07 06:14] LABS: Blood Urea Nitrogen 60 mg/dL (9-23); Calcium 8.5 mg/dL (8.7-10.4); Carbon Dioxide 18 mmol/L (20-31)
[2025-04-07 06:31] LABS: Bilirubin, Total 0.4 mg/dL (0.2-1.0)
[2025-04-07] MEDS: FUROSEMIDE 20 MG/2 ML VIAL IV ONE ×2 (06:40)
[2025-04-07 07:06] LABS: Wright Stain Ready for Review
--- NOTE | 2025-04-07 09:09 | DVHINCON2 ---
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 She reports that she has been taking all her medications she presents to the hospital complaining of a headache and abdominal pain nephrology consulted due to abnormal labs she is admitted with a diagnosis of urinary tract infection however she denies any significant dysuria Allergies: Coded Allergies: NO KNOWN ALLERGIES (Unverified , 03/20/24) Home Meds Active Scripts Labetalol Hcl (Labetalol Hcl) 100 Mg Tab, 3 TAB PO BID for 30 Days, #180 TAB 3 Refills Prov:JUSTIN YEPEZ NP 03/28/25 Mycophenolate Mofetil (Mycophenolate Mofetil) 500 Mg Tab, 500 MG PO BID for 30 Days, #84 TAB 500 mg p.o. b.i.d. until 03/31/2025, Then 1000 mg p.o. b.i.d. for seven days, Then 1500 mg p.o. b.i.d. for two weeks. To be re-evaluated by PCP, x ray examiner of aircraft, or casino porter thereafter. Prov:JUSTIN YEPEZ NP 03/27/25 Pantoprazole Sodium Sesquihydr (Protonix) 40 Mg Tab, 40 MG PO DAILY for 30 Days, #30 TAB 1 Refill Prov:JUSTIN YEPEZ NP 03/27/25 Amlodipine Besylate (Amlodipine Besylate) 10 Mg Tab, 10 MG PO DAILY for 30 Days, #30 TAB 2 Refills Prov:JUSTIN YEPEZ NP 03/27/25 Clonidine Hydrochloride (Clonidine Hcl) 0.2 Mg Tab, 1 TAB PO BID, #60 TAB 5 Refills Prov:JUSTIN YEPEZ NP 03/27/25 Furosemide (Lasix) 40 Mg Tab, 40 MG PO DAILY for 30 Days, #30 TAB 1 Refill Prov:JUSTIN YEPEZ NP 03/27/25 Prednisone (Prednisone) 20 Mg Tab, 20 MG PO TID for 30 Days, #90 MG 1 Refill Prov:JUSTIN YEPEZ NP 03/27/25 Reported Medications Cholecalciferol (VITAMIN D3) 2,000 Unit Tab, 1000 UNIT PO DAILY, TAB 03/21/25 Hydroxychloroquine Sulfate (Hydroxychloroquine Sulfat) 200 Mg Tab, 200 MG PO, TAB 03/26/24 Folic Acid (Folic Acid) 1 Mg Tab, 1 MG PO, TAB 03/26/24 Current Medications Current Medications Medications (Trade) Dose Ordered Sig/Mica Route PRN Reason Start Time Stop Time Status Last Admin Acetaminophen (Tylenol Tablet) 325 mg Q4HP PRN PO MILD PAIN (1-3 PAIN SCALE) 04/06/25 21:00 04/07/25 02:40 Ondansetron HCl (Zofran) 4 mg Q4HP PRN IV NAUSEA / VOMITING 04/06/25 21:00 Morphine Sulfate 2 mg Q4HPRN PRN IV SEVERE PAIN (7-10 PAIN SCALE) 04/06/25 21:00 Enoxaparin Sodium (Lovenox) 30 mg DAILY SC 04/07/25 10:00 Furosemide (Lasix Tablet) 40 mg DAILY PO 04/07/25 10:00 04/07/25 05:47 DC Pantoprazole Sodium (Protonix Tablet) 40 mg DAILY PO 04/07/25 10:00 Amlodipine Besylate (Norvasc Tablet) 10 mg DAILY PO 04/07/25 10:00 Cholecalciferol (Vitamin D3 Tablet) 1,000 unit DAILY PO 04/07/25 10:00 Prednisone 20 mg TID PO 04/06/25 22:00 04/07/25 06:32 Cefepime HCl 50 ml @ 12.5 mls/hr Q24H IV 04/06/25 22:00 04/07/25 01:31 Furosemide (Lasix Injection) 40 mg BIDD IV 04/07/25 18:00 Sodium Bicarbonate 650 mg TID PO 04/07/25 14:00 Mycophenolate Mofetil (Cellcept) 1,000 mg BID PO 04/07/25 10:00 UNV Hydroxychloroquine Sulfate (Plaquenil Tablet) 200 mg BID PO 04/07/25 10:00 UNV Labetalol HCl (Normodyne Tablet) 200 mg Q12HR PO 04/07/25 10:00 UNV Clonidine HCl (Catapres Tablet) 0.2 mg BID PO 04/07/25 10:00 UNV Alprazolam (Xanax Tablet) 0.25 mg Q8HP PRN PO ANXIETY 04/07/25 08:45 UNV Epoetin Isaías-epbx (Retacrit) 10,000 unit MWF SC 04/08/25 10:00 UNV Family History: Hypertension G8 FATHER Review of Systems headache H&P Exam Vital Signs/I&O Vital Sign Date Time Temp Pulse Resp B/P (MAP) Pulse Ox O2 Delivery O2 Flow Rate FiO2 04/07/25 06:40 150/83 04/07/25 05:15 98.1 110 18 98 98.1 04/07/25 02:12 Room Air* 0 21 Intake and Output 04/06/25 04/07/25 18:59 06:59 Intake Total 850 ml Balance 850 ml Intake Oral 800 ml IV Total 50 ml # Voids 3 Physical Exam Anxious young female Mildly tachycardic abdomen is soft no pitting edema regular rhythm Labs/Diagnostic Data Labs/Diagnostic Data Laboratory Tests Test 04/07/25 05:36 04/07/25 04:56 04/06/25 21:19 04/06/25 21:18 Range/Units White Blood Count 10.4 4.4-10.8 10^3/uL Red Blood Count 3.19 L 4.0-5.20 10^6/uL Hemoglobin 8.4 L 12.2-16.2 g/dL Hematocrit 26.0 L 36.0-46.0 % Mean Corpuscular Volume 81.4 80.0-100.0 fL Mean Corpuscular Hemoglobin 26.2 L 28.0-32.0 pg Mean Corpuscular Hemoglobin Concent 32.2 32.0-36.0 g/dL Red Cell Distribution Width 20.3 H 11.8-14.3 % Platelet Count 297 140-450 10^3/uL Mean Platelet Volume 7.2 6.9-10.8 fL Neutrophils (%) (Auto) 97.0 H 37.0-80.0 % Lymphocytes (%) (Auto) 1.8 L 10.0-50.0 % Monocytes (%) (Auto) 0.9 0.0-12.0 % Eosinophils (%) (Auto) 0.0 0.0-7.0 % Basophils (%) (Auto) 0.3 0.0-2.0 % Neutrophils # (Auto) 10.1 H 1.6-8.6 10 ^3/uL Lymphocytes # (Auto) 0.2 L 0.4-5.4 10 ^3/uL Monocytes # (Auto) 0.1 0-1.3 10 ^3/uL Eosinophils # (Auto) 0 0-0.8 10 ^3/uL Basophils # (Auto) 0 0-0.2 10 ^3/uL Nucleated Red Blood Cells 0.1 % Reticulocyte Count (auto) 3.23 H 0.5-1.5 % Sodium Level 139 136-145 mmol/L Potassium Level 4.4 3.5-5.1 mmol/L Chloride Level 106 98-107 mmol/L Carbon Dioxide Level 18 L 20-31 mmol/L Anion Gap 15 5-15 Blood Urea Nitrogen 60 H 9-23 mg/dL Creatinine 3.74 H 0.550-1.02 mg/dL Glomerular Filtration Rate Calc 16 >90 mL/min BUN/Creatinine Ratio 16.0 10.0-20.0 Serum Glucose 75 74-106 mg/dL Calcium Level 8.5 L 8.7-10.4 mg/dL Total Bilirubin 0.4 0.2-1.0 mg/dL Aspartate Amino Transferase (AST) 16 13-40 U/L Alanine Aminotransferase (ALT) 10 7-40 U/L Alkaline Phosphatase 50 46-116 U/L Lactate Dehydrogenase 271 H 120-246 U/L Total Protein 6.5 5.7-8.2 g/dL Albumin 3.6 3.2-4.8 g/dL Blood Gas Specimen Type Arterial Blood Gas Sample Site Right radial Blood Gas Patient Temperature 37.0 Arterial Blood Date Drawn Arterial Blood pH 7.439 7.350-7.450 Arterial Blood Partial Pressure CO2 24.2 L 32.0-45.0 mmHg Arterial Blood Partial Pressure O2 90.2 83.0-108.0 mmHg Arterial Blood HCO3 16.0 L 21.0-28.0 mmol/L Arterial Blood Oxygen Saturation 96.6 94.0-98.0 % Arterial Blood Base Excess -6.9 L -2.0-3.0 mmol/L Arterial Blood Oxyhemoglobin 95.8 94.0-98.0 % Arterial Blood Carboxyhemoglobin 0.3 L 0.5-1.5 % Arterial Blood Methemoglobin 0.5 0.0-1.5 % Hood Test Yes Blood Gas Total Hemoglobin 9.10 L 12.0-16.0 g/dL Blood Gas Modality Room air FiO2 % 21.0 Test 04/06/25 21:15 04/06/25 15:52 04/06/25 00:00 Range/Units Prothrombin Time 10.1 9.3-11.8 sec Prothrombin Time INR 0.95 0.9-1.15 Activated Partial Thromboplast Time 26.0 24.5-34.5 SEC Lactic Acid Level 0.8 0.4-2.0 mmol/L Ammonia < 10 L 11-32 umol/L White Blood Count 10.9 H 4.4-10.8 10^3/uL Red Blood Count 3.29 L 4.0-5.20 10^6/uL Hemoglobin 8.6 L 12.2-16.2 g/dL Hematocrit 26.5 L 36.0-46.0 % Mean Corpuscular Volume 80.6 80.0-100.0 fL Mean Corpuscular Hemoglobin 26.3 L 28.0-32.0 pg Mean Corpuscular Hemoglobin Concent 32.6 32.0-36.0 g/dL Red Cell Distribution Width 20.5 H 11.8-14.3 % Platelet Count 332 140-450 10^3/uL Mean Platelet Volume 7.5 6.9-10.8 fL Neutrophils (%) (Auto) 37.0-80.0 % Lymphocytes (%) (Auto) 10.0-50.0 % Monocytes (%) (Auto) 0.0-12.0 % Basophils (%) (Auto) 0.0-2.0 % Neutrophils # (Auto) 1.6-8.6 10 ^3/uL Lymphocytes # (Auto) 0.4-5.4 10 ^3/uL Monocytes # (Auto) 0-1.3 10 ^3/uL Differential Total Cells Counted 100.0 100 Neutrophils % (Manual) 97 H 37.0-80.0 Band Neutrophils % (Manual) 0 Lymphocytes % (Manual) 2 L 10.0-50.0 Monocytes % (Manual) 1 0-12 Eosinophils % (Manual) 0 0-7 Basophils % (Manual) 0 0.0-2.0 Metamyelocytes % (manual) 0 Myelocytes % (Manual) 0 Promyelocytes % (Manual) 0 Blast Cells % (Manual) 0 Reactive Lymphocytes 0 Platelet Estimate Adequate Sodium Level 137 136-145 mmol/L Potassium Level 5.0 3.5-5.1 mmol/L Chloride Level 105 98-107 mmol/L Carbon Dioxide Level 17 L 20-31 mmol/L Anion Gap 15 5-15 Blood Urea Nitrogen 60 H 9-23 mg/dL Creatinine 3.67 H 0.550-1.02 mg/dL Glomerular Filtration Rate Calc 16 >90 mL/min BUN/Creatinine Ratio 16.3 10.0-20.0 Serum Glucose 106 74-106 mg/dL Hemoglobin A1c 4.8 <5.7 % A1C Calcium Level 8.6 L 8.7-10.4 mg/dL Phosphorus Level 6.6 H 2.4-5.1 mg/dL Magnesium Level 2.1 1.6-2.6 mg/dL Total Bilirubin 0.4 0.2-1.0 mg/dL Direct Bilirubin < 0.1 <0.3 mg/dL Aspartate Amino Transferase (AST) 20 13-40 U/L Alanine Aminotransferase (ALT) 12 7-40 U/L Alkaline Phosphatase 54 46-116 U/L Total Protein 6.7 5.7-8.2 g/dL Albumin 3.7 3.2-4.8 g/dL Triglycerides Level 164 H < 150 mg/dL Cholesterol Level 195 < 200 mg/dL LDL Cholesterol 94 < 100 mg/dL HDL Cholesterol 70 H 40-59 mg/dL Thyroid Stimulating Hormone (TSH) 1.63 0.55-4.78 uIU/mL Urine Color Light-brown Yellow Urine Clarity Ex.turbid Clear Urine pH 5.5 5.0-9.0 Urine Specific [place] 1.009 1.001-1.035 Urine Protein 2+ H Negative Urine Ketones Negative Negative Urine Blood 2+ H Negative /uL Urine Nitrite Negative Negative Urine Bilirubin Negative Negative Urine Urobilinogen Normal Negative mg/dL Urine Leukocyte Esterase 2+ Negative /uL Urine RBC 22 0 - 4 /hpf Urine Microscopic WBC 16 H 0-5 /HPF Urine Squamous Epithelial Cells Many <5 /hpf Urine Bacteria Mod H None Seen /hpf Urine Glucose Normal Normal mg/dL Assessment Acute kidney injury secondary to active class four lupus nephritis - resume CellCept and steroids p.o. -patient has UTI but is not in septic shock therefore we will continue immunosuppression -I explained to patient prelim findings of kidney biopsy and noted chronicity with high percentage of IFTA means very poor renal prognosis and low likelihood of recovery. Explained care home will focus on renal preservation and kidney transplant and CKD 5 education Hypertensive emergency likely in the setting of lupus nephritis Resume home p.o. blood pressure medications Lasix, amlodipine, clonidine, labetalol Anemia due to chronic kidney disease and lupus Start RUTH 3 times a week Recommend avoiding PRBC unless absolutely necessary to prevent Antibodies given future transplant needs UTI -IV ABX Generalized anxiety - xanax Headache rec r/o seizures and lupus cerebritis rec neuro, EEG and MRI moderate pleural effusion seen on echo 2 weeks ago f/u cardiology monitor ,trops no emergent indication today to start dialysis but i explained to her poor renal prognosis may require dialysis in near future During last hospitalization I explained to patient that her [facility] insurance the to change to [facility] she was given social work eval to assist with this however she reports she has not changed her insurance recommend social work re-consultation to assist with insurance change Patient will come to my renal clinic after discharge once her insurance coverage is arranged high complexity, high risk of rehospitalization Plan discussed with: Patient NITHYA HURT MD Apr 07, 2025 09:09
[2025-04-07] MEDS ORDERED: LABETALOL HCL 200 MG TAB PO SCH (10:00)
[2025-04-07] MEDS ORDERED: FUROSEMIDE 40 MG TAB PO SCH (10:00)
[2025-04-07 10:02] LABS: Total Iron Binding Capacity 284.0 ug/dL (250-425)
[2025-04-07 10:03] LABS: Iron 20.0 ug/dL (50-170)
[2025-04-07] MEDS: PANTOPRAZOLE 40 MG TAB PO SCH (10:30)
[2025-04-07] MEDS: CHOLECALCIFEROL (VITD3) 1,000UNIT=25mCg TAB PO SCH (10:30)
[2025-04-07] MEDS: ENOXAPARIN SOD 30 MG/0.3 ML SYRINGE SC SCH (10:30)
[2025-04-07] MEDS: MYCOPHENOLATE 500 MG TAB PO SCH (10:32)
[2025-04-07] MEDS: LABETALOL HCL 200 MG TAB PO SCH (10:33)
[2025-04-07] MEDS: ALPRAZolam 0.25 MG TAB PO PRN (10:48)
--- NOTE | 2025-04-07 13:39 | DVH ---
EXAMINATION: MRI BRAIN HEAD WO CONTRAST INDICATION: r/o CVA, tingling inside head COMPARISON: CT HEAD WITHOUT CONTRAST on DOS: 04/06/25 TECHNIQUE: Multiplanar, multisequence magnetic resonance imaging of the brain was performed without the use of i ntravenous contrast. FINDINGS: No evidence of acute infarct. No intracranial hemorrhage. No mass effect. There is periventricular/deep white matter T2/FLAIR hyperintensity is nonspecific, but most commonly associated with chronic microvascular disease. The ventricles and sulci are normal in size for age. Clear basal cisterns. Flow voids in the major intracranial vessels are maintained. No abnormality of the orbits. The mastoid air cells are clear. There is mucosal thickening in the right maxillary sinus. No abnormality of the visualized osseous structures and extracranial soft tissues. IMPRESSION: 1. No acute infarct, intracranial hemorrhage, mass effect, or hydrocephalus.
[2025-04-07] MEDS: SODIUM BICARBONATE 650 MG TAB PO SCH (14:56)
--- NOTE | 2025-04-07 15:24 | DVHPNRES ---
Progress Note Date Seen: Apr 07, 2025 Resident Creating Document: DARSHAN PATEL RESIDENT Medical Necessity Reason Pt with a Central, PICC or Fol: No Subjective Review of Systems Torie Starks is a 34-year-old female with past medical history of hypertension, dyslipidemia, SLE complaints of shortness of breath, tingling in the back of the head since 1 day. Patient reports blood pressure 170/100 at this time. Patient states that he felt short of breath while walking. She states that she was admitted here a week back for hypertensive urgency left pleural effusion. Patient denies any use dysuria, frequency of urination or abdominal pain. PMHx:hypertension, dyslipidemia, SLE PSHx: Nonrelevant Family history: Nonrelevant Social history: Denies smoking, alcohol, illicit drug use Home medication: Mycophenolate mofetil, hydroxychloroquine, prednisone, Lasix Allergic history: No known allergies CONSTITUTIONAL: Fever, night sweats, weight loss, Lymphadenopathy, ecchymoses, fatigue: Negative DERMATOLOGIC: Rash, New/growing/changing skin lesions: Negative HEENT: Vision change, eye pain, Rhinorrhea, sinus pain, epistaxis, dysphagia, odynophagia, globus sensation, Change in hearing, tinnitus, vertigo, otalgia, Dental problems, oral ulcers or lesions: : Negative ENDOCRINE: Weight change, heat or cold intolerance, tremor, insomnia, neck pain or swelling, Polyuria, polydipsia, polyphagia, Abnormal hair growth, change in nails: Negative CARDIOVASCULAR: Chest pain, palpitations, syncope, Edema, cyanosis, claudication, Orthopnea, paroxysmal nocturnal dyspnea: Negative PULMONARY: dyspnea with exertion, Cough, hemoptysis, wheezing, chest pain : Negative, complains of shortness of breaths GI: Nausea, vomiting, diarrhea, melena, hematochezia, Change in appetite, abdominal pain, change in bowel habits or stools: Negative : Dysuria, frequency, urgency, Urinary incontinence, hematuria, foamy urine, nocturia, Change in libido, erectile dysfunction, Change in menses, dysmenorrhea, dyspaerunia, pelvic pain: : Negative MUSCULOSKELETAL: Joint swelling or pain, muscle pain, back pain: : Negative NEUROLOGIC: Headache, scotoma, Change in smell or taste, change in facial muscles, Muscle weakness, paresthesias, anesthesia, Ataxia, change in speech: Negative PSYCHIATRIC: Depression, anxiety, hallucinations, jen, suicidal/homicidal thoughts, Binging, purging: Negative Objective vital signs Vital Sign Date Time Temp Pulse Resp B/P (MAP) Pulse Ox O2 Delivery O2 Flow Rate FiO2 04/07/25 12:51 97.7 93 18 141/81 (101) 98 97.7 04/07/25 08:00 Room Air* 0 21 Total Intake and Output 04/06/25 04/06/25 04/07/25 15:00 23:00 07:00 Intake Total 850 ml Balance 850 ml medications Current Medications Medications Dose Ordered Sig/Mica Route Start Time Stop Time Status Last Admin Dose Admin Acetaminophen 325 mg Q4HP PRN PO 04/06/25 21:00 04/07/25 02:40 325 MG Ondansetron HCl 4 mg Q4HP PRN IV 04/06/25 21:00 Morphine Sulfate 2 mg Q4HPRN PRN IV 04/06/25 21:00 Enoxaparin Sodium 30 mg DAILY SC 04/07/25 10:00 Hold 04/07/25 10:30 30 MG Pantoprazole Sodium 40 mg DAILY PO 04/07/25 10:00 04/07/25 10:30 40 MG Amlodipine Besylate 10 mg DAILY PO 04/07/25 10:00 04/07/25 10:31 10 MG Cholecalciferol 1,000 unit DAILY PO 04/07/25 10:00 04/07/25 10:30 1,000 UNIT Prednisone 20 mg TID PO 04/06/25 22:00 04/07/25 14:56 20 MG Cefepime HCl 50 ml @ 12.5 mls/hr Q24H IV 04/06/25 22:00 04/07/25 01:31 12.5 MLS/HR Furosemide 40 mg BIDD IV 04/07/25 18:00 Sodium Bicarbonate 650 mg TID PO 04/07/25 14:00 04/07/25 14:56 650 MG Mycophenolate Mofetil 1,000 mg BID PO 04/07/25 10:00 04/07/25 10:32 1,000 MG Hydroxychloroquine Sulfate 200 mg BID PO 04/07/25 10:00 04/07/25 10:34 200 MG Clonidine HCl 0.2 mg BID PO 04/07/25 10:00 04/07/25 10:32 0.2 MG Alprazolam 0.25 mg Q8HP PRN PO 04/07/25 08:45 04/07/25 10:48 0.25 MG Epoetin Isaías-epbx 10,000 unit MWF@2100 MA 04/08/25 21:00 Labetalol HCl 300 mg BID PO 04/07/25 10:00 04/07/25 10:33 300 MG Examination General Appearance: Alert, Oriented X3, Cooperative, No acute distress HEENT: Atraumatic, PERRLA, EOMI, Mucous membrane moist/pink Respiratory: Clear to auscultation, Normal air movement Cardiovascular: Regular rate, Normal S1, Normal S2, No murmurs, no chest wall tenderness Abdominal: Normal bowel sounds, Soft, No tenderness, No hepatospenomegaly, No masses Extremities: No clubbing, No cyanosis, No edema, Normal pulses, No tenderness/swelling Skin: No rashes, No breakdown, No significant lesion Neuro: Normal gait, Normal speech, Strength at 5/5 X4 ext, Normal tone, Sensation intact, Cranial nerves 3-12 NL, Reflexes 2+ Psych/Mental Status: Mental status NL, Mood NL laboratory and microbiology Laboratory Tests 04/07/25 04:56 Test 04/07/25 04:56 Range/Units Serum Glucose 75 74-106 mg/dL Microbiology Date/Time Source Procedure Growth Status 04/06/25 02:33 Nose MRSA Screen - Final Complete 04/06/25 00:00 Voided Urine Urine Culture - Preliminary Resulted Problem List/Assessment/Plan Problem List/Assessment/Plan Assessment and plan Sepsis secondary to UTI Complicated UTI Admit patient to telemetry Currently on empiric IV antibiotic (cefepime) Ordered panculture Community-acquired pneumonia due to Gram-positive over Gram-negative infection Antibiotics Sputum culture Blood culture MELLY hemodynamically mediated (VMN) Probable lupus nephritis Systemic lupus erythematous Consulted nephrology. Continue Home medications Respiratory alkalosis with metabolic acidosis Hyperphosphatemia Indicated IV furosemide Strict I&Os Evaluate electrolytes daily Normocytic anemia Completing anemia and urinary workup Essential Hypertension Monitor blood pressure, target in-hospital blood pressure below 140/90 Dyslipidemia Continue home medications Anxiety Continue Xanax DIET: Renal diet GI PROPHYLAXIS:: Protonix CODE STATUS: Goal of care discussed for more than 15 minutes, full code DISPOSITION: Med/surge RECONCILED HOME MEDS: Lasix, prednisone, hydroxychloroquine, mycophenolate mofetil Patient's status and plan discussed with the patient. Case discussed with Dr. Garcia Plan discussed with: Patient My Orders My Orders Orders - DARSHAN PATEL Procedure Category Date Status Time Complete Blood Count LAB 04/08/25 Verified 04:00 Date of Service: Apr 07, 2025 Billing Provider: HAJA GARCIA MD Common Visit Codes: [id number] INP/OBS CARE(HIGH) DARSHAN PATEL Apr 07, 2025 15:24 HAJA GARCIA MD Apr 08, 2025 21:09
[2025-04-07] MEDS: FUROSEMIDE 40 MG/4 ML VIAL IV SCH (18:41)
[2025-04-08] VITALS (8 sets, daily range): BP systolic 131–144; BP diastolic 74–83; PULSE 82–96; RESP 16–18; TEMP 97.8–98.4; O2SAT 96–98
[2025-04-08 07:27] LABS: Nucleated Red Blood Cells % 0.1 %
[2025-04-08 07:31] LABS: Hematocrit 24.3 % (36.0-46.0); Hemoglobin 7.8 g/dL (12.2-16.2); Mean Corpuscular Hemoglobin 26.0 pg (28.0-32.0); Mean Corpuscular Volume 80.8 fL (80.0-100.0)
[2025-04-08 07:41] LABS: Anion Gap 16 (5-15); Chloride 107 mmol/L (98-107); Potassium 4.6 mmol/L (3.5-5.1); Sodium 140 mmol/L (136-145)
[2025-04-08 07:42] LABS: Calcium 8.5 mg/dL (8.7-10.4); Carbon Dioxide 17 mmol/L (20-31)
[2025-04-08 07:47] LABS: BUN/Creatinine Ratio 15.4 (10.0-20.0); Blood Urea Nitrogen 61 mg/dL (9-23); Glucose 110 mg/dL (74-106)
--- NOTE | 2025-04-08 10:42 | DVHPN2 ---
Progress Note Date Seen: Apr 08, 2025 Medical Necessity Reason Pt with a Central, PICC or Fol: No Subjective Patient reports: No new complaints Other Systems: Patient seen and examined by myself today in follow-up Objective vital signs Vital Sign Date Time Temp Pulse Resp B/P (MAP) Pulse Ox O2 Delivery O2 Flow Rate FiO2 04/08/25 09:00 144/83 04/08/25 08:52 98.0 84 16 96 98.0 04/07/25 20:00 Room Air* 0 21 Total Intake and Output 04/07/25 04/07/25 04/08/25 15:00 23:00 07:00 Intake Total 118 ml 800 ml 940 ml Balance 118 ml 800 ml 940 ml medications Current Medications Medications Dose Ordered Sig/Mica Route Start Time Stop Time Status Last Admin Dose Admin Acetaminophen 325 mg Q4HP PRN PO 04/06/25 21:00 04/08/25 05:33 325 MG Ondansetron HCl 4 mg Q4HP PRN IV 04/06/25 21:00 Morphine Sulfate 2 mg Q4HPRN PRN IV 04/06/25 21:00 Enoxaparin Sodium 30 mg DAILY SC 04/07/25 10:00 Hold 04/07/25 10:30 30 MG Pantoprazole Sodium 40 mg DAILY PO 04/07/25 10:00 04/08/25 08:59 40 MG Amlodipine Besylate 10 mg DAILY PO 04/07/25 10:00 04/08/25 09:00 10 MG Cholecalciferol 1,000 unit DAILY PO 04/07/25 10:00 04/08/25 08:59 1,000 UNIT Prednisone 20 mg TID PO 04/06/25 22:00 04/08/25 05:32 20 MG Cefepime HCl 50 ml @ 12.5 mls/hr Q24H IV 04/06/25 22:00 04/07/25 23:15 12.5 MLS/HR Furosemide 40 mg BIDD IV 04/07/25 18:00 04/08/25 05:32 40 MG Sodium Bicarbonate 650 mg TID PO 04/07/25 14:00 04/08/25 05:32 650 MG Mycophenolate Mofetil 1,000 mg BID PO 04/07/25 10:00 04/08/25 08:59 1,000 MG Hydroxychloroquine Sulfate 200 mg BID PO 04/07/25 10:00 04/08/25 08:59 200 MG Clonidine HCl 0.2 mg BID PO 04/07/25 10:00 04/08/25 09:00 0.2 MG Alprazolam 0.25 mg Q8HP PRN PO 04/07/25 08:45 04/07/25 22:59 0.25 MG Epoetin Isaías-epbx 10,000 unit MWF@2100 NE 04/08/25 21:00 Labetalol HCl 300 mg BID PO 04/07/25 10:00 04/07/25 23:27 300 MG Examination: LUNGS:Normal, CVS:Normal, MSK:Normal laboratory and microbiology Laboratory Tests 04/08/25 05:34 Test 04/08/25 05:34 Range/Units Serum Glucose 110 H 74-106 mg/dL Microbiology Date/Time Source Procedure Growth Status 04/06/25 21:15 Blood Blood Culture - Preliminary NO GROWTH AFTER 24 HOURS OF INCUBATION. Resulted 04/06/25 02:33 Nose MRSA Screen - Final Complete 04/06/25 02:33 Sputum Gram Stain - Final Resulted 04/06/25 02:33 Sputum Respiratory Culture - Preliminary Resulted 04/06/25 00:00 Voided Urine Urine Culture - Preliminary Resulted Problem List/Assessment/Plan Problem List/Assessment/Plan Acute kidney injury superimposed Chronic Kidney Disease secondary to lupus nephritis SLE Hypertensive urgency Anemia Urinary tract infection Anxiety Hyperphosphatemia Recommendations Closely monitor fluid and electrolytes No indication for acute dialysis Strict I&Os Check urine electrolytes and protein excretion Blood pressure control Kidney ultrasound reported bilateral echogenic kidney Calcium acetate 1334 mg p.o. t.i.d. with meals IV antibiotic Renal diet Continue CellCept and prednisone We will continue to follow Plan discussed with: Patient EDGARDO BEVERLY MD Apr 08, 2025 10:42
--- NOTE | 2025-04-08 10:53 | DVHPNRES ---
Progress Note Date Seen: Apr 08, 2025 Resident Creating Document: DARSHAN PATEL Medical Necessity Reason Pt with a Central, PICC or Fol: No Subjective Review of Systems She has not seen at bedside. Dyspnea and tingling sensation of the head has come down.. Renal function worsening. Started on epoetin lakhwinder Torie Starks is a 34-year-old female with past medical history of hypertension, dyslipidemia, SLE complaints of shortness of breath, tingling in the back of the head since 1 day. Patient reports blood pressure 170/100 at this time. Patient states that he felt short of breath while walking. She states that she was admitted here a week back for hypertensive urgency left pleural effusion. Patient denies any use dysuria, frequency of urination or abdominal pain. PMHx:hypertension, dyslipidemia, SLE PSHx: Nonrelevant Family history: Nonrelevant Social history: Denies smoking, alcohol, illicit drug use Home medication: Mycophenolate mofetil, hydroxychloroquine, prednisone, Lasix Allergic history: No known allergies CONSTITUTIONAL: Fever, night sweats, weight loss, Lymphadenopathy, ecchymoses, fatigue: Negative DERMATOLOGIC: Rash, New/growing/changing skin lesions: Negative HEENT: Vision change, eye pain, Rhinorrhea, sinus pain, epistaxis, dysphagia, odynophagia, globus sensation, Change in hearing, tinnitus, vertigo, otalgia, Dental problems, oral ulcers or lesions: : Negative ENDOCRINE: Weight change, heat or cold intolerance, tremor, insomnia, neck pain or swelling, Polyuria, polydipsia, polyphagia, Abnormal hair growth, change in nails: Negative CARDIOVASCULAR: Chest pain, palpitations, syncope, Edema, cyanosis, claudication, Orthopnea, paroxysmal nocturnal dyspnea: Negative PULMONARY: dyspnea with exertion, Cough, hemoptysis, wheezing, chest pain : Negative, complains of shortness of breaths GI: Nausea, vomiting, diarrhea, melena, hematochezia, Change in appetite, abdominal pain, change in bowel habits or stools: Negative : Dysuria, frequency, urgency, Urinary incontinence, hematuria, foamy urine, nocturia, Change in libido, erectile dysfunction, Change in menses, dysmenorrhea, dyspaerunia, pelvic pain: : Negative MUSCULOSKELETAL: Joint swelling or pain, muscle pain, back pain: : Negative NEUROLOGIC: Headache, scotoma, Change in smell or taste, change in facial muscles, Muscle weakness, paresthesias, anesthesia, Ataxia, change in speech: Negative PSYCHIATRIC: Depression, anxiety, hallucinations, jen, suicidal/homicidal thoughts, Binging, purging: Negative Objective vital signs Vital Sign Date Time Temp Pulse Resp B/P (MAP) Pulse Ox O2 Delivery O2 Flow Rate FiO2 04/08/25 09:00 144/83 04/08/25 08:52 98.0 84 16 96 98.0 04/08/25 08:00 Room Air* 0 21 Total Intake and Output 04/07/25 04/07/25 04/08/25 15:00 23:00 07:00 Intake Total 118 ml 800 ml 940 ml Balance 118 ml 800 ml 940 ml medications Current Medications Medications Dose Ordered Sig/Mica Route Start Time Stop Time Status Last Admin Dose Admin Acetaminophen 325 mg Q4HP PRN PO 04/06/25 21:00 04/08/25 05:33 325 MG Ondansetron HCl 4 mg Q4HP PRN IV 04/06/25 21:00 Morphine Sulfate 2 mg Q4HPRN PRN IV 04/06/25 21:00 Enoxaparin Sodium 30 mg DAILY SC 04/07/25 10:00 Hold 04/07/25 10:30 30 MG Pantoprazole Sodium 40 mg DAILY PO 04/07/25 10:00 04/08/25 08:59 40 MG Amlodipine Besylate 10 mg DAILY PO 04/07/25 10:00 04/08/25 09:00 10 MG Cholecalciferol 1,000 unit DAILY PO 04/07/25 10:00 04/08/25 08:59 1,000 UNIT Prednisone 20 mg TID PO 04/06/25 22:00 04/08/25 05:32 20 MG Cefepime HCl 50 ml @ 12.5 mls/hr Q24H IV 04/06/25 22:00 04/07/25 23:15 12.5 MLS/HR Furosemide 40 mg BIDD IV 04/07/25 18:00 04/08/25 05:32 40 MG Sodium Bicarbonate 650 mg TID PO 04/07/25 14:00 04/08/25 05:32 650 MG Mycophenolate Mofetil 1,000 mg BID PO 04/07/25 10:00 04/08/25 08:59 1,000 MG Hydroxychloroquine Sulfate 200 mg BID PO 04/07/25 10:00 04/08/25 08:59 200 MG Clonidine HCl 0.2 mg BID PO 04/07/25 10:00 04/08/25 09:00 0.2 MG Alprazolam 0.25 mg Q8HP PRN PO 04/07/25 08:45 04/07/25 22:59 0.25 MG Epoetin Lakhwinder-epbx 10,000 unit MWF@2100 [place] 04/08/25 21:00 Labetalol HCl 300 mg BID PO 04/07/25 10:00 04/07/25 23:27 300 MG Examination General Appearance: Alert, Oriented X3, Cooperative, No acute distress HEENT: Atraumatic, PERRLA, EOMI, Mucous membrane moist/pink Respiratory: Clear to auscultation, Normal air movement Cardiovascular: Regular rate, Normal S1, Normal S2, No murmurs, no chest wall tenderness Abdominal: Normal bowel sounds, Soft, No tenderness, No hepatospenomegaly, No masses Extremities: No clubbing, No cyanosis, No edema, Normal pulses, No tenderness/swelling Skin: No rashes, No breakdown, No significant lesion Neuro: Normal gait, Normal speech, Strength at 5/5 X4 ext, Normal tone, Sensation intact, Cranial nerves 3-12 NL, Reflexes 2+ Psych/Mental Status: Mental status NL, Mood NL laboratory and microbiology Laboratory Tests 04/08/25 05:34 Test 04/08/25 05:34 Range/Units Serum Glucose 110 H 74-106 mg/dL Microbiology Date/Time Source Procedure Growth Status 04/06/25 21:15 Blood Blood Culture - Preliminary NO GROWTH AFTER 24 HOURS OF INCUBATION. Resulted 04/06/25 02:33 Nose MRSA Screen - Final Complete 04/06/25 02:33 Sputum Gram Stain - Final Resulted 04/06/25 02:33 Sputum Respiratory Culture - Preliminary Resulted 04/06/25 00:00 Voided Urine Urine Culture - Preliminary Resulted Problem List/Assessment/Plan Problem List/Assessment/Plan Assessment and plan Sepsis secondary to UTI Complicated UTI Admit patient to telemetry Currently on empiric IV antibiotic (cefepime) Ordered panculture Community-acquired pneumonia due to Gram-positive over Gram-negative infection Antibiotics Sputum culture Blood culture MELLY hemodynamically mediated (VMN) Probable lupus nephritis Systemic lupus erythematous Consulted nephrology. Continue Home medications Respiratory alkalosis with metabolic acidosis Hyperphosphatemia Indicated IV furosemide Strict I&Os Evaluate electrolytes daily Normocytic anemia Completing anemia and urinary workup Essential Hypertension Monitor blood pressure, target in-hospital blood pressure below 140/90 Dyslipidemia Continue home medications Anxiety Continue Xanax DIET: Renal diet GI PROPHYLAXIS:: Protonix CODE STATUS: Goal of care discussed for more than 15 minutes, full code DISPOSITION: Med/surge RECONCILED HOME MEDS: Lasix, prednisone, hydroxychloroquine, mycophenolate mofetil Patient's status and plan discussed with the patient. Case discussed with Dr. Garcia Plan discussed with: Patient Date of Service: Apr 08, 2025 Billing Provider: HAJA GARCIA MD Common Visit Codes: [id number] INP/OBS CARE(HIGH) DARSHAN PATEL RESIDENT Apr 08, 2025 10:53 HAJA GARCIA MD Apr 08, 2025 21:09
[2025-04-08 13:21] LABS: Magnesium 2.3 mg/dL (1.6-2.6)
[2025-04-08 13:25] LABS: Iron 20.0 ug/dL (50-170)
[2025-04-08 13:27] LABS: Total Iron Binding Capacity 282.0 ug/dL (250-425)
[2025-04-08 13:36] LABS: Protein, Urine 116.7 mg/dL (1-14)
[2025-04-08 13:51] LABS: Ferritin 50.2 ng/mL (10-291)
[2025-04-08 14:02] LABS: Urine Budding Yeast OCCASIONAL /hpf (None Seen); Urine Protein, UAD 1+ (Negative)
--- NOTE | 2025-04-08 15:03 | MEDREC ---
[facility] Intervention Section I [facility] Intervention: Review courses of therapy (May consider adding azithromycin for atypical coverage in community acquired pneumonia if/when clinically appropriate.) SUSI ZUNIGA [facility] RESIDENT Apr 08, 2025 15:03
[2025-04-08] MEDS: CALCIUM ACETATE 667 MG CAP PO SCH (17:12)
[2025-04-08] MEDS: EPOETIN ALFA-EPBX 10,000 UNIT/1ML VIAL SC SCH (20:56)
[2025-04-09 01:15] VITALS: BP 131/75; PULSE 93; RESP 17; TEMP 98; O2SAT 92
[2025-04-09 07:21] LABS: Hemoglobin 7.7 g/dL (12.2-16.2); Nucleated Red Blood Cells % 0.1 %
[2025-04-09 07:23] LABS: Hematocrit 23.5 % (36.0-46.0); Mean Corpuscular Hemoglobin 26.4 pg (28.0-32.0); Mean Corpuscular Volume 80.8 fL (80.0-100.0)
[2025-04-09 07:34] LABS: Alanine Aminotransferase 10 U/L (7-40); Albumin 3.3 g/dL (3.2-4.8); Anion Gap 15 (5-15); BUN/Creatinine Ratio 15.3 (10.0-20.0); Bilirubin, Total 0.3 mg/dL (0.2-1.0); Chloride 105 mmol/L (98-107); Glucose 102 mg/dL (74-106); Potassium 4.7 mmol/L (3.5-5.1); Sodium 138 mmol/L (136-145); Total Protein 5.9 g/dL (5.7-8.2)
[2025-04-09 07:36] LABS: Alkaline Phosphatase 38 U/L (46-116); Blood Urea Nitrogen 61 mg/dL (9-23); Calcium 8.3 mg/dL (8.7-10.4); Carbon Dioxide 18 mmol/L (20-31)
[2025-04-09 08:00] VITALS: PULSE 82; PULSE 88; RESP 17; O2SAT 93
[2025-04-09 08:42] VITALS: BP 152/84; PULSE 91; RESP 18; TEMP 97.9; O2SAT 93
--- NOTE | 2025-04-09 10:24 | DVHPN2 ---
Progress Note Date Seen: Apr 09, 2025 Medical Necessity Reason Pt with a Central, PICC or Fol: No Subjective Patient reports: No new complaints Other Systems: Patient seen and examined by myself today in follow-up Objective vital signs Vital Sign Date Time Temp Pulse Resp B/P (MAP) Pulse Ox O2 Delivery O2 Flow Rate FiO2 04/09/25 08:42 97.9 91 18 152/84 (106) 93 97.9 04/08/25 20:00 Room Air* 0 21 Total Intake and Output 04/08/25 04/08/25 04/09/25 14:59 22:59 06:59 Intake Total 0 ml 850 ml 850 ml Output Total 550 ml 900 ml Balance 0 ml 300 ml -50 ml medications Current Medications Medications Dose Ordered Sig/Mica Route Start Time Stop Time Status Last Admin Dose Admin Acetaminophen 325 mg Q4HP PRN PO 04/06/25 21:00 04/08/25 17:18 325 MG Ondansetron HCl 4 mg Q4HP PRN IV 04/06/25 21:00 Morphine Sulfate 2 mg Q4HPRN PRN IV 04/06/25 21:00 Enoxaparin Sodium 30 mg DAILY SC 04/07/25 10:00 Hold 04/07/25 10:30 30 MG Pantoprazole Sodium 40 mg DAILY PO 04/07/25 10:00 04/09/25 08:33 40 MG Amlodipine Besylate 10 mg DAILY PO 04/07/25 10:00 04/09/25 08:33 10 MG Cholecalciferol 1,000 unit DAILY PO 04/07/25 10:00 04/09/25 08:33 1,000 UNIT Prednisone 20 mg TID PO 04/06/25 22:00 04/09/25 06:21 20 MG Cefepime HCl 50 ml @ 12.5 mls/hr Q24H IV 04/06/25 22:00 04/08/25 21:04 12.5 MLS/HR Furosemide 40 mg BIDD IV 04/07/25 18:00 04/09/25 06:21 40 MG Sodium Bicarbonate 650 mg TID PO 04/07/25 14:00 04/09/25 06:21 650 MG Mycophenolate Mofetil 1,000 mg BID PO 04/07/25 10:00 04/09/25 08:34 1,000 MG Hydroxychloroquine Sulfate 200 mg BID PO 04/07/25 10:00 04/09/25 08:33 200 MG Clonidine HCl 0.2 mg BID PO 04/07/25 10:00 04/09/25 08:33 0.2 MG Alprazolam 0.25 mg Q8HP PRN PO 04/07/25 08:45 04/07/25 22:59 0.25 MG Epoetin Isaías-epbx 10,000 unit MWF@2100 [place] 04/08/25 21:00 04/08/25 20:56 10,000 UNIT Labetalol HCl 300 mg BID PO 04/07/25 10:00 04/09/25 08:34 300 MG Calcium Acetate 1,334 mg TIDWMEALS PO 04/08/25 18:00 04/09/25 08:39 1,334 MG Examination: LUNGS:Normal, CVS:Normal, MSK:Normal laboratory and microbiology Laboratory Tests 04/09/25 05:18 Test 04/09/25 05:18 Range/Units Serum Glucose 102 74-106 mg/dL Microbiology Date/Time Source Procedure Growth Status 04/06/25 21:15 Blood Blood Culture - Preliminary NO GROWTH AFTER 48 HOURS OF INCUBATION. Resulted 04/06/25 02:33 Nose MRSA Screen - Final Complete 04/06/25 02:33 Sputum Gram Stain - Final Resulted 04/06/25 02:33 Sputum Respiratory Culture - Preliminary Resulted 04/06/25 00:00 Voided Urine Urine Culture - Final Complete Problem List/Assessment/Plan Problem List/Assessment/Plan Acute kidney injury superimposed Chronic Kidney Disease stage IV secondary to lupus nephritis SLE Hypertensive urgency Anemia Urinary tract infection Anxiety Hyperphosphatemia Vitamin-D deficiency Iron deficiency Recommendations Closely monitor fluid and electrolytes No indication for acute dialysis Strict I&Os Check urine electrolytes and protein excretion Blood pressure control Kidney ultrasound reported bilateral echogenic kidney Calcium acetate 2,003 mg p.o. t.i.d. with meals Venofer 200 mg IV q.day for five days IV antibiotic Renal diet Increase CellCept to 1500 mg p.o. b.i.d. We will continue to follow Plan discussed with: Patient My Orders My Orders Orders - EDGARDO BEVERLY MD Procedure Category Date Status Time Shannon Direct W/Reflex LAB 04/08/25 In Process To Comp. 10:38 Complement C3 & C4 LAB 11/3/25 In Process 10:38 Strict I & O ALEENA 04/08/25 In Process 11:07 Calcium Acetate PHA 04/08/25 In Process Capsule (Phoslo 18:00 Calcium Acetate PHA 04/09/25 Transmitted Capsule (Phoslo 12:00 Hydroxychloroquine PHA 04/10/25 Transmitted Tablet (Plaquenil Tab 10:00 Sodium Bicarb Tab PHA 04/09/25 Transmitted 10:30 Ergocalciferol PHA 04/09/25 Transmitted (Vitamin D 50,000 10:30 Iron Ivpb PHA 04/09/25 Transmitted 12:00 EDGARDO BEVERLY MD Apr 09, 2025 10:24
[2025-04-09] MEDS: IRON SUCROSE COMPLEX 110 ML IV SCH (11:20)
[2025-04-09] MEDS: SODIUM BICARBONATE 650 MG TAB PO SCH (11:20)
[2025-04-09] MEDS: ERGOCALCIFEROL 50,000 UNIT(1.25MG) CAP PO SCH (11:20)
[2025-04-09] MEDS: AZITHROMYCIN 500MG/ 250ML 250 ML IV ONE (12:00)
[2025-04-09] MEDS ORDERED: CALCIUM ACETATE 667 MG CAP PO SCH (12:00)
[2025-04-09 12:49] VITALS: BP 131/80; PULSE 84; RESP 16; TEMP 97.7; O2SAT 96
[2025-04-09] MEDS: CALCIUM ACETATE 667 MG CAP PO SCH (13:07)
--- NOTE | 2025-04-09 14:48 | DVHPNRES ---
Progress Note Date Seen: Apr 09, 2025 Resident Creating Document: DARSHAN PATEL RESIDENT Medical Necessity Reason Pt with a Central, PICC or Fol: No Subjective Review of Systems Patient seen at bedside. No new complaints. Renal function worsening. Periorbital edema and pedal edema has come down. Torie Starks is a 34-year-old female with past medical history of hypertension, dyslipidemia, SLE complaints of shortness of breath, tingling in the back of the head since 1 day. Patient reports blood pressure 170/100 at this time. Patient states that he felt short of breath while walking. She states that she was admitted here a week back for hypertensive urgency left pleural effusion. Patient denies any use dysuria, frequency of urination or abdominal pain. PMHx:hypertension, dyslipidemia, SLE PSHx: Nonrelevant Family history: Nonrelevant Social history: Denies smoking, alcohol, illicit drug use Home medication: Mycophenolate mofetil, hydroxychloroquine, prednisone, Lasix Allergic history: No known allergies CONSTITUTIONAL: Fever, night sweats, weight loss, Lymphadenopathy, ecchymoses, fatigue: Negative DERMATOLOGIC: Rash, New/growing/changing skin lesions: Negative HEENT: Vision change, eye pain, Rhinorrhea, sinus pain, epistaxis, dysphagia, odynophagia, globus sensation, Change in hearing, tinnitus, vertigo, otalgia, Dental problems, oral ulcers or lesions: : Negative ENDOCRINE: Weight change, heat or cold intolerance, tremor, insomnia, neck pain or swelling, Polyuria, polydipsia, polyphagia, Abnormal hair growth, change in nails: Negative CARDIOVASCULAR: Chest pain, palpitations, syncope, Edema, cyanosis, claudication, Orthopnea, paroxysmal nocturnal dyspnea: Negative PULMONARY: dyspnea with exertion, Cough, hemoptysis, wheezing, chest pain : Negative, complains of shortness of breaths GI: Nausea, vomiting, diarrhea, melena, hematochezia, Change in appetite, abdominal pain, change in bowel habits or stools: Negative : Dysuria, frequency, urgency, Urinary incontinence, hematuria, foamy urine, nocturia, Change in libido, erectile dysfunction, Change in menses, dysmenorrhea, dyspaerunia, pelvic pain: : Negative MUSCULOSKELETAL: Joint swelling or pain, muscle pain, back pain: : Negative NEUROLOGIC: Headache, scotoma, Change in smell or taste, change in facial muscles, Muscle weakness, paresthesias, anesthesia, Ataxia, change in speech: Negative PSYCHIATRIC: Depression, anxiety, hallucinations, jen, suicidal/homicidal thoughts, Binging, purging: Negative Objective vital signs Vital Sign Date Time Temp Pulse Resp B/P (MAP) Pulse Ox O2 Delivery O2 Flow Rate FiO2 04/09/25 12:49 97.7 84 16 131/80 (97) 96 97.7 04/08/25 20:00 Room Air* 0 21 Total Intake and Output 04/08/25 04/08/25 04/09/25 15:00 23:00 07:00 Intake Total 0 ml 850 ml 850 ml Output Total 550 ml 900 ml Balance 0 ml 300 ml -50 ml medications Current Medications Medications Dose Ordered Sig/Mica Route Start Time Stop Time Status Last Admin Dose Admin Acetaminophen 325 mg Q4HP PRN PO 04/06/25 21:00 04/08/25 17:18 325 MG Ondansetron HCl 4 mg Q4HP PRN IV 04/06/25 21:00 Morphine Sulfate 2 mg Q4HPRN PRN IV 04/06/25 21:00 Enoxaparin Sodium 30 mg DAILY SC 04/07/25 10:00 Hold 04/07/25 10:30 30 MG Pantoprazole Sodium 40 mg DAILY PO 04/07/25 10:00 04/09/25 08:33 40 MG Amlodipine Besylate 10 mg DAILY PO 04/07/25 10:00 04/09/25 08:33 10 MG Cholecalciferol 1,000 unit DAILY PO 04/07/25 10:00 04/09/25 08:33 1,000 UNIT Prednisone 20 mg TID PO 04/06/25 22:00 04/09/25 06:21 20 MG Cefepime HCl 50 ml @ 12.5 mls/hr Q24H IV 04/06/25 22:00 04/08/25 21:04 12.5 MLS/HR Furosemide 40 mg BIDD IV 04/07/25 18:00 04/09/25 06:21 40 MG Clonidine HCl 0.2 mg BID PO 04/07/25 10:00 04/09/25 08:33 0.2 MG Alprazolam 0.25 mg Q8HP PRN PO 04/07/25 08:45 04/07/25 22:59 0.25 MG Epoetin Isaías-epbx 10,000 unit MWF@2100 SC 04/08/25 21:00 04/08/25 20:56 10,000 UNIT Labetalol HCl 300 mg BID PO 04/07/25 10:00 04/09/25 08:34 300 MG Hydroxychloroquine Sulfate 200 mg DAILY PO 04/10/25 10:00 Sodium Bicarbonate 650 mg QID PO 04/09/25 10:30 04/09/25 13:02 650 MG Ergocalciferol 50,000 unit Q7D PO 04/09/25 10:30 04/09/25 11:20 50,000 UNIT Iron Sucrose 110 ml @ 110 mls/hr DAILY@1200 IV 04/09/25 12:00 04/13/25 12:59 04/09/25 11:20 110 MLS/HR Mycophenolate Mofetil 1,500 mg BID PO 04/09/25 22:00 Azithromycin 250 ml @ 125 mls/hr DAILY IV 04/10/25 10:00 Calcium Acetate 2,001 mg TIDWMEALS PO 04/09/25 12:45 04/09/25 13:07 2,001 MG Examination General Appearance: Alert, Oriented X3, Cooperative, No acute distress HEENT: Atraumatic, PERRLA, EOMI, Mucous membrane moist/pink Respiratory: Clear to auscultation, Normal air movement Cardiovascular: Regular rate, Normal S1, Normal S2, No murmurs, no chest wall tenderness Abdominal: Normal bowel sounds, Soft, No tenderness, No hepatospenomegaly, No masses Extremities: No clubbing, No cyanosis, No edema, Normal pulses, No tenderness/swelling Skin: No rashes, No breakdown, No significant lesion Neuro: Normal gait, Normal speech, Strength at 5/5 X4 ext, Normal tone, Sensation intact, Cranial nerves 3-12 NL, Reflexes 2+ Psych/Mental Status: Mental status NL, Mood NL. laboratory and microbiology Laboratory Tests 04/09/25 05:18 Test 04/09/25 05:18 Range/Units Serum Glucose 102 74-106 mg/dL Microbiology Date/Time Source Procedure Growth Status 04/06/25 21:15 Blood Blood Culture - Preliminary NO GROWTH AFTER 48 HOURS OF INCUBATION. Resulted 04/06/25 02:33 Nose MRSA Screen - Final Complete 04/06/25 02:33 Sputum Gram Stain - Final Resulted 04/06/25 02:33 Sputum Respiratory Culture - Preliminary Resulted 04/06/25 00:00 Voided Urine Urine Culture - Final Complete Problem List/Assessment/Plan Problem List/Assessment/Plan Assessment and plan Sepsis secondary to UTI Complicated UTI Admit patient to telemetry Currently on empiric IV antibiotic (cefepime) Ordered panculture Community-acquired pneumonia due to Gram-positive over Gram-negative infection Antibiotics Sputum culture Blood culture MELLY due to VMN superimposed Chronic Kidney Disease stage IV secondary to lupus nephritis lupus nephritis Systemic lupus erythematous Consulted nephrology. Continue Home medications Respiratory alkalosis with metabolic acidosis Hyperphosphatemia Indicated IV furosemide Strict I&Os Evaluate electrolytes daily Normocytic anemia Completing anemia and urinary workup Hypertensive urgency Essential Hypertension Monitor blood pressure, target in-hospital blood pressure below 140/90 Dyslipidemia Continue home medications Anxiety Continue Xanax Vitamin-D deficiency Iron deficiency Follow up with PCP as outpatient DIET: Renal diet GI PROPHYLAXIS:: Protonix CODE STATUS: Goal of care discussed for more than 15 minutes, full code DISPOSITION: Med/surge RECONCILED HOME MEDS: Lasix, prednisone, hydroxychloroquine, mycophenolate mofetil Patient's status and plan discussed with the patient. Case discussed with Dr. Garcia Plan discussed with: Patient Date of Service: Apr 09, 2025 Billing Provider: HAJA GARCIA MD Common Visit Codes: [id number] INP/OBS CARE(HIGH) DARSHAN PATEL RESIDENT Apr 09, 2025 14:48 HAJA GARCIA MD Apr 11, 2025 14:59
--- NOTE | 2025-04-09 14:56 | MEDREC ---
[facility] ASP Intervention Section I [facility] Intervention: Review courses of therapy (Serum creatinine uptrending throughout course of stay. 3.67 on admission and 4 today. May consider switching cefepime to ceftriaxone if/when clinically appropriate.) SUSI ZUNIGA [facility] RESIDENT Apr 09, 2025 14:56
[2025-04-09] MEDS: ONDANSETRON HCL 4 MG/2 ML VIAL IV PRN (15:17)
[2025-04-09 20:00] VITALS: PULSE 76; RESP 16; O2SAT 95
[2025-04-09 21:00] VITALS: BP 139/84; PULSE 89; RESP 17; TEMP 98.3; O2SAT 94
[2025-04-09] MEDS: MYCOPHENOLATE 500 MG TAB PO SCH (21:30)
[2025-04-10 01:00] VITALS: BP 135/80; PULSE 87; RESP 18; TEMP 98.6; O2SAT 92
[2025-04-10 05:00] VITALS: BP 144/83; PULSE 89; RESP 18; TEMP 98.4; O2SAT 92
[2025-04-10 06:06] LABS: Hemoglobin 8.2 g/dL (12.2-16.2); Mean Corpuscular Hemoglobin 26.4 pg (28.0-32.0); Nucleated Red Blood Cells % 0.1 %
[2025-04-10 06:09] LABS: Hematocrit 25.0 % (36.0-46.0); Mean Corpuscular Volume 80.4 fL (80.0-100.0)
[2025-04-10 06:23] LABS: Alanine Aminotransferase 10 U/L (7-40); Albumin 3.4 g/dL (3.2-4.8); Anion Gap 13 (5-15); BUN/Creatinine Ratio 15.8 (10.0-20.0); Calcium 8.8 mg/dL (8.7-10.4); Chloride 105 mmol/L (98-107); Glucose 103 mg/dL (74-106); Potassium 5.1 mmol/L (3.5-5.1); Sodium 137 mmol/L (136-145); Total Protein 5.9 g/dL (5.7-8.2)
[2025-04-10 06:32] LABS: Alkaline Phosphatase 39 U/L (46-116); Bilirubin, Total 0.3 mg/dL (0.2-1.0); Blood Urea Nitrogen 66 mg/dL (9-23); Carbon Dioxide 19 mmol/L (20-31)
[2025-04-10 09:00] VITALS: BP 157/84; PULSE 93; RESP 18; TEMP 97.9; O2SAT 92
[2025-04-10] MEDS: AZITHROMYCIN 500MG/ 250ML 250 ML IV SCH (09:59)
[2025-04-10] MEDS: LABETALOL HCL 200 MG TAB PO SCH (10:45)
--- NOTE | 2025-04-10 10:48 | DVHPN2 ---
Progress Note Date Seen: Apr 10, 2025 Medical Necessity Reason Pt with a Central, PICC or Fol: No Subjective Patient reports: No new complaints Other Systems: Patient seen and examined by myself today in follow-up Objective vital signs Vital Sign Date Time Temp Pulse Resp B/P (MAP) Pulse Ox O2 Delivery O2 Flow Rate FiO2 04/10/25 09:58 92 157/90 04/10/25 09:00 97.9 18 92 97.9 04/09/25 20:00 Room Air* 0 21 Total Intake and Output 04/09/25 04/09/25 04/10/25 15:00 23:00 07:00 Intake Total 0 ml 450 ml 950 ml Output Total 850 ml 975 ml Balance 0 ml -400 ml -25 ml medications Current Medications Medications Dose Ordered Sig/Mica Route Start Time Stop Time Status Last Admin Dose Admin Acetaminophen 325 mg Q4HP PRN PO 04/06/25 21:00 04/09/25 15:20 325 MG Ondansetron HCl 4 mg Q4HP PRN IV 04/06/25 21:00 04/09/25 15:17 4 MG Morphine Sulfate 2 mg Q4HPRN PRN IV 04/06/25 21:00 Enoxaparin Sodium 30 mg DAILY SC 04/07/25 10:00 Hold 04/07/25 10:30 30 MG Pantoprazole Sodium 40 mg DAILY PO 04/07/25 10:00 04/10/25 09:55 40 MG Amlodipine Besylate 10 mg DAILY PO 04/07/25 10:00 04/10/25 09:56 10 MG Cholecalciferol 1,000 unit DAILY PO 04/07/25 10:00 04/10/25 09:54 1,000 UNIT Prednisone 20 mg TID PO 04/06/25 22:00 04/10/25 05:21 20 MG Cefepime HCl 50 ml @ 12.5 mls/hr Q24H IV 04/06/25 22:00 04/09/25 21:30 12.5 MLS/HR Furosemide 40 mg BIDD IV 04/07/25 18:00 04/10/25 05:21 40 MG Clonidine HCl 0.2 mg BID PO 04/07/25 10:00 04/10/25 09:55 0.2 MG Alprazolam 0.25 mg Q8HP PRN PO 04/07/25 08:45 04/07/25 22:59 0.25 MG Epoetin Isaías-epbx 10,000 unit MWF@2100 SC 04/08/25 21:00 04/08/25 20:56 10,000 UNIT Labetalol HCl 300 mg BID PO 04/07/25 10:00 04/10/25 09:58 300 MG Hydroxychloroquine Sulfate 200 mg DAILY PO 04/10/25 10:00 04/10/25 09:55 200 MG Sodium Bicarbonate 650 mg QID PO 04/09/25 10:30 04/10/25 05:21 650 MG Ergocalciferol 50,000 unit Q7D PO 04/09/25 10:30 04/09/25 11:20 50,000 UNIT Iron Sucrose 110 ml @ 110 mls/hr DAILY@1200 IV 04/09/25 12:00 04/13/25 12:59 04/09/25 11:20 110 MLS/HR Mycophenolate Mofetil 1,500 mg BID PO 04/09/25 22:00 04/10/25 09:54 1,500 MG Azithromycin 250 ml @ 125 mls/hr DAILY IV 04/10/25 10:00 04/10/25 09:59 125 MLS/HR Calcium Acetate 2,001 mg TIDWMEALS PO 04/09/25 12:45 04/10/25 09:54 2,001 MG Examination: LUNGS:Normal, CVS:Normal, MSK:Normal laboratory and microbiology Laboratory Tests 04/10/25 05:00 Test 04/10/25 05:00 Range/Units Serum Glucose 103 74-106 mg/dL Microbiology Date/Time Source Procedure Growth Status 04/06/25 21:15 Blood Blood Culture - Preliminary NO GROWTH AFTER 72 HOURS OF INCUBATION. Resulted 04/06/25 02:33 Nose MRSA Screen - Final Complete 04/06/25 02:33 Sputum Gram Stain - Final Resulted 04/06/25 02:33 Sputum Respiratory Culture - Preliminary Resulted 04/06/25 00:00 Voided Urine Urine Culture - Final Complete Problem List/Assessment/Plan Problem List/Assessment/Plan Acute kidney injury superimposed Chronic Kidney Disease stage IV secondary to lupus nephritis SLE Hypertensive urgency Anemia Urinary tract infection Anxiety Hyperphosphatemia Vitamin-D deficiency Iron deficiency Recommendations Kidney function stable Chronic Kidney Disease stage 5 No indication for acute dialysis Strict I&Os Blood pressure control Increase labetalol to 400 mg p.o. b.i.d. Kidney ultrasound reported bilateral echogenic kidney Calcium acetate 2,001 mg p.o. t.i.d. with meals Venofer 200 mg IV q.day for five days IV antibiotic Ergocalciferol 70447 units p.o. q.week Renal diet Increase CellCept to 1500 mg p.o. b.i.d. We will continue to follow Plan discussed with: Patient My Orders My Orders Orders - EDGARDO BEVERLY MD Procedure Category Date Status Time Calcium Acetate PHA 04/09/25 In Process Capsule (Phoslo 12:45 EDGARDO BEVERLY MD Apr 10, 2025 10:48
[2025-04-10 12:07] LABS: Anti-Nuclear Antibody Direct Positive (Negative)
[2025-04-10 13:00] VITALS: BP 159/86; PULSE 91; RESP 18; TEMP 97.7; O2SAT 96
[2025-04-10 14:06] LABS: Anti-dsDNA Antibody 107 IU/mL (0-9); Sjogren's Anti-SS-A Antibody >8.0 AI (0.0-0.9); Sjogren's Anti-SS-B Antibody 3.5 AI (0.0-0.9)
[2025-04-10] MEDS ORDERED: HYDR200T36 PO (14:29)
[2025-04-10] MEDS ORDERED: AML5T PO (14:29)
[2025-04-10] MEDS ORDERED: LABE200T10 PO (14:29)
[2025-04-10] MEDS ORDERED: FER325T PO (14:29)
[2025-04-10] MEDS ORDERED: SODI650T PO (14:29)
[2025-04-10] MEDS ORDERED: PRED20TA2 PO (14:29)
[2025-04-10] MEDS ORDERED: AUG875T PO (14:29)
[2025-04-10] MEDS ORDERED: MYCO500T3 PO (14:29)
--- NOTE | 2025-04-10 14:45 | DVHDSRES ---
Discharge Summary Date of Admission Resident Creating Document: DARSHAN PATEL RESIDENT Apr 06, 2025 at 20:53 Date of Discharge: Apr 10, 2025 Labs/Diagnostic Data: Laboratory Results Test 04/10/25 05:00 04/08/25 20:31 04/08/25 12:36 04/08/25 12:31 White Blood Count 9.0 10^3/uL (4.4-10.8) Red Blood Count 3.11 10^6/uL (4.0-5.20) Hemoglobin 8.2 g/dL (12.2-16.2) Hematocrit 25.0 % (36.0-46.0) Mean Corpuscular Volume 80.4 fL (80.0-100.0) Mean Corpuscular Hemoglobin 26.4 pg (28.0-32.0) Mean Corpuscular Hemoglobin Concent 32.8 g/dL (32.0-36.0) Red Cell Distribution Width 19.2 % (11.8-14.3) Platelet Count 247 10^3/uL (140-450) Mean Platelet Volume 7.9 fL (6.9-10.8) Neutrophils (%) (Auto) 95.5 % (37.0-80.0) Lymphocytes (%) (Auto) 1.8 % (10.0-50.0) Monocytes (%) (Auto) 2.7 % (0.0-12.0) Eosinophils (%) (Auto) 0.0 % (0.0-7.0) Basophils (%) (Auto) 0.0 % (0.0-2.0) Neutrophils # (Auto) 8.6 10 ^3/uL (1.6-8.6) Lymphocytes # (Auto) 0.2 10 ^3/uL (0.4-5.4) Monocytes # (Auto) 0.2 10 ^3/uL (0-1.3) Eosinophils # (Auto) 0 10 ^3/uL (0-0.8) Basophils # (Auto) 0 10 ^3/uL (0-0.2) Nucleated Red Blood Cells 0.1 % Sodium Level 137 mmol/L (136-145) Potassium Level 5.1 mmol/L (3.5-5.1) Chloride Level 105 mmol/L (98-107) Carbon Dioxide Level 19 mmol/L (20-31) Anion Gap 13 (5-15) Blood Urea Nitrogen 66 mg/dL (9-23) Creatinine 4.19 mg/dL (0.550-1.02) Glomerular Filtration Rate Calc 14 mL/min (>90) BUN/Creatinine Ratio 15.8 (10.0-20.0) Serum Glucose 103 mg/dL (74-106) Calcium Level 8.8 mg/dL (8.7-10.4) Phosphorus Level 7.3 mg/dL (2.4-5.1) Total Bilirubin 0.3 mg/dL (0.2-1.0) Aspartate Amino Transferase (AST) 11 U/L (13-40) Alanine Aminotransferase (ALT) 10 U/L (7-40) Alkaline Phosphatase 39 U/L (46-116) Total Protein 5.9 g/dL (5.7-8.2) Albumin 3.4 g/dL (3.2-4.8) Anti-Nuclear Antibody Screen Positive (Negative) Anti-Nuclear Antibody Comment Comment (.) SS-A/Ro Antibody >8.0 AI (0.0-0.9) SS-B/La Antibody 3.5 AI (0.0-0.9) Sm Antibody >8.0 AI (0.0-0.9) AUTOMOTIVE MAINTENANCE TECHNICIAN Antibody 4.8 AI (0.0-0.9) Anti-Double Strand DNA Antibody 107 IU/mL (0-9) Complement C3 77 mg/dL (82-167) Complement C4 14 mg/dL (12-38) Urine Microalbumin 674.0 mg/L (<30.0) Urine Color Colorless (Yellow) Urine Clarity Turbid (Clear) Urine pH 5.5 (5.0-9.0) Urine Specific [place] 1.010 (1.001-1.035) Urine Protein 1+ (Negative) Urine Ketones Negative (Negative) Urine Blood Trace /uL (Negative) Urine Nitrite Negative (Negative) Urine Bilirubin Negative (Negative) Urine Urobilinogen Normal mg/dL (Negative) Urine Leukocyte Esterase Negative /uL (Negative) Urine RBC 4 /hpf (0 - 4) Urine Microscopic WBC 2 /HPF (0-5) Urine Squamous Epithelial Cells Few /hpf (<5) Urine Bacteria None seen /hpf (None Seen) Urine Yeast (Budding) Occasional /hpf (None Urine Creatinine 47.16 mg/dL (30.0-125.0) Urine Protein/Creatinine Ratio 2.47 Urine Glucose Normal mg/dL (Normal) Urine Total Protein 116.7 mg/dL (1-14) Test 04/08/25 12:30 04/08/25 12:07 04/08/25 05:34 04/07/25 05:36 Urine Sodium 90 mmol/L (40-220) Magnesium Level 2.3 mg/dL (1.6-2.6) Hepatitis B Surface Antigen Negative (Negative) Iron Level 20 ug/dL (50-170) Total Iron Binding Capacity 282 ug/dL (250-425) Percent Iron Saturation 7.1 % (15-50) Haptoglobin 158 mg/dL (33-278) Test 04/07/25 04:56 04/06/25 21:18 04/06/25 21:15 04/06/25 15:52 Reticulocyte Count (auto) 3.23 % (0.5-1.5) Ferritin 50.2 ng/mL (10-291) Lactate Dehydrogenase 271 U/L (120-246) Folic Acid 39.54 ng/mL (>5.38) Blood Gas Specimen Type Arterial Blood Gas Sample Site Right radial Blood Gas Patient Temperature 37.0 Arterial Blood Date Drawn [id number] Arterial Blood pH 7.439 (7.350-7.450) Arterial Blood Partial Pressure CO2 24.2 mmHg (32.0-45.0) Arterial Blood Partial Pressure O2 90.2 mmHg (83.0-108.0) Arterial Blood HCO3 16.0 mmol/L (21.0-28.0) Arterial Blood Oxygen Saturation 96.6 % (94.0-98.0) Arterial Blood Base Excess -6.9 mmol/L (-2.0-3.0) Arterial Blood Oxyhemoglobin 95.8 % (94.0-98.0) Arterial Blood Carboxyhemoglobin 0.3 % (0.5-1.5) Arterial Blood Methemoglobin 0.5 % (0.0-1.5) Hood Test Yes Blood Gas Total Hemoglobin 9.10 g/dL (12.0-16.0) Blood Gas Modality Room air FiO2 % 21.0 Prothrombin Time 10.1 sec (9.3-11.8) Prothrombin Time INR 0.95 (0.9-1.15) Activated Partial Thromboplast Time 26.0 SEC (24.5-34.5) Lactic Acid Level 0.8 mmol/L (0.4-2.0) Ammonia < 10 umol/L (11-32) Differential Total Cells Counted 100.0 (100) Neutrophils % (Manual) 97 (37.0-80.0) Band Neutrophils % (Manual) 0 Lymphocytes % (Manual) 2 (10.0-50.0) Monocytes % (Manual) 1 (0-12) Eosinophils % (Manual) 0 (0-7) Basophils % (Manual) 0 (0.0-2.0) Metamyelocytes % (manual) 0 Myelocytes % (Manual) 0 Promyelocytes % (Manual) 0 Blast Cells % (Manual) 0 Reactive Lymphocytes 0 Platelet Estimate Adequate Hemoglobin A1c 4.8 % A1C (<5.7) Direct Bilirubin < 0.1 mg/dL (<0.3) Triglycerides Level 164 mg/dL (< 150) Cholesterol Level 195 mg/dL (< 200) LDL Cholesterol 94 mg/dL (< 100) HDL Cholesterol 70 mg/dL (40-59) Vitamin B12 Level 413 pg/mL (211-911) Vitamin D 25-Hydroxy 23.4 ng/mL (30.0-100) Thyroid Stimulating Hormone (TSH) 1.63 uIU/mL (0.55-4.78) Other Laboratory Tests 04/10/25 05:00 Brief Hx & Hospital Course: Torie Starks is a 34-year-old female with past medical history of hypertension, dyslipidemia, SLE complaints of shortness of breath, tingling in the back of the head since 1 day. Patient reported blood pressure 170/100 at home. Patient stated that he felt short of breath while walking. She stated that she was admitted here a week back for hypertensive urgency left pleural effusion. Patient denied any use dysuria, frequency of urination or abdominal pain. Her phosphorous levels were elevated, had anemia. Chest x-ray showed Small left pleural effusion and atelectasis/consolidation at left lung base. Head CT and brain MRI was normal. Renal function was worsening. Nephrology consult was given who advised of no urgent need for dialysis. She was treated with erythropoietin stimulating agents, immunosuppressants, antibiotics, antihypertensives. During the course of the hospitalization she was clinically better and since being discharged. 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 Chronic Kidney Disease stage 5 secondary to lupus nephritis Secondary hyperphosphatemia, uncontrolled, due to CKD Hypertensive urgency Essential Hypertension Dyslipidemia Anxiety Vitamin-D deficiency Discharge Disposition: Home Discharge Instruct/Medications Diet: Renal Activity: No Restrictions, As Tolerated Follow Up/Referral: F/u with PCP in 7 days F/u with nephrology as outpatient Scheduled Amlodipine Besylate (Norvasc Tablet), 10 MG PO DAILY Amoxicillin & Pot Clavulanate (Augmentin Tablet), 875 MG PO BID Cholecalciferol (Vitamin D3), 1,000 UNIT PO DAILY, (Reported) Clonidine Hydrochloride (Clonidine Hcl), 1 TAB PO BID Ferrous Sulfate (Ferrous Sulfate), 1 TAB PO DAILY Hydroxychloroquine Sulfate (Hydroxychloroquine Sulfat), 200 MG PO DAILY Labetalol HCl (Labetalol HCl), 400 MG PO BID Mycophenolate Mofetil (Mycophenolate Mofetil), 1,500 MG PO BID Prednisone (Prednisone), 20 MG PO TID Sevelamer Carbonate (Sevelamer Carbonate), 800 MG PO TID Sodium Bicarbonate (Sodium Bicarbonate), 650 MG PO QID Miscellaneous Medications Folic Acid (Folic Acid), 1 MG PO, (Reported) Discontinued Medications Amlodipine Besylate (Amlodipine Besylate), 10 MG PO DAILY Furosemide (Lasix), 40 MG PO DAILY Hydroxychloroquine Sulfate (Hydroxychloroquine Sulfat), 200 MG PO, (Reported) Labetalol Hcl (Labetalol Hcl), 3 TAB PO BID Mycophenolate Mofetil (Mycophenolate Mofetil), 500 MG PO BID Pantoprazole Sodium Sesquihydr (Protonix), 40 MG PO DAILY Prednisone (Prednisone), 20 MG PO TID Discharge Statement: "Patient was advised to return to the ER or call 911 if any headaches, dizziness, shortness of breath, chest pain, abdominal pain, bleeding, fevers, or worsening of medical condition. Patient was counseled about treatment plan, medications, possible side effects, patientverbalized understanding. All questions were answered to the best of my ability. 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
[2025-04-10] MEDS ORDERED: SEVE800T10 PO (15:06)
[2025-04-10] MEDS ORDERED: CEFEPIME 0.5 GM in SODIUM CHL 0.9% 50 ML IV SCH (22:00)
== END 2025-04-10 16:40 | disposition home or self-care (01) | DRG 720 ==
LOC: ER 14:53 → OVERFLOW 20:53 → TELE-EAST 04-07 02:01 → EAST 04-09 23:55
PROVIDERS: ADMIT Internal Medicine Geriatric Medicine; ATTEND Internal Medicine Geriatric Medicine
DX: A41.9 Sepsis, unspecified organism (principal); N17.0 Acute kidney failure with tubular necrosis; G05.3 Encephalitis and encephalomyelitis in diseases classified elsewhere; J15.69 Pneumonia due to other Gram-negative bacteria; E87.20 Acidosis, unspecified; I16.1 Hypertensive emergency; D84.821 Immunodeficiency due to drugs; D63.1 Anemia in chronic kidney disease; E83.39 Other disorders of phosphorus metabolism; E87.3 Alkalosis; I12.0 Hypertensive chronic kidney disease with stage 5 chronic kidney disease or end stage renal disease; N18.5 Chronic kidney disease, stage 5; J15.9 Unspecified bacterial pneumonia; J90 Pleural effusion, not elsewhere classified; N39.0 Urinary tract infection, site not specified; M32.14 Glomerular disease in systemic lupus erythematosus; E78.5 Hyperlipidemia, unspecified; F41.1 Generalized anxiety disorder; M32.19 Other organ or system involvement in systemic lupus erythematosus; Z79.60 Long term (current) use of unspecified immunomodulators and immunosuppressants; Z82.49 Family history of ischemic heart disease and other diseases of the circulatory system; Z91.199 Patient's noncompliance with other medical treatment and regimen due to unspecified reason
CPT/HCPCS: 36415; 36600; 70450; 70551; 71045; 80048; 80053; 80061; 80076; 81001; 82043; 82140; 82306; 82570; 82607; 82728; 82746; 82805; 83010; 83036; 83540; 83550; 83605; 83615; 83735; 84100; 84156; 84300; 84443; 85007; 85025; 85027; 85045; 85610; 85730; 86038; 86160; 86880; 87040; 87070; 87081; 87086; 87205; 87340; 93005; G0378; J1756; J2405; J7517

== ENCOUNTER 2025-04-18 06:22 | Inpatient (IN) | payer MEDICAID ==
[~2025-04-18] VITALS: Ht 160 cm; Wt 72.1 kg
[2025-04-18] VITALS (8 sets, daily range): BP systolic 110–173; BP diastolic 82–100; PULSE 80–111; RESP 19–26; TEMP 97.6–98; O2SAT 93–97
[~2025-04-18 06:22] MED LIST changes: -ALPR0.25 PO; +AML5T PO; -AMLO1TAB23 PO; +AUG875T PO; +CHOL1TAB30 PO; +FER325T PO; -FURO1TAB31 PO; +FURO40TA4 PO; -LABE100T7 PO; +LABE200T10 PO; +LOS25T PO; -PANT40TA2 PO; +PANT40TA57 PO; +SERT25TA28 PO; +SEVE800T10 PO; +SODI650T PO
--- NOTE | 2025-04-18 06:39 | ECG ---
[facility] Test Date: 2025-04-18 Test Time: 06:31:27 Pat Name: KEHINDE TINSLEY Department: ED Room: 0214 Gender: F Digital Music Instructor: WILLIAM : 1990 Requested By: RAYSHAWN LITTLE Order Number: [id number] Reading MD: Arnaldo Emmanuel Measurements Intervals [place] Rate: 99 P: 61 [place]: 122 QRS: 30 QRSD: 90 T: 44 QT: 337 QTc: 433 Interpretive Statements Sinus rhythm Probable left atrial enlargement Electronically Signed On 04-19-2025 15:46:01 PST by Arnaldo Emmanuel Please click the below link to view image of tracing.
--- NOTE | 2025-04-18 07:04 | ED.PDOC ---
SOB-HPI HPI Comments This is a 34 year old female OBDULIA presenting to the ED with chief complaint of SOB. Patient reports that she has been experiencing SOB with associated chills since yesterday. Patient relays that she had been in contact with sick family members at home. EMS states patient was 78% on RA initially, but after one DuoNeb treatment, she had went up to 96% on RA. Patient denies any chest pain, cough, fever, dizziness, N/V, or hemoptysis. Chief Complaint: Flu like Time Seen by MD: 07:03 Primary Care Provider: MOUNIKA Gonzalez notes: Nurses Notes, Plastics Fitter Notes, Medications, Allergies Information Source: Patient, Emergency Med Personnel Mode of Arrival: EMS Severity: Moderate Timing: Hours Duration: Since onset Context: At Rest PE Risk Factors: None History of: None Prehospital treatment: Breathing Tx, Oxygen Modifying Factors: Nothing Past Medical History PAST MEDICAL HISTORY: HTN Past Medical History (Other): Lupus, Nephritis Surgical History: Denies all surgeries CASING BUILDER History: Denies all CASING BUILDER Hx Family History Family History: Reviewed,noncontributory to illness, Family hx of HTN Social History Smoker: Non-Smoker Alcohol: Denies ETOH Use Drugs: Denies Drug Use Lives In: Home Constitutional: reports: chills; denies: diaphoresis, fatigue, fever, malaise, sweats, weakness, others EENTM: denies: blurred vision, double vision, ear bleeding, ear discharge, ear drainage, ear pain, ear ringing, eye pain, eye redness, hearing loss, mouth pain, mouth swelling, nasal discharge, nose bleeding, nose congestion, nose pain, photophobia, tearing, throat pain, throat swelling, voice changes, others Respiratory: reports: shortness of breath; denies: cough, hemoptysis, orthopnea, SOB at rest, SOB with excertion, stridor, wheezing, others Cardiovascular: denies: chest pain, dizzy spells, diaphoresis, Dyspnea on exertion, edema, irregular heart beat, left arm pain, lightheadedness, palpitations, PND, syncope, others Gastrointestinal: denies: abdomen distended, abdominal pain, blood streaked bowels, constipated, diarrhea, dysphagia, difficulty swallowing, hematemesis, melena, nausea, poor appetite, poor fluid intake, rectal bleeding, rectal pain, vomiting, others Genitourinary: denies: abnormal vagina bleeding, burning, dyspareunia, dysuria, flank pain, frequency, hematuria, incontinence, pain, , vagina discharge, urgency, others Neurological: denies: dizziness, fainting, headache, left sided numbness, left sided weakness, numbness, paresthesia, pre-existing deficit, right sided numbness, right sided weakness, seizure, speech problems, tingling, tremors, weakness, others Musculoskeletal: denies: back pain, gout, joint pain, joint swelling, muscle pain, muscle stiffness, neck pain, others Integumetry: denies: bruises, change in color, change in hair/nails, dryness, laceration, lesions, lumps, rash, wounds, others Allergic/Immunocompromised: denies: Difficulty Healing, Frequent Infections, Hives, Itching, others Hematologic/Lymphatic: denies: anemia, blood clots, easy bleeding, easy bruising, swollen glands, others Endocrine: denies: excessive hunger, excessive sweating, excessive thirst, excessive urination, flushing, intolerance to cold, intolerance to heat, unexplained weight gain, unexplained weight loss, others Psychiatric: denies: anxiety, bipolar disorder, depression, hopeless, panic disorder, schizophrenia, sleepless, suicidal, others All Other Systems: Reviewed and Negative Physical Exam General Appearance: Moderate Distress HEENT: Normal ENT Inspection, Pharynx Normal, TMs Normal Neck: Full Range of Motion, Non-Tender, Normal, Normal Inspection Respiratory: Chest Non-Tender, Decreased Breath Sounds, No Accessory Muscle Use, Rales, Respiratory Distress Cardiovascular: No Edema, No JVD, No Murmur, No Gallop, Normal Peripheral Pulses, Regular Rate/Rhythm Breast Exam: Deferred Gastrointestinal: No Organomegaly, Non Tender, No Pulsatile Mass, Normal Bowel Sounds, Soft Genitalia: Deferred Pelvic: Deferred Rectal: Deferred Extremities: No calf tenderness, Normal capillary refill, Pedal edema Musculoskeletal : Apperance: Normal Neurologic: Alert, nurses' aide II-XII nml as Tested, Motor Weakness, Normal Affect, Normal Mood, No Sensory Deficits Cerebellar Function: Normal Reflexes: Normal Skin: Dry, Normal Color, Warm Lymphatic: No Adenopathy EKG EKG : Pulse Rate (adult): 99 [place]: Normal Cardiac Rhythm: NSR Block: None Hypertrophy: LAE ST: Normal Was a procedure done? Was a procedure done?: No Differential Dx Differential Diagnosis: Asthma, Bronchitis, CHF, COPD, Pneumonia X-Ray, Labs, Meds, VS Vital Signs Date Time Temp Pulse Resp B/P (MAP) Pulse Ox O2 Delivery O2 Flow Rate FiO2 04/18/25 07:04 99 04/18/25 06:31 99 04/18/25 06:25 98.2 101 17 194/101 97 98.2 Lab Test 04/18/25 07:00 Range/Units White Blood Count 5.6 4.4-10.8 10^3/uL Red Blood Count 3.51 L 4.0-5.20 10^6/uL Hemoglobin 9.3 L 12.2-16.2 g/dL Hematocrit 28.0 L 36.0-46.0 % Mean Corpuscular Volume 79.8 L 80.0-100.0 fL Mean Corpuscular Hemoglobin 26.5 L 28.0-32.0 pg Mean Corpuscular Hemoglobin Concent 33.2 32.0-36.0 g/dL Red Cell Distribution Width 19.7 H 11.8-14.3 % Platelet Count 330 140-450 10^3/uL Mean Platelet Volume 7.6 6.9-10.8 fL Neutrophils (%) (Auto) 37.0-80.0 % Lymphocytes (%) (Auto) 10.0-50.0 % Monocytes (%) (Auto) 0.0-12.0 % Basophils (%) (Auto) 0.0-2.0 % Neutrophils # (Auto) 1.6-8.6 10 ^3/uL Lymphocytes # (Auto) 0.4-5.4 10 ^3/uL Monocytes # (Auto) 0-1.3 10 ^3/uL Differential Total Cells Counted Pending Neutrophils % (Manual) Pending Band Neutrophils % (Manual) Pending Lymphocytes % (Manual) Pending Monocytes % (Manual) Pending Eosinophils % (Manual) Pending Basophils % (Manual) Pending Metamyelocytes % (manual) Pending Myelocytes % (Manual) Pending Promyelocytes % (Manual) Pending Blast Cells % (Manual) Pending Reactive Lymphocytes Pending Platelet Estimate Pending Sodium Level 137 136-145 mmol/L Potassium Level 4.5 3.5-5.1 mmol/L Chloride Level 102 98-107 mmol/L Carbon Dioxide Level 21 20-31 mmol/L Anion Gap 14 5-15 Blood Urea Nitrogen 72 H 9-23 mg/dL Creatinine 3.38 H 0.550-1.02 mg/dL Glomerular Filtration Rate Calc 18 >90 mL/min BUN/Creatinine Ratio 21.3 H 10.0-20.0 Serum Glucose 94 74-106 mg/dL Calcium Level 8.7 8.7-10.4 mg/dL B-Type Natriuretic Peptide Pending Chest XR indicates: 1. Small to moderate left pleural effusion with overlying atelectasis and/or consolidation. 2. Findings consistent with pulmonary vascular congestion / interstitial pulmonary edema in the appropriate clinical setting as described above. IV Hep-Lock was established. The patient was given Lasix 40 mg IV push The BUN is 72 and the creatinine is 3.38 The CBC shows a CBC with a hemoglobin of 9.3 and hematocrit of 28 The patient's platelets are within normal limits At this time, the patient is being admitted to the hospitalist. The patient will have a Cardiology consult. Images Reviewed?: Images reviewed and evaluated by me Time of 1ST Reevaluation: 08:13 Reevaluation 1ST: Unchanged Patient Education/Counseling: Diagnosis, Treatment, Prognosis Family Education/Counseling: No Family Present SEPSIS Sepsis Screen Date sepsis recognized/suspect: Apr 18, 2025 Time Sepsis recognized/suspect: 624 Recent Procedure: No On Antibiotic Therapy: No Respiratory Rate >20: No Heart Rate >90: Yes Temp<36 C (96.8 F) or >38.3 C: No SBP <90 or MAP <65 mmHG: No New Acute Mental Status Change: No Is the patient on CPAP, BIPAP,: No Physician Orders Complete Blood Count (04/18/25 06:39) B-Type Natriuretic Peptide (04/18/25 06:39) Chest Portable (04/18/25 06:39) Heplock Iv (04/18/25 06:39) Attendance Secretary (04/18/25 06:39) Blood Pressure (04/18/25 06:39) Pulse Oximetry (04/18/25 06:39) Manual Differential (04/18/25 07:00) Furosemide Injection (Lasix Injection) (04/18/25 08:15) Vital Signs Date Time Temp Pulse Resp B/P (MAP) Pulse Ox O2 Delivery O2 Flow Rate FiO2 04/18/25 07:04 99 04/18/25 06:31 99 04/18/25 06:25 98.2 101 17 194/101 97 98.2 Laboratory Tests Test 04/18/25 07:00 White Blood Count 5.6 10^3/uL (4.4-10.8) Departure 1 Departure Time of Disposition: 08:12 Impression: Primary Impression: Acute on chronic diastolic heart failure Disposition: ADMITTED INPATIENT Admit to: Tele Condition: Fair Critical Care Note Critical Care Time?: Yes (45 min-critical care time only) Stability Stability form required: Yes Unstable for transfer: Telemetry monitoring (Telemetry monitoring required), ED Physician Assesment (Clinical assesment) Heart Score Heart Score: Heart Score Response (Comments) Value History N/A 0 EKG N/A 0 Age N/A 0 Risk Factors N/A 0 Troponin N/A 0 Total 0 I personally scribed for RAYSHAWN LITTLE MD ([email or web address]) on 04/18/25 at 07:04. Electronically submitted by Josue Bates ([email or web address]). I personally scribed for RAYSHAWN LITTLE MD ([email or web address]) on 04/18/25 at 07:38. Electronically submitted by Josue Bates ([email or web address]). RAYSHAWN LITTLE MD Apr 18, 2025 07:04
--- NOTE | 2025-04-18 07:28 | DVH ---
CLINICAL INFORMATION: Shortness of breath. TECHNIQUE: Single AP portable chest radiograph was obtained. COMPARISON: XY CHEST XRAY 1 VIEW on DOS: 04/06/25, XY CHEST XRAY 1 VIEW on DOS: 03/26/25, XY CHEST XRAY 1 VIEW on DOS: 03/21/25 FINDINGS: Lungs: Small to moderate left pleural effusion with overlying atelectasis and/or consolidation, appears increased in size compared to the prior radiographs. Mild atelectasis in the left lung base. Mild bilateral perihilar interstitial opacities also noted. Cardiac: Mild cardiomegaly. Pulmonary vasculature: Prominence of the pulmonary vasculature. Mediastinum/pastor: Unremarkable. Bones: No acute osseous abnormality identified. Other: No other significant findings. IMPRESSION: 1. Small to moderate left pleural effusion with overlying atelectasis and/or consolidation. 2. Findings consistent with pulmonary vascular congestion / interstitial pulmonary edema in the appropriate clinical setting as described above.
[2025-04-18 07:45] LABS: Hemoglobin 9.3 g/dL (12.2-16.2)
[2025-04-18 07:49] LABS: Hematocrit 28.0 % (36.0-46.0); Mean Corpuscular Hemoglobin 26.5 pg (28.0-32.0); Mean Corpuscular Volume 79.8 fL (80.0-100.0)
[2025-04-18 07:51] LABS: Chloride 102 mmol/L (98-107); Potassium 4.5 mmol/L (3.5-5.1); Sodium 137 mmol/L (136-145)
[2025-04-18 07:52] LABS: Anion Gap 14 (5-15); Carbon Dioxide 21 mmol/L (20-31)
[2025-04-18 07:53] LABS: Calcium 8.7 mg/dL (8.7-10.4)
[2025-04-18 07:57] LABS: BUN/Creatinine Ratio 21.3 (10.0-20.0); Glucose 94 mg/dL (74-106)
[2025-04-18 07:58] LABS: Blood Urea Nitrogen 72 mg/dL (9-23)
[2025-04-18 08:27] LABS: Total Cells Counted 100.0 (100)
[2025-04-18] MEDS: methylPREDNISolone SOD SUCC 125 MG/2 ML VL IV ONE (09:05)
[2025-04-18] MEDS: hydrALAZINE HCL 20 MG/ML VL IV ONE (09:05)
[2025-04-18] MEDS: FUROSEMIDE 40 MG/4 ML VIAL IV ONE (09:06)
[2025-04-18] MEDS ORDERED: ONDANSETRON HCL 4 MG/2 ML VIAL IV PRN (13:45)
--- NOTE | 2025-04-18 17:11 | DVHHP2 ---
History of Present Illness Reason for Visit: Shortness for breath History of Present Illness 34-year-old female presents for evaluation of shortness for breath. Patient reports a two day history of shortness for breath with associated chills. Again friends happened like patient denies chest pain or palpitations. She also rep orts lower extremity swelling the can not. Past Medical History Hypertension, lupus, chronic kidney disease Past Surgical History Denies Family History Noncontributory Smoke: No ALCOHOL: none Drugs: None Lives: with Family Review of Systems Review of Systems Review of systems are currently negative otherwise dressing HPI. Allergies: Coded Allergies: NO KNOWN ALLERGIES (Unverified , 03/20/24) Medications Current Medications Medications Dose Ordered Sig/Mica Route Start Time Stop Time Status Last Admin Dose Admin Mycophenolate Mofetil 1,500 mg BID PO 04/18/25 22:00 Labetalol HCl 400 mg Q12HR PO 04/18/25 22:00 Amlodipine Besylate 10 mg DAILY PO 04/19/25 10:00 Clonidine HCl 0.1 mg BID PO 04/18/25 22:00 Sodium Bicarbonate 650 mg BID PO 04/18/25 22:00 Sevelamer HCl 800 mg TIDWM PO 04/18/25 18:00 Hydroxychloroquine Sulfate 200 mg DAILY PO 04/19/25 10:00 Furosemide 20 mg BIDD IV 04/18/25 18:00 Albuterol 2.5 mg Q6HPRN PRN NEB 04/18/25 13:45 Ondansetron HCl 4 mg Q4HP PRN IV 04/18/25 13:45 Acetaminophen 650 mg Q6HP PRN PO 04/18/25 13:45 Exam Vital Signs Vital Signs Date Time Temp Pulse Resp B/P (MAP) Pulse Ox O2 Delivery O2 Flow Rate FiO2 04/18/25 16:46 89 19 150/82 (104) 97 04/18/25 13:55 1.0 24 04/18/25 08:32 97.8 97.8 04/18/25 08:32 Nasal Cannula* Exam Gen: 34-year-old female in mild distress brain Skin: Warm, dry, normal color and texture, no rash. HEENT: Normocephalic atraumatic, mucous membranes moist and pink. Neck: Cervical and supraclavicular nodes normal without enlargement, trachea is midline, thyroid gland is normal without masses. Pulmonary: Clear to auscultation and percussion bilaterally. Cardiac: Regular rate and rhythm. No murmur Abdomen: Soft, nontender, nondistended, bowel sounds present all 4 quadrants, no guarding, no rigidity, no organomegaly. Extremities: No cyanosis, clubbing, plus two bilateral pedal edema Neuro: Cranial nerves II through XII grossly intact, normal affect and speech, no focal motor deficits. Labs/Xrays ORDERING PHYSICIAN: MARY AZAR MD PROCEDURE(s): ECIDC - ECHO 2D MODE CARDIAC DOP REASON: chf eval ORDER NUMBER(s): [id number], ACCESSION NUMBER(s): [id number] APPROVED REPORT EXAM: Two-dimensional and M-mode echocardiogram with Doppler and color Doppler. Blood Pressure: 124/67 mmHg INDICATION CHF EVAL RISK FACTORS Height: 63, Weight: 161 DIMENSIONS LVDd 4.5 (3.8-5.7cm) LA (2D) 3.5 (1.9-4.0cm) Aortic Root 3.7 (2.0- 3.7cm) LVDs 3.1 (2.5-4.0cm) LA (MM) (1.9-4.0cm) Aortic Cusp Exc 1.9 (1.5- 2.0cm) EF (%) 61.0 (55-70%) Rt. Atrium 3.4 (1.9-4.0cm) Asc. Aorta cm Mitral Valve Mitral Mitral Stenosis E wave 0.97m/s MV Mean GR. mmHg A wave 1.20m/s MV Peak GR. mmHg E/A ratio 0.8 2D MVA cm2 DECEL Time 185ms PRESS 1/2 Time 50ms IVRT ms Dop MVA 4.43cm2 Aortic Valve Aortic Valve Aortic Stenosis V1 1.32m/s AO Mean GR. 6mmHg V2 1.62m/s AO Peak GR. 10mmHg LVOT Diameter 2.0 (1.8-2.4cm) Doppler NEREIDA 2.56cm2 Pulmonic Valve V2 1.29m/s Conclusion Technically difficult study. Sinus rhythm. Mild aortic root enlargement. Concentric LVH. Valves are normal. EF of 55-60% with normal RV function. Mild TR. Moderate pericardial effusion noted primarily in the lateral wall. Fibrinoid deposition noted. No evidence for tamponade. Pleural effusion also noted. ORDERING PHYSICIAN: RAYSHAWN LITTLE MD PROCEDURE(s): CXRP - CHEST PORTABLE REASON: sob ORDER NUMBER(s): [id number], ACCESSION NUMBER(s): [id number] CLINICAL INFORMATION: Shortness of breath. TECHNIQUE: Single AP portable chest radiograph was obtained. COMPARISON: XY CHEST XRAY 1 VIEW on DOS: 04/06/25, XY CHEST XRAY 1 VIEW on DOS: 03/26/25, XY CHEST XRAY 1 VIEW on DOS: 03/21/25 FINDINGS: Lungs: Small to moderate left pleural effusion with overlying atelectasis and/or consolidation, appears increased in size compared to the prior radiographs. Mild atelectasis in the left lung base. Mild bilateral perihilar interstitial opacities also noted. Cardiac: Mild cardiomegaly. Pulmonary vasculature: Prominence of the pulmonary vasculature. Mediastinum/pastor: Unremarkable. Bones: No acute osseous abnormality identified. Other: No other significant findings. IMPRESSION: 1. Small to moderate left pleural effusion with overlying atelectasis and/or consolidation. 2. Findings consistent with pulmonary vascular congestion / interstitial pulmonary edema in the appropriate clinical setting as described above. Labs Test 04/18/25 07:00 Range/Units White Blood Count 5.6 4.4-10.8 10^3/uL Red Blood Count 3.51 L 4.0-5.20 10^6/uL Hemoglobin 9.3 L 12.2-16.2 g/dL Hematocrit 28.0 L 36.0-46.0 % Mean Corpuscular Volume 79.8 L 80.0-100.0 fL Mean Corpuscular Hemoglobin 26.5 L 28.0-32.0 pg Mean Corpuscular Hemoglobin Concent 33.2 32.0-36.0 g/dL Red Cell Distribution Width 19.7 H 11.8-14.3 % Platelet Count 330 140-450 10^3/uL Mean Platelet Volume 7.6 6.9-10.8 fL Neutrophils (%) (Auto) 37.0-80.0 % Lymphocytes (%) (Auto) 10.0-50.0 % Monocytes (%) (Auto) 0.0-12.0 % Basophils (%) (Auto) 0.0-2.0 % Neutrophils # (Auto) 1.6-8.6 10 ^3/uL Lymphocytes # (Auto) 0.4-5.4 10 ^3/uL Monocytes # (Auto) 0-1.3 10 ^3/uL Differential Total Cells Counted 100.0 100 Neutrophils % (Manual) 95 H 37.0-80.0 Band Neutrophils % (Manual) 0 Lymphocytes % (Manual) 2 L 10.0-50.0 Monocytes % (Manual) 3 0-12 Eosinophils % (Manual) 0 0-7 Basophils % (Manual) 0 0.0-2.0 Metamyelocytes % (manual) 0 Myelocytes % (Manual) 0 Promyelocytes % (Manual) 0 Blast Cells % (Manual) 0 Reactive Lymphocytes 0 Platelet Estimate Adequate Sodium Level 137 136-145 mmol/L Potassium Level 4.5 3.5-5.1 mmol/L Chloride Level 102 98-107 mmol/L Carbon Dioxide Level 21 20-31 mmol/L Anion Gap 14 5-15 Blood Urea Nitrogen 72 H 9-23 mg/dL Creatinine 3.38 H 0.550-1.02 mg/dL Glomerular Filtration Rate Calc 18 >90 mL/min BUN/Creatinine Ratio 21.3 H 10.0-20.0 Serum Glucose 94 74-106 mg/dL Calcium Level 8.7 8.7-10.4 mg/dL B-Type Natriuretic Peptide 1541.85 0-100 pg/mL SEPSIS Sepsis Screen Date sepsis recognized/suspect: Apr 18, 2025 Time Sepsis recognized/suspect: 829 Recent Procedure: No On Antibiotic Therapy: No Respiratory Rate >20: Yes Heart Rate >90: No Temp<36 C (96.8 F) or >38.3 C: No SBP <90 or MAP <65 mmHG: No New Acute Mental Status Change: No Is the patient on CPAP, BIPAP,: No Physician Orders Mycophenolate Mofetil (Cellcept) (04/18/25 22:00) Labetalol Hcl Tablet (Normodyne Tablet) (04/18/25 22:00) Amlodipine Tablet (Norvasc Tablet) (04/19/25 10:00) Clonidine Hcl Tablet (Catapres Tablet) (04/18/25 22:00) Sodium Bicarb Tab (04/18/25 22:00) Sevelamer (Renagel) (04/18/25 18:00) Hydroxychloroquine Tablet (Plaquenil Tab (04/19/25 10:00) * Cardiology Consult (04/18/25 13:43) Furosemide Injection (Lasix Injection) (04/18/25 18:00) Basic Metabolic Panel (04/19/25 04:00) Albuterol Medneb (Ventolin Medneb) (04/18/25 13:45) Admit (04/18/25 13:43) Renal Standard(2gna,3gk,Lopho) (04/18/25 Dinner) Ondansetron Hcl (Zofran) (04/18/25 13:45) Cardiac Diet-2gna,Lofat,Lochol (04/18/25 Dinner) Condition: Stable (04/18/25 13:43) Acetaminophen Tablet (Tylenol Tablet) (04/18/25 13:45) Bedrest With Bathroom Privileg (04/18/25 13:43) Clonidine Hcl Tablet (Catapres Tablet) (04/18/25 17:15) Vital Signs Date Time Temp Pulse Resp B/P (MAP) Pulse Ox O2 Delivery O2 Flow Rate FiO2 04/18/25 16:46 89 19 150/82 (104) 97 04/18/25 16:00 99 04/18/25 16:00 99 15 178/106 (130) 99 04/18/25 15:00 90 18 172/97 (122) 95 04/18/25 14:00 96 14 166/89 (114) 95 04/18/25 13:55 111 20 161/85 97 1.0 24 04/18/25 13:00 94 22 161/85 (110) 98 04/18/25 12:00 93 04/18/25 12:00 90 16 152/77 (102) 97 04/18/25 11:00 95 20 166/92 (116) 96 04/18/25 10:30 90 20 152/79 (103) 97 04/18/25 10:00 89 21 152/79 (103) 95 04/18/25 09:36 86 27 155/77 (103) 95 Laboratory Tests Test 04/18/25 07:00 White Blood Count 5.6 10^3/uL (4.4-10.8) Medications Medications Dose Ordered Sig/Mica Route Start Time Stop Time Status Last Admin Dose Admin Furosemide 40 mg ONCE ONCE IV 04/18/25 08:15 04/18/25 08:16 DC 04/18/25 09:06 40 MG Hydralazine HCl 15 mg ONCE ONCE IV 04/18/25 06:45 04/18/25 06:46 DC 04/18/25 09:05 15 MG Methylprednisolone Sodium Succinate 125 mg ONCE ONCE IV 04/18/25 06:45 04/18/25 06:46 DC 04/18/25 09:05 125 MG Assessment/Plan Assessment/Plan Assessment Acute on chronic heart failure Lupus nephritis Accelerated hypertension Plan Admit the patient to Med surge to the hospitalist Cardiology consultation Resume home medications IV Lasix Continue treatment per orders. Plan discussed with: Patient My Orders Orders - IRMA TUTTLE AGACNP Procedure Category Date Status Time Mycophenolate Mofetil PHA 04/18/25 In Process (Cellcept) 22:00 Labetalol Hcl Tablet PHA 04/18/25 In Process (Normodyne Tablet) 22:00 Amlodipine Tablet PHA 04/19/25 In Process (Norvasc Tablet) 10:00 Clonidine Hcl Tablet PHA 04/18/25 In Process (Catapres Tablet) 22:00 Sodium Bicarb Tab PHA 04/18/25 In Process 22:00 Sevelamer (Renagel) PHA 04/18/25 In Process 18:00 Hydroxychloroquine PHA 04/19/25 In Process Tablet (Plaquenil Tab 10:00 * Cardiology Consult CONS 04/18/25 Transmitted 13:43 Furosemide Injection PHA 04/18/25 In Process (Lasix Injection) 18:00 Basic Metabolic Panel LAB 04/19/25 Verified 04:00 Albuterol Medneb PHA 04/18/25 In Process (Ventolin Medneb) 13:45 Admit ADMIT 04/18/25 Transmitted 13:43 Renal DIET 04/18/25 Transmitted Standard(2gna,3gk,Lopho) Dinner Ondansetron Hcl PHA 04/18/25 In Process (Zofran) 13:45 Cardiac DIET 04/18/25 Transmitted Diet-2gna,Lofat,Lochol Dinner Condition: Stable ALEENA 04/18/25 In Process 13:43 Acetaminophen Tablet PHA 04/18/25 In Process (Tylenol Tablet) 13:45 Bedrest With Bathroom ALEENA 04/18/25 In Process Privileg 13:43 Clonidine Hcl Tablet [facility] 04/18/25 Transmitted (Catapres Tablet) 17:15 Date of Service: Apr 18, 2025 Billing Provider: IRMA TUTTLE Common Visit Codes: [id number] INP/OBS CARE (HIGH) IRMA TUTTLE Apr 18, 2025 17:11
[2025-04-18] MEDS: SEVELAMER 800 MG TAB PO SCH (17:38)
[2025-04-18] MEDS: FUROSEMIDE 20 MG/2 ML VIAL IV SCH (17:39)
[2025-04-18] MEDS: MYCOPHENOLATE 500 MG TAB PO SCH (21:45)
[2025-04-18] MEDS: ACETAMINOPHEN 325 MG TAB PO PRN (21:46)
[2025-04-18] MEDS: SODIUM BICARBONATE 650 MG TAB PO SCH (21:47)
[2025-04-18] MEDS: LABETALOL HCL 200 MG TAB PO SCH (21:47)
[2025-04-19] VITALS (10 sets, daily range): BP systolic 126–158; BP diastolic 56–90; PULSE 59–100; RESP 16–20; TEMP 97.5–98.1; O2SAT 92–100
[2025-04-19] MEDS: ALBUTEROL SULF 2.5 MG/0.5ML(0.5%) NEB SOLN NEB PRN (06:26)
[2025-04-19 06:54] LABS: Chloride 106 mmol/L (98-107); Potassium 4.7 mmol/L (3.5-5.1); Sodium 139 mmol/L (136-145)
[2025-04-19 06:55] LABS: Anion Gap 13 (5-15); Carbon Dioxide 20 mmol/L (20-31)
[2025-04-19 07:00] LABS: Glucose 95 mg/dL (74-106)
[2025-04-19 07:01] LABS: BUN/Creatinine Ratio 19.9 (10.0-20.0)
[2025-04-19 07:02] LABS: Blood Urea Nitrogen 72 mg/dL (9-23); Calcium 8.0 mg/dL (8.7-10.4)
--- NOTE | 2025-04-19 10:06 | DVHCONRES ---
Date Seen: Apr 19, 2025 Resident Creating Document: DAMIAN KHAN RESIDENT Referring Physician Chris MENCHACA Reason for Consultation Elevated BNP History of Present Illness gold Starks is a 34 years old female with a PMH of HTN, DLD, SLE, lupus nephritis/CKD presented to the ED with the chief complaints of shortness of breath and lower extremity swelling. Patient reported that she has been having multiple admissions in last 2 months due to elevated blood pressure and lupus nephritis. Patient reported that she had fluid in the lungs which was removed in during the last visit and again she is feeling the same with the difficulty breathing and increased blood pressure along with lower extremity swelling which made him to visit ED. On arrival to ED patient EKG showed normal sinus rhythm BNP was more than 1000, CXR showed congestion /pulmonary edema. Ordered echocardiogram to rule out pericardial effusion PMH: As above Surgical history: Denies Family history: Hypertension and father Social history: Lives in [place] with family (next of kin is boyfriend and parents). She recently moved from [place]. Denies current tobacco, alcohol and other drug abuse Allergies: Denies Home medication: Mycophenolate, prednisone, furosemide, hydrochloroquine, clonidine Patient seen and examined at bedside. Currently patient is reporting having difficulty breathing and currently on 2-3 L of oxygen NC And leg swelling but no tenderness/pain. Rest of ROS is negative Family History: Hypertension G8 FATHER Allergies: Coded Allergies: NO KNOWN ALLERGIES (Unverified , 03/20/24) Home Meds Active Scripts Sevelamer Carbonate (Sevelamer Carbonate) 800 Mg Tab, 800 MG PO TID for 30 Days, #90 TAB Prov:ALEXANDRIA GARCIA RESIDENT 04/10/25 Amlodipine Besylate (NORVASC TABLET) 5 Mg Tb, 10 MG PO DAILY for 30 Days, #60 TAB 3 Refills Prov:ROSS BROWN RESIDENT 04/10/25 Labetalol HCl (Labetalol HCl) 200 Mg Tab, 400 MG PO BID for 30 Days, #120 TAB 3 Refills Prov:ROSS BROWN RESIDENT 04/10/25 Mycophenolate Mofetil (Mycophenolate Mofetil) 500 Mg Tab, 1500 MG PO BID for 30 Days, #180 TAB 2 Refills Prov:ROSS BROWN RESIDENT 04/10/25 Sodium Bicarbonate (Sodium Bicarbonate) 650 Mg Tab, 650 MG PO QID for 30 Days, #120 TAB Prov:ROSS BROWN [facility] 04/10/25 Prednisone (Prednisone) 20 Mg Tab, 20 MG PO TID for 30 Days, #90 TAB Prov:ROSS BROWN [facility] 04/10/25 Hydroxychloroquine Sulfate (Hydroxychloroquine Sulfat) 200 Mg Tab, 200 MG PO DAILY for 30 Days, #30 TAB 3 Refills Prov:ROSS BROWN [facility] 04/10/25 Ferrous Sulfate (FERROUS SULFATE) 325 Mg Tb, 1 TAB PO DAILY for 30 Days, #30 TAB 3 Refills Prov:ROSS BROWN [facility] 04/10/25 Amoxicillin & Pot Clavulanate (AUGMENTIN TABLET) 875 Mg Tb, 875 MG PO BID for 5 Days, #10 TAB Prov:ROSS BROWN [facility] 04/10/25 Clonidine Hydrochloride (Clonidine Hcl) 0.2 Mg Tab, 1 TAB PO BID, #60 TAB 5 Refills Prov:JUSTIN YEPEZ [employer] 03/27/25 Reported Medications Cholecalciferol (VITAMIN D3) 2,000 Unit Tab, 1000 UNIT PO DAILY, TAB 03/21/25 Folic Acid (Folic Acid) 1 Mg Tab, 1 MG PO, TAB 03/26/24 Current Medications Current Medications Medications (Trade) Dose Ordered Sig/Mica Route PRN Reason Start Time Stop Time Status Last Admin Mycophenolate Mofetil (Cellcept) 1,500 mg BID PO 04/18/25 22:00 04/19/25 08:32 Labetalol HCl (Normodyne Tablet) 400 mg Q12HR PO 04/18/25 22:00 04/19/25 08:34 Amlodipine Besylate (Norvasc Tablet) 10 mg DAILY PO 04/19/25 10:00 04/19/25 08:34 Clonidine HCl (Catapres Tablet) 0.1 mg BID PO 04/18/25 22:00 04/19/25 08:35 Sodium Bicarbonate 650 mg BID PO 04/18/25 22:00 04/19/25 08:32 Sevelamer HCl (Renagel) 800 mg TIDWM PO 04/18/25 18:00 04/19/25 08:33 Hydroxychloroquine Sulfate (Plaquenil Tablet) 200 mg DAILY PO 04/19/25 10:00 04/19/25 08:33 Furosemide (Lasix Injection) 20 mg BIDD IV 04/18/25 18:00 04/19/25 05:33 Albuterol (Ventolin Medneb) 2.5 mg Q6HPRN PRN NEB SHORTNESS OF BREATH 04/18/25 13:45 04/19/25 06:26 Ondansetron HCl (Zofran) 4 mg Q4HP PRN IV NAUSEA / VOMITING 04/18/25 13:45 Acetaminophen (Tylenol Tablet) 650 mg Q6HP PRN PO PAIN SCALE 1-3 OR TEMP>100.4 04/18/25 13:45 04/19/25 08:33 Clonidine HCl (Catapres Tablet) 0.1 mg Q6HP PRN PO SBP>160 04/18/25 17:15 04/19/25 03:51 Vital Signs Vital Signs Date Time Temp Pulse Resp B/P (MAP) Pulse Ox O2 Delivery O2 Flow Rate FiO2 04/19/25 08:35 158/86 04/19/25 08:34 86 04/19/25 06:32 16 100 04/19/25 06:27 Nasal Cannula* 2 28 04/19/25 05:00 98.1 98.1 Physical Exam Pt is lying on bed General Appearance: Alert, Oriented X3, Cooperative, Mild distress HEENT: Atraumatic, Mucous membranes moist/pink Respiratory: Clear to auscultation, Normal air movement, No added sounds Cardiovascular: Regular rate, Normal S1, Normal S2, No murmurs Abdominal: Active bowel sounds, Soft, no distention, no tenderness Extremities: 2+ BLE edema pitting Skin: No Significant rash, except past surgical scars Neuro: Normal speech, sensorimotor deficits none Psych/Mental Status: Mental status NL, Mood NL Nurse was there as social work therapist during examination Labs/Diagnostic Data Labs Test 04/19/25 05:02 04/18/25 07:00 Range/Units Sodium Level 139 136-145 mmol/L Potassium Level 4.7 3.5-5.1 mmol/L Chloride Level 106 98-107 mmol/L Carbon Dioxide Level 20 20-31 mmol/L Anion Gap 13 5-15 Blood Urea Nitrogen 72 H 9-23 mg/dL Creatinine 3.62 H 0.550-1.02 mg/dL Glomerular Filtration Rate Calc 16 >90 mL/min BUN/Creatinine Ratio 19.9 10.0-20.0 Serum Glucose 95 74-106 mg/dL Calcium Level 8.0 L 8.7-10.4 mg/dL White Blood Count 5.6 4.4-10.8 10^3/uL Red Blood Count 3.51 L 4.0-5.20 10^6/uL Hemoglobin 9.3 L 12.2-16.2 g/dL Hematocrit 28.0 L 36.0-46.0 % Mean Corpuscular Volume 79.8 L 80.0-100.0 fL Mean Corpuscular Hemoglobin 26.5 L 28.0-32.0 pg Mean Corpuscular Hemoglobin Concent 33.2 32.0-36.0 g/dL Red Cell Distribution Width 19.7 H 11.8-14.3 % Platelet Count 330 140-450 10^3/uL Mean Platelet Volume 7.6 6.9-10.8 fL Neutrophils (%) (Auto) 37.0-80.0 % Lymphocytes (%) (Auto) 10.0-50.0 % Monocytes (%) (Auto) 0.0-12.0 % Basophils (%) (Auto) 0.0-2.0 % Neutrophils # (Auto) 1.6-8.6 10 ^3/uL Lymphocytes # (Auto) 0.4-5.4 10 ^3/uL Monocytes # (Auto) 0-1.3 10 ^3/uL Differential Total Cells Counted 100.0 100 Neutrophils % (Manual) 95 H 37.0-80.0 Band Neutrophils % (Manual) 0 Lymphocytes % (Manual) 2 L 10.0-50.0 Monocytes % (Manual) 3 0-12 Eosinophils % (Manual) 0 0-7 Basophils % (Manual) 0 0.0-2.0 Metamyelocytes % (manual) 0 Myelocytes % (Manual) 0 Promyelocytes % (Manual) 0 Blast Cells % (Manual) 0 Reactive Lymphocytes 0 Platelet Estimate Adequate Troponin I High Sensitivity 25 </=34 ng/L B-Type Natriuretic Peptide 1541.85 0-100 pg/mL Assessment R/o Structural heart diseases R/o Tamponade Acyte hypoxic resp fail likely from pulm edema/ fluid overload from renal failure/ pleural effusion Hypertensive emergency likely in the setting of lupus nephritis Acute kidney injury secondary to lupus nephritis Anemia of CKD and lupus DLD Hx Lupus Plan/Recommendations Echo from 03/21/25 showed EF of 55-60%, Moderate pericardial effusion noted primarily in the lateral wall. Fibrinoid deposition noted. New Echo to r/o effusion or Tamponade Aggressive BP control Nephrology consult to manage lupus nephritis Monitor Labs Diuresis with the Lasix 40 mg IV b.i.d. Strict I&Os Elevated BNP likely from CKD/Lupus We ll signoff if echo is normal or no tamponade noted Rest of management as primary team Case Discussed with dr Zayas Plan discussed with: Patient Date of Service: Apr 19, 2025 Billing Provider: SANDY ZAYAS MD Common Visit Codes: [id number] CARE 30-74 MIN DAMIAN KHAN RESIDENT Apr 19, 2025 10:06 SANDY ZAYAS MD Apr 19, 2025 20:44
[2025-04-19 11:25] LABS: Hepatitis B Surface Antigen Negative (Negative)
[2025-04-19] MEDS: FUROSEMIDE 20 MG/2 ML VIAL IV ONE (11:33)
[2025-04-19 11:43] LABS: Hepatitis C Antibody Negative (Negative)
--- NOTE | 2025-04-19 13:34 | DVHPN2 ---
Reviewed: Care Plan, H&P, Labs, Medications, Previous Orders, Radiology Changes from previous H/P or p: No Changes Objective Vitals Vital Signs Date Time Temp Pulse Resp B/P (MAP) Pulse Ox O2 Delivery O2 Flow Rate FiO2 04/19/25 12:59 97.8 79 20 135/84 (101) 93 97.8 04/19/25 08:00 Nasal Cannula* 2 28 Intake/Output Intake and Output 04/19/25 07:00 Intake Total 480 ml Output Total 900 ml Balance -420 ml Intake Oral 480 ml Output Urine Total 900 ml Medications Current Medications Medications Dose Ordered Sig/Mica Route Start Time Stop Time Status Last Admin Dose Admin Mycophenolate Mofetil 1,500 mg BID PO 04/18/25 22:00 04/19/25 08:32 1,500 MG Labetalol HCl 400 mg Q12HR PO 04/18/25 22:00 04/19/25 08:34 400 MG Amlodipine Besylate 10 mg DAILY PO 04/19/25 10:00 04/19/25 08:34 10 MG Clonidine HCl 0.1 mg BID PO 04/18/25 22:00 04/19/25 08:35 0.1 MG Sodium Bicarbonate 650 mg BID PO 04/18/25 22:00 04/19/25 08:32 650 MG Sevelamer HCl 800 mg TIDWM PO 04/18/25 18:00 04/19/25 12:28 800 MG Hydroxychloroquine Sulfate 200 mg DAILY PO 04/19/25 10:00 04/19/25 08:33 200 MG Albuterol 2.5 mg Q6HPRN PRN NEB 04/18/25 13:45 04/19/25 06:26 2.5 MG Ondansetron HCl 4 mg Q4HP PRN IV 04/18/25 13:45 Acetaminophen 650 mg Q6HP PRN PO 04/18/25 13:45 04/19/25 08:33 650 MG Clonidine HCl 0.1 mg Q6HP PRN PO 04/18/25 17:15 04/19/25 03:51 0.1 MG Furosemide 40 mg BIDD IV 04/19/25 18:00 Laboratory Results Laboratory Tests 04/18/25 07:00 04/19/25 05:02 Chemistry Test 04/19/25 05:02 Calcium Level 8.0 mg/dL (8.7-10.4) L Labs and/or images reviewed: Labs reviewed by me, Image(s) reviewed by me Assessment/Plan Assessment/Plan R/o Structural heart diseases cardiology consult by appreciated, echocardiogram result pending R/o Tamponade Acyte hypoxic resp failure likely from pulm edema/ fluid overload from renal failure/ pleural effusion Hypertensive emergency likely in the setting of lupus nephritis Acute kidney injury secondary to lupus nephritis nephrology consult Anemia of CKD and lupus Hyperlipidemia Hx Lupus nephritis Time spent 55 minutes Plan discussed with: Patient Date of Service: Apr 19, 2025 Billing Provider: FABIAN GIMENEZ MD Common Visit Codes: [id number] INP/OBS CARE(HIGH) FABIAN GIMENEZ MD Apr 19, 2025 13:34
--- NOTE | 2025-04-19 16:10 | DVH ---
COMPUTERIZED TOMOGRAPHY OF THE HEAD WITHOUT CONTRAST REASON FOR STUDY: Headaches COMPARISON: MRI BRAIN HEAD WO CONTRAST on DOS: 04/07/25, CT HEAD WITHOUT CONTRAST on DOS: 04/06/25 TECHNIQUE: Helical tomographic scans were obtained through the brain. 2-D coronal and sagittal reformatted images are provided. Radiation optimization: All CT scans at this facility use at least one of these dose optimization techniques: Automated exposure control mA and/or kV adjustment per patient size (includes targeted exams where dose is matched to clinical indication) or iterative reconstruction. RADIATION DOSE: CTDI: 63 mGy DLP: 1172 mGy-cm FINDINGS: No suspicious intracranial hyperdensity to suggest acute blood. There is no mass effect nor midline shift. There is no hydrocephalus. The suprasellar cistern is intact. The calvarium is intact. There is a small retention cyst versus polyp in the right maxillary sinus. The visualized mastoid air cells and paranasal sinuses are otherwise clear. IMPRESSION: No acute intracranial abnormality.
--- NOTE | 2025-04-19 16:52 | DVHCONRES ---
Date Seen: Apr 19, 2025 Resident Creating Document: MARCE SNOW RESDIENT History of Present Illness godl Starks is a 34 years old female with a PMH of HTN, DLD, SLE, lupus nephritis/CKD presented to the ED with the chief complaints of shortness of breath and lower extremity swelling. Patient reported that she has been having multiple admissions in last 2 months due to elevated blood pressure and lupus nephritis. Patient reported that she had fluid in the lungs which was removed in during the last visit and again she is feeling the same with the difficulty breathing and increased blood pressure along with lower extremity swelling which made him to visit ED. On arrival to ED patient EKG showed normal sinus rhythm BNP was more than 1000, CXR showed congestion /pulmonary edema. Family History: Hypertension G8 FATHER Allergies: Coded Allergies: NO KNOWN ALLERGIES (Unverified , 03/20/24) Home Meds Active Scripts Sevelamer Carbonate (Sevelamer Carbonate) 800 Mg Tab, 800 MG PO TID for 30 Days, #90 TAB Prov:ALEXANDRI[place] GARCIA RESIDENT 04/10/25 Amlodipine Besylate (NORVASC TABLET) 5 Mg Tb, 10 MG PO DAILY for 30 Days, #60 TAB 3 Refills Prov:ROSS BROWN [facility] 04/10/25 Labetalol HCl (Labetalol HCl) 200 Mg Tab, 400 MG PO BID for 30 Days, #120 TAB 3 Refills Prov:ROSS BROWN [facility] 04/10/25 Mycophenolate Mofetil (Mycophenolate Mofetil) 500 Mg Tab, 1500 MG PO BID for 30 Days, #180 TAB 2 Refills Prov:ROSS BROWN [facility] 04/10/25 Sodium Bicarbonate (Sodium Bicarbonate) 650 Mg Tab, 650 MG PO QID for 30 Days, #120 TAB Prov:ROSS BROWN [facility] 04/10/25 Prednisone (Prednisone) 20 Mg Tab, 20 MG PO TID for 30 Days, #90 TAB Prov:ROSS BROWN [facility] 04/10/25 Hydroxychloroquine Sulfate (Hydroxychloroquine Sulfat) 200 Mg Tab, 200 MG PO DAILY for 30 Days, #30 TAB 3 Refills Prov:ROSS BROWN [facility] 04/10/25 Ferrous Sulfate (FERROUS SULFATE) 325 Mg Tb, 1 TAB PO DAILY for 30 Days, #30 TAB 3 Refills Prov:ROSS BROWN [facility] 04/10/25 Amoxicillin & Pot Clavulanate (AUGMENTIN TABLET) 875 Mg Tb, 875 MG PO BID for 5 Days, #10 TAB Prov:ROSS BROWN RESIDENT 04/10/25 Clonidine Hydrochloride (Clonidine Hcl) 0.2 Mg Tab, 1 TAB PO BID, #60 TAB 5 Refills Prov:JUSTIN YEPEZ CHILD WELFARE ASSISTANT 03/27/25 Reported Medications Cholecalciferol (VITAMIN D3) 2,000 Unit Tab, 1000 UNIT PO DAILY, TAB 03/21/25 Folic Acid (Folic Acid) 1 Mg Tab, 1 MG PO, TAB 03/26/24 Current Medications Current Medications Medications (Trade) Dose Ordered Sig/Mica Route PRN Reason Start Time Stop Time Status Last Admin Mycophenolate Mofetil (Cellcept) 1,500 mg BID PO 04/18/25 22:00 04/19/25 08:32 Labetalol HCl (Normodyne Tablet) 400 mg Q12HR PO 04/18/25 22:00 04/19/25 08:34 Amlodipine Besylate (Norvasc Tablet) 10 mg DAILY PO 04/19/25 10:00 04/19/25 08:34 Clonidine HCl (Catapres Tablet) 0.1 mg BID PO 04/18/25 22:00 04/19/25 08:35 Sodium Bicarbonate 650 mg BID PO 04/18/25 22:00 04/19/25 08:32 Sevelamer HCl (Renagel) 800 mg TIDWM PO 04/18/25 18:00 04/19/25 12:28 Hydroxychloroquine Sulfate (Plaquenil Tablet) 200 mg DAILY PO 04/19/25 10:00 04/19/25 08:33 Furosemide (Lasix Injection) 20 mg BIDD IV 04/18/25 18:00 04/19/25 11:12 DC 04/19/25 05:33 Clonidine HCl (Catapres Tablet) 0.1 mg Q6HP PRN PO SBP>160 04/18/25 17:15 04/19/25 03:51 Furosemide (Lasix Injection) 40 mg BIDD IV 04/19/25 18:00 Review of Systems Patient seen and examined at the bedside. Patient is complaining of shortness of breaths. Vital Signs Vital Signs Date Time Temp Pulse Resp B/P (MAP) Pulse Ox O2 Delivery O2 Flow Rate FiO2 04/19/25 12:59 97.8 79 20 135/84 (101) 93 97.8 04/19/25 08:00 Nasal Cannula* 2 28 Physical Exam General Appearance: Alert, Oriented X3, Cooperative, in mild respiratory distress HEENT: Atraumatic, PERRLA, EOMI, Mucous membrane moist/pink Respiratory: Bilateral lower zone crackles Cardiovascular: Regular rate, Normal S1, Normal S2, No murmurs, no chest wall tenderness Abdominal: Normal bowel sounds, Soft, No tenderness, No hepatospenomegaly, No masses Extremities: Bilateral grade 2 pedal edema Skin: No rashes, No breakdown, No significant lesion Neuro: Normal gait, Normal speech, Strength at 5/5 X4 ext, Normal tone, Sensation intact, Cranial nerves 3-12 NL, Reflexes 2+ Psych/Mental Status: Mental status NL, Mood NL Labs/Diagnostic Data Labs Test 04/19/25 05:02 04/18/25 07:00 Range/Units Sodium Level 139 136-145 mmol/L Potassium Level 4.7 3.5-5.1 mmol/L Chloride Level 106 98-107 mmol/L Carbon Dioxide Level 20 20-31 mmol/L Anion Gap 13 5-15 Blood Urea Nitrogen 72 H 9-23 mg/dL Creatinine 3.62 H 0.550-1.02 mg/dL Glomerular Filtration Rate Calc 16 >90 mL/min BUN/Creatinine Ratio 19.9 10.0-20.0 Serum Glucose 95 74-106 mg/dL Calcium Level 8.0 L 8.7-10.4 mg/dL White Blood Count 5.6 4.4-10.8 10^3/uL Red Blood Count 3.51 L 4.0-5.20 10^6/uL Hemoglobin 9.3 L 12.2-16.2 g/dL Hematocrit 28.0 L 36.0-46.0 % Mean Corpuscular Volume 79.8 L 80.0-100.0 fL Mean Corpuscular Hemoglobin 26.5 L 28.0-32.0 pg Mean Corpuscular Hemoglobin Concent 33.2 32.0-36.0 g/dL Red Cell Distribution Width 19.7 H 11.8-14.3 % Platelet Count 330 140-450 10^3/uL Mean Platelet Volume 7.6 6.9-10.8 fL Neutrophils (%) (Auto) 37.0-80.0 % Lymphocytes (%) (Auto) 10.0-50.0 % Monocytes (%) (Auto) 0.0-12.0 % Basophils (%) (Auto) 0.0-2.0 % Neutrophils # (Auto) 1.6-8.6 10 ^3/uL Lymphocytes # (Auto) 0.4-5.4 10 ^3/uL Monocytes # (Auto) 0-1.3 10 ^3/uL Differential Total Cells Counted 100.0 100 Neutrophils % (Manual) 95 H 37.0-80.0 Band Neutrophils % (Manual) 0 Lymphocytes % (Manual) 2 L 10.0-50.0 Monocytes % (Manual) 3 0-12 Eosinophils % (Manual) 0 0-7 Basophils % (Manual) 0 0.0-2.0 Metamyelocytes % (manual) 0 Myelocytes % (Manual) 0 Promyelocytes % (Manual) 0 Blast Cells % (Manual) 0 Reactive Lymphocytes 0 Platelet Estimate Adequate Troponin I High Sensitivity 25 </=34 ng/L B-Type Natriuretic Peptide 1541.85 0-100 pg/mL Hepatitis B Surface Antigen Negative Negative Hepatitis C Antibody Negative Negative Assessment This is a 32 year old lady with past medical history of hypertension, SLE, and possible lupus nephritis came to the hospital due to shortness of breath, headache and bilateral lower limb swelling. Nephrology consulted due to raised creatinine. MELLY, on CKD grade 4, due to lupus nephritis stage 4 Acute hypoxic respiratory failure, Volume overload, due to above Hypertension Moderate anemia, due to above Possible pneumonia headache//dizziness Plan/recommendation (Dr. Azar) * Lasix IV 40 mg b.i.d. * Continue mycophenolate, sodium bicarbonate, sevelamer, amlodipine and clonidine * Started prednisolone 40 mg oral daily * Increased hydroxychloroquine to 200 mg b.i.d. * IV antibiotic Rocephin and azithromycin * Check urine protein, creatinine and urine protein/creatinine ratios * Follow up with the kidney biopsy results from previous admission * Strict I&Os * Avoid nephrotoxic medication * We will follow up with the patient Thank you for giving us the opportunity, please call back if you have any questions/concerns. Addendum Patient seen and examined, plan discussed with resident. Agree with above, we will follow closely Plan discussed with: Patient, Other (RN and mother and father at the bedside) MARCE SNOW Apr 19, 2025 16:52 MARY AZAR MD Apr 19, 2025 18:13
[2025-04-19 17:21] LABS: Alanine Aminotransferase 15 U/L (7-40); Bilirubin, Total 0.4 mg/dL (0.2-1.0); Magnesium 2.3 mg/dL (1.6-2.6)
[2025-04-19 17:24] LABS: Albumin 3.1 g/dL (3.2-4.8); Alkaline Phosphatase 35 U/L (46-116); Bilirubin, Direct < 0.1 mg/dL (<0.3); Total Protein 5.1 g/dL (5.7-8.2)
--- NOTE | 2025-04-19 18:23 | DVHINCON2 ---
Date of service: Apr 19, [address] Patel Reason for Consultation Headache/dizziness/history of lupus nephritis History of Present Illness Ms. Starks is a 74 years old right-handed female with a history of lupus, lupus nephritis, hypertension, she came to the [facility] on 04/18[facility]2025 with a chief complaint of sharp breath, but she also has other complaints, at this time, he is alert and fully oriented, her in the room with her, they provided the following history She has no history of headache, but for about two weeks' time, she has intermittent fluctuating global pressure headache, mostly 7/10, most of the headache is when she is up, less likely when she is sitting down or in bed, sometimes she sees spots during the headache, she does not have headache on daily basis Since 05/05/2025, the patient has dizziness/lightheadedness when she is standing up or standing, less likely when she is sitting, she also has a feeling of whole-body heaviness, Coincidentally after she was given medication for her lupus, she has mild tremor in both upper extremities on posturing. Her father has tremors in the hands but he is also an alcoholic She denies focal weakness numbness He reports difficulty falling asleep She suspected her problems are stress related WBC/HB/PLT/MCV, 04/18/2025: 5.6/9.3/330/79.8 BUN/CR, 04/19/2025: 72/3.62 Liver function tests, 04/19/25: unremarkable TG/HDL/LDL/HDL, 04/06/2025: 164/195/94/70 Vitamin B12, 04/06/2025: 413 Folic acid, 04/07/2025: 39.54 TSH, 04/06/2025: 1.63 CT head, 04/19/2025: No acute intracranial abnormality MRI head, 04/07/25: No acute infarct, intracranial hemorrhage, mass effect, or hydrocephalus Past Medical History Hypertension, lupus, lupus nephritis Past Surgical History No major surgeries Family History: Hypertension G8 FATHER Family History Hypertension Social History She denies a history of tobacco smoking, drug or alcohol abuse Allergies: Coded Allergies: NO KNOWN ALLERGIES (Unverified , 03/20/24) Home Meds Active Scripts Sevelamer Carbonate (Sevelamer Carbonate) 800 Mg Tab, 800 MG PO TID for 30 Days, #90 TAB Prov:AL[place] GARCIA [facility] [place] 2] 04/10/25 Amlodipine Besylate (NORVASC TABLET) 5 Mg Tb, 10 MG PO DAILY for 30 Days, #60 TAB 3 Refills Prov:ROSS BROWN [facility] [place]NOTE 2] 04/10/25 Labetalol HCl (Labetalol HCl) 200 Mg Tab, 400 MG PO BID for 30 Days, #120 TAB 3 [facility] 04/10/25 Mycophenolate Mofetil (Mycophenolate Mofetil) 500 Mg Tab, 1500 MG PO BID for 30 Days, #180 TAB 2 [facility]ills [facility] 04/10/25 Sodium Bicarbonate (Sodium Bicarbonate) 650 Mg Tab, 650 MG PO QID for 30 Days, #120 TAB Prov:[facility] 04/10/25 Prednisone (Prednisone) 20 Mg Tab, 20 MG PO TID for 30 Days, #90 TAB Prov:BROWN,[facility] 04/10/25 Hydroxychloroquine Sulfate (Hydroxychloroquine Sulfat) 200 Mg Tab, 200 MG PO DAILY for 30 Days, #30 TAB 3 Refills Prov:BROWN,[facility] 04/10/25 Ferrous Sulfate (FERROUS SULFATE) 325 Mg Tb, 1 TAB PO DAILY for 30 Days, #30 TAB 3 Refills Prov:[facility] 04/10/25 Amoxicillin & Pot Clavulanate (AUGMENTIN TABLET) 875 Mg Tb, 875 MG PO BID for 5 Days, #10 TAB Prov:[facility] 04/10/25 Clonidine Hydrochloride (Clonidine Hcl) 0.2 Mg Tab, 1 TAB PO BID, #60 TAB 5 Ref ills Prov:JUSTIN YEPEZ DELIVERY DRIVER/CUSTOMER SERVICE 03/27/25 Reported Medications Cholecalciferol (VITAMIN D3) 2,000 Unit Tab, 1000 UNIT PO DAILY, TAB 03/21/25 Folic Acid (Folic Acid) 1 Mg Tab, 1 MG PO, TAB 03/26/24 Current Medications Current Medications Medications (Trade) Dose Ordered Sig/Mica Route PRN Reason Start Time Stop Time Status Last Admin Mycophenolate Mofetil (Cellcept) 1,500 mg BID PO 04/18/25 22:00 04/19/25 08:32 Labetalol HCl (Normodyne Tablet) 400 mg Q12HR PO 04/18/25 22:00 04/19/25 08:34 Amlodipine Besylate (Norvasc Tablet) 10 mg DAILY PO 04/19/25 10:00 04/19/25 08:34 Clonidine HCl (Catapres Tablet) 0.1 mg BID PO 04/18/25 22:00 04/19/25 08:35 Sodium Bicarbonate 650 mg BID PO 04/18/25 22:00 04/19/25 08:32 Hydroxychloroquine Sulfate (Plaquenil Tablet) 200 mg DAILY PO 04/19/25 10:00 04/19/25 16:55 DC 04/19/25 08:33 Furosemide (Lasix Injection) 40 mg BIDD IV 04/19/25 18:00 Hydroxychloroquine Sulfate (Plaquenil Tablet) 200 mg BID PO 04/19/25 22:00 Prednisone 40 mg DAILY PO 04/20/25 10:00 Ceftriaxone Sodium 50 ml @ 100 mls/hr DAILY@09 IV 04/20/25 09:00 Azithromycin (Zithromax Tablet) 500 mg DAILY PO 04/20/25 10:00 Calcium Acetate (Phoslo Capsule) 1,334 mg TIDWMEALS PO 04/20/25 08:00 UNV Review of Systems As above, the other systems are negative Vital Signs Vital Signs Date Time Temp Pulse Resp B/P (MAP) Pulse Ox O2 Delivery O2 Flow Rate FiO2 04/19/25 12:59 97.8 79 20 135/84 (101) 93 97.8 04/19/25 08:00 Nasal Cannula* 2 28 Physical Exam GENERAL EXAM: General: the patient is well developed and nourished. No acute distress. HEENT: Normocephalic, neck is supple, no carotid bruits. No mass. RESPIRATORY: Normal respiratory effort with symmetrical lung expansion. Lungs clear to auscultation. CARDIOVASCULAR: Regular rate and rhythm with no murmurs. S1, S2. ABDOMEN: Soft, nontender, normal bowel sound NEUROLOGICAL: MENTAL STATUS: Awake and alert. Oriented to person, place, time and general circumstances. Able to give personal history SPEECH, LANGUAGE, HIGHER CORTICAL FUNCTION: no aphasia or dysathria. CRANIAL NERVES: #2: Intact visual blake to confrontation. The optic discs were sharp. #3,4,6: Pupils are equal, round and reactive. EOMs full and conjugate. No nystagmus. #5: Facial sensation intact in all three divisions bilaterally. Mandibular strength intact. #7: Facial muscles symmetrical and strength intact. #8: Hearing grossly normal to voice. #9,10: Uvula and soft palate rise in the midline. Swallow and voice are normal. #11: Trapezius and sternomastoid strength intact bilaterally. #12: Tongue midline. No fasciculations or atrophy. SENSATION: Sensation to touch and pinprick is normal. MOTOR: Normal tone in the upper and lower extremity. Normal muscle bulk. No fasciculations. Mild symmetric tremors in both upper extremities on posturing. Muscle strength of the major groups in the upper extremities is 5/5. Muscle strength of the major groups in the lower extremities is 5/5. REFLEXES: Deep tendon reflexes are symmetrical. No pathological reflexes. CEREBELLAR/COORDINATION: Finger to nose and heel to do are normal bilaterally. GAIT/STATION: deferred. Labs/Diagnostic Data Labs Test 04/19/25 05:02 04/18/25 07:00 Range/Units Sodium Level 139 136-145 mmol/L Potassium Level 4.7 3.5-5.1 mmol/L Chloride Level 106 98-107 mmol/L Carbon Dioxide Level 20 20-31 mmol/L Anion Gap 13 5-15 Blood Urea Nitrogen 72 H 9-23 mg/dL Creatinine 3.62 H 0.550-1.02 mg/dL Glomerular Filtration Rate Calc 16 >90 mL/min BUN/Creatinine Ratio 19.9 10.0-20.0 Serum Glucose 95 74-106 mg/dL Calcium Level 8.0 L 8.7-10.4 mg/dL Phosphorus Level 7.1 H 2.4-5.1 mg/dL Magnesium Level 2.3 1.6-2.6 mg/dL Total Bilirubin 0.4 0.2-1.0 mg/dL Direct Bilirubin < 0.1 <0.3 mg/dL Aspartate Amino Transferase (AST) 17 13-40 U/L Alanine Aminotransferase (ALT) 15 7-40 U/L Alkaline Phosphatase 35 L 46-116 U/L Total Protein 5.1 L 5.7-8.2 g/dL Albumin 3.1 L 3.2-4.8 g/dL Vitamin D 25-Hydroxy 35.7 30.0-100 ng/mL Parathyroid Hormone (Intact) 133.2 H 18.4-80.1 pg/mL White Blood Count 5.6 4.4-10.8 10^3/uL Red Blood Count 3.51 L 4.0-5.20 10^6/uL Hemoglobin 9.3 L 12.2-16.2 g/dL Hematocrit 28.0 L 36.0-46.0 % Mean Corpuscular Volume 79.8 L 80.0-100.0 fL Mean Corpuscular Hemoglobin 26.5 L 28.0-32.0 pg Mean Corpuscular Hemoglobin Concent 33.2 32.0-36.0 g/dL Red Cell Distribution Width 19.7 H 11.8-14.3 % Platelet Count 330 140-450 10^3/uL Mean Platelet Volume 7.6 6.9-10.8 fL Neutrophils (%) (Auto) 37.0-80.0 % Lymphocytes (%) (Auto) 10.0-50.0 % Monocytes (%) (Auto) 0.0-12.0 % Basophils (%) (Auto) 0.0-2.0 % Neutrophils # (Auto) 1.6-8.6 10 ^3/uL Lymphocytes # (Auto) 0.4-5.4 10 ^3/uL Monocytes # (Auto) 0-1.3 10 ^3/uL Differential Total Cells Counted 100.0 100 Neutrophils % (Manual) 95 H 37.0-80.0 Band Neutrophils % (Manual) 0 Lymphocytes % (Manual) 2 L 10.0-50.0 Monocytes % (Manual) 3 0-12 Eosinophils % (Manual) 0 0-7 Basophils % (Manual) 0 0.0-2.0 Metamyelocytes % (manual) 0 Myelocytes % (Manual) 0 Promyelocytes % (Manual) 0 Blast Cells % (Manual) 0 Reactive Lymphocytes 0 Platelet Estimate Adequate Troponin I High Sensitivity 25 </=34 ng/L B-Type Natriuretic Peptide 1541.85 0-100 pg/mL Hepatitis B Surface Antigen Negative Negative Hepatitis C Antibody Negative Negative Assessment New onset headache, etiology unclear Dizziness, possibly positional or secondary to orthostatic hypotension New onset tremors Medication side effects Essential tremors Insomnia Plan/Recommendation Monitoring Supportive treatment Telemetry Orthostatic vitals A trial of Restoril 7.5 mg HS p.r.n. for insomnia Syncopal precautions Good hydration More recommendation per clinical course Prognosis poor This medical document was created using an electronic medical record system with Dragon computerized dictation system. Although this document has been carefully reviewed, there may still be some phonetic and typographical errors. These areas are purely typographical due to imperfections of the software programs, and do not reflect any compromise in the patient's medical care. Plan discussed with: Patient, Spouse, Other COURTNEY RUIZ MD Apr 19, 2025 18:23
[2025-04-19] MEDS: predniSONE 20 MG TAB PO ONE (18:38)
[2025-04-19] MEDS: AZITHROMYCIN 250 MG TAB PO ONE (18:39)
[2025-04-19] MEDS: FUROSEMIDE 20 MG/2 ML VIAL IV SCH (18:40)
--- NOTE | 2025-04-19 20:43 | DVHINCON2 ---
Date of service: Apr 19, 2025 Referring Physician Chris MENCHACA Reason for Consultation Elevated BNP History of Present Illness This is a 34 year old female with a PMH of HTN, DLD, SLE, lupus nephritis/CKD presented to the ED with a complaint of shortness of breath and lower extremity swelling. Patient reported that she has been having multiple admissions in last 2 months due to elevated blood pressure and lupus nephritis. Patient reported that she had fluid in the lungs which was removed in during the last visit and again she is feeling the same with the difficulty breathing and increased blood pressure along with lower extremity swelling which made her to visit ED. On arr ival to ED patient EKG showed normal sinus rhythm BNP was more than 1000, Chest x-ray showed congestion /pulmonary edema. Ordered echocardiogram to rule out pericardial effusion. Patient was admitted to the hospital. I am asked to consult on this patient. Family History: Hypertension G8 FATHER Allergies: Coded Allergies: NO KNOWN ALLERGIES (Unverified , 03/20/24) Home Meds Active Scripts Sevelamer Carbonate (Sevelamer Carbonate) 800 Mg Tab, 800 MG PO TID for 30 Days, #90 TAB Prov:ALEXANDRIA GARCIA RESIDENT 04/10/25 Amlodipine Besylate (NORVASC TABLET) 5 Mg Tb, 10 MG PO DAILY for 30 Days, #60 TAB 3 Refills Prov:[facility] 04/10/25 Labetalol HCl (Labetalol HCl) 200 Mg Tab, 400 MG PO BID for 30 Days, #120 TAB 3 Refills Prov:[facility] 04/10/25 Mycophenolate Mofetil (Mycophenolate Mofetil) 500 Mg Tab, 1500 MG PO BID for 30 Days, #180 TAB 2 Refills Prov:[facility] 04/10/25 Sodium Bicarbonate (Sodium Bicarbonate) 650 Mg Tab, 650 MG PO QID for 30 Days, #120 TAB Prov:[facility] 04/10/25 Prednisone (Prednisone) 20 Mg Tab, 20 MG PO TID for 30 Days, #90 TAB Prov:[facility] 04/10/25 Hydroxychloroquine Sulfate (Hydroxychloroquine Sulfat) 200 Mg Tab, 200 MG PO DAILY for 30 Days, #30 TAB 3 Refills Prov:[facility] 04/10/25 Ferrous Sulfate (FERROUS SULFATE) 325 Mg Tb, 1 TAB PO DAILY for 30 Days, #30 TAB 3 Refills Prov:ROSS BROWN RESIDENT 04/10/25 Amoxicillin & Pot Clavulanate (AUGMENTIN TABLET) 875 Mg Tb, 875 MG PO BID for 5 Days, #10 TAB Prov:ROSS BROWN RESIDENT 04/10/25 Clonidine Hydrochloride (Clonidine Hcl) 0.2 Mg Tab, 1 TAB PO BID, #60 TAB 5 Refills Prov:JUSTIN YEPEZ [employer] TRAINING SUPERVISOR 03/27/25 Reported Medications Cholecalciferol (VITAMIN D3) 2,000 Unit Tab, 1000 UNIT PO DAILY, TAB 03/21/25 Folic Acid (Folic Acid) 1 Mg Tab, 1 MG PO, TAB 03/26/24 Current Medications Current Medications Medications (Trade) Dose Ordered Sig/Mica Route PRN Reason Start Time Stop Time Status Last Admin Mycophenolate Mofetil (Cellcept) 1,500 mg BID PO 04/18/25 22:00 04/19/25 08:32 Labetalol HCl (Normodyne Tablet) 400 mg Q12HR PO 04/18/25 22:00 04/19/25 08:34 Amlodipine Besylate (Norvasc Tablet) 10 mg DAILY PO 04/19/25 10:00 04/19/25 08:34 Clonidine HCl (Catapres Tablet) 0.1 mg BID PO 04/18/25 22:00 04/19/25 08:35 Sodium Bicarbonate 650 mg BID PO 04/18/25 22:00 04/19/25 08:32 Sevelamer HCl (Renagel) 800 mg TIDWM PO 04/18/25 18:00 04/19/25 12:28 Hydroxychloroquine Sulfate (Plaquenil Tablet) 200 mg DAILY PO 04/19/25 10:00 04/19/25 08:33 Furosemide (Lasix Injection) 20 mg BIDD IV 04/18/25 18:00 04/19/25 11:12 DC 04/19/25 05:33 Albuterol (Ventolin Medneb) 2.5 mg Q6HPRN PRN NEB SHORTNESS OF BREATH 04/18/25 13:45 04/19/25 06:26 Ondansetron HCl (Zofran) 4 mg Q4HP PRN IV NAUSEA / VOMITING 04/18/25 13:45 Acetaminophen (Tylenol Tablet) 650 mg Q6HP PRN PO PAIN SCALE 1-3 OR TEMP>100.4 04/18/25 13:45 04/19/25 08:33 Clonidine HCl (Catapres Tablet) 0.1 mg Q6HP PRN PO SBP>160 04/18/25 17:15 04/19/25 03:51 Furosemide (Lasix Injection) 40 mg BIDD IV 04/19/25 18:00 Review of Systems Constitutional: reports: chills; denies: diaphoresis, fatigue, fever, malaise, sweats, weakness, others EENTM: denies: blurred vision, double vision, ear bleeding, ear discharge, ear drainage, ear pain, ear ringing, eye pain, eye redness, hearing loss, mouth pain, mouth swelling, nasal discharge, nose bleeding, nose congestion, nose pain, photophobia, tearing, throat pain, throat swelling, voice changes, others Respiratory: reports: shortness of breath; denies: cough, hemoptysis, orthopnea, SOB at rest, SOB with excertion, stridor, wheezing, others Cardiovascular: denies: chest pain, dizzy spells, diaphoresis, Dyspnea on exertion, edema, irregular heart beat, left arm pain, lightheadedness, palpitations, PND, syncope, others Gastrointestinal: denies: abdomen distended, abdominal pain, blood streaked bowels, constipated, diarrhea, dysphagia, difficulty swallowing, hematemesis, melena, nausea, poor appetite, poor fluid intake, rectal bleeding, rectal pain, vomiting, others Genitourinary: denies: abnormal vagina bleeding, burning, dyspareunia, dysuria, flank pain, frequency, hematuria, incontinence, pain, , vagina discharge, urgency, others Neurological: denies: dizziness, fainting, headache, left sided numbness, left sided weakness, numbness, paresthesia, pre-existing deficit, right sided numbness, right sided weakness, seizure, speech problems, tingling, tremors, weakness, others Musculoskeletal: denies: back pain, gout, joint pain, joint swelling, muscle pain, muscle stiffness, neck pain, others Integumetry: denies: bruises, change in color, change in hair/nails, dryness, laceration, lesions, lumps, rash, wounds, others Allergic/Immunocompromised: denies: Difficulty Healing, Frequent Infections, Hives, Itching, others Hematologic/Lymphatic: denies: anemia, blood clots, easy bleeding, easy bruising, swollen glands, others Endocrine: denies: excessive hunger, excessive sweating, excessive thirst, excessive urination, flushing, intolerance to cold, intolerance to heat, unexplained weight gain, unexplained weight loss, others Psychiatric: denies: anxiety, bipolar disorder, depression, hopeless, panic disorder, schizophrenia, sleepless, suicidal, others All Other Systems: Reviewed and Negative Vital Signs Vital Signs Date Time Temp Pulse Resp B/P (MAP) Pulse Ox O2 Delivery O2 Flow Rate FiO2 04/19/25 12:59 97.8 79 20 135/84 (101) 93 97.8 04/19/25 08:00 Nasal Cannula* 2 28 Physical Exam GENERAL: Alert and oriented x 3. No acute distress. EYES: PERRL, EOMI. Anicteric. HENT: Moist mucous membranes. LUNGS: Clear to auscultation bilaterally. CARDIOVASCULAR: Regular rate and rhythm. ABDOMEN: Soft, nontender and nondistended. EXTREMITIES: 2+ BLE edema pitting. NEUROLOGIC: No focal neurological deficits. SKIN: Warm, dry. Past surgical scars Labs/Diagnostic Data Labs Test 04/19/25 05:02 04/18/25 07:00 Range/Units Sodium Level 139 136-145 mmol/L Potassium Level 4.7 3.5-5.1 mmol/L Chloride Level 106 98-107 mmol/L Carbon Dioxide Level 20 20-31 mmol/L Anion Gap 13 5-15 Blood Urea Nitrogen 72 H 9-23 mg/dL Creatinine 3.62 H 0.550-1.02 mg/dL Glomerular Filtration Rate Calc 16 >90 mL/min BUN/Creatinine Ratio 19.9 10.0-20.0 Serum Glucose 95 74-106 mg/dL Calcium Level 8.0 L 8.7-10.4 mg/dL White Blood Count 5.6 4.4-10.8 10^3/uL Red Blood Count 3.51 L 4.0-5.20 10^6/uL Hemoglobin 9.3 L 12.2-16.2 g/dL Hematocrit 28.0 L 36.0-46.0 % Mean Corpuscular Volume 79.8 L 80.0-100.0 fL Mean Corpuscular Hemoglobin 26.5 L 28.0-32.0 pg Mean Corpuscular Hemoglobin Concent 33.2 32.0-36.0 g/dL Red Cell Distribution Width 19.7 H 11.8-14.3 % Platelet Count 330 140-450 10^3/uL Mean Platelet Volume 7.6 6.9-10.8 fL Neutrophils (%) (Auto) 37.0-80.0 % Lymphocytes (%) (Auto) 10.0-50.0 % Monocytes (%) (Auto) 0.0-12.0 % Basophils (%) (Auto) 0.0-2.0 % Neutrophils # (Auto) 1.6-8.6 10 ^3/uL Lymphocytes # (Auto) 0.4-5.4 10 ^3/uL Monocytes # (Auto) 0-1.3 10 ^3/uL Differential Total Cells Counted 100.0 100 Neutrophils % (Manual) 95 H 37.0-80.0 Band Neutrophils % (Manual) 0 Lymphocytes % (Manual) 2 L 10.0-50.0 Monocytes % (Manual) 3 0-12 Eosinophils % (Manual) 0 0-7 Basophils % (Manual) 0 0.0-2.0 Metamyelocytes % (manual) 0 Myelocytes % (Manual) 0 Promyelocytes % (Manual) 0 Blast Cells % (Manual) 0 Reactive Lymphocytes 0 Platelet Estimate Adequate Troponin I High Sensitivity 25 </=34 ng/L B-Type Natriuretic Peptide 1541.85 0-100 pg/mL Hepatitis B Surface Antigen Negative Negative Hepatitis C Antibody Negative Negative Assessment R/o Structural heart diseases. R/o Tamponade. Acyte hypoxic resp fail likely from pulm edema/ fluid overload from renal failure/ pleural effusion. Hypertensive emergency likely in the setting of lupus nephritis. Acute kidney injury secondary to lupus nephritis. Anemia of CKD and lupus. DLD. History of Lupus. Plan/Recommendation I agree with your ongoing assessment and care of plan. Patient has been seen by Cristopher Shannon Resident on my behalf, we have discussed the plan with the patient. Echo from 03/21/25 showed EF of 55-60%, Moderate pericardial effusion noted primarily in the lateral wall. Fibrinoid deposition noted. New Echo to r/o effusion or Tamponade. Aggressive BP control. Nephrology consult to manage lupus nephritis. Monitor Labs. Diuresis with the Lasix 40 mg IV b.i.d. Strict I&Os. Elevated BNP likely from CKD/Lupus. Rest of management as primary team. Additional plan as per the hospital course. Plan discussed with: Patient SANDY CANTOR MD Apr 19, 2025 13:44
[2025-04-19 21:07] LABS: Protein, Urine 174.2 mg/dL (1-14)
[2025-04-19 21:17] LABS: Urine Protein, UAD 2+ (Negative)
[2025-04-19] MEDS ORDERED: TEMAZEPAM 15 MG CAP PO PRN (22:00)
[2025-04-19] MEDS: LORazepam 2MG/ML-1ML VIAL IV PRN (23:52)
[2025-04-20] VITALS (9 sets, daily range): BP systolic 119–161; BP diastolic 87–96; PULSE 84–106; RESP 16–18; TEMP 97–98.1; O2SAT 91–99
[2025-04-20 06:01] LABS: Hemoglobin 8.8 g/dL (12.2-16.2)
[2025-04-20 06:03] LABS: Hematocrit 26.9 % (36.0-46.0); Mean Corpuscular Hemoglobin 26.5 pg (28.0-32.0); Mean Corpuscular Volume 81.2 fL (80.0-100.0); Nucleated Red Blood Cells % 0.1 %
[2025-04-20 06:19] LABS: Alanine Aminotransferase 14 U/L (7-40); Anion Gap 14 (5-15); BUN/Creatinine Ratio 20.3 (10.0-20.0); Bilirubin, Total 0.5 mg/dL (0.2-1.0); Carbon Dioxide 21 mmol/L (20-31); Chloride 105 mmol/L (98-107); Glucose 94 mg/dL (74-106); Sodium 140 mmol/L (136-145)
[2025-04-20 06:35] LABS: Albumin 3.1 g/dL (3.2-4.8); Alkaline Phosphatase 42 U/L (46-116); Blood Urea Nitrogen 73 mg/dL (9-23); Calcium 8.3 mg/dL (8.7-10.4); Potassium 5.3 mmol/L (3.5-5.1); Total Protein 5.3 g/dL (5.7-8.2)
--- NOTE | 2025-04-20 08:28 | DVHPN2 ---
Reviewed: Care Plan, H&P, Labs, Medications, Previous Orders, Radiology Changes from previous H/P or p: No Changes Objective Vitals Vital Signs Date Time Temp Pulse Resp B/P (MAP) Pulse Ox O2 Delivery O2 Flow Rate FiO2 04/20/25 05:31 157/92 04/20/25 05:00 98.1 92 18 91 98.1 04/19/25 20:00 Nasal Cannula* 2 28 Intake/Output Intake and Output 04/20/25 07:00 Intake Total 1100 ml Output Total 2200 ml Balance -1100 ml Intake Oral 1100 ml Output Urine Total 2200 ml Stool Total 0 ml Medications Current Medications Medications Dose Ordered Sig/Mica Route Start Time Stop Time Status Last Admin Dose Admin Mycophenolate Mofetil 1,500 mg BID PO 04/18/25 22:00 04/19/25 21:58 1,500 MG Labetalol HCl 400 mg Q12HR PO 04/18/25 22:00 04/19/25 22:00 400 MG Amlodipine Besylate 10 mg DAILY PO 04/19/25 10:00 04/19/25 08:34 10 MG Clonidine HCl 0.1 mg BID PO 04/18/25 22:00 04/19/25 21:57 0.1 MG Sodium Bicarbonate 650 mg BID PO 04/18/25 22:00 04/19/25 22:00 650 MG Sevelamer HCl 800 mg TIDWM PO 04/18/25 18:00 Hold 04/19/25 18:38 800 MG Albuterol 2.5 mg Q6HPRN PRN NEB 04/18/25 13:45 04/19/25 06:26 2.5 MG Ondansetron HCl 4 mg Q4HP PRN IV 04/18/25 13:45 Acetaminophen 650 mg Q6HP PRN PO 04/18/25 13:45 04/19/25 16:00 650 MG Clonidine HCl 0.1 mg Q6HP PRN PO 04/18/25 17:15 04/19/25 18:39 0.1 MG Furosemide 40 mg BIDD IV 04/19/25 18:00 04/20/25 05:31 40 MG Hydroxychloroquine Sulfate 200 mg BID PO 04/19/25 22:00 04/19/25 22:00 200 MG Prednisone 40 mg DAILY PO 04/20/25 10:00 Ceftriaxone Sodium 50 ml @ 100 mls/hr DAILY@09 IV 04/20/25 09:00 Azithromycin 500 mg DAILY PO 04/20/25 10:00 Calcium Acetate 1,334 mg TIDWMEALS PO 04/20/25 08:00 Temazepam 7.5 mg HS PRN PO 04/19/25 22:00 Lorazepam 1 mg Q8HP PRN IV 04/19/25 21:30 04/19/25 23:52 1 MG Laboratory Results Laboratory Tests 04/20/25 05:27 Chemistry Test 04/20/25 05:27 Albumin 3.1 g/dL (3.2-4.8) L Calcium Level 8.3 mg/dL (8.7-10.4) L Total Protein 5.3 g/dL (5.7-8.2) L LFT Test 04/20/25 05:27 Alanine Aminotransferase (ALT) 14 U/L (7-40) Alkaline Phosphatase 42 U/L (46-116) L Aspartate Amino Transferase (AST) 17 U/L (13-40) Total Bilirubin 0.5 mg/dL (0.2-1.0) Urinalysis Test 04/19/25 20:26 Urine Color Colorless (Yellow) Urine Clarity Clear (Clear) Urine pH 6.0 (5.0-9.0) Urine Specific [place] 1.010 (1.001-1.035) Urine Protein 2+ (Negative) H Urine Ketones Negative (Negative) Urine Blood 2+ /uL (Negative) H Urine Nitrite Negative (Negative) Urine Bilirubin Negative (Negative) Urine Urobilinogen Normal mg/dL (Negative) Urine Leukocyte Esterase Negative /uL (Negative) Urine RBC 20 /hpf (0 - 4) Urine Microscopic WBC 3 /HPF (0-5) Urine Squamous Epithelial Cells Few /hpf (<5) Urine Bacteria Few /hpf (None Seen) H Urine Creatinine 34.61 mg/dL (30.0-125.0) Urine Protein/Creatinine Ratio 5.03 Urine Sodium 93 mmol/L (40-220) Urine Glucose Normal mg/dL (Normal) Urine Total Protein 174.2 mg/dL (1-14) H Labs and/or images reviewed: Labs reviewed by me, Image(s) reviewed by me Assessment/Plan Assessment/Plan R/o Structural heart diseases cardiology consult by appreciated, echocardiogram result pending R/o Tamponade Acyte hypoxic resp failure likely from pulm edema/ fluid overload from renal failure/ pleural effusion Possible community-acquired pneumonia: Rocephin azithromycin Hypertensive emergency likely in the setting of lupus nephritis Acute kidney injury secondary to lupus nephritis nephrology consult pending Anemia of CKD and lupus Hyperlipidemia Hx Lupus nephritis Time spent 55 minutes JENNY Maier at bedside Plan discussed with: Patient My Orders Orders - FABIAN GIMENEZ MD Procedure Category Date Status Time *Dr. [facility] CONS 04/19/25 Transmitted -[place] 13:32 Complete Blood Count LAB 04/21/25 Verified 04:00 Comprehensive LAB 04/21/25 Verified Metabolic Panel 04:00 Complete Blood Count LAB 04/22/25 Verified 04:00 Comprehensive LAB 04/22/25 Verified Metabolic Panel 04:[address] 04/19/25 Resulted 14:22 Mrsa Screen SYED 04/19/25 In Process 17:40 Stat Ekg For Chest ALEENA 04/20/25 In Process Pain 01:09 Date of Service: Apr 20, 2025 Billing Provider: FABIAN GIMENEZ MD Common Visit Codes: [id number] INP/OBS CARE(HIGH) FABIAN GIMENEZ MD Apr 20, 2025 08:28
[2025-04-20] MEDS: CALCIUM ACETATE 667 MG CAP PO SCH (08:50)
[2025-04-20] MEDS: AZITHROMYCIN 250 MG TAB PO SCH (08:50)
[2025-04-20] MEDS: predniSONE 20 MG TAB PO SCH (08:51)
--- NOTE | 2025-04-20 14:54 | DVHPN2 ---
Progress Note Date Seen: Apr 20, 2025 Medical Necessity Reason Pt with a Central, PICC or Fol: No Subjective Patient reports: Other Review of Systems: RESPIRATORY:Abnormal Objective vital signs Vital Sign Date Time Temp Pulse Resp B/P (MAP) Pulse Ox O2 Delivery O2 Flow Rate FiO2 04/20/25 12:05 99 150/88 04/20/25 10:11 99 Nasal Cannula* 3 32 04/20/25 09:00 97.4 16 97.4 Total Intake and Output 04/19/25 04/19/25 04/20/25 15:00 23:00 07:00 Intake Total 750 ml 350 ml Output Total 1800 ml 400 ml Balance -1050 ml -50 ml medications Current Medications Medications Dose Ordered Sig/Mica Route Start Time Stop Time Status Last Admin Dose Admin Mycophenolate Mofetil 1,500 mg BID PO 04/18/25 22:00 04/20/25 12:06 1,500 MG Labetalol HCl 400 mg Q12HR PO 04/18/25 22:00 04/20/25 12:05 400 MG Amlodipine Besylate 10 mg DAILY PO 04/19/25 10:00 04/20/25 08:50 10 MG Clonidine HCl 0.1 mg BID PO 04/18/25 22:00 04/20/25 08:49 0.1 MG Sodium Bicarbonate 650 mg BID PO 04/18/25 22:00 04/20/25 08:51 650 MG Sevelamer HCl 800 mg TIDWM PO 04/18/25 18:00 Hold 04/19/25 18:38 800 MG Albuterol 2.5 mg Q6HPRN PRN NEB 04/18/25 13:45 04/19/25 06:26 2.5 MG Ondansetron HCl 4 mg Q4HP PRN IV 04/18/25 13:45 Acetaminophen 650 mg Q6HP PRN PO 04/18/25 13:45 04/19/25 16:00 650 MG Clonidine HCl 0.1 mg Q6HP PRN PO 04/18/25 17:15 04/19/25 18:39 0.1 MG Furosemide 40 mg BIDD IV 04/19/25 18:00 04/20/25 05:31 40 MG Hydroxychloroquine Sulfate 200 mg BID PO 04/19/25 22:00 04/20/25 08:51 200 MG Prednisone 40 mg DAILY PO 04/20/25 10:00 04/20/25 08:51 40 MG Ceftriaxone Sodium 50 ml @ 100 mls/hr DAILY@09 IV 04/20/25 09:00 04/20/25 08:51 100 MLS/HR Azithromycin 500 mg DAILY PO 04/20/25 10:00 04/20/25 08:50 500 MG Calcium Acetate 1,334 mg TIDWMEALS PO 04/20/25 08:00 04/20/25 12:00 1,334 MG Temazepam 7.5 mg HS PRN PO 04/19/25 22:00 Lorazepam 1 mg Q8HP PRN IV 04/19/25 21:30 04/19/25 23:52 1 MG laboratory and microbiology Laboratory Tests 04/20/25 05:27 Test 04/20/25 05:27 Range/Units Serum Glucose 94 74-106 mg/dL Microbiology Date/Time Source Procedure Growth Status 04/19/25 20:46 Nose MRSA Screen - Final Complete Problem List/Assessment/Plan Problem List/Assessment/Plan MELLY, on CKD grade 4, due to lupus nephritis stage 4 Acute hypoxic respiratory failure, Volume overload, due to above Hypertension Moderate anemia, due to above pneumonia headache//dizziness recs Lasix IV 40 mg b.i.d. Continue mycophenolate, sodium bicarbonate, sevelamer, amlodipine and clonidine Started prednisolone 40 mg oral daily Increased hydroxychloroquine to 200 mg b.i.d. path report official final ----unavailable to me ---prelim was class 4 lupus nephritis outpt rheum eval Plan discussed with: Patient My Orders My Orders Orders - MARY AZAR MD Procedure Category Date Status Time * Neurology Consult CONS 04/19/25 Transmitted 16:19 Calcium Acetate PHA 04/20/25 In Process Capsule (Phoslo 08:00 MARY AZAR MD Apr 20, 2025 14:54
--- NOTE | 2025-04-20 16:10 | DVHSR ---
APPROVED REPORT EXAM: LIMITED Two-dimensional and M-mode echocardiogram. Blood Pressure: 169/96 mmHg INDICATION Limited echo to r/o tamponade RISK FACTORS Height: 5'3", Weight: 164 Mitral Valve Mitral Mitral Stenosis E/A ratio 0.0 2D MVA cm2 Other Information Quality : Technically Limited Rhythm : Technically limited study due to limited repeat to eval for tamponade. Conclusion NO PERICARDIAL EFFUSION VERY LARGE PLEURAL EFFUSION NORMAL LV EF AND IS 65% NORMAL VALVES NORMAL RV FUNCTION
--- NOTE | 2025-04-20 23:27 | DVHPN2 ---
Progress Note - Dictate Date Seen: Apr 20, 2025 Medical Necessity Reason Pt with a Central, PICC or Fol: No Subjective Patient was seen and evaluated in follow up. Patient is short of breath. She is on 3 LPM NC. HGB 8.8, HCT 26.9, K 5.3, BUN 73, PREVENTIVE MAINTENANCE COORDINATOR 3.59, CA 8.3. Echocardiogram showed LV EF of 65%. vital signs Vital Sign Date Time Temp Pulse Resp B/P (MAP) Pulse Ox O2 Delivery O2 Flow Rate FiO2 04/20/25 13:00 97.0 92 16 147/88 (107) 92 97.0 04/20/25 10:11 Nasal Cannula* 3 32 Total Intake and Output 04/19/25 04/19/25 04/20/25 15:00 23:00 07:00 Intake Total 750 ml 350 ml Output Total 1800 ml 400 ml Balance -1050 ml -50 ml medications Current Medications Medications Dose Ordered Sig/Mica Route Start Time Stop Time Status Last Admin Dose Admin Mycophenolate Mofetil 1,500 mg BID PO 04/18/25 22:00 04/20/25 12:06 1,500 MG Labetalol HCl 400 mg Q12HR PO 04/18/25 22:00 04/20/25 12:05 400 MG Amlodipine Besylate 10 mg DAILY PO 04/19/25 10:00 04/20/25 08:50 10 MG Clonidine HCl 0.1 mg BID PO 04/18/25 22:00 04/20/25 08:49 0.1 MG Sodium Bicarbonate 650 mg BID PO 04/18/25 22:00 04/20/25 08:51 650 MG Sevelamer HCl 800 mg TIDWM PO 04/18/25 18:00 Hold 04/19/25 18:38 800 MG Albuterol 2.5 mg Q6HPRN PRN NEB 04/18/25 13:45 04/19/25 06:26 2.5 MG Ondansetron HCl 4 mg Q4HP PRN IV 04/18/25 13:45 Acetaminophen 650 mg Q6HP PRN PO 04/18/25 13:45 04/19/25 16:00 650 MG Clonidine HCl 0.1 mg Q6HP PRN PO 04/18/25 17:15 04/19/25 18:39 0.1 MG Furosemide 40 mg BIDD IV 04/19/25 18:00 04/20/25 05:31 40 MG Hydroxychloroquine Sulfate 200 mg BID PO 04/19/25 22:00 04/20/25 08:51 200 MG Prednisone 40 mg DAILY PO 04/20/25 10:00 04/20/25 08:51 40 MG Ceftriaxone Sodium 50 ml @ 100 mls/hr DAILY@09 IV 04/20/25 09:00 04/20/25 08:51 100 MLS/HR Azithromycin 500 mg DAILY PO 04/20/25 10:00 04/20/25 08:50 500 MG Calcium Acetate 1,334 mg TIDWMEALS PO 04/20/25 08:00 04/20/25 12:00 1,334 MG Temazepam 7.5 mg HS PRN PO 04/19/25 22:00 Lorazepam 1 mg Q8HP PRN IV 04/19/25 21:30 04/19/25 23:52 1 MG objective GENERAL: Alert and oriented x 3. No acute distress. EYES: PERRL, EOMI. Anicteric. HENT: Moist mucous membranes. LUNGS: Clear to auscultation bilaterally. CARDIOVASCULAR: Regular rate and rhythm. ABDOMEN: Soft, nontender and nondistended. EXTREMITIES: 2+ BLE edema pitting. NEUROLOGIC: No focal neurological deficits. SKIN: Warm, dry. Past surgical scars laboratory and microbiology Laboratory Tests 04/20/25 05:27 Test 04/20/25 05:27 Range/Units Serum Glucose 94 74-106 mg/dL Problem List R/o Structural heart diseases. R/o Tamponade. Acyte hypoxic resp fail likely from pulm edema/ fluid overload from renal failure/ pleural effusion. Hypertensive emergency likely in the setting of lupus nephritis. Acute kidney injury secondary to lupus nephritis. Anemia of CKD and lupus. DLD. History of Lupus. Assessment/Plan Continued all current supportive medical care. Amlodipine, Clonidine, Labetalol. IV antibiotics as ordered. Diuretics with Lasix. Additional plan as per the hospital course. Plan discussed with: Patient SANDY CANTOR MD Apr 20, 2025 17:38
[2025-04-21] VITALS (10 sets, daily range): BP systolic 121–153; BP diastolic 77–88; PULSE 85–96; RESP 12–18; TEMP 96.4–98.9; O2SAT 91–100
--- NOTE | 2025-04-21 08:11 | DVHPN2 ---
Reviewed: Care Plan, H&P, Labs, Medications, Previous Orders, Radiology Changes from previous H/P or p: No Changes Objective Vitals Vital Signs Date Time Temp Pulse Resp B/P (MAP) Pulse Ox O2 Delivery O2 Flow Rate FiO2 04/21/25 05:55 151/87 04/21/25 05:00 98.5 96 17 95 98.5 04/20/25 20:00 Nasal Cannula* 2 28 Intake/Output Intake and Output 04/21/25 07:00 Intake Total 1175 ml Output Total 1300 ml Balance -125 ml Intake Oral 1175 ml Output Urine Total 1300 ml # Bowel Movements 4 Medications Current Medications Medications Dose Ordered Sig/Mica Route Start Time Stop Time Status Last Admin Dose Admin Mycophenolate Mofetil 1,500 mg BID PO 04/18/25 22:00 04/20/25 21:47 1,500 MG Labetalol HCl 400 mg Q12HR PO 04/18/25 22:00 04/20/25 21:48 400 MG Amlodipine Besylate 10 mg DAILY PO 04/19/25 10:00 04/20/25 08:50 10 MG Clonidine HCl 0.1 mg BID PO 04/18/25 22:00 04/20/25 21:48 0.1 MG Sodium Bicarbonate 650 mg BID PO 04/18/25 22:00 04/20/25 21:48 650 MG Sevelamer HCl 800 mg TIDWM PO 04/18/25 18:00 Hold 04/19/25 18:38 800 MG Albuterol 2.5 mg Q6HPRN PRN NEB 04/18/25 13:45 04/19/25 06:26 2.5 MG Ondansetron HCl 4 mg Q4HP PRN IV 04/18/25 13:45 Acetaminophen 650 mg Q6HP PRN PO 04/18/25 13:45 04/19/25 16:00 650 MG Clonidine HCl 0.1 mg Q6HP PRN PO 04/18/25 17:15 04/19/25 18:39 0.1 MG Furosemide 40 mg BIDD IV 04/19/25 18:00 04/21/25 05:55 40 MG Hydroxychloroquine Sulfate 200 mg BID PO 04/19/25 22:00 04/20/25 21:50 200 MG Prednisone 40 mg DAILY PO 04/20/25 10:00 04/20/25 08:51 40 MG Ceftriaxone Sodium 50 ml @ 100 mls/hr DAILY@09 IV 04/20/25 09:00 04/20/25 08:51 100 MLS/HR Azithromycin 500 mg DAILY PO 04/20/25 10:00 04/20/25 08:50 500 MG Calcium Acetate 1,334 mg TIDWMEALS PO 04/20/25 08:00 04/20/25 18:22 1,334 MG Temazepam 7.5 mg HS PRN PO 04/19/25 22:00 Lorazepam 1 mg Q8HP PRN IV 04/19/25 21:30 04/21/25 04:29 1 MG Laboratory Results Laboratory Tests 04/20/25 05:27 Urinalysis Test 04/19/25 20:26 Urine Color Colorless (Yellow) Urine Clarity Clear (Clear) Urine pH 6.0 (5.0-9.0) Urine Specific [place] 1.010 (1.001-1.035) Urine Protein 2+ (Negative) H Urine Ketones Negative (Negative) Urine Blood 2+ /uL (Negative) H Urine Nitrite Negative (Negative) Urine Bilirubin Negative (Negative) Urine Urobilinogen Normal mg/dL (Negative) Urine Leukocyte Esterase Negative /uL (Negative) Urine RBC 20 /hpf (0 - 4) Urine Microscopic WBC 3 /HPF (0-5) Urine Squamous Epithelial Cells Few /hpf (<5) Urine Bacteria Few /hpf (None Seen) H Urine Creatinine 34.61 mg/dL (30.0-125.0) Urine Protein/Creatinine Ratio 5.03 Urine Sodium 93 mmol/L (40-220) Urine Glucose Normal mg/dL (Normal) Urine Total Protein 174.2 mg/dL (1-14) H Microbiology Microbiology Date/Time Source Procedure Growth Status 04/19/25 20:46 Nose MRSA Screen - Final Complete Labs and/or images reviewed: Labs reviewed by me, Image(s) reviewed by me Assessment/Plan Assessment/Plan R/o Structural heart diseases cardiology consult by appreciated, echo 65% ejection fraction R/o Tamponade Acyte hypoxic resp failure likely from pulm edema/ fluid overload from renal failure/ pleural effusion Possible community-acquired pneumonia: Rocephin azithromycin Hypertensive emergency likely in the setting of lupus nephritis , Lasix clonidine amlodipine labetalol Acute kidney injury secondary to lupus nephritis nephrology consult by Dr Zacarias appreciated placed on prednisone and Plaquenil Anemia of CKD and lupus Hyperlipidemia Hx Lupus nephritis Time spent 55 minutes JENNY Maier at bedside Patient needs follow up with the PCP in [facility] and with the Dr. Agudelo group for kidney problems JENNY Maki at bed side. Plan discussed with: Patient My Orders Orders - FABIAN GIMENEZ MD Procedure Category Date Status Time Complete Blood Count LAB 04/23/25 Verified 04:00 Comprehensive LAB 04/23/25 Verified Metabolic Panel 04:00 Date of Service: Apr 21, 2025 Billing Provider: FABIAN GIMENEZ MD Common Visit Codes: [id number] INP/OBS CARE(HIGH) FABIAN GIMENEZ MD Apr 21, 2025 08:11
[2025-04-21 11:36] LABS: Nucleated Red Blood Cells % 0.0 %
[2025-04-21 11:38] LABS: Hematocrit 25.3 % (36.0-46.0); Hemoglobin 8.3 g/dL (12.2-16.2); Mean Corpuscular Hemoglobin 26.4 pg (28.0-32.0); Mean Corpuscular Volume 80.2 fL (80.0-100.0)
[2025-04-21 11:47] LABS: Alanine Aminotransferase 14 U/L (7-40); Anion Gap 14 (5-15); BUN/Creatinine Ratio 20.4 (10.0-20.0); Carbon Dioxide 23 mmol/L (20-31); Chloride 104 mmol/L (98-107); Glucose 87 mg/dL (74-106); Potassium 4.1 mmol/L (3.5-5.1); Sodium 141 mmol/L (136-145)
[2025-04-21 11:48] LABS: Bilirubin, Total 0.3 mg/dL (0.2-1.0)
[2025-04-21 11:50] LABS: Albumin 3.1 g/dL (3.2-4.8); Alkaline Phosphatase 39 U/L (46-116); Blood Urea Nitrogen 72 mg/dL (9-23); Calcium 8.5 mg/dL (8.7-10.4); Total Protein 5.2 g/dL (5.7-8.2)
--- NOTE | 2025-04-21 17:58 | DVHPN2 ---
Progress Note Date Seen: Apr 21, 2025 Medical Necessity Reason Pt with a Central, PICC or Fol: No Subjective Patient reports: No new complaints, Feels better Review of Systems: HEENT:Normal, CVS:Normal, RESPIRATORY:Normal, GI:Normal, :Normal, MSK:Normal, NEURO:Normal Objective vital signs Vital Sign Date Time Temp Pulse Resp B/P (MAP) Pulse Ox O2 Delivery O2 Flow Rate FiO2 04/21/25 16:44 97.9 91 16 134/80 (98) 100 97.9 04/21/25 09:11 1.0 04/21/25 08:00 Nasal Cannula* 28 Total Intake and Output 04/20/25 04/20/25 04/21/25 15:00 23:00 07:00 Intake Total 825 ml 350 ml Output Total 900 ml 400 ml Balance -75 ml -50 ml medications Current Medications Medications Dose Ordered Sig/Mica Route Start Time Stop Time Status Last Admin Dose Admin Mycophenolate Mofetil 1,500 mg BID PO 04/18/25 22:00 04/21/25 08:56 1,500 MG Labetalol HCl 400 mg Q12HR PO 04/18/25 22:00 04/21/25 09:01 400 MG Amlodipine Besylate 10 mg DAILY PO 04/19/25 10:00 04/21/25 08:57 10 MG Clonidine HCl 0.1 mg BID PO 04/18/25 22:00 04/21/25 09:08 0.1 MG Sodium Bicarbonate 650 mg BID PO 04/18/25 22:00 04/21/25 08:59 650 MG Sevelamer HCl 800 mg TIDWM PO 04/18/25 18:00 Hold 04/19/25 18:38 800 MG Albuterol 2.5 mg Q6HPRN PRN NEB 04/18/25 13:45 04/19/25 06:26 2.5 MG Ondansetron HCl 4 mg Q4HP PRN IV 04/18/25 13:45 Acetaminophen 650 mg Q6HP PRN PO 04/18/25 13:45 04/19/25 16:00 650 MG Clonidine HCl 0.1 mg Q6HP PRN PO 04/18/25 17:15 04/19/25 18:39 0.1 MG Furosemide 40 mg BIDD IV 04/19/25 18:00 04/21/25 05:55 40 MG Hydroxychloroquine Sulfate 200 mg BID PO 04/19/25 22:00 04/21/25 08:59 200 MG Prednisone 40 mg DAILY PO 04/20/25 10:00 04/21/25 08:58 40 MG Ceftriaxone Sodium 50 ml @ 100 mls/hr DAILY@09 IV 04/20/25 09:00 04/21/25 08:56 100 MLS/HR Azithromycin 500 mg DAILY PO 04/20/25 10:00 04/21/25 08:59 500 MG Calcium Acetate 1,334 mg TIDWMEALS PO 04/20/25 08:00 04/21/25 13:00 1,334 MG Temazepam 7.5 mg HS PRN PO 04/19/25 22:00 Lorazepam 1 mg Q8HP PRN IV 04/19/25 21:30 04/21/25 04:29 1 MG Examination: GENERAL:Normal, HEENT:Normal, NECK:Normal, LUNGS:Normal, CVS:Normal, ABDOMEN:Normal, MSK:Normal, SKIN:Normal, NEURO:Normal, :Normal laboratory and microbiology Laboratory Tests 04/21/25 10:48 Test 04/21/25 10:48 Range/Units Serum Glucose 87 74-106 mg/dL Microbiology Date/Time Source Procedure Growth Status 04/19/25 20:46 Nose MRSA Screen - Final Complete Problem List/Assessment/Plan Problem List/Assessment/Plan MELLY, on CKD grade 4, due to lupus nephritis stage 4 Acute hypoxic respiratory failure, Volume overload, due to above Hypertension Moderate anemia, due to above pneumonia headache//dizziness recs Lasix IV 40 mg b.i.d. Continue mycophenolate, sodium bicarbonate, sevelamer, amlodipine and clonidine prn prednisolone 40 mg oral daily need tapering prednisone after dc Increased hydroxychloroquine to 200 mg b.i.d. path report official final ----unavailable to me ---prelim was class 4 lupus nephritis outpt rheum eval Plan discussed with: Patient MARY AZAR MD Apr 21, 2025 17:58
--- NOTE | 2025-04-21 18:51 | DVHPN2 ---
Progress Note - Dictate Date Seen: Apr 21, 2025 Medical Necessity Reason Pt with a Central, PICC or Fol: No Subjective Ms. Starks is a 74 years old right-handed female with a history of lupus, lupus nephritis, hypertension, she came to the [facility] on 04/18/2025 with a chief complaint of shortness of breath I have seen and examined the patient, I have talked to her nurse, her son are in the room with her, she reports doing better, no headache, but on physical examination, I still see mild symmetric tremors in both upper extremities She slept well with Restoril, but she has been advised this medication only for short-term or temporary WBC/HB/PLT/MCV, 04/18/2025: 5.6/9.3/330/79.8 BUN/CR, 04/19/2025: 72/3.62 Liver function tests, 04/19/25: unremarkable TG/HDL/LDL/HDL, 04/06/2025: 164/195/94/70 Vitamin B12, 04/06/2025: 413 Folic acid, 04/07/2025: 39.54 TSH, 04/06/2025: 1.63 CT head, 04/19/2025: No acute intracranial abnormality MRI head, 04/07/25: No acute infarct, intracranial hemorrhage, mass effect, or hydrocephalus vital signs Vital Sign Date Time Temp Pulse Resp B/P (MAP) Pulse Ox O2 Delivery O2 Flow Rate FiO2 04/21/25 18:08 134/80 04/21/25 16:44 97.9 91 16 100 97.9 04/21/25 09:11 1.0 04/21/25 08:00 Nasal Cannula* 28 Total Intake and Output 04/20/25 04/20/25 04/21/25 15:00 23:00 07:00 Intake Total 825 ml 350 ml Output Total 900 ml 400 ml Balance -75 ml -50 ml medications Current Medications Medications Dose Ordered Sig/Mica Route Start Time Stop Time Status Last Admin Dose Admin Mycophenolate Mofetil 1,500 mg BID PO 04/18/25 22:00 04/21/25 08:56 1,500 MG Labetalol HCl 400 mg Q12HR PO 04/18/25 22:00 04/21/25 09:01 400 MG Amlodipine Besylate 10 mg DAILY PO 04/19/25 10:00 04/21/25 08:57 10 MG Clonidine HCl 0.1 mg BID PO 04/18/25 22:00 04/21/25 09:08 0.1 MG Sodium Bicarbonate 650 mg BID PO 04/18/25 22:00 04/21/25 08:59 650 MG Sevelamer HCl 800 mg TIDWM PO 04/18/25 18:00 Hold 04/19/25 18:38 800 MG Albuterol 2.5 mg Q6HPRN PRN NEB 04/18/25 13:45 04/19/25 06:26 2.5 MG Ondansetron HCl 4 mg Q4HP PRN IV 04/18/25 13:45 Acetaminophen 650 mg Q6HP PRN PO 04/18/25 13:45 04/19/25 16:00 650 MG Clonidine HCl 0.1 mg Q6HP PRN PO 04/18/25 17:15 04/19/25 18:39 0.1 MG Furosemide 40 mg BIDD IV 04/19/25 18:00 04/21/25 18:08 40 MG Hydroxychloroquine Sulfate 200 mg BID PO 04/19/25 22:00 04/21/25 08:59 200 MG Prednisone 40 mg DAILY PO 04/20/25 10:00 04/21/25 08:58 40 MG Ceftriaxone Sodium 50 ml @ 100 mls/hr DAILY@09 IV 04/20/25 09:00 04/21/25 08:56 100 MLS/HR Azithromycin 500 mg DAILY PO 04/20/25 10:00 04/21/25 08:59 500 MG Calcium Acetate 1,334 mg TIDWMEALS PO 04/20/25 08:00 04/21/25 18:08 1,334 MG Temazepam 7.5 mg HS PRN PO 04/19/25 22:00 Lorazepam 1 mg Q8HP PRN IV 04/19/25 21:30 04/21/25 04:29 1 MG objective General: the patient is well developed and nourished. No acute distress. MENTAL STATUS: Awake and alert. Oriented to person, place, time and general circumstances. Able to give personal history SPEECH, LANGUAGE, HIGHER CORTICAL FUNCTION: no aphasia or dysathria. CRANIAL NERVES: Pupils are equal, round and reactive. EOMs full and conjugate. No nystagmus. Facial sensation intact in all three divisions bilaterally. Mandibular strength intact. Facial muscles symmetrical and strength intact. SENSATION: Sensation to touch and pinprick is normal. MOTOR: Normal tone in the upper and lower extremity. Normal muscle bulk. No fasciculations. Mild symmetric tremors in both upper extremities on posturing. Muscle strength of the major groups in the extremities is 5/5. REFLEXES: Deep tendon reflexes are symmetrical. No pathological reflexes. CEREBELLAR/COORDINATION: Finger to nose and heel to do are normal bilaterally. GAIT/STATION: deferred laboratory and microbiology Laboratory Tests 04/21/25 10:48 Test 04/21/25 10:48 Range/Units Serum Glucose 87 74-106 mg/dL Problem List New onset headache, etiology unclear Dizziness, possibly positional or secondary to orthostatic hypotension New onset tremors Medication side effects Essential tremors Insomnia Assessment/Plan Monitoring Supportive treatment Telemetry Orthostatic vitals (talked to her RN) Restoril 7.5 mg HS p.r.n. for insomnia Syncopal precautions Good hydration More recommendation per clinical course This medical document was created using an electronic medical record system with [employer] dictation system. Although this document has been carefully reviewed, there may still be some phonetic and typographical errors. These areas are purely typographical due to imperfections of the software programs, and do not reflect any compromise in the patient's medical care. Prognosis poor Plan discussed with: Patient, Spouse, Other COURTNEY RUIZ MD Apr 21, 2025 18:51
--- NOTE | 2025-04-21 21:45 | DVHPN2 ---
Progress Note - Dictate Date Seen: Apr 21, 2025 Medical Necessity Reason Pt with a Central, PICC or Fol: No Subjective Patient was seen and evaluated in follow up. Patient is on 1 LPM NC. HGB 8.3, HCT 25.3, BUN 72, CLOUD DEVELOPER 3.53, CA 8.5. vital signs Vital Sign Date Time Temp Pulse Resp B/P (MAP) Pulse Ox O2 Delivery O2 Flow Rate FiO2 04/21/25 12:42 97.8 85 18 127/77 (94) 93 97.8 04/21/25 09:11 1.0 04/21/25 08:00 Nasal Cannula* 28 Total Intake and Output 04/20/25 04/20/25 04/21/25 15:00 23:00 07:00 Intake Total 825 ml 350 ml Output Total 900 ml 400 ml Balance -75 ml -50 ml medications Current Medications Medications Dose Ordered Sig/Mica Route Start Time Stop Time Status Last Admin Dose Admin Mycophenolate Mofetil 1,500 mg BID PO 04/18/25 22:00 04/21/25 08:56 1,500 MG Labetalol HCl 400 mg Q12HR PO 04/18/25 22:00 04/21/25 09:01 400 MG Amlodipine Besylate 10 mg DAILY PO 04/19/25 10:00 04/21/25 08:57 10 MG Clonidine HCl 0.1 mg BID PO 04/18/25 22:00 04/21/25 09:08 0.1 MG Sodium Bicarbonate 650 mg BID PO 04/18/25 22:00 04/21/25 08:59 650 MG Sevelamer HCl 800 mg TIDWM PO 04/18/25 18:00 Hold 04/19/25 18:38 800 MG Albuterol 2.5 mg Q6HPRN PRN NEB 04/18/25 13:45 04/19/25 06:26 2.5 MG Ondansetron HCl 4 mg Q4HP PRN IV 04/18/25 13:45 Acetaminophen 650 mg Q6HP PRN PO 04/18/25 13:45 04/19/25 16:00 650 MG Clonidine HCl 0.1 mg Q6HP PRN PO 04/18/25 17:15 04/19/25 18:39 0.1 MG Furosemide 40 mg BIDD IV 04/19/25 18:00 04/21/25 05:55 40 MG Hydroxychloroquine Sulfate 200 mg BID PO 04/19/25 22:00 04/21/25 08:59 200 MG Prednisone 40 mg DAILY PO 04/20/25 10:00 04/21/25 08:58 40 MG Ceftriaxone Sodium 50 ml @ 100 mls/hr DAILY@09 IV 04/20/25 09:00 04/21/25 08:56 100 MLS/HR Azithromycin 500 mg DAILY PO 04/20/25 10:00 04/21/25 08:59 500 MG Calcium Acetate 1,334 mg TIDWMEALS PO 04/20/25 08:00 04/21/25 13:00 1,334 MG Temazepam 7.5 mg HS PRN PO 04/19/25 22:00 Lorazepam 1 mg Q8HP PRN IV 04/19/25 21:30 04/21/25 04:29 1 MG objective GENERAL: Alert and oriented x 3. No acute distress. EYES: PERRL, EOMI. Anicteric. HENT: Moist mucous membranes. LUNGS: Clear to auscultation bilaterally. CARDIOVASCULAR: Regular rate and rhythm. ABDOMEN: Soft, nontender and nondistended. EXTREMITIES: 2+ BLE edema pitting. NEUROLOGIC: No focal neurological deficits. SKIN: Warm, dry. Past surgical scars laboratory and microbiology Laboratory Tests 04/21/25 10:48 Test 04/21/25 10:48 Range/Units Serum Glucose 87 74-106 mg/dL Problem List R/o Structural heart diseases. R/o Tamponade. Acyte hypoxic resp fail likely from pulm edema/ fluid overload from renal failure/ pleural effusion. Hypertensive emergency likely in the setting of lupus nephritis. Acute kidney injury secondary to lupus nephritis. Anemia of CKD and lupus. DLD. History of Lupus. Assessment/Plan Continued all current supportive medical care. Amlodipine, Clonidine, Labetalol. IV antibiotics as ordered. Diuretics with Lasix. Additional plan as per the hospital course. Plan discussed with: Patient SANDY CANTOR MD Apr 21, 2025 15:07
[2025-04-22] VITALS (8 sets, daily range): BP systolic 127–184; BP diastolic 78–110; PULSE 89–104; RESP 16–18; TEMP 97.6–98.3; O2SAT 90–97
[2025-04-22 06:34] LABS: Alanine Aminotransferase 12 U/L (7-40); Anion Gap 13 (5-15); BUN/Creatinine Ratio 21.4 (10.0-20.0); Carbon Dioxide 21 mmol/L (20-31); Chloride 105 mmol/L (98-107); Glucose 94 mg/dL (74-106); Potassium 4.1 mmol/L (3.5-5.1); Sodium 139 mmol/L (136-145)
[2025-04-22 06:35] LABS: Bilirubin, Total 0.4 mg/dL (0.2-1.0)
[2025-04-22 06:37] LABS: Hemoglobin 8.5 g/dL (12.2-16.2)
[2025-04-22 06:39] LABS: Hematocrit 26.3 % (36.0-46.0); Mean Corpuscular Hemoglobin 26.3 pg (28.0-32.0); Mean Corpuscular Volume 81.5 fL (80.0-100.0); Nucleated Red Blood Cells % 0.0 %
[2025-04-22 06:40] LABS: Albumin 3.1 g/dL (3.2-4.8); Alkaline Phosphatase 43 U/L (46-116); Blood Urea Nitrogen 74 mg/dL (9-23); Calcium 8.7 mg/dL (8.7-10.4); Total Protein 5.4 g/dL (5.7-8.2)
--- NOTE | 2025-04-22 09:31 | DVHPN2 ---
Reviewed: Care Plan, H&P, Labs, Medications, Previous Orders, Radiology Changes from previous H/P or p: No Changes Objective Vitals Vital Signs Date Time Temp Pulse Resp B/P (MAP) Pulse Ox O2 Delivery O2 Flow Rate FiO2 04/22/25 08:19 148/90 04/22/25 05:00 98.3 94 17 96 98.3 04/22/25 00:00 Room Air 0.0 04/22/25 00:00 21 Intake/Output Intake and Output 04/22/25 07:00 Intake Total 2050 ml Output Total 900 ml Balance 1150 ml Intake Oral 2000 ml IV Total 50 ml Output Urine Total 900 ml # Voids 2 # Bowel Movements 1 Medications Current Medications Medications Dose Ordered Sig/Mica Route Start Time Stop Time Status Last Admin Dose Admin Mycophenolate Mofetil 1,500 mg BID PO 04/18/25 22:00 04/21/25 22:30 1,500 MG Labetalol HCl 400 mg Q12HR PO 04/18/25 22:00 04/21/25 22:30 400 MG Amlodipine Besylate 10 mg DAILY PO 04/19/25 10:00 04/22/25 08:19 10 MG Clonidine HCl 0.1 mg BID PO 04/18/25 22:00 04/21/25 22:31 0.1 MG Sodium Bicarbonate 650 mg BID PO 04/18/25 22:00 04/22/25 08:19 650 MG Sevelamer HCl 800 mg TIDWM PO 04/18/25 18:00 Hold 04/19/25 18:38 800 MG Albuterol 2.5 mg Q6HPRN PRN NEB 04/18/25 13:45 04/19/25 06:26 2.5 MG Ondansetron HCl 4 mg Q4HP PRN IV 04/18/25 13:45 Acetaminophen 650 mg Q6HP PRN PO 04/18/25 13:45 04/19/25 16:00 650 MG Clonidine HCl 0.1 mg Q6HP PRN PO 04/18/25 17:15 04/19/25 18:39 0.1 MG Furosemide 40 mg BIDD IV 04/19/25 18:00 04/22/25 05:53 40 MG Hydroxychloroquine Sulfate 200 mg BID PO 04/19/25 22:00 04/22/25 08:19 200 MG Prednisone 40 mg DAILY PO 04/20/25 10:00 04/22/25 08:18 40 MG Ceftriaxone Sodium 50 ml @ 100 mls/hr DAILY@09 IV 04/20/25 09:00 04/22/25 08:20 100 MLS/HR Azithromycin 500 mg DAILY PO 04/20/25 10:00 04/21/25 08:59 500 MG Calcium Acetate 1,334 mg TIDWMEALS PO 04/20/25 08:00 04/22/25 08:17 1,334 MG Temazepam 7.5 mg HS PRN PO 04/19/25 22:00 Lorazepam 1 mg Q8HP PRN IV 04/19/25 21:30 04/21/25 22:33 1 MG Laboratory Results Laboratory Tests 04/22/25 05:35 Chemistry Test 04/21/25 10:48 04/22/25 05:35 Albumin 3.1 g/dL (3.2-4.8) L 3.1 g/dL (3.2-4.8) L Calcium Level 8.5 mg/dL (8.7-10.4) L 8.7 mg/dL (8.7-10.4) Total Protein 5.2 g/dL (5.7-8.2) L 5.4 g/dL (5.7-8.2) L LFT Test 04/21/25 10:48 04/22/25 05:35 Alanine Aminotransferase (ALT) 14 U/L (7-40) 12 U/L (7-40) Alkaline Phosphatase 39 U/L (46-116) L 43 U/L (46-116) L Aspartate Amino Transferase (AST) 11 U/L (13-40) L 14 U/L (13-40) Total Bilirubin 0.3 mg/dL (0.2-1.0) 0.4 mg/dL (0.2-1.0) Urinalysis Test 04/19/25 20:26 Urine Color Colorless (Yellow) Urine Clarity Clear (Clear) Urine pH 6.0 (5.0-9.0) Urine Specific [place] 1.010 (1.001-1.035) Urine Protein 2+ (Negative) H Urine Ketones Negative (Negative) Urine Blood 2+ /uL (Negative) H Urine Nitrite Negative (Negative) Urine Bilirubin Negative (Negative) Urine Urobilinogen Normal mg/dL (Negative) Urine Leukocyte Esterase Negative /uL (Negative) Urine RBC 20 /hpf (0 - 4) Urine Microscopic WBC 3 /HPF (0-5) Urine Squamous Epithelial Cells Few /hpf (<5) Urine Bacteria Few /hpf (None Seen) H Urine Creatinine 34.61 mg/dL (30.0-125.0) Urine Protein/Creatinine Ratio 5.03 Urine Sodium 93 mmol/L (40-220) Urine Glucose Normal mg/dL (Normal) Urine Total Protein 174.2 mg/dL (1-14) H Microbiology Microbiology Date/Time Source Procedure Growth Status 04/19/25 20:46 Nose MRSA Screen - Final Complete Labs and/or images reviewed: Labs reviewed by me, Image(s) reviewed by me Assessment/Plan Assessment/Plan R/o Structural heart diseases cardiology consult by appreciated, echo 65% ejection fraction, no pericardial effusion R/o Tamponade Acyte hypoxic resp failure likely from pulm edema/ fluid overload from renal failure/ pleural effusion Possible community-acquired pneumonia: Rocephin azithromycin Hypertensive emergency likely in the setting of lupus nephritis , Lasix clonidine amlodipine labetalol Acute kidney injury secondary to lupus nephritis nephrology consult by Dr Zacarias appreciated placed on prednisone and Plaquenil Anemia of CKD and lupus Hyperlipidemia Hx Lupus nephritis Large left pleural effusion: Radiology consult for thoracentesis Time spent 55 minutes JENNY Lopes at bedside Patient needs follow up with the PCP in [facility] and with the Dr. Agudelo group for kidney problems JENNY Maki at bed side. Plan discussed with: Patient Date of Service: Apr 22, 2025 Billing Provider: FABIAN GIMENEZ MD Common Visit Codes: [id number] INP/OBS CARE(HIGH) FABIAN GIMENEZ MD Apr 22, 2025 09:31
[2025-04-22 11:45] LABS: INR 0.97 (0.9-1.15); Partial Thromboplastin Time 25.1 SEC (24.5-34.5); Prothrombin Time 10.3 sec (9.3-11.8)
--- NOTE | 2025-04-22 13:40 | DVH ---
CHEST RADIOGRAPH Indication: S/P THORACENTESIS PROCEDURE Technique: Single frontal view of the chest was obtained Comparison: XY CHEST PORTABLE on DOS: 04/18/25, XY CHEST XRAY 1 VIEW on DOS: 04/06/25, XY CHEST XRAY 1 VIEW on DOS: 03/26/25 FINDINGS: Lines and Tubes: None Lungs: Decreased left pleural effusion. No pneumothorax. Persistent left lower lobe infiltrate and atelectasis. Pleura: No effusion. No pneumothorax. Cardiomediastinal contours: Unremarkable Bones: No acute osseous abnormality. IMPRESSION: 1. Reduced left pleural effusion with residual infiltrate and atelectasis. 2. No pneumothorax.
[2025-04-22] MEDS: EPOETIN ALFA-EPBX 10,000 UNIT/1ML VIAL SC SCH (13:49)
--- NOTE | 2025-04-22 14:54 | DVHPN2 ---
Progress Note Date Seen: Apr 22, 2025 Medical Necessity Reason Pt with a Central, PICC or Fol: No Subjective Changes from previous H/P or p: Changes (s/p thoracentesis ) Objective vital signs Vital Sign Date Time Temp Pulse Resp B/P (MAP) Pulse Ox O2 Delivery O2 Flow Rate FiO2 04/22/25 12:59 97.6 89 16 127/81 (96) 93 97.6 04/22/25 08:05 Room Air* 0 21 Total Intake and Output 04/21/25 04/21/25 04/22/25 15:00 23:00 07:00 Intake Total 400 ml 1400 ml 250 ml Output Total 900 ml Balance 400 ml 500 ml 250 ml medications Current Medications Medications Dose Ordered Sig/Mica Route Start Time Stop Time Status Last Admin Dose Admin Mycophenolate Mofetil 1,500 mg BID PO 04/18/25 22:00 04/22/25 09:45 1,500 MG Labetalol HCl 400 mg Q12HR PO 04/18/25 22:00 04/22/25 09:45 400 MG Amlodipine Besylate 10 mg DAILY PO 04/19/25 10:00 04/22/25 08:19 10 MG Clonidine HCl 0.1 mg BID PO 04/18/25 22:00 04/22/25 09:45 0.1 MG Sodium Bicarbonate 650 mg BID PO 04/18/25 22:00 04/22/25 08:19 650 MG Sevelamer HCl 800 mg TIDWM PO 04/18/25 18:00 Hold 04/19/25 18:38 800 MG Albuterol 2.5 mg Q6HPRN PRN NEB 04/18/25 13:45 04/19/25 06:26 2.5 MG Ondansetron HCl 4 mg Q4HP PRN IV 04/18/25 13:45 Acetaminophen 650 mg Q6HP PRN PO 04/18/25 13:45 04/19/25 16:00 650 MG Clonidine HCl 0.1 mg Q6HP PRN PO 04/18/25 17:15 04/19/25 18:39 0.1 MG Furosemide 40 mg BIDD IV 04/19/25 18:00 04/22/25 05:53 40 MG Hydroxychloroquine Sulfate 200 mg BID PO 04/19/25 22:00 04/22/25 08:19 200 MG Prednisone 40 mg DAILY PO 04/20/25 10:00 04/22/25 08:18 40 MG Ceftriaxone Sodium 50 ml @ 100 mls/hr DAILY@09 IV 04/20/25 09:00 04/22/25 08:20 100 MLS/HR Azithromycin 500 mg DAILY PO 04/20/25 10:00 04/22/25 10:00 500 MG Calcium Acetate 1,334 mg TIDWMEALS PO 04/20/25 08:00 04/22/25 12:04 1,334 MG Temazepam 7.5 mg HS PRN PO 04/19/25 22:00 Lorazepam 1 mg Q8HP PRN IV 04/19/25 21:30 04/21/25 22:33 1 MG Epoetin Isaías-epbx 10,000 unit MWF SC 04/22/25 12:30 04/22/25 13:49 10,000 UNIT Examination: GENERAL:Normal, LUNGS:Abnormal, CVS:Normal laboratory and microbiology Laboratory Tests 04/22/25 05:35 Test 04/22/25 05:35 Range/Units Serum Glucose 94 74-106 mg/dL Microbiology Date/Time Source Procedure Growth Status 04/19/25 20:46 Nose MRSA Screen - Final Complete Problem List/Assessment/Plan Problem List/Assessment/Plan MELLY, on CKD grade 4, due to lupus nephritis class IV; severe active and chronic w/ diffuse IFTA Acute hypoxic respiratory failure, due to large pleural effusion Volume overload, due to above Hypertension Moderate anemia, due to above pneumonia headache//dizziness cr stable Lasix IV 40 mg b.i.d. Continue mycophenolate, sodium bicarbonate, sevelamer, amlodipine and clonidine prn prednisone taper dose 20mg po hydroxychloroquine to 200 mg b.i.d. outpt rheum eval explained no indication of dialysis at this time however explained due to patient's chronic and severe lupus nephritis her kidney stage is likely permanently stage IV and above in treatment of require outpatient renal follow- up for dialysis education and preparation. explained this in the presence of Plan discussed with: Patient, Spouse My Orders My Orders Orders - NITHYA HURT MD Procedure Category Date Status Time Hemoglobin LAB 04/23/25 Verified 05:00 Hematocrit LAB 04/23/25 Verified 05:00 Iron Panel LAB 04/23/25 Verified 05:00 Transferrin LAB 04/23/25 Verified 05:00 Ferritin LAB 04/23/25 Verified 05:00 Epoetin Isaías-Epbx PHA 04/22/25 In Process (Retacrit) 12:30 NITHYA HURT MD Apr 22, 2025 14:54
[2025-04-23] VITALS (7 sets, daily range): BP systolic 134–188; BP diastolic 79–115; PULSE 82–93; RESP 16–18; TEMP 97.7–99.2; O2SAT 96–98
--- NOTE | 2025-04-23 00:33 | DVHPN2 ---
Progress Note - Dictate Date Seen: Apr 22, 2025 Medical Necessity Reason Pt with a Central, PICC or Fol: No Subjective Patient was seen and evaluated in follow up. Patient underwent US guided thoracentesis. Patient is now on room air. HGB 8.5, HCT 26.3, BUN 74, Retirement Benefits Specialist 3.45. vital signs Vital Sign Date Time Temp Pulse Resp B/P (MAP) Pulse Ox O2 Delivery O2 Flow Rate FiO2 04/22/25 22:17 97 Room Air* 0 21 04/22/25 22:07 149/92 04/22/25 22:06 93 04/22/25 21:00 98.0 17 98.0 Total Intake and Output 04/22/25 04/22/25 04/23/25 15:00 23:00 07:00 Intake Total 350 ml Output Total 500 ml Balance -150 ml medications Current Medications Medications Dose Ordered Sig/Mica Route Start Time Stop Time Status Last Admin Dose Admin Mycophenolate Mofetil 1,500 mg BID PO 04/18/25 22:00 04/22/25 21:58 1,500 MG Labetalol HCl 400 mg Q12HR PO 04/18/25 22:00 04/22/25 22:06 400 MG Amlodipine Besylate 10 mg DAILY PO 04/19/25 10:00 04/22/25 08:19 10 MG Clonidine HCl 0.1 mg BID PO 04/18/25 22:00 04/22/25 22:07 0.1 MG Sodium Bicarbonate 650 mg BID PO 04/18/25 22:00 04/22/25 22:07 650 MG Sevelamer HCl 800 mg TIDWM PO 04/18/25 18:00 Hold 04/19/25 18:38 800 MG Albuterol 2.5 mg Q6HPRN PRN NEB 04/18/25 13:45 04/19/25 06:26 2.5 MG Ondansetron HCl 4 mg Q4HP PRN IV 04/18/25 13:45 Acetaminophen 650 mg Q6HP PRN PO 04/18/25 13:45 04/19/25 16:00 650 MG Clonidine HCl 0.1 mg Q6HP PRN PO 04/18/25 17:15 04/19/25 18:39 0.1 MG Furosemide 40 mg BIDD IV 04/19/25 18:00 04/22/25 17:46 40 MG Hydroxychloroquine Sulfate 200 mg BID PO 04/19/25 22:00 04/22/25 22:07 200 MG Prednisone 40 mg DAILY PO 04/20/25 10:00 04/22/25 08:18 40 MG Ceftriaxone Sodium 50 ml @ 100 mls/hr DAILY@09 IV 04/20/25 09:00 04/22/25 08:20 100 MLS/HR Azithromycin 500 mg DAILY PO 04/20/25 10:00 04/22/25 10:00 500 MG Calcium Acetate 1,334 mg TIDWMEALS PO 04/20/25 08:00 04/22/25 17:47 1,334 MG Temazepam 7.5 mg HS PRN PO 04/19/25 22:00 Lorazepam 1 mg Q8HP PRN IV 04/19/25 21:30 04/21/25 22:33 1 MG Epoetin Isaías-epbx 10,000 unit MWF SC 04/22/25 12:30 04/22/25 13:49 10,000 UNIT objective GENERAL: Alert and oriented x 3. No acute distress. EYES: PERRL, EOMI. Anicteric. HENT: Moist mucous membranes. LUNGS: Clear to auscultation bilaterally. CARDIOVASCULAR: Regular rate and rhythm. ABDOMEN: Soft, nontender and nondistended. EXTREMITIES: 2+ BLE edema pitting. NEUROLOGIC: No focal neurological deficits. SKIN: Warm, dry. Past surgical scars laboratory and microbiology Laboratory Tests 04/22/25 05:35 Test 04/22/25 05:35 Range/Units Serum Glucose 94 74-106 mg/dL Problem List R/o Structural heart diseases. R/o Tamponade. Acyte hypoxic resp fail likely from pulm edema/ fluid overload from renal failure/ pleural effusion. Hypertensive emergency likely in the setting of lupus nephritis. Acute kidney injury secondary to lupus nephritis. Anemia of CKD and lupus. DLD. History of Lupus. Assessment/Plan Continued all current supportive medical care. Amlodipine, Clonidine, Labetalol. IV antibiotics as ordered. Diuretics with Lasix. Additional plan as per the hospital course. Plan discussed with: Patient SANDY CANTOR MD Apr 23, 2025 00:32
[2025-04-23 07:34] LABS: Hematocrit 24.7 % (36.0-46.0); Hemoglobin 8.2 g/dL (12.2-16.2); Mean Corpuscular Hemoglobin 26.5 pg (28.0-32.0); Mean Corpuscular Volume 80.0 fL (80.0-100.0); Nucleated Red Blood Cells % 0.0 %
[2025-04-23 07:48] LABS: Anion Gap 14 (5-15); BUN/Creatinine Ratio 23.6 (10.0-20.0); Carbon Dioxide 23 mmol/L (20-31); Chloride 102 mmol/L (98-107); Glucose 82 mg/dL (74-106); Potassium 4.1 mmol/L (3.5-5.1); Sodium 139 mmol/L (136-145)
[2025-04-23 07:49] LABS: Bilirubin, Total 0.4 mg/dL (0.2-1.0)
[2025-04-23 07:51] LABS: Alanine Aminotransferase < 9 U/L (7-40); Albumin 3.0 g/dL (3.2-4.8); Alkaline Phosphatase 40 U/L (46-116); Calcium 8.4 mg/dL (8.7-10.4); Total Protein 5.0 g/dL (5.7-8.2)
[2025-04-23 07:52] LABS: Blood Urea Nitrogen 81 mg/dL (9-23)
[2025-04-23 08:40] LABS: Iron 38.0 ug/dL (50-170)
[2025-04-23 08:41] LABS: Total Iron Binding Capacity 253.0 ug/dL (250-425)
--- NOTE | 2025-04-23 08:49 | DVHPN2 ---
Reviewed: Care Plan, H&P, Labs, Medications, Previous Orders, Radiology Changes from previous H/P or p: No Changes Objective Vitals Vital Signs Date Time Temp Pulse Resp B/P (MAP) Pulse Ox O2 Delivery O2 Flow Rate FiO2 04/23/25 08:03 85 157/90 04/23/25 05:00 99.2 17 96 99.2 04/22/25 22:17 Room Air* 0 21 Intake/Output Intake and Output 04/23/25 07:00 Intake Total 800 ml Output Total 1300 ml Balance -500 ml Intake Oral 750 ml IV Total 50 ml Output Urine Total 1300 ml # Bowel Movements 1 Medications Current Medications Medications Dose Ordered Sig/Mica Route Start Time Stop Time Status Last Admin Dose Admin Mycophenolate Mofetil 1,500 mg BID PO 04/18/25 22:00 04/22/25 21:58 1,500 MG Labetalol HCl 400 mg Q12HR PO 04/18/25 22:00 04/23/25 08:03 400 MG Amlodipine Besylate 10 mg DAILY PO 04/19/25 10:00 04/22/25 08:19 10 MG Clonidine HCl 0.1 mg BID PO 04/18/25 22:00 04/22/25 22:07 0.1 MG Sodium Bicarbonate 650 mg BID PO 04/18/25 22:00 04/23/25 08:01 650 MG Sevelamer HCl 800 mg TIDWM PO 04/18/25 18:00 Hold 04/19/25 18:38 800 MG Albuterol 2.5 mg Q6HPRN PRN NEB 04/18/25 13:45 04/19/25 06:26 2.5 MG Ondansetron HCl 4 mg Q4HP PRN IV 04/18/25 13:45 Acetaminophen 650 mg Q6HP PRN PO 04/18/25 13:45 04/19/25 16:00 650 MG Clonidine HCl 0.1 mg Q6HP PRN PO 04/18/25 17:15 04/19/25 18:39 0.1 MG Hydroxychloroquine Sulfate 200 mg BID PO 04/19/25 22:00 04/23/25 08:02 200 MG Prednisone 40 mg DAILY PO 04/20/25 10:00 04/23/25 08:01 40 MG Ceftriaxone Sodium 50 ml @ 100 mls/hr DAILY@09 IV 04/20/25 09:00 04/23/25 08:03 100 MLS/HR Azithromycin 500 mg DAILY PO 04/20/25 10:00 04/23/25 08:01 500 MG Calcium Acetate 1,334 mg TIDWMEALS PO 04/20/25 08:00 04/23/25 07:59 1,334 MG Temazepam 7.5 mg HS PRN PO 04/19/25 22:00 Lorazepam 1 mg Q8HP PRN IV 04/19/25 21:30 04/23/25 02:13 1 MG Epoetin Isaías-epbx 10,000 unit MWF SC 04/22/25 12:30 04/22/25 13:49 10,000 UNIT Furosemide 40 mg BIDD PO 04/23/25 10:00 UNV Laboratory Results Laboratory Tests 04/23/25 04:41 Chemistry Test 04/23/25 04:41 Albumin 3.0 g/dL (3.2-4.8) L Calcium Level 8.4 mg/dL (8.7-10.4) L Total Protein 5.0 g/dL (5.7-8.2) L Coagulation Test 04/22/25 10:42 Prothrombin Time 10.3 sec (9.3-11.8) Prothrombin Time INR 0.97 (0.9-1.15) Activated Partial Thromboplast Time 25.1 SEC (24.5-34.5) LFT Test 04/23/25 04:41 Alanine Aminotransferase (ALT) < 9 U/L (7-40) Alkaline Phosphatase 40 U/L (46-116) L Aspartate Amino Transferase (AST) 15 U/L (13-40) Total Bilirubin 0.4 mg/dL (0.2-1.0) Urinalysis Test 04/19/25 20:26 Urine Color Colorless (Yellow) Urine Clarity Clear (Clear) Urine pH 6.0 (5.0-9.0) Urine Specific [place] 1.010 (1.001-1.035) Urine Protein 2+ (Negative) H Urine Ketones Negative (Negative) Urine Blood 2+ /uL (Negative) H Urine Nitrite Negative (Negative) Urine Bilirubin Negative (Negative) Urine Urobilinogen Normal mg/dL (Negative) Urine Leukocyte Esterase Negative /uL (Negative) Urine RBC 20 /hpf (0 - 4) Urine Microscopic WBC 3 /HPF (0-5) Urine Squamous Epithelial Cells Few /hpf (<5) Urine Bacteria Few /hpf (None Seen) H Urine Creatinine 34.61 mg/dL (30.0-125.0) Urine Protein/Creatinine Ratio 5.03 Urine Sodium 93 mmol/L (40-220) Urine Glucose Normal mg/dL (Normal) Urine Total Protein 174.2 mg/dL (1-14) H Microbiology Microbiology Date/Time Source Procedure Growth Status 04/19/25 20:46 Nose MRSA Screen - Final Complete Labs and/or images reviewed: Labs reviewed by me, Image(s) reviewed by me Assessment/Plan Assessment/Plan Structural heart disease ruled out cardiology consult by appreciated, echo 65% ejection fraction, no pericardial effusion Tamponade ruled out Acute hypoxic resp failure likely from pulm edema/ fluid overload from renal failure and left pleural effusion Possible community-acquired pneumonia: Rocephin azithromycin Hypertensive emergency likely in the setting of lupus nephritis , Lasix clonidine amlodipine labetalol MELLY 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 continue mycophenolate, sodium bicarbonate sevelamir amlodipine and clonidine, taper prednisone to 20 mg p.o. daily hydroxychloroquine 200 mg p.o. b.i.d. Anemia of CKD and lupus Anemia of chronic disease Hyperlipidemia Hx Lupus nephritis Large left pleural effusion, status post thoracentesis by radiologist Time spent 55 minutes JENNY Lopes at bedside Patient needs follow up with the PCP in [facility] and with Dr. Magnus oconnor for kidney problems JENNY Lopes at bed side. Social service consult placed for changing her [facility] to [facility] per request of Dr Rosas. Plan discussed with: Patient My Orders Orders - FABIAN GIMENEZ MD Procedure Category Date Status Time * Radiologist Consult CONS 04/22/25 Transmitted 09:23 Thoracentesis US 04/22/25 Taken 12:04 Date of Service: Apr 23, 2025 Billing Provider: FABIAN GIMENEZ MD Common Visit Codes: [id number] INP/OBS CARE(HIGH) FABIAN GIMENEZ MD Apr 23, 2025 08:49
--- NOTE | 2025-04-23 09:08 | DVHPN2 ---
Progress Note Date Seen: Apr 23, 2025 Medical Necessity Reason Pt with a Central, PICC or Fol: No Subjective Patient reports: Feels better Objective vital signs Vital Sign Date Time Temp Pulse Resp B/P (MAP) Pulse Ox O2 Delivery O2 Flow Rate FiO2 04/23/25 08:03 85 157/90 04/23/25 08:00 Room Air* 0 21 04/23/25 05:00 99.2 17 96 99.2 Total Intake and Output 04/22/25 04/22/25 04/23/25 15:00 23:00 07:00 Intake Total 50 ml 350 ml 400 ml Output Total 500 ml 800 ml Balance 50 ml -150 ml -400 ml medications Current Medications Medications Dose Ordered Sig/Mica Route Start Time Stop Time Status Last Admin Dose Admin Mycophenolate Mofetil 1,500 mg BID PO 04/18/25 22:00 04/22/25 21:58 1,500 MG Labetalol HCl 400 mg Q12HR PO 04/18/25 22:00 04/23/25 08:03 400 MG Amlodipine Besylate 10 mg DAILY PO 04/19/25 10:00 04/22/25 08:19 10 MG Clonidine HCl 0.1 mg BID PO 04/18/25 22:00 04/22/25 22:07 0.1 MG Sodium Bicarbonate 650 mg BID PO 04/18/25 22:00 04/23/25 08:01 650 MG Sevelamer HCl 800 mg TIDWM PO 04/18/25 18:00 Hold 04/19/25 18:38 800 MG Albuterol 2.5 mg Q6HPRN PRN NEB 04/18/25 13:45 04/19/25 06:26 2.5 MG Ondansetron HCl 4 mg Q4HP PRN IV 04/18/25 13:45 Acetaminophen 650 mg Q6HP PRN PO 04/18/25 13:45 04/19/25 16:00 650 MG Clonidine HCl 0.1 mg Q6HP PRN PO 04/18/25 17:15 04/19/25 18:39 0.1 MG Hydroxychloroquine Sulfate 200 mg BID PO 04/19/25 22:00 04/23/25 08:02 200 MG Prednisone 40 mg DAILY PO 04/20/25 10:00 04/23/25 08:01 40 MG Ceftriaxone Sodium 50 ml @ 100 mls/hr DAILY@09 IV 04/20/25 09:00 04/23/25 08:03 100 MLS/HR Azithromycin 500 mg DAILY PO 04/20/25 10:00 04/23/25 08:01 500 MG Calcium Acetate 1,334 mg TIDWMEALS PO 04/20/25 08:00 04/23/25 07:59 1,334 MG Temazepam 7.5 mg HS PRN PO 04/19/25 22:00 Lorazepam 1 mg Q8HP PRN IV 04/19/25 21:30 04/23/25 02:13 1 MG Epoetin Isaías-epbx 10,000 unit MWF SC 04/22/25 12:30 04/22/25 13:49 10,000 UNIT Furosemide 40 mg BIDD PO 04/23/25 18:00 Iron Sucrose 110 ml @ 110 mls/hr DAILY@1200 IV 04/23/25 12:00 04/27/25 12:59 Examination: GENERAL:Normal, CVS:Normal laboratory and microbiology Laboratory Tests 04/23/25 04:41 Test 04/23/25 04:41 Range/Units Serum Glucose 82 74-106 mg/dL Microbiology Date/Time Source Procedure Growth Status 04/19/25 20:46 Nose MRSA Screen - Final Complete Problem List/Assessment/Plan Problem List/Assessment/Plan MELLY, on CKD grade 4, due to lupus nephritis class IV; severe active and chronic w/ diffuse IFTA Acute hypoxic respiratory failure, due to large pleural effusion Volume overload, due to above Hypertension Moderate anemia, due to above pneumonia headache//dizziness proteinuria due to lupus anemia due to ckd cr stable Lasix IV 40 mg b.i.d. Continue mycophenolate, sodium bicarbonate, sevelamer, amlodipine and clonidine prn prednisone po hydroxychloroquine to 200 mg b.i.d. outpt rheum eval IV iron , RUTH 3x a week needs insurance change to establish outpatient f/u explained no indication of dialysis at this time however explained due to patient's chronic and severe lupus nephritis her kidney stage is likely permanently stage IV and above in treatment of require outpatient renal follow- up for dialysis education and preparation. explained this in the presence of Plan discussed with: Patient, Spouse My Orders My Orders Orders - NITHYA HURT MD Procedure Category Date Status Time Epoetin Isaías-Epbx PHA 04/22/25 In Process (Retacrit) 12:30 Complement C3 & C4 LAB 04/22/25 In Process 14:54 Furosemide Tablet PHA 04/23/25 In Process (Lasix Tablet) 18:00 Iron Sucrose Complex PHA 04/23/25 In Process (Venofer) 12:00 Dietary Evaluation Review Comments: Monitor PO intake, lab values, weight trend, and I/O Expected Outcomes/Goals: Intake to meet >75% estimated needs Lab values to improve FU 3-5 days NITHYA HURT MD Apr 23, 2025 09:08
[2025-04-23] MEDS: IRON SUCROSE COMPLEX 110 ML IV SCH (11:59)
[2025-04-23 13:07] LABS: Glucose, Body Fluid 103.0 mg/dL (.); LD, Body Fluid 57.0 IU/L (.)
--- NOTE | 2025-04-23 14:41 | DVH ---
PROCEDURE: ULTRASOUND GUIDED THORACENTESIS USING TEMPORARY CATHETER HISTORY: PLEURAL EFFUSION DOCUMENTATION: Informed consent was obtained and a procedural time out was performed. FINDINGS: The risks and benefits of the procedure including bleeding, infection and pneumothorax were explained to the patient and written informed consent obtained. Optimal site for puncture long the left posterior chest wall was determined using real-time ultrasound and the region sterilized. Local anesthesia was instilled. A 5 [place] catheter was then advanced into the pleural space and 1.2 liters of clear fluid was removed. The patient tolerated the procedure well. IMPRESSION: 1. Successful left thoracentesis with 1.2 L aspirated NE HE
[2025-04-23] MEDS: FUROSEMIDE 20 MG TAB PO SCH (17:35)
--- NOTE | 2025-04-23 23:42 | DVHPN2 ---
Progress Note - Dictate Date Seen: Apr 23, 2025 Medical Necessity Reason Pt with a Central, PICC or Fol: No Subjective Patient was seen and evaluated in follow up. Patient reports feeling better today. HGB 8.2, HCT 24.7, BUN 81, SENIOR SYSTEMS PROGRAMMER 3.43, [place] 8.4. vital signs Vital Sign Date Time Temp Pulse Resp B/P (MAP) Pulse Ox O2 Delivery O2 Flow Rate FiO2 04/23/25 13:00 97.7 82 16 141/86 (104) 96 97.7 04/23/25 08:00 Room Air* 0 21 Total Intake and Output 04/22/25 04/22/25 04/23/25 15:00 23:00 07:00 Intake Total 50 ml 350 ml 400 ml Output Total 500 ml 800 ml Balance 50 ml -150 ml -400 ml medications Current Medications Medications Dose Ordered Sig/Mica Route Start Time Stop Time Status Last Admin Dose Admin Mycophenolate Mofetil 1,500 mg BID PO 04/18/25 22:00 04/23/25 09:51 1,500 MG Labetalol HCl 400 mg Q12HR PO 04/18/25 22:00 04/23/25 08:03 400 MG Amlodipine Besylate 10 mg DAILY PO 04/19/25 10:00 04/23/25 09:52 10 MG Clonidine HCl 0.1 mg BID PO 04/18/25 22:00 04/23/25 09:52 0.1 MG Sodium Bicarbonate 650 mg BID PO 04/18/25 22:00 04/23/25 08:01 650 MG Sevelamer HCl 800 mg TIDWM PO 04/18/25 18:00 Hold 04/19/25 18:38 800 MG Albuterol 2.5 mg Q6HPRN PRN NEB 04/18/25 13:45 04/19/25 06:26 2.5 MG Ondansetron HCl 4 mg Q4HP PRN IV 04/18/25 13:45 Acetaminophen 650 mg Q6HP PRN PO 04/18/25 13:45 04/19/25 16:00 650 MG Clonidine HCl 0.1 mg Q6HP PRN PO 04/18/25 17:15 04/19/25 18:39 0.1 MG Hydroxychloroquine Sulfate 200 mg BID PO 04/19/25 22:00 04/23/25 08:02 200 MG Prednisone 40 mg DAILY PO 04/20/25 10:00 04/23/25 08:01 40 MG Ceftriaxone Sodium 50 ml @ 100 mls/hr DAILY@09 IV 04/20/25 09:00 04/23/25 08:03 100 MLS/HR Azithromycin 500 mg DAILY PO 04/20/25 10:00 04/23/25 08:01 500 MG Calcium Acetate 1,334 mg TIDWMEALS PO 04/20/25 08:00 04/23/25 11:58 1,334 MG Temazepam 7.5 mg HS PRN PO 04/19/25 22:00 Lorazepam 1 mg Q8HP PRN IV 04/19/25 21:30 04/23/25 02:13 1 MG Epoetin Isaías-epbx 10,000 unit MWF SC 04/22/25 12:30 04/22/25 13:49 10,000 UNIT Furosemide 40 mg BIDD PO 04/23/25 18:00 Iron Sucrose 110 ml @ 110 mls/hr DAILY@1200 IV 04/23/25 12:00 04/27/25 12:59 04/23/25 11:59 110 MLS/HR objective GENERAL: Alert and oriented x 3. No acute distress. EYES: PERRL, EOMI. Anicteric. HENT: Moist mucous membranes. LUNGS: Clear to auscultation bilaterally. CARDIOVASCULAR: Regular rate and rhythm. ABDOMEN: Soft, nontender and nondistended. EXTREMITIES: 2+ BLE edema pitting. NEUROLOGIC: No focal neurological deficits. SKIN: Warm, dry. Past surgical scars laboratory and microbiology Laboratory Tests 04/23/25 04:41 Test 04/23/25 04:41 Range/Units Serum Glucose 82 74-106 mg/dL Problem List R/o Structural heart diseases. R/o Tamponade. Acyte hypoxic resp fail likely from pulm edema/ fluid overload from renal failure/ pleural effusion. Hypertensive emergency likely in the setting of lupus nephritis. Acute kidney injury secondary to lupus nephritis. Anemia of CKD and lupus. DLD. History of Lupus. Assessment/Plan Continued all current supportive medical care. Amlodipine, Clonidine, Labetalol. IV antibiotics as ordered. Diuretics with Lasix. Additional plan as per the hospital course. Dietary Evaluation Review Comments: Monitor PO intake, lab values, weight trend, and I/O Expected Outcomes/Goals: Intake to meet >75% estimated needs Lab values to improve FU 3-5 days Plan discussed with: Patient SANDY CANTOR MD Apr 23, 2025 13:45
[2025-04-24] VITALS (7 sets, daily range): BP systolic 126–160; BP diastolic 71–102; PULSE 77–96; RESP 16–18; TEMP 37.1; O2SAT 93–98
[2025-04-24 08:45] LABS: Chloride 102 mmol/L (98-107); Potassium 3.6 mmol/L (3.5-5.1); Sodium 138 mmol/L (136-145)
[2025-04-24 08:46] LABS: Anion Gap 13 (5-15); Carbon Dioxide 23 mmol/L (20-31)
[2025-04-24 08:48] LABS: Calcium 8.4 mg/dL (8.7-10.4)
[2025-04-24 08:51] LABS: BUN/Creatinine Ratio 21.7 (10.0-20.0); Glucose 83 mg/dL (74-106)
[2025-04-24 09:00] LABS: Blood Urea Nitrogen 75 mg/dL (9-23)
--- NOTE | 2025-04-24 09:26 | DVHPN2 ---
Reviewed: Care Plan, H&P, Labs, Medications, Previous Orders, Radiology Changes from previous H/P or p: No Changes Objective Vitals Vital Signs Date Time Temp Pulse Resp B/P (MAP) Pulse Ox O2 Delivery O2 Flow Rate FiO2 04/24/25 06:31 156/92 04/24/25 05:00 97.9 84 16 95 97.9 04/23/25 20:00 Room Air* 0 21 Intake/Output Intake and Output 04/24/25 07:00 Intake Total 1450 ml Output Total 1150 ml Balance 300 ml Intake Oral 1450 ml Output Urine Total 1150 ml # Voids 3 # Bowel Movements 3 Medications Current Medications Medications Dose Ordered Sig/Mica Route Start Time Stop Time Status Last Admin Dose Admin Mycophenolate Mofetil 1,500 mg BID PO 04/18/25 22:00 04/23/25 22:32 1,500 MG Labetalol HCl 400 mg Q12HR PO 04/18/25 22:00 04/23/25 22:34 400 MG Amlodipine Besylate 10 mg DAILY PO 04/19/25 10:00 04/23/25 09:52 10 MG Clonidine HCl 0.1 mg BID PO 04/18/25 22:00 04/23/25 22:33 0.1 MG Sodium Bicarbonate 650 mg BID PO 04/18/25 22:00 04/23/25 22:32 650 MG Sevelamer HCl 800 mg TIDWM PO 04/18/25 18:00 Hold 04/19/25 18:38 800 MG Albuterol 2.5 mg Q6HPRN PRN NEB 04/18/25 13:45 04/19/25 06:26 2.5 MG Ondansetron HCl 4 mg Q4HP PRN IV 04/18/25 13:45 Acetaminophen 650 mg Q6HP PRN PO 04/18/25 13:45 04/19/25 16:00 650 MG Clonidine HCl 0.1 mg Q6HP PRN PO 04/18/25 17:15 04/19/25 18:39 0.1 MG Hydroxychloroquine Sulfate 200 mg BID PO 04/19/25 22:00 04/23/25 22:32 200 MG Prednisone 40 mg DAILY PO 04/20/25 10:00 04/23/25 08:01 40 MG Ceftriaxone Sodium 50 ml @ 100 mls/hr DAILY@09 IV 04/20/25 09:00 04/23/25 08:03 100 MLS/HR Azithromycin 500 mg DAILY PO 04/20/25 10:00 04/23/25 08:01 500 MG Calcium Acetate 1,334 mg TIDWMEALS PO 04/20/25 08:00 04/23/25 17:35 1,334 MG Temazepam 7.5 mg HS PRN PO 04/19/25 22:00 Lorazepam 1 mg Q8HP PRN IV 04/19/25 21:30 04/24/25 03:17 1 MG Epoetin Isaías-epbx 10,000 unit MWF SC 04/22/25 12:30 04/22/25 13:49 10,000 UNIT Furosemide 40 mg BIDD PO 04/23/25 18:00 04/24/25 06:31 40 MG Iron Sucrose 110 ml @ 110 mls/hr DAILY@1200 IV 04/23/25 12:00 04/27/25 12:59 04/23/25 11:59 110 MLS/HR Laboratory Results Laboratory Tests 04/23/25 04:41 04/24/25 08:10 Chemistry Test 04/24/25 08:10 Calcium Level 8.4 mg/dL (8.7-10.4) L Urinalysis Test 04/19/25 20:26 Urine Color Colorless (Yellow) Urine Clarity Clear (Clear) Urine pH 6.0 (5.0-9.0) Urine Specific [place] 1.010 (1.001-1.035) Urine Protein 2+ (Negative) H Urine Ketones Negative (Negative) Urine Blood 2+ /uL (Negative) H Urine Nitrite Negative (Negative) Urine Bilirubin Negative (Negative) Urine Urobilinogen Normal mg/dL (Negative) Urine Leukocyte Esterase Negative /uL (Negative) Urine RBC 20 /hpf (0 - 4) Urine Microscopic WBC 3 /HPF (0-5) Urine Squamous Epithelial Cells Few /hpf (<5) Urine Bacteria Few /hpf (None Seen) H Urine Creatinine 34.61 mg/dL (30.0-125.0) Urine Protein/Creatinine Ratio 5.03 Urine Sodium 93 mmol/L (40-220) Urine Glucose Normal mg/dL (Normal) Urine Total Protein 174.2 mg/dL (1-14) H Microbiology Microbiology Date/Time Source Procedure Growth Status 04/22/25 12:25 Pleural Fluid Gram Stain - Final Resulted 04/22/25 12:25 Pleural Fluid Aerobic Culture - Preliminary No growth Resulted 04/19/25 20:46 Nose MRSA Screen - Final Complete Labs and/or images reviewed: Labs reviewed by me, Image(s) reviewed by me Assessment/Plan Assessment/Plan Structural heart disease ruled out cardiology consult by appreciated, echo 65% ejection fraction, no pericardial effusion Tamponade ruled out Acute hypoxic resp failure likely from pulm edema/ fluid overload from renal failure and left pleural effusion Possible community-acquired pneumonia: Rocephin azithromycin Hypertensive emergency likely in the setting of lupus nephritis , Lasix clonidine amlodipine labetalol MELLY 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 continue mycophenolate, sodium bicarbonate sevelamir amlodipine and clonidine, taper prednisone to 20 mg p.o. daily hydroxychloroquine 200 mg p.o. b.i.d. Anemia of CKD and lupus Anemia of chronic disease Hyperlipidemia Hx Lupus nephritis Large left pleural effusion, status post thoracentesis by radiologist JENNY Zamorano at bedside at the time of discussion of discharge plan Pain being discharged home and she agrees for discharge Plan discussed with: Patient My Orders Orders - FABIAN GIMENEZ MD Procedure Category Date Status Time * Rheumatology Consult CONS 04/23/25 Transmitted Date of Service: Apr 24, 2025 Billing Provider: FABIAN GIMENEZ MD Common Visit Codes: [id number] INP/OBS CARE(HIGH) FABIAN GIMENEZ MD Apr 24, 2025 09:26
--- NOTE | 2025-04-24 09:34 | DVHDS2 ---
Discharge Summary Date of Admission Apr 18, 2025 at 13:43 Date of Discharge: Apr 24, 2025 Admitting Diagnosis Shortness of breath and chest pain Wounds: None Labs/Diagnostic Data: Laboratory Results Test 04/24/25 08:10 04/23/25 04:41 04/22/25 21:23 04/22/25 12:25 Sodium Level 138 mmol/L (136-145) Potassium Level 3.6 mmol/L (3.5-5.1) Chloride Level 102 mmol/L (98-107) Carbon Dioxide Level 23 mmol/L (20-31) Anion Gap 13 (5-15) Blood Urea Nitrogen 75 mg/dL (9-23) Creatinine 3.46 mg/dL (0.550-1.02) Glomerular Filtration Rate Calc 17 mL/min (>90) BUN/Creatinine Ratio 21.7 (10.0-20.0) Serum Glucose 83 mg/dL (74-106) Calcium Level 8.4 mg/dL (8.7-10.4) White Blood Count 6.2 10^3/uL (4.4-10.8) Red Blood Count 3.08 10^6/uL (4.0-5.20) Hemoglobin 8.2 g/dL (12.2-16.2) Hematocrit 24.7 % (36.0-46.0) Mean Corpuscular Volume 80.0 fL (80.0-100.0) Mean Corpuscular Hemoglobin 26.5 pg (28.0-32.0) Mean Corpuscular Hemoglobin Concent 33.2 g/dL (32.0-36.0) Red Cell Distribution Width 17.6 % (11.8-14.3) Platelet Count 204 10^3/uL (140-450) Mean Platelet Volume 7.8 fL (6.9-10.8) Neutrophils (%) (Auto) 83.4 % (37.0-80.0) Lymphocytes (%) (Auto) 8.4 % (10.0-50.0) Monocytes (%) (Auto) 7.9 % (0.0-12.0) Eosinophils (%) (Auto) 0.1 % (0.0-7.0) Basophils (%) (Auto) 0.2 % (0.0-2.0) Neutrophils # (Auto) 5.2 10 ^3/uL (1.6-8.6) Lymphocytes # (Auto) 0.5 10 ^3/uL (0.4-5.4) Monocytes # (Auto) 0.5 10 ^3/uL (0-1.3) Eosinophils # (Auto) 0 10 ^3/uL (0-0.8) Basophils # (Auto) 0 10 ^3/uL (0-0.2) Nucleated Red Blood Cells 0.0 % Iron Level 38 ug/dL (50-170) Total Iron Binding Capacity 253 ug/dL (250-425) Percent Iron Saturation 15.0 % (15-50) Ferritin 87.6 ng/mL (10-291) Total Bilirubin 0.4 mg/dL (0.2-1.0) Aspartate Amino Transferase (AST) 15 U/L (13-40) Alanine Aminotransferase (ALT) < 9 U/L (7-40) Alkaline Phosphatase 40 U/L (46-116) Total Protein 5.0 g/dL (5.7-8.2) Albumin 3.0 g/dL (3.2-4.8) Complement C3 80 mg/dL (82-167) Complement C4 14 mg/dL (12-38) Body Fluid Source Pleural fluid Body Fluid pH 8.0 Body Fluid WBC (Manual) 121 CUMM (0-200) Body Fluid RBC (Manual) 51 CUMM (0-2000) Body Fluid Mononuclear Cells 92 % Body Fluid Polymorphonuclear Cells 8 % (0-25) Body Fluid Glucose 103 mg/dL (.) Body Fluid Total Protein 1.3 g/dL (.) Body Fluid Lactate Dehydrogenase 57 IU/L (.) Test 04/22/25 10:42 04/19/25 20:26 04/19/25 05:02 04/18/25 07:00 Prothrombin Time 10.3 sec (9.3-11.8) Prothrombin Time INR 0.97 (0.9-1.15) Activated Partial Thromboplast Time 25.1 SEC (24.5-34.5) Urine Color Colorless (Yellow) Urine Clarity Clear (Clear) Urine pH 6.0 (5.0-9.0) Urine Specific [place] 1.010 (1.001-1.035) Urine Protein 2+ (Negative) Urine Ketones Negative (Negative) Urine Blood 2+ /uL (Negative) Urine Nitrite Negative (Negative) Urine Bilirubin Negative (Negative) Urine Urobilinogen Normal mg/dL (Negative) Urine Leukocyte Esterase Negative /uL (Negative) Urine RBC 20 /hpf (0 - 4) Urine Microscopic WBC 3 /HPF (0-5) Urine Squamous Epithelial Cells Few /hpf (<5) Urine Bacteria Few /hpf (None Seen) Urine Creatinine 34.61 mg/dL (30.0-125.0) Urine Protein/Creatinine Ratio 5.03 Urine Sodium 93 mmol/L (40-220) Urine Glucose Normal mg/dL (Normal) Urine Total Protein 174.2 mg/dL (1-14) Phosphorus Level 7.1 mg/dL (2.4-5.1) Magnesium Level 2.3 mg/dL (1.6-2.6) Direct Bilirubin < 0.1 mg/dL (<0.3) Vitamin D 25-Hydroxy 35.7 ng/mL (30.0-100) Parathyroid Hormone (Intact) 133.2 pg/mL (18.4-80.1) Differential Total Cells Counted 100.0 (100) Neutrophils % (Manual) 95 (37.0-80.0) Band Neutrophils % (Manual) 0 Lymphocytes % (Manual) 2 (10.0-50.0) Monocytes % (Manual) 3 (0-12) Eosinophils % (Manual) 0 (0-7) Basophils % (Manual) 0 (0.0-2.0) Metamyelocytes % (manual) 0 Myelocytes % (Manual) 0 Promyelocytes % (Manual) 0 Blast Cells % (Manual) 0 Reactive Lymphocytes 0 Platelet Estimate Adequate Troponin I High Sensitivity 25 ng/L (</=34) B-Type Natriuretic Peptide 1541.85 pg/mL (0-100) Hepatitis B Surface Antigen Negative (Negative) Hepatitis C Antibody Negative (Negative) Other Laboratory Tests 04/24/25 08:10 04/23/25 04:41 Brief Hx & Hospital Course: 34-year-old female with a history of lupus nephritis chronic kidney disease stage 4 came in for shortness of breath and chest pain. Seen by Cardiology Dr. Va Zayas echo 65 percent ejection fraction no pericardial effusion patient has a history of pericardial tamponade in the past which is now ruled out. Patient has acute community-acquired pneumonia treated with Rocephin azithromycin and much better. Patient has MELLY on CKD4 . Seen by Nephrology Dr. Rosas started on Lasix continued on mycophenolate soda bicarb cephalomedullary amlodipine and clonidine prednisone tablets 20 mg p.o. daily and placed back on hydroxychloroquine 200 mg p.o. b.i.d. rheumatology consult was placed to Dr. Campos but he could not see the patient because patient does not have medical with [facility]. Large left pleural effusion status post thoracentesis by radiologist drainage of 1 L of fluid. Patient feels better with less shortness of breath. being discharged home. [employer] Maintenance [employer]ic working with the patient for transfer or [facility] from [facility] to [facility]. Reviewed all her home medications. She will continue all home medications and follow up with the primary Dr and bibliographic services specialist General condition stable but poor at the time of discharge Consults/Reason for consult Nephrology Cardiology Dr. 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 continue mycophenolate, sodium bicarbonate sevelamir amlodipine and clonidine, taper prednisone to 20 mg p.o. daily hydroxychloroquine 200 mg p.o. b.i.d. Anemia of CKD and lupus Anemia of chronic disease Hyperlipidemia Hx Lupus nephritis Large left pleural effusion, status post thoracentesis by radiologis Discharge Disposition: Home Discharge Instruct/Medications Diet: Renal Activity: Light activity Follow Up/Referral: Resume all previous home medications Follow up with the primary Dr in one week Follow up with the bibliographic services specialist Dr. Rosas or your bibliographic services specialist in [facility] in one week Medications: none Per patient she has all the medications at home Scheduled Amlodipine Besylate (Norvasc Tablet), 10 MG PO DAILY Amoxicillin & Pot Clavulanate (Augmentin Tablet), 875 MG PO BID Cholecalciferol (Vitamin D3), 1,000 UNIT PO DAILY, (Reported) Clonidine Hydrochloride (Clonidine Hcl), 1 TAB PO BID Ferrous Sulfate (Ferrous Sulfate), 1 TAB PO DAILY Hydroxychloroquine Sulfate (Hydroxychloroquine Sulfat), 200 MG PO DAILY Labetalol HCl (Labetalol HCl), 400 MG PO BID Mycophenolate Mofetil (Mycophenolate Mofetil), 1,500 MG PO BID Prednisone (Prednisone), 20 MG PO TID Sevelamer Carbonate (Sevelamer Carbonate), 800 MG PO TID Sodium Bicarbonate (Sodium Bicarbonate), 650 MG PO QID Miscellaneous Medications Folic Acid (Folic Acid), 1 MG PO, (Reported) 39 (Time taken for discharge summary 39 minutes) Discharge Statement: "Patient was advised to return to the ER or call 911 if any headaches, dizziness, shortness of breath, chest pain, abdominal pain, bleeding, fevers, or worsening of medical condition. Patient was counseled about treatment plan, medications, possible side effects, patientverbalized understanding. All questions were answered to the best of my ability. This discharge took greater then 30 minutes in planning, reviewing documentation, counseling the patient, and discussing with other team members." ASSESSMENT ASSESSMENT Hospital Course Improved Assessment Structural heart disease ruled out cardiology consult by appreciated, echo 65% ejection fraction, no pericardial effusion Tamponade ruled out Acute hypoxic resp failure likely from pulm edema/ fluid overload from renal failure and left pleural effusion Possible community-acquired pneumonia: Rocephin azithromycin Hypertensive emergency likely in the setting of lupus nephritis , Lasix clonidine amlodipine labetalol MELLY 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 continue mycophenolate, sodium bicarbonate sevelamir amlodipine and clonidine, taper prednisone to 20 mg p.o. daily hydroxychloroquine 200 mg p.o. b.i.d. Anemia of CKD and lupus Anemia of chronic disease Hyperlipidemia Hx Lupus nephritis Large left pleural effusion, status post thoracentesis by radiologis Date of Service: Apr 24, 2025 Billing Provider: FABIAN GIMENEZ MD Common Visit Codes: 74508-KBU/OBS DISCH DAY >30min FABIAN GIMENEZ MD Apr 24, 2025 09:34
--- NOTE | 2025-04-24 13:30 | DVHPN2 ---
Progress Note Date Seen: Apr 24, 2025 Medical Necessity Reason Pt with a Central, PICC or Fol: No Objective vital signs Vital Sign Date Time Temp Pulse Resp B/P (MAP) Pulse Ox O2 Delivery O2 Flow Rate FiO2 04/24/25 09:32 156/88 04/24/25 09:31 77 04/24/25 09:00 98.4 18 93 98.4 04/23/25 20:00 Room Air* 0 21 Total Intake and Output 04/23/25 04/23/25 04/24/25 14:59 22:59 06:59 Intake Total 750 ml 700 ml Output Total 550 ml 600 ml Balance 200 ml 100 ml medications Current Medications Medications Dose Ordered Sig/Mica Route Start Time Stop Time Status Last Admin Dose Admin Mycophenolate Mofetil 1,500 mg BID PO 04/18/25 22:00 04/24/25 09:58 1,500 MG Labetalol HCl 400 mg Q12HR PO 04/18/25 22:00 04/24/25 09:31 400 MG Amlodipine Besylate 10 mg DAILY PO 04/19/25 10:00 04/24/25 09:32 10 MG Clonidine HCl 0.1 mg BID PO 04/18/25 22:00 04/24/25 09:32 0.1 MG Sodium Bicarbonate 650 mg BID PO 04/18/25 22:00 04/24/25 09:32 650 MG Sevelamer HCl 800 mg TIDWM PO 04/18/25 18:00 Hold 04/19/25 18:38 800 MG Albuterol 2.5 mg Q6HPRN PRN NEB 04/18/25 13:45 04/19/25 06:26 2.5 MG Ondansetron HCl 4 mg Q4HP PRN IV 04/18/25 13:45 Acetaminophen 650 mg Q6HP PRN PO 04/18/25 13:45 04/19/25 16:00 650 MG Clonidine HCl 0.1 mg Q6HP PRN PO 04/18/25 17:15 04/19/25 18:39 0.1 MG Hydroxychloroquine Sulfate 200 mg BID PO 04/19/25 22:00 04/24/25 09:32 200 MG Prednisone 40 mg DAILY PO 04/20/25 10:00 04/24/25 09:32 40 MG Ceftriaxone Sodium 50 ml @ 100 mls/hr DAILY@09 IV 04/20/25 09:00 04/24/25 09:26 100 MLS/HR Azithromycin 500 mg DAILY PO 04/20/25 10:00 04/23/25 08:01 500 MG Calcium Acetate 1,334 mg TIDWMEALS PO 04/20/25 08:00 04/24/25 09:31 1,334 MG Temazepam 7.5 mg HS PRN PO 04/19/25 22:00 Lorazepam 1 mg Q8HP PRN IV 04/19/25 21:30 04/24/25 03:17 1 MG Epoetin Isaías-epbx 10,000 unit MWF SC 04/22/25 12:30 04/24/25 09:26 10,000 UNIT Furosemide 40 mg BIDD PO 04/23/25 18:00 04/24/25 06:31 40 MG Iron Sucrose 110 ml @ 110 mls/hr DAILY@1200 IV 04/23/25 12:00 04/27/25 12:59 04/23/25 11:59 110 MLS/HR laboratory and microbiology Laboratory Tests 04/24/25 08:10 04/23/25 04:41 Test 04/24/25 08:10 Range/Units Serum Glucose 83 74-106 mg/dL Microbiology Date/Time Source Procedure Growth Status 04/22/25 12:25 Pleural Fluid Gram Stain - Final Resulted 04/22/25 12:25 Pleural Fluid Aerobic Culture - Preliminary No growth Resulted 04/19/25 20:46 Nose MRSA Screen - Final Complete Problem List/Assessment/Plan Problem List/Assessment/Plan MELLY, on CKD grade 4, due to lupus nephritis class IV; severe active and chronic w/ diffuse IFTA Acute hypoxic respiratory failure, due to large pleural effusion Volume overload, due to above Hypertension Moderate anemia, due to above pneumonia headache//dizziness proteinuria due to lupus anemia due to ckd cr stable Lasix IV 40 mg b.i.d. Continue mycophenolate, sodium bicarbonate, sevelamer, amlodipine and clonidine prn prednisone po hydroxychloroquine to 200 mg b.i.d. outpt rheum eval IV iron , RUTH 3x a week needs insurance change to establish outpatient f/u explained no indication of dialysis at this time however explained due to patient's chronic and severe lupus nephritis her kidney stage is likely permanently stage IV and above in treatment of require outpatient renal follow- up for dialysis education and preparation. explained this in the presence of Plan discussed with: Patient Dietary Evaluation Review Comments: Monitor PO intake, lab values, weight trend, and I/O Expected Outcomes/Goals: Intake to meet >75% estimated needs Lab values to improve FU 3-5 days NITHYA HURT MD Apr 24, 2025 13:30
--- NOTE | 2025-04-24 16:32 | DVHPN2 ---
Progress Note - Dictate Date Seen: Apr 24, 2025 Medical Necessity Reason Pt with a Central, PICC or Fol: No Subjective Patient was seen and evaluated in follow up. Patient has no new complaints at this time. Patient denies any cardiac symptoms. Patient is cardiac stable for discharge. vital signs Vital Sign Date Time Temp Pulse Resp B/P (MAP) Pulse Ox O2 Delivery O2 Flow Rate FiO2 04/24/25 09:32 156/88 04/24/25 09:31 77 04/24/25 09:00 98.4 18 93 98.4 04/23/25 20:00 Room Air* 0 21 Total Intake and Output 04/23/25 04/23/25 04/24/25 15:00 23:00 07:00 Intake Total 750 ml 700 ml Output Total 550 ml 600 ml Balance 200 ml 100 ml medications Current Medications Medications Dose Ordered Sig/Mica Route Start Time Stop Time Status Last Admin Dose Admin Mycophenolate Mofetil 1,500 mg BID PO 04/18/25 22:00 04/24/25 09:58 1,500 MG Labetalol HCl 400 mg Q12HR PO 04/18/25 22:00 04/24/25 09:31 400 MG Amlodipine Besylate 10 mg DAILY PO 04/19/25 10:00 04/24/25 09:32 10 MG Clonidine HCl 0.1 mg BID PO 04/18/25 22:00 04/24/25 09:32 0.1 MG Sodium Bicarbonate 650 mg BID PO 04/18/25 22:00 04/24/25 09:32 650 MG Sevelamer HCl 800 mg TIDWM PO 04/18/25 18:00 Hold 04/19/25 18:38 800 MG Albuterol 2.5 mg Q6HPRN PRN NEB 04/18/25 13:45 04/19/25 06:26 2.5 MG Ondansetron HCl 4 mg Q4HP PRN IV 04/18/25 13:45 Acetaminophen 650 mg Q6HP PRN PO 04/18/25 13:45 04/19/25 16:00 650 MG Clonidine HCl 0.1 mg Q6HP PRN PO 04/18/25 17:15 04/19/25 18:39 0.1 MG Hydroxychloroquine Sulfate 200 mg BID PO 04/19/25 22:00 04/24/25 09:32 200 MG Prednisone 40 mg DAILY PO 04/20/25 10:00 04/24/25 09:32 40 MG Ceftriaxone Sodium 50 ml @ 100 mls/hr DAILY@09 IV 04/20/25 09:00 04/24/25 09:26 100 MLS/HR Azithromycin 500 mg DAILY PO 04/20/25 10:00 04/23/25 08:01 500 MG Calcium Acetate 1,334 mg TIDWMEALS PO 04/20/25 08:00 04/24/25 09:31 1,334 MG Temazepam 7.5 mg HS PRN PO 04/19/25 22:00 Lorazepam 1 mg Q8HP PRN IV 04/19/25 21:30 04/24/25 03:17 1 MG Epoetin Isaías-epbx 10,000 unit MWF SC 04/22/25 12:30 04/24/25 09:26 10,000 UNIT Furosemide 40 mg BIDD PO 04/23/25 18:00 04/24/25 06:31 40 MG Iron Sucrose 110 ml @ 110 mls/hr DAILY@1200 IV 04/23/25 12:00 04/27/25 12:59 04/23/25 11:59 110 MLS/HR objective GENERAL: Alert and oriented x 3. No acute distress. EYES: PERRL, EOMI. Anicteric. HENT: Moist mucous membranes. LUNGS: Clear to auscultation bilaterally. CARDIOVASCULAR: Regular rate and rhythm. ABDOMEN: Soft, nontender and nondistended. EXTREMITIES: 2+ BLE edema pitting. NEUROLOGIC: No focal neurological deficits. SKIN: Warm, dry. Past surgical scars laboratory and microbiology Laboratory Tests 04/24/25 08:10 04/23/25 04:41 Test 04/24/25 08:10 Range/Units Serum Glucose 83 74-106 mg/dL Problem List R/o Structural heart diseases. R/o Tamponade. Acyte hypoxic resp fail likely from pulm edema/ fluid overload from renal failure/ pleural effusion. Hypertensive emergency likely in the setting of lupus nephritis. Acute kidney injury secondary to lupus nephritis. Anemia of CKD and lupus. DLD. History of Lupus. Assessment/Plan Continued all current supportive medical care. Amlodipine, Clonidine, Labetalol. IV antibiotics as ordered. Diuretics with Lasix. Additional plan as per the hospital course. Dietary Evaluation Review Comments: Monitor PO intake, lab values, weight trend, and I/O Expected Outcomes/Goals: Intake to meet >75% estimated needs Lab values to improve FU 3-5 days Plan discussed with: Patient SANDY CANTOR MD Apr 24, 2025 12:46
[2025-04-25] MEDS ORDERED: HYDR-4491 PO (08:15)
[2025-04-25] MEDS ORDERED: PRED20TA2 PO (08:15)
[2025-04-25] MEDS ORDERED: MYCO500T PO (08:15)
[2025-04-25] MEDS ORDERED: SODI650T PO (08:15)
== END 2025-04-24 14:51 | disposition home or self-care (01) | DRG 133 ==
LOC: ER 06:22 → EDBD 06:22 → OVERFLOW 13:43 → CENTRAL 13:50
PROVIDERS: ADMIT Family Medicine; ATTEND Family Medicine
PROC: 0W9B3ZZ Drainage of Left Pleural Cavity, Percutaneous Approach (ICD-10-PCS; principal; 2025-04-22)
DX: J96.01 Acute respiratory failure with hypoxia (principal); I50.33 Acute on chronic diastolic (congestive) heart failure; J18.9 Pneumonia, unspecified organism; I16.1 Hypertensive emergency; I13.0 Hypertensive heart and chronic kidney disease with heart failure and stage 1 through stage 4 chronic kidney disease, or unspecified chronic kidney disease; J91.8 Pleural effusion in other conditions classified elsewhere; D63.1 Anemia in chronic kidney disease; N18.4 Chronic kidney disease, stage 4 (severe); M32.14 Glomerular disease in systemic lupus erythematosus; N17.9 Acute kidney failure, unspecified; G25.0 Essential tremor; G47.00 Insomnia, unspecified; E78.5 Hyperlipidemia, unspecified; Z79.899 Other long term (current) drug therapy; Z82.49 Family history of ischemic heart disease and other diseases of the circulatory system
CPT/HCPCS: 32555; 36415; 70450; 71045; 76942; 80048; 80053; 80076; 81001; 82306; 82570; 82728; 83540; 83550; 83735; 83880; 83970; 83986; 84100; 84156; 84300; 84484; 85007; 85025; 85027; 85610; 85730; 86160; 86803; 87070; 87081; 87205; 87340; 89051; 93005; 93306; 94640; 96374; 96375; 99291; G0378; J1756; J2405; J7517

== ENCOUNTER 2025-05-18 23:50 | Inpatient (IN) | payer MEDICAID ==
[~2025-05-18] VITALS: Ht 160 cm; Wt 54.4 kg
[~2025-05-18 23:50] MED LIST changes: -AUG875T PO; -CHOL20007 PO; +HYDR-4491 PO; +MYCO500T PO
--- NOTE | 2025-05-19 00:10 | ED.PDOC ---
HPI Comments 34-year-old female who came to ER via EMS for chest pains. Patient discharged here last April 24 diagnosed with Structural heart disease ruled out cardiology consult by Dr.Patel lima, echo 65% ejection fraction, no pericardial effusion, 2. Tamponade ruled out, 3. Acute hypoxic resp failure likely from pulm edema/ fluid overload from renal failure and left pleural effusion, 4. Possible community-acquired pneumonia: Rocephin azithromycin, 5. Hypertensive emergency likely in the setting of lupus nephritis , Lasix clonidine amlodipine labetalol, 6. 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 continue mycophenolate, sodium bicarbonate sevelamir amlodipine and clonidine, taper prednisone to 20 mg p.o. daily hydroxychloroquine 200 mg p.o. b.i.d., 7. Anemia of CKD and lupus, 8. Anemia of chronic disease, 9. Hyperlipidemia, 10. Hx Lupus nephritis, 11. Large left pleural effusion, status post thoracentesis by radiologist She was just discharged to the after be admitted for 2 weeks at [facility]. In diagnosed with end-stage renal disease, pneumonia, and dialysis started. When she got home last night, he started experiencing left-sided chest pains, sharp, nonradiating associated with headaches Chief Complaint: Chest Pain Time Seen by MD: 00:10 Primary Care Provider: MOUNIKA Gonzalez Notes: Nurses Notes Allergies: Coded Allergies: NO KNOWN ALLERGIES (Unverified , 03/20/24) Home Meds Active Scripts Sodium Bicarbonate (Sodium Bicarbonate) 650 Mg Tab, 650 MG PO BID, #180 TAB Prov:FABIAN GIMENEZ MD 04/25/25 Hydroxychloroquine Sulfate (PLAQUENIL) 200 Mg Tab, 1 TAB PO BID, #180 TAB 3 Refills Prov:FABIAN GIMENEZ MD 04/25/25 Prednisone (Prednisone) 20 Mg Tab, 40 MG PO DAILY, #60 MG Prov:FABIAN GIMENEZ MD 04/25/25 Mycophenolate Mofetil (Cellcept) 500 Mg Tab, 1500 MG PO BID, #270 TAB Prov:FABIAN GIMENEZ MD 04/25/25 Sevelamer Carbonate (Sevelamer Carbonate) 800 Mg Tab, 800 MG PO TID for 30 Days, #90 TAB Prov:ALEXANDRIA GARCIA 04/10/25 Amlodipine Besylate (NORVASC TABLET) 5 Mg Tb, 10 MG PO DAILY for 30 Days, #60 TAB 3 Refills Prov:[facility] 04/10/25 Labetalol HCl (Labetalol HCl) 200 Mg Tab, 400 MG PO BID for 30 Days, #120 TAB 3 Refills Prov:[facility] 04/10/25 Mycophenolate Mofetil (Mycophenolate Mofetil) 500 Mg Tab, 1500 MG PO BID for 30 Days, #180 TAB 2 Refills Prov:[facility] 04/10/25 Sodium Bicarbonate (Sodium Bicarbonate) 650 Mg Tab, 650 MG PO QID for 30 Days, #120 TAB Prov:[facility] 04/10/25 Prednisone (Prednisone) 20 Mg Tab, 20 MG PO TID for 30 Days, #90 TAB Prov:[facility] 04/10/25 Hydroxychloroquine Sulfate (Hydroxychloroquine Sulfat) 200 Mg Tab, 200 MG PO DAILY for 30 Days, #30 TAB 3 Refills Prov:[facility] 04/10/25 Ferrous Sulfate (FERROUS SULFATE) 325 Mg Tb, 1 TAB PO DAILY for 30 Days, #30 TAB 3 Refills Prov:BROWNROSS [facility] 04/10/25 Clonidine Hydrochloride (Clonidine Hcl) 0.2 Mg Tab, 1 TAB PO BID, #60 TAB 5 Refills Prov:JUSTIN YEPEZ [employer] 03/27/25 Reported Medications Cholecalciferol (Gnp Vitamin D) 1,000 Unit Tab, 1 TAB PO DAILY for 90 Days, #90 04/24/25 Losartan Potassium (Losartan Potassium) 25 Mg Tab, 1 TAB PO DAILY for 90 Days, #90 04/24/25 Pantoprazole Sodium Sesquihydr (Pantoprazole Sodium Dr) 40 Mg Tab, 1 TAB PO DAILY for 30 Days, #30 04/24/25 Furosemide (Furosemide) 40 Mg Tab, 1 TAB PO BID for 30 Days, #60 04/24/25 Sertraline Hcl (Sertraline Hcl) 25 Mg Tab, 1 TAB PO DAILY for 90 Days, #90 04/24/25 Folic Acid (Folic Acid) 1 Mg Tab, 1 TAB PO DAILY for 90 Days, #90 03/26/24 Information Source: Patient, Emergency Med Personnel Mode of Arrival: EMS Past Medical History PAST MEDICAL HISTORY: CKF, ESRD, HTN Past Medical History (Other): Lupus Surgical History: Denies all surgeries Surgical History (Other): Dialysis HEALTH TYPE TECHNICIAN History: Denies all HEALTH TYPE TECHNICIAN Hx Family History Family History: Reviewed,noncontributory to illness, Family hx of HTN Social History Smoker: Non-Smoker Alcohol: Denies ETOH Use Drugs: Denies Drug Use Lives In: Home Constitutional: denies: chills, diaphoresis, fatigue, fever, malaise, sweats, weakness, others EENTM: denies: blurred vision, double vision, ear bleeding, ear discharge, ear drainage, ear pain, ear ringing, eye pain, eye redness, hearing loss, mouth pain, mouth swelling, nasal discharge, nose bleeding, nose congestion, nose pain, photophobia, tearing, throat pain, throat swelling, voice changes, others Respiratory: denies: cough, hemoptysis, orthopnea, SOB at rest, shortness of breath, SOB with excertion, stridor, wheezing, others Cardiovascular: reports: chest pain; denies: dizzy spells, diaphoresis, Dyspnea on exertion, edema, irregular heart beat, left arm pain, lightheadedness, palpitations, PND, syncope, others Gastrointestinal: denies: abdomen distended, abdominal pain, blood streaked bowels, constipated, diarrhea, dysphagia, difficulty swallowing, hematemesis, melena, nausea, poor appetite, poor fluid intake, rectal bleeding, rectal pain, vomiting, others Genitourinary: denies: abnormal vagina bleeding, burning, dyspareunia, dysuria, flank pain, frequency, hematuria, incontinence, pain, , vagina discharge, urgency, others Neurological: reports: headache; denies: dizziness, fainting, left sided numbness, left sided weakness, numbness, paresthesia, pre-existing deficit, right sided numbness, right sided weakness, seizure, speech problems, tingling, tremors, weakness, others Musculoskeletal: denies: back pain, gout, joint pain, joint swelling, muscle pain, muscle stiffness, neck pain, others Integumetry: denies: bruises, change in color, change in hair/nails, dryness, laceration, lesions, lumps, rash, wounds, others Allergic/Immunocompromised: denies: Difficulty Healing, Frequent Infections, Hives, Itching, others Hematologic/Lymphatic: denies: anemia, blood clots, easy bleeding, easy brui sing, swollen glands, others Endocrine: denies: excessive hunger, excessive sweating, excessive thirst, ex cessive urination, flushing, intolerance to cold, intolerance to heat, unexplained weight gain, unexplained weight loss, others Psychiatric: denies: anxiety, bipolar disorder, depression, hopeless, panic disorder, schizophrenia, sleepless, suicidal, others Physical Exam General Appearance: No Apparent Distress, Normal HEENT: Normal ENT Inspection, Pharynx Normal, TMs Normal Neck: Full Range of Motion, Non-Tender, Normal, Normal Inspection Respiratory: Chest Non-Tender, Lungs Clear, No Accessory Muscle Use, No Res piratory Distress, Normal Breath Sounds Cardiovascular: No Edema, No JVD, No Murmur, No Gallop, Normal Peripheral Pulses, Regular Rate/Rhythm Breast Exam: Deferred Gastrointestinal: No Organomegaly, Non Tender, No Pulsatile Mass, Normal Bowel Sounds, Soft Genitalia: Deferred Pelvic: Deferred Rectal: Deferred Extremities: No calf tenderness, Normal capillary refill, Normal inspection, Normal range of motion, Non-tender, No pedal edema Musculoskeletal : Apperance: Normal Neurologic: Alert, traffic analysis technician II-XII nml as Tested, No Motor Deficits, Normal Affect, Normal Mood, No Sensory Deficits Cerebellar Function: Normal Reflexes: Normal Skin: Dry, Normal Color, Warm Lymphatic: No Adenopathy Was a procedure done? Was a procedure done?: No CP Differential Dx Differential Diagnosis: Angina, Anxiety / Panic Attack, Electrolyte Disorder Differential Diagnosis: CHF Differential Diagnosis: Angina, Chest Wall Pain, Costochondritis, Esophageal reflux/spasm, Gastritis, Myocardial Infarction X-Ray, Labs, Meds, VS Vital Signs Date Time Temp Pulse Resp B/P (MAP) Pulse Ox O2 Delivery O2 Flow Rate FiO2 05/19/25 01:27 90 12 155/93 05/18/25 23:50 98.9 96 20 156/88 98 98.9 Lab Test 05/19/25 01:05 05/19/25 00:09 Range/Units Troponin I High Sensitivity Pending 116 *H </=34 ng/L White Blood Count 6.5 4.4-10.8 10^3/uL Red Blood Count 3.86 L 4.0-5.20 10^6/uL Hemoglobin 10.5 L 12.2-16.2 g/dL Hematocrit 31.8 L 36.0-46.0 % Mean Corpuscular Volume 82.4 80.0-100.0 fL Mean Corpuscular Hemoglobin 27.3 L 28.0-32.0 pg Mean Corpuscular Hemoglobin Concent 33.1 32.0-36.0 g/dL Red Cell Distribution Width 16.3 H 11.8-14.3 % Platelet Count 138 L 140-450 10^3/uL Mean Platelet Volume 7.4 6.9-10.8 fL Neutrophils (%) (Auto) 88.0 H 37.0-80.0 % Lymphocytes (%) (Auto) 4.0 L 10.0-50.0 % Monocytes (%) (Auto) 7.8 0.0-12.0 % Eosinophils (%) (Auto) 0.0 0.0-7.0 % Basophils (%) (Auto) 0.2 0.0-2.0 % Neutrophils # (Auto) 5.8 1.6-8.6 10 ^3/uL Lymphocytes # (Auto) 0.3 L 0.4-5.4 10 ^3/uL Monocytes # (Auto) 0.5 0-1.3 10 ^3/uL Eosinophils # (Auto) 0 0-0.8 10 ^3/uL Basophils # (Auto) 0 0-0.2 10 ^3/uL Nucleated Red Blood Cells 0.5 % Sodium Level 143 136-145 mmol/L Potassium Level 3.6 3.5-5.1 mmol/L Chloride Level 101 98-107 mmol/L Carbon Dioxide Level 32 H 20-31 mmol/L Anion Gap 10 5-15 Blood Urea Nitrogen 18 9-23 mg/dL Creatinine 2.05 H 0.550-1.02 mg/dL Glomerular Filtration Rate Calc 32 >90 mL/min BUN/Creatinine Ratio 8.8 L 10.0-20.0 Serum Glucose 95 74-106 mg/dL Calcium Level 8.7 8.7-10.4 mg/dL Total Bilirubin 1.8 H 0.2-1.0 mg/dL Aspartate Amino Transferase (AST) 10 L 13-40 U/L Alanine Aminotransferase (ALT) < 9 7-40 U/L Alkaline Phosphatase 40 L 46-116 U/L B-Type Natriuretic Peptide 1536.88 0-100 pg/mL Total Protein 5.0 L 5.7-8.2 g/dL Albumin 3.8 3.2-4.8 g/dL Current Medications Medications (Trade) Dose Ordered Sig/Mica Route Start Time Stop Time Status Last Admin Morphine Sulfate 4 mg ONCE ONCE IV 05/19/25 00:15 05/19/25 00:16 DC 05/19/25 01:27 Ondansetron HCl (Zofran) 4 mg ONCE ONCE IV 05/19/25 00:15 05/19/25 00:16 DC 05/19/25 01:28 Time of 1ST Reevaluation: 00:06 Reevaluation 1ST: Unchanged Patient Education/Counseling: Diagnosis, Treatment Family Education/Counseling: No Family Present SEPSIS Sepsis Screen Physician Orders Electrocardigram (05/18/25 23:53) Troponin-I Hs (05/19/25 00:53) Troponin-I Hs (05/19/25 02:53) Chest Portable (05/18/25 23:51) Electrocardigram (05/19/25 02:51) Test, Urine (05/18/25 23:51) Urinalysis (05/18/25 23:56) Vital Signs Date Time Temp Pulse Resp B/P (MAP) Pulse Ox O2 Delivery O2 Flow Rate FiO2 05/19/25 01:27 90 12 155/93 05/18/25 23:50 98.9 96 20 156/88 98 98.9 Laboratory Tests Test 05/19/25 00:09 White Blood Count 6.5 10^3/uL (4.4-10.8) Medications Medications Dose Ordered Sig/Mica Route Start Time Stop Time Status Last Admin Dose Admin Morphine Sulfate 4 mg ONCE ONCE IV 05/19/25 00:15 05/19/25 00:16 DC 05/19/25 01:27 Ondansetron HCl 4 mg ONCE ONCE IV 05/19/25 00:15 05/19/25 00:16 DC 05/19/25 01:28 Departure 1 Departure Time of Disposition: 01:40 Impression: Primary Impression: Lupus nephritis Additional Impressions: SLE exacerbation ESRD needing dialysis Respiratory failure with hypoxia Disposition: ADMITTED INPATIENT Admit to: Tele Condition: Guarded Comments 34 year old female with h/o SLE and renal failure , started dialysis about 2 wks ago and was recently sent home yesterday. now appears to have fluid overload. was hypoxic 88% on RA. will need admission for supportive care and further workup Critical Care Note Critical Care Time?: No Stability Stability form required: No Heart Score Heart Score: Heart Score Response (Comments) Value History Moderate Suspicious 1 EKG Repolarization Disturb 1 Age <45 0 Risk Factors >3 or Hx ASHD 2 Troponin Normal limit 0 Total 4 I personally scribed for CHITO LEMUS MD ([email or web address]) on 05/19/25 at 00:10. Electronically submitted by Ernie Segovia ([email or web address]). CHITO LEMUS MD May 19, 2025 00:10
[2025-05-19 00:26] LABS: Hematocrit 31.8 % (36.0-46.0); Hemoglobin 10.5 g/dL (12.2-16.2); Mean Corpuscular Hemoglobin 27.3 pg (28.0-32.0); Mean Corpuscular Volume 82.4 fL (80.0-100.0); Nucleated Red Blood Cells % 0.5 %
[2025-05-19 00:40] VITALS: PULSE 85; RESP 19
[2025-05-19 00:43] LABS: Albumin 3.8 g/dL (3.2-4.8); Anion Gap 10 (5-15); BUN/Creatinine Ratio 8.8 (10.0-20.0); Blood Urea Nitrogen 18 mg/dL (9-23); Calcium 8.7 mg/dL (8.7-10.4); Chloride 101 mmol/L (98-107); Glucose 95 mg/dL (74-106); Potassium 3.6 mmol/L (3.5-5.1); Sodium 143 mmol/L (136-145)
[2025-05-19 00:44] LABS: Alanine Aminotransferase < 9 U/L (7-40); Alkaline Phosphatase 40 U/L (46-116); Bilirubin, Total 1.8 mg/dL (0.2-1.0); Carbon Dioxide 32 mmol/L (20-31); Total Protein 5.0 g/dL (5.7-8.2)
[2025-05-19] MEDS: MORPHINE SULFATE 4 MG/ML SYR/VIAL IV ONE (01:27)
[2025-05-19] MEDS: ONDANSETRON HCL 4 MG/2 ML VIAL IV ONE (01:28)
[2025-05-19] MEDS ORDERED: ONDANSETRON HCL 4 MG/2 ML VIAL IV PRN (02:00)
[2025-05-19] MEDS ORDERED: NITROGLYCERIN 0.4 MG SL TAB SL PRN (02:00)
[2025-05-19] MEDS ORDERED: DOCUSATE SOD 100 MG CAP PO PRN (02:00)
[2025-05-19] MEDS ORDERED: MORPHINE SULFATE INJ 2 MG/ml SYRG IV PRN (02:00)
--- NOTE | 2025-05-19 02:33 | DVHHP2 ---
History of Present Illness Reason for Visit: Acute chest pain History of Present Illness The patient is a 34-year-old female with past medical history on end-stage renal disease on hemodialysis, hypertension, and lupus erythematous who presented to [facility] ED with complaint of chest pain. Patient was just dischar ged after being admitted for 2 weeks at [facility] [place], diagnosed with end-stage renal disease, pneumonia, and dialysis started. When she got home last night, she started experiencing left-sided chest pains, sharp in nature, nonradiating, associated with headaches, getting worse that prompted this visit. Patient was seen and evaluated in the ED, laboratory data shows WBC 6.5, hemoglobin 10.5, hematocrit 31.8, platelets 138, sodium 143, potassium 3.6, BUN 18, creatinine 2.05, GFR 32, glucose 95, calcium 8.7, troponin 116, BNP 1536.88, blood pressure 155/95, heart rate 90, temperature 98.9 F, O2 saturation 98% on room air. Please see medication orders section in the computer. On my assessment, patient denied chest pain, no headache, dizziness, diaphoresis, shortness of breaths, no abdominal pain, diarrhea, nausea, vomiting, fever, no chills. Patient was admitted for further evaluation and medical management. Past Medical History ESRD, HTN, Lupus Past Surgical History Dialysis access Family History Reviewed, noncontributory to the management of this case. Past Social History The patient lives at home, denies smoking, alcohol or illicit drugs abuse. Review of Systems Constitutional: Yes: Weakness; No: Fever, Chills, Sweats, Malaise, Other Eyes: No: Pain, Vision change, Conjunctivae inflammation, Eyelid inflammation, Other, Redness ENT: No: Ear pain, Ear discharge, Nose pain, Nose discharge, Nose congestion, Mouth pain, Mouth swelling, Throat pain, Throat swelling, Other Respiratory: No: Cough, Dry, Shortness of breath, SOB with excertion, Wheezing, Hemoptysis, Pleuritic Pain, Sputum, Wheezing, Other Cardiovascular: Chest Pain, Other (PermCath right upper chest); No: Palpitations, Orthopnea, Paroxysmal Noc. Dyspnea, Edema, Lt Headedness Gastrointestinal: No: Nausea, Vomiting, Abdominal Pain, Diarrhea, Constipation, Melena, Hematochezia, Other Genitourinary: No Dysuria, No Frequency, No Incontinence, No Hematuria, No Retention; Other (On hemodialysis) Musculoskeletal: No: other, neck pain, shoulder pain, arm pain, back pain, hand pain, leg pain, foot pain Skin: No: Rash, Lesions, Jaundice, Bruising, Other Neurological: Other (Headache); No: Weakness, Numbness, Incoordination, Change in speech, Confusion, Seizures Allergies: Coded Allergies: NO KNOWN ALLERGIES (Unverified , 03/20/24) Medications Current Medications Medications Dose Ordered Sig/Mica Route Start Time Stop Time Status Last Admin Dose Admin Amlodipine Besylate 5 mg DAILY PO 05/19/25 10:00 UNV Clonidine HCl 0.2 mg Q6HP PRN PO 05/19/25 02:00 UNV Carvedilol 3.125 mg Q12HR PO 05/19/25 10:00 UNV Multivit/Ca Carb/ B Cmplx/FA/Prenat 1 tab DAILY PO 05/19/25 10:00 UNV Sevelamer HCl 800 mg TIDWM PO 05/19/25 08:00 UNV Exam Vital Signs Vital Signs Date Time Temp Pulse Resp B/P (MAP) Pulse Ox O2 Delivery O2 Flow Rate FiO2 05/19/25 01:59 93 94 156/98 05/19/25 01:30 94 05/19/25 00:40 Nasal Cannula* 4 36 05/19/25 00:30 97.8 97.8 General Appearance: Alert, Oriented X3, Cooperative, No acute distress HEENT: Atraumatic, PERRLA, EOMI, Mucous membr. moist/pink Respiratory: Clear to auscultation, Normal air movement Cardiovascular: Regular rate, Normal S1, Normal S2, No murmurs Abdominal: Normal bowel sounds, Soft, No tenderness, No hepatospenomegaly, No masses Extremities: No clubbing, No cyanosis, No edema, Normal pulses, No tenderness/swelling Skin: No significant lesion Neuro: Normal speech, Normal tone, Sensation intact, Cranial nerves 3-12 NL, Reflexes 2+, Other (Generalized weakness) Psych/Mental Status: Mental status NL, Mood NL Labs/Xrays Labs Test 05/19/25 01:05 05/19/25 00:09 Range/Units Troponin I High Sensitivity 106 *H </=34 ng/L White Blood Count 6.5 4.4-10.8 10^3/uL Red Blood Count 3.86 L 4.0-5.20 10^6/uL Hemoglobin 10.5 L 12.2-16.2 g/dL Hematocrit 31.8 L 36.0-46.0 % Mean Corpuscular Volume 82.4 80.0-100.0 fL Mean Corpuscular Hemoglobin 27.3 L 28.0-32.0 pg Mean Corpuscular Hemoglobin Concent 33.1 32.0-36.0 g/dL Red Cell Distribution Width 16.3 H 11.8-14.3 % Platelet Count 138 L 140-450 10^3/uL Mean Platelet Volume 7.4 6.9-10.8 fL Neutrophils (%) (Auto) 88.0 H 37.0-80.0 % Lymphocytes (%) (Auto) 4.0 L 10.0-50.0 % Monocytes (%) (Auto) 7.8 0.0-12.0 % Eosinophils (%) (Auto) 0.0 0.0-7.0 % Basophils (%) (Auto) 0.2 0.0-2.0 % Neutrophils # (Auto) 5.8 1.6-8.6 10 ^3/uL Lymphocytes # (Auto) 0.3 L 0.4-5.4 10 ^3/uL Monocytes # (Auto) 0.5 0-1.3 10 ^3/uL Eosinophils # (Auto) 0 0-0.8 10 ^3/uL Basophils # (Auto) 0 0-0.2 10 ^3/uL Nucleated Red Blood Cells 0.5 % Sodium Level 143 136-145 mmol/L Potassium Level 3.6 3.5-5.1 mmol/L Chloride Level 101 98-107 mmol/L Carbon Dioxide Level 32 H 20-31 mmol/L Anion Gap 10 5-15 Blood Urea Nitrogen 18 9-23 mg/dL Creatinine 2.05 H 0.550-1.02 mg/dL Glomerular Filtration Rate Calc 32 >90 mL/min BUN/Creatinine Ratio 8.8 L 10.0-20.0 Serum Glucose 95 74-106 mg/dL Calcium Level 8.7 8.7-10.4 mg/dL Total Bilirubin 1.8 H 0.2-1.0 mg/dL Aspartate Amino Transferase (AST) 10 L 13-40 U/L Alanine Aminotransferase (ALT) < 9 7-40 U/L Alkaline Phosphatase 40 L 46-116 U/L B-Type Natriuretic Peptide 1536.88 0-100 pg/mL Total Protein 5.0 L 5.7-8.2 g/dL Albumin 3.8 3.2-4.8 g/dL SEPSIS Sepsis Screen Date sepsis recognized/suspect: May 19, 2025 Time Sepsis recognized/suspect: 29 Recent Procedure: No On Antibiotic Therapy: No Respiratory Rate >20: No Heart Rate >90: No Temp<36 C (96.8 F) or >38.3 C: No SBP <90 or MAP <65 mmHG: No New Acute Mental Status Change: No Is the patient on CPAP, BIPAP,: No Physician Orders Electrocardigram (05/18/25 23:53) Troponin-I Hs (05/19/25 02:53) Chest Portable (05/18/25 23:51) Electrocardigram (05/19/25 02:51) Test, Urine (05/18/25 23:51) Urinalysis (05/18/25 23:56) Complete Blood Count (05/19/25 04:00) Comprehensive Metabolic Panel (05/19/25 04:00) *[facility] (05/19/25 01:59) Amlodipine Tablet (Norvasc Tablet) (05/19/25 10:00) Clonidine Hcl Tablet (Catapres Tablet) (05/19/25 02:00) Carvedilol Tablet (Coreg Tablet) (05/19/25 10:00) B-Complex W/ C & Folic Tablet (Nephro-Vi (05/19/25 10:00) Sevelamer (Renagel) (05/19/25 08:00) Admit (05/19/25 01:59) Allergies (05/19/25 01:59) Code Status (05/19/25 01:59) Renal Standard(2gna,3gk,Lopho) (05/19/25 Breakfast) Sodium Chloride Lock (Saline Lock Ns) (05/19/25 06:00) Oxygen Per Hour (05/19/25 01:59) Hydrocodone-Acet 5/325mg Tab ([place] 5/32 (05/19/25 02:00) Ondansetron Hcl (Zofran) (05/19/25 02:00) Docusate Sodium Capsule (Colace Capsule) (05/19/25 02:00) Complete Blood Count (05/20/25 04:00) Comprehensive Metabolic Panel (05/20/25 04:00) Echo 2d Mode Cardiac Dop (05/19/25 01:59) Condition: Serious (05/19/25 01:59) Acetaminophen Tablet (Tylenol Tablet) (05/19/25 02:00) Bedrest With Bathroom Privileg (05/19/25 01:59) Sequential Compression Device (05/19/25 ) Nitroglycerin Sublingual (Ntrostat Subli (05/19/25 02:00) Morphine Sulfate Injection (05/19/25 02:00) Stat Ekg For Chest Pain (05/19/25 01:59) Notify Of Changes From Base (05/19/25 01:59) Cotton Ball Machine Tender For 24 Hours (05/19/25 01:59) Emergency Dysrhythmia Protocol (05/19/25 01:59) Rhythm Strips Once Every Shift (05/19/25 01:59) Oxygen By Nasal Cannula (05/19/25 01:59) Vital Signs Date Time Temp Pulse Resp B/P (MAP) Pulse Ox O2 Delivery O2 Flow Rate FiO2 05/19/25 01:59 93 94 156/98 05/19/25 01:30 90 12 155/93 (113) 94 05/19/25 01:27 90 12 155/93 05/19/25 00:40 85 19 Nasal Cannula* 4 36 05/19/25 00:30 97.8 85 19 148/84 (105) 96 97.8 05/18/25 23:50 98.9 96 20 156/88 98 98.9 Laboratory Tests Test 05/19/25 00:09 White Blood Count 6.5 10^3/uL (4.4-10.8) Medications Medications Dose Ordered Sig/Mica Route Start Time Stop Time Status Last Admin Dose Admin Morphine Sulfate 4 mg ONCE ONCE IV 05/19/25 00:15 05/19/25 00:16 DC 05/19/25 01:27 4 MG Ondansetron HCl 4 mg ONCE ONCE IV 05/19/25 00:15 05/19/25 00:16 DC 05/19/25 01:28 4 MG Assessment/Plan Assessment/Plan Acute chest pain Lupus nephritis SLE exacerbation Anemia of chronic disease ESRD needing dialysis Respiratory failure with hypoxia Acute exacerbation of congestive heart failure Plan 1. Admit to telemetry unit 2. Breathing treatment 3. Pain control management 4. Management of fluids and electrolytes 5. Consultation for Nephrology/hospitalist 6. Diagnostic tests chest x-ray 7. DVT prophylaxis on aspirin 8. Repeat labs CBC, CMP in a.m. 9. Continue with current medical management 10. Treatment plan discussed with patient and RN. Patient verbalized understanding. Plan discussed with: Patient, Other (RN) My Orders Orders - SISSY WINSTON DNP Procedure Category Date Status Time Complete Blood Count LAB 05/19/25 Transmitted 04:00 Comprehensive LAB 05/19/25 Transmitted Metabolic Panel 04:00 *[facility] CONS 05/19/25 Transmitted -[place] 01:59 Amlodipine Tablet PHA 05/19/25 Logged (Norvasc Tablet) 10:00 Clonidine Hcl Tablet PHA 05/19/25 Logged (Catapres Tablet) 02:00 Carvedilol Tablet PHA 05/19/25 Logged (Coreg Tablet) 10:00 B-Complex W/ C & PHA 05/19/25 Logged Folic Tablet 10:00 Sevelamer (Renagel) PHA 05/19/25 Logged 08:00 Admit ADMIT 05/19/25 Transmitted 01:59 Allergies ALEENA 05/19/25 Transmitted 01:59 Code Status CODE 05/19/25 Transmitted 01:59 Renal DIET 05/19/25 Transmitted Standard(2gna,3gk,Lopho) Breakfast Sodium Chloride Lock PHA 05/19/25 Transmitted (Saline Lock Ns) 06:00 Oxygen Per Hour RT 05/19/25 Transmitted 01:59 Hydrocodone-Acet PHA 05/19/25 Transmitted 5/325mg Tab ([place] 02:00 Ondansetron Hcl PHA 05/19/25 Transmitted (Zofran) 02:00 Docusate Sodium PHA 05/19/25 Transmitted Capsule (Colace 02:00 Complete Blood Count LAB 05/20/25 Verified 04:00 Comprehensive LAB 05/20/25 Verified Metabolic Panel 04:00 Echo 2d Mode Cardiac US 05/19/25 Logged DOP 01:59 Condition: Serious ALEENA 05/19/25 Transmitted 01:59 Acetaminophen Tablet PHA 05/19/25 Transmitted (Tylenol Tablet) 02:00 Bedrest With Bathroom ALE[facility] 05/19/25 Transmitted Privileg 01:59 Sequential [facility] 05/19/25 Transmitted Compression Device Nitroglycerin [facility] 05/19/25 Transmitted Sublingual (Ntrostat 02:00 Morphine Sulfate [facility] 05/19/25 Transmitted Injection 02:00 Stat Ekg For Chest [facility] 05/19/25 Transmitted Pain 01:59 Notify Of Changes [facility] 05/19/25 Transmitted From Base 01:59 Cotton Ball Machine Tender For [facility] 05/19/25 Transmitted 24 Hours 01:59 Emergency Dysrhythmia [facility] 05/19/25 Transmitted Protocol 01:59 Rhythm Strips Once [facility] 05/19/25 Transmitted Every Shift 01:59 Oxygen By Nasal 05/19/25 Transmitted Cannula 01:59 Problem List: (1) Acute chest pain (2) Lupus nephritis (3) SLE exacerbation (4) Anemia of chronic disease (5) ESRD needing dialysis (6) Respiratory failure with hypoxia (7) Acute exacerbation of congestive heart failure Date of Service: May 19, 2025 Billing Provider: SISSY WINSTON DNP Common Visit Codes: [id number] INP/OBS CARE (HIGH) SISSY WINSTON DNP May 19, 2025 02:33
[2025-05-19] MEDS: SODIUM CHLOR 0.9% PF (SALINE LOCK) 10ML VIAL/SYR IV SCH (03:31)
--- NOTE | 2025-05-19 04:30 | ECG ---
[facility] Test Date: 2025-05-18 Test Time: 23:56:58 Pat Name: KEHINDE TINSLEY Department: ED Room: [address] [place] [address] Gender: F Cnc Technician: : 1990 Requested By: CHITO LEMUS Order Number: [id number] Reading MD: Arnaldo Emmanuel Measurements Intervals [place] Rate: 88 P: 48 MI: 125 QRS: 26 QRSD: 94 T: 36 QT: 419 QTc: 507 Interpretive Statements Sinus rhythm Prolonged QT interval Electronically Signed On 05-23-2025 8:34:08 PST by Arnaldo Emmnauel Please click the below link to view image of tracing.
--- NOTE | 2025-05-19 04:30 | ECG ---
[facility] Test Date: 2025-05-19 Test Time: 01:23:45 Pat Name: KEHINDE TINSLEY Department: ED Room: [address] [address] Gender: F Memory Care Director: : 1990 Requested By: CHITO LEMUS Order Number: [id number] Reading MD: Arnaldo Emmanuel Measurements Intervals [place] Rate: 90 P: 47 SD: 132 QRS: 23 QRSD: 95 T: 31 QT: 404 QTc: 495 Interpretive Statements Sinus rhythm Borderline prolonged QT interval Electronically Signed On 05-23-2025 8:34:19 PST by Arnaldo Emmanuel Please click the below link to view image of tracing.
[2025-05-19 05:32] LABS: Hematocrit 30.2 % (36.0-46.0); Hemoglobin 10.0 g/dL (12.2-16.2); Mean Corpuscular Hemoglobin 27.3 pg (28.0-32.0); Mean Corpuscular Volume 82.3 fL (80.0-100.0); Nucleated Red Blood Cells % 0.6 %
[2025-05-19 05:47] LABS: Albumin 3.7 g/dL (3.2-4.8); Anion Gap 9 (5-15); BUN/Creatinine Ratio 7.7 (10.0-20.0); Blood Urea Nitrogen 17 mg/dL (9-23); Calcium 8.8 mg/dL (8.7-10.4); Chloride 102 mmol/L (98-107); Glucose 89 mg/dL (74-106); Sodium 143 mmol/L (136-145)
[2025-05-19 05:54] LABS: Alanine Aminotransferase < 9 U/L (7-40); Alkaline Phosphatase 39 U/L (46-116); Bilirubin, Total 1.4 mg/dL (0.2-1.0); Carbon Dioxide 32 mmol/L (20-31); Potassium 3.4 mmol/L (3.5-5.1); Total Protein 5.0 g/dL (5.7-8.2)
--- NOTE | 2025-05-19 06:15 | DVH ---
INDICATION: CP TECHNIQUE: Frontal view of the chest. COMPARISON: XR CHEST 1 VIEW on DOS: 05/18/25, XR CHEST 1 VIEW on DOS: 05/17/25, XR CHEST 1 VIEW on DOS: 05/16/25, XR CHEST 1 VIEW on DOS: 05/15/25, XR CHEST 1 VIEW on DOS: 05/14/25 FINDINGS: Tunneled right hemodialysis catheter. The heart and mediastinal contours are grossly unremarkable. Moderate left pleural effusion. . The bony structures of the chest are intact without fracture. IMPRESSION: 1. Cardiomegaly with CHF. Moderate left pleural effusion
[2025-05-19] MEDS: HYDROcodone-ACET 5/325MG TAB PO PRN (06:41)
[2025-05-19] MEDS: CARVEDILOL 3.125 MG TAB PO SCH (07:29)
[2025-05-19] MEDS: SEVELAMER 800 MG TAB PO SCH (07:30)
[2025-05-19] MEDS: B-COMPLEX W/ C & FOLIC ACID(NEPHROVITE TAB) PO SCH (07:30)
[2025-05-19 07:38] VITALS: PULSE 98; RESP 19; O2SAT 95
[2025-05-19 11:10] VITALS: PULSE 96; RESP 14; O2SAT 96
--- NOTE | 2025-05-19 11:59 | DVHINCON2 ---
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 She states that she was admitted to another acute care facility and recently initiated on dialysis. She was in significant discomfort during my evaluation and was not able to provide additional history. She denies recent fevers or chills but reports a" brain fog" type symptomatology. Past Medical History Chronic kidney disease stage 4 secondary to prior history of biopsy-proven lupus nephritis Hypertension Anemia SLE Allergies: Coded Allergies: NO KNOWN ALLERGIES (Unverified , 03/20/24) Home Meds Active Scripts Sodium Bicarbonate (Sodium Bicarbonate) 650 Mg Tab, 650 MG PO BID, #180 TAB Prov:FABIAN GIMENEZ MD 04/25/25 Hydroxychloroquine Sulfate (PLAQUENIL) 200 Mg Tab, 1 TAB PO BID, #180 TAB 3 Refills Prov:FABIAN GIMENEZ MD 04/25/25 Prednisone (Prednisone) 20 Mg Tab, 40 MG PO DAILY, #60 MG Prov:FABIAN GIMENEZ MD 04/25/25 Mycophenolate Mofetil (Cellcept) 500 Mg Tab, 1500 MG PO BID, #270 TAB Prov:FABIAN GIMENEZ MD 04/25/25 Sevelamer Carbonate (Sevelamer Carbonate) 800 Mg Tab, 800 MG PO TID for 30 Days, #90 TAB Prov:AL[place] GARCIA RESIDENT 04/10/25 Amlodipine Besylate (NORVASC TABLET) 5 Mg Tb, 10 MG PO DAILY for 30 Days, #60 TAB 3 Refills Prov:ROSS BROWN RESIDENT 04/10/25 Labetalol HCl (Labetalol HCl) 200 Mg Tab, 400 MG PO BID for 30 Days, #120 TAB 3 Refills Prov:ROSS BROWN 04/10/25 Mycophenolate Mofetil (Mycophenolate Mofetil) 500 Mg Tab, 1500 MG PO BID for 30 Days, #180 TAB 2 Refills Prov:ROSS BROWN 04/10/25 Sodium Bicarbonate (Sodium Bicarbonate) 650 Mg Tab, 650 MG PO QID for 30 Days, #120 TAB Prov:ROSS BROWN 04/10/25 Prednisone (Prednisone) 20 Mg Tab, 20 MG PO TID for 30 Days, #90 TAB Prov:ROSS BROWN RESIDENT 04/10/25 Hydroxychloroquine Sulfate (Hydroxychloroquine Sulfat) 200 Mg Tab, 200 MG PO DAILY for 30 Days, #30 TAB 3 Refills Prov:ROSS BROWN RESIDENT 04/10/25 Ferrous Sulfate (FERROUS SULFATE) 325 Mg Tb, 1 TAB PO DAILY for 30 Days, #30 TAB 3 Refills Prov:ROSS BROWN RESIDENT 04/10/25 Clonidine Hydrochloride (Clonidine Hcl) 0.2 Mg Tab, 1 TAB PO BID, #60 TAB 5 Refills Prov:JUSTIN YEPEZ TELEPHONE RECORDER 03/27/25 Reported Medications Cholecalciferol (Gnp Vitamin D) 1,000 Unit Tab, 1 TAB PO DAILY for 90 Days, #90 04/24/25 Losartan Potassium (Losartan Potassium) 25 Mg Tab, 1 TAB PO DAILY for 90 Days, #90 04/24/25 Pantoprazole Sodium Sesquihydr (Pantoprazole Sodium Dr) 40 Mg Tab, 1 TAB PO DAILY for 30 Days, #30 04/24/25 Furosemide (Furosemide) 40 Mg Tab, 1 TAB PO BID for 30 Days, #60 04/24/25 Sertraline Hcl (Sertraline Hcl) 25 Mg Tab, 1 TAB PO DAILY for 90 Days, #90 04/24/25 Folic Acid (Folic Acid) 1 Mg Tab, 1 TAB PO DAILY for 90 Days, #90 03/26/24 Current Medications Current Medications Medications (Trade) Dose Ordered Sig/Mica Route PRN Reason Start Time Stop Time Status Last Admin Amlodipine Besylate (Norvasc Tablet) 5 mg DAILY PO 05/19/25 10:00 05/19/25 07:30 Clonidine HCl (Catapres Tablet) 0.2 mg Q6HP PRN PO SBP>160 05/19/25 02:00 05/19/25 10:45 Carvedilol (Coreg Tablet) 3.125 mg Q12HR PO 05/19/25 10:00 05/19/25 07:29 Multivit/Ca Carb/ B Cmplx/FA/Prenat (Nephro-Aleida Tablet) 1 tab DAILY PO 05/19/25 10:00 05/19/25 07:30 Sevelamer HCl (Renagel) 800 mg TIDWM PO 05/19/25 08:00 05/19/25 07:30 Sodium Chloride (Saline Lock Ns) 10 ml Q8HR IV 05/19/25 06:00 05/19/25 03:31 Acetaminophen/ Hydrocodone Bitart ([place] 5/325MG Tab) 1 tab Q4HP PRN PO MODERATE PAIN (4-6 PAIN SCALE) 05/19/25 02:00 05/19/25 10:43 Ondansetron HCl (Zofran) 4 mg Q4HP PRN IV NAUSEA / VOMITING 05/19/25 02:00 Docusate Sodium (Colace Capsule) 100 mg BIDPRN PRN PO FOR CONSTIPATION 05/19/25 02:00 Acetaminophen (Tylenol Tablet) 650 mg Q6HP PRN PO PAIN SCALE 1-3 OR TEMP>100.4 05/19/25 02:00 Nitroglycerin (Ntrostat Sublingual) 0.4 mg Q5MINP PRN SL FOR CHEST PAIN 05/19/25 02:00 Morphine Sulfate 2 mg Q30M PRN IV FOR CHEST PAIN 05/19/25 02:00 Aspirin 81 mg DAILY PO 05/19/25 10:00 05/19/25 07:29 Family History: Hypertension G8 FATHER Review of Systems For review of systems unable to be obtained due to patient's current mental state. H&P Exam Vital Signs/I&O Vital Sign Date Time Temp Pulse Resp B/P (MAP) Pulse Ox O2 Delivery O2 Flow Rate FiO2 05/19/25 11:10 96 14 96 Nasal Cannula* 4 36 05/19/25 10:45 160/104 05/19/25 07:37 98.1 98.1 Physical Exam Gen: Moderate painful distress, acutely ill-appearing heent: nc/at, mmm lungs: Occasional rhonchi cvs: Tachycardic abd: Bowel sounds diminished ext: + edema skin: no petechiae neuro: Able to follow simple commands Labs/Diagnostic Data Labs/Diagnostic Data Laboratory Tests Test 05/19/25 05:09 05/19/25 02:51 05/19/25 01:05 05/19/25 00:09 Range/Units White Blood Count 6.6 6.5 4.4-10.8 10^3/uL Red Blood Count 3.67 L 3.86 L 4.0-5.20 10^6/uL Hemoglobin 10.0 L 10.5 L 12.2-16.2 g/dL Hematocrit 30.2 L 31.8 L 36.0-46.0 % Mean Corpuscular Volume 82.3 82.4 80.0-100.0 fL Mean Corpuscular Hemoglobin 27.3 L 27.3 L 28.0-32.0 pg Mean Corpuscular Hemoglobin Concent 33.2 33.1 32.0-36.0 g/dL Red Cell Distribution Width 16.7 H 16.3 H 11.8-14.3 % Platelet Count 127 L 138 L 140-450 10^3/uL Mean Platelet Volume 7.6 7.4 6.9-10.8 fL Neutrophils (%) (Auto) 83.1 H 88.0 H 37.0-80.0 % Lymphocytes (%) (Auto) 8.8 L 4.0 L 10.0-50.0 % Monocytes (%) (Auto) 7.2 7.8 0.0-12.0 % Eosinophils (%) (Auto) 0.1 0.0 0.0-7.0 % Basophils (%) (Auto) 0.8 0.2 0.0-2.0 % Neutrophils # (Auto) 5.5 5.8 1.6-8.6 10 ^3/uL Lymphocytes # (Auto) 0.6 0.3 L 0.4-5.4 10 ^3/uL Monocytes # (Auto) 0.5 0.5 0-1.3 10 ^3/uL Eosinophils # (Auto) 0 0 0-0.8 10 ^3/uL Basophils # (Auto) 0.1 0 0-0.2 10 ^3/uL Nucleated Red Blood Cells 0.6 0.5 % Sodium Level 143 143 136-145 mmol/L Potassium Level 3.4 L 3.6 3.5-5.1 mmol/L Chloride Level 102 101 98-107 mmol/L Carbon Dioxide Level 32 H 32 H 20-31 mmol/L Anion Gap 9 10 5-15 Blood Urea Nitrogen 17 18 9-23 mg/dL Creatinine 2.21 H 2.05 H 0.550-1.02 mg/dL Glomerular Filtration Rate Calc 30 32 >90 mL/min BUN/Creatinine Ratio 7.7 L 8.8 L 10.0-20.0 Serum Glucose 89 95 74-106 mg/dL Calcium Level 8.8 8.7 8.7-10.4 mg/dL Total Bilirubin 1.4 H 1.8 H 0.2-1.0 mg/dL Aspartate Amino Transferase (AST) 11 L 10 L 13-40 U/L Alanine Aminotransferase (ALT) < 9 < 9 7-40 U/L Alkaline Phosphatase 39 L 40 L 46-116 U/L Total Protein 5.0 L 5.0 L 5.7-8.2 g/dL Albumin 3.7 3.8 3.2-4.8 g/dL Troponin I High Sensitivity 119 *H 106 *H 116 *H </=34 ng/L B-Type Natriuretic Peptide 1536.88 0-100 pg/mL Assessment IMP: 1) Hemodynamically mediated MELLY in setting of lupus nephritis, patient reports being initiated on kidney replacement therapy. 2) CKD stage IV secondary to biopsy-proven lupus nephritis 3) acute flare of SLE 4) toxic metabolic encephalopathy 5) anemia REC: - 500 mg of Solu-Medrol IV x1 today. - analgesia - we will repeat basic chemistry panel, UA, lupus serologies - further management to be based on treatment course, discussed plan with Torie. Thank you for the consultation. Plan discussed with: Patient MARCI LI MD May 19, 2025 11:59
[2025-05-19] MEDS: HYDROmorphone HCL 2 MG/ML VL/or syr IV ONE (12:00)
[2025-05-19] MEDS: methylPREDNISolone SOD SUCC 500 MG in SODIUM CHL 0.9% 100 ML IV ONE (12:46)
--- NOTE | 2025-05-19 13:09 | DVH ---
EXAM: MRI BRAIN HEAD WO CONTRAST CLINICAL HISTORY: headaches COMPARISON: MRI BRAIN WO on DOS: 05/13/25, MRI BRAIN HEAD WO CONTRAST on DOS: 04/07/25 TECHNIQUE: Multiplanar, multisequence magnetic resonance imaging of the brain was performed without intravenous contrast. FINDINGS: Normal brain volume and formation. 2 nonspecific foci of Bilateral high convexity frontal lobe T2/FLAIR hyperintensity. No hemorrhages, masses, mass effect, midline shift, herniation or cytotoxic edema following large vascular territory. No intra-axial or extra-axial fluid collections. No evidence of hydrocephalus. The basal cisterns are patent. The vessel flow voids are maintained. Nonspecific partially empty sella. The cerebellar tonsils are normal position. The cerebellum is unremarkable. The orbits and globes unremarkable. Mucous retention cyst within the right maxillary sinus with minimal mucoperiosteal thickening of the ethmoid and maxillary sinuses. Bilateral mastoids are clear. No worrisome calvarial lesions. IMPRESSION: No evidence of acute intracranial abnormalities. Unchanged 2 nonspecific foci of Bilateral high convexity frontal lobe T2/FLAIR hyperintensity which may represent changes associated with chronic migraine state versus chronic small-vessel ischemic changes with Other etiologies not excluded. Nonspecific Partially Empty sella.
[2025-05-19 21:33] VITALS: BP 171/106; PULSE 83; RESP 16; TEMP 97.5; O2SAT 100
[2025-05-20] VITALS (8 sets, daily range): BP systolic 145–173; BP diastolic 83–109; PULSE 70–84; RESP 16–17; TEMP 97.9–99; O2SAT 91–98
[2025-05-20] MEDS: ACETAMINOPHEN 325 MG TAB PO PRN (03:13)
[2025-05-20 07:28] LABS: Hematocrit 31.9 % (36.0-46.0); Hemoglobin 10.7 g/dL (12.2-16.2); Mean Corpuscular Hemoglobin 27.9 pg (28.0-32.0); Mean Corpuscular Volume 83.3 fL (80.0-100.0); Nucleated Red Blood Cells % 1.1 %
[2025-05-20 07:29] LABS: Albumin 3.8 g/dL (3.2-4.8); Anion Gap 13 (5-15); BUN/Creatinine Ratio 8.0 (10.0-20.0); Bilirubin, Total 1.1 mg/dL (0.2-1.0); Calcium 8.9 mg/dL (8.7-10.4); Carbon Dioxide 27 mmol/L (20-31); Chloride 99 mmol/L (98-107); Glucose 98 mg/dL (74-106); Potassium 4.0 mmol/L (3.5-5.1); Sodium 139 mmol/L (136-145); Uric Acid 5.3 mg/dL (3.1-7.8)
[2025-05-20 07:40] LABS: Alanine Aminotransferase < 9 U/L (7-40); Alkaline Phosphatase 45 U/L (46-116); Blood Urea Nitrogen 27 mg/dL (9-23); Total Protein 5.4 g/dL (5.7-8.2)
--- NOTE | 2025-05-20 14:49 | DVHPN2 ---
Subjective No chest pain Reviewed: H&P Changes from previous H/P or p: No Changes Eyes: No Pain, No Vision change, No Conjunctivae inflammation, No Eyelid inflammation, No Other, No Redness ENT: No Ear pain, No Ear discharge, No Nose pain, No Nose discharge, No Nose congestion, No Mouth pain, No Mouth swelling, No Throat pain, No Throat swelling, No Other Cardiovascular: Chest Pain; No Palpitations, No Orthopnea, No Paroxysmal Noc. Dyspnea, No Edema, No Lt Headedness; Other (PermCath right upper chest) Respiratory: No Cough, No Dry, No Shortness of breath, No SOB with excertion, No Wheezing, No Hemoptysis, No Pleuritic Pain, No Sputum, No Other Gastrointestinal: No Nausea, No Vomiting, No Abdominal Pain, No Diarrhea, No Constipation, No Melena, No Hematochezia, No Other Genitourinary: No Dysuria, No Frequency, No Incontinence, No Hematuria, No Retention; Other (On hemodialysis) Musculoskeletal: No other, No neck pain, No shoulder pain, No arm pain, No back pain, No hand pain, No leg pain, No foot pain Skin: No Rash, No Lesions, No Jaundice, No Bruising, No Other Objective Vitals Vital Signs Date Time Temp Pulse Resp B/P (MAP) Pulse Ox O2 Delivery O2 Flow Rate FiO2 05/20/25 13:30 99.0 83 16 166/96 (119) 97 99.0 05/19/25 21:33 Nasal Cannula* 2 28 Intake/Output Intake and Output 05/20/25 07:00 Intake Total 200 ml Balance 200 ml Intake Oral 100 ml IV Total 100 ml General Appearance: Alert, Oriented X3 HEENT: Atraumatic Cardiovascular: Regular rate, Normal S1, Normal S2 Abdomen: Normal bowel sounds Medications Current Medications Medications Dose Ordered Sig/Mica Route Start Time Stop Time Status Last Admin Dose Admin Amlodipine Besylate 5 mg DAILY PO 05/19/25 10:00 05/20/25 09:23 5 MG Clonidine HCl 0.2 mg Q6HP PRN PO 05/19/25 02:00 05/20/25 03:09 0.2 MG Carvedilol 3.125 mg Q12HR PO 05/19/25 10:00 05/20/25 09:20 3.125 MG Multivit/Ca Carb/ B Cmplx/FA/Prenat 1 tab DAILY PO 05/19/25 10:00 05/20/25 09:13 1 TAB Sodium Chloride 10 ml Q8HR IV 05/19/25 06:00 05/20/25 05:36 10 ML Acetaminophen/ Hydrocodone Bitart 1 tab Q4HP PRN PO 05/19/25 02:00 05/19/25 10:43 1 TAB Ondansetron HCl 4 mg Q4HP PRN IV 05/19/25 02:00 Docusate Sodium 100 mg BIDPRN PRN PO 05/19/25 02:00 Acetaminophen 650 mg Q6HP PRN PO 05/19/25 02:00 05/20/25 03:13 650 MG Aspirin 81 mg DAILY PO 05/19/25 10:00 05/20/25 09:13 81 MG Laboratory Results Laboratory Tests 05/20/25 06:00 Chemistry Test 05/20/25 06:00 Albumin 3.8 g/dL (3.2-4.8) Calcium Level 8.9 mg/dL (8.7-10.4) Total Protein 5.4 g/dL (5.7-8.2) L LFT Test 05/20/25 06:00 Alanine Aminotransferase (ALT) < 9 U/L (7-40) Alkaline Phosphatase 45 U/L (46-116) L Aspartate Amino Transferase (AST) 9 U/L (13-40) L Total Bilirubin 1.1 mg/dL (0.2-1.0) H Assessment/Plan Assessment/Plan NSTEMI most likely Lupus nephritis SLE exacerbation Anemia of chronic disease ESRD needing dialysis Respiratory failure with hypoxia Acute exacerbation of congestive heart failure Plan HD MRI negative for any stroke Echo and cardiology consulted Plan discussed with: Patient Date of Service: May 20, 2025 Billing Provider: NIKKO BOOTH MD Common Visit Codes: [id number] INP/OBS CARE(HIGH) NIKKO BOOTH MD May 20, 2025 14:49
--- NOTE | 2025-05-20 16:17 | DVHINCON2 ---
VOLODYMYR GLEZ [facility] 05/20/25 1617: Date Seen: May 20, 2025 Referring Physician MD Agnieszka Reason for Consultation Elevated trops History of Present Illness This is a 34-year-old female who presented to the emergency room via EMS with a chief complaint of chest pain. Patient reports a one time event of chest pain that was triggered by lying onto her left side and resolved with positional change. Since then, she denies having any more episodes of chest pain. She is currently undergoing hemodialysis treatment at bedside. Multiple 12-lead electrocardiograms x2 revealing a normal sinus rhythm without evidence of ST-T segment changes. Latest troponin level is 119 ng/L. Significant medical history includes chronic kidney disease stage 4 secondary to prior history of biopsy-proven lupus nephritis, systemic lupus erythematosus, hypertension, hypertriglyceridemia, and anemia. Past Medical History Past medical history reviewed. No other significant than mentioned above. Past Surgical History Ernesto catheter to right-sided chest wall, placed on 05/17/2025 Family History: Hypertension G8 FATHER Family History Family history reviewed. Social History Denies the use of illicit drugs, alcohol, or tobacco use. Allergies: Coded Allergies: NO KNOWN ALLERGIES (Unverified , 03/20/24) Home Meds Active Scripts Sodium Bicarbonate (Sodium Bicarbonate) 650 Mg Tab, 650 MG PO BID, #180 TAB Prov:FABIAN GIMENEZ MD 04/25/25 Hydroxychloroquine Sulfate (PLAQUENIL) 200 Mg Tab, 1 TAB PO BID, #180 TAB 3 Refills Prov:FABIAN GIMENEZ MD 04/25/25 Prednisone (Prednisone) 20 Mg Tab, 40 MG PO DAILY, #60 MG Prov:FABIAN GIMENEZ MD 04/25/25 Mycophenolate Mofetil (Cellcept) 500 Mg Tab, 1500 MG PO BID, #270 TAB Prov:FABIAN GIMENEZ MD 04/25/25 Sevelamer Carbonate (Sevelamer Carbonate) 800 Mg Tab, 800 MG PO TID for 30 Days, #90 TAB Prov:ALEXANDRIA GARCIA RESIDENT 04/10/25 Amlodipine Besylate (NORVASC TABLET) 5 Mg Tb, 10 MG PO DAILY for 30 Days, #60 TAB 3 Refills Prov:ROSS BROWN RESIDENT 04/10/25 Labetalol HCl (Labetalol HCl) 200 Mg Tab, 400 MG PO BID for 30 Days, #120 TAB 3 Refills Prov:ROSS BROWN [facility] 04/10/25 Mycophenolate Mofetil (Mycophenolate Mofetil) 500 Mg Tab, 1500 MG PO BID for 30 Days, #180 TAB 2 Refills Prov:ROSS BROWN RESIDENT 04/10/25 Sodium Bicarbonate (Sodium Bicarbonate) 650 Mg Tab, 650 MG PO QID for 30 Days, #120 TAB Prov:ROSS BROWN [facility] 04/10/25 Prednisone (Prednisone) 20 Mg Tab, 20 MG PO TID for 30 Days, #90 TAB Prov:ROSS BROWN [facility] 04/10/25 Hydroxychloroquine Sulfate (Hydroxychloroquine Sulfat) 200 Mg Tab, 200 MG PO DAILY for 30 Days, #30 TAB 3 Refills Prov:ROSS BROWN [facility] 04/10/25 Ferrous Sulfate (FERROUS SULFATE) 325 Mg Tb, 1 TAB PO DAILY for 30 Days, #30 TAB 3 Refills Prov:ROSS BROWN [facility] 04/10/25 Clonidine Hydrochloride (Clonidine Hcl) 0.2 Mg Tab, 1 TAB PO BID, #60 TAB 5 Refills Prov:JUSTIN YEPEZ [employer] 03/27/25 Reported Medications Cholecalciferol (Gnp Vitamin D) 1,000 Unit Tab, 1 TAB PO DAILY for 90 Days, #90 04/24/25 Losartan Potassium (Losartan Potassium) 25 Mg Tab, 1 TAB PO DAILY for 90 Days, #90 04/24/25 Pantoprazole Sodium Sesquihydr (Pantoprazole Sodium Dr) 40 Mg Tab, 1 TAB PO DAILY for 30 Days, #30 04/24/25 Furosemide (Furosemide) 40 Mg Tab, 1 TAB PO BID for 30 Days, #60 04/24/25 Sertraline Hcl (Sertraline Hcl) 25 Mg Tab, 1 TAB PO DAILY for 90 Days, #90 04/24/25 Folic Acid (Folic Acid) 1 Mg Tab, 1 TAB PO DAILY for 90 Days, #90 03/26/24 Home Meds Home medications reviewed. Review of Systems Constitutional: No symptom reported Ears, Nose, & Throat: No symptom reported Eyes: No symptom reported Neurological: No symptoms reported Pulmonary/Respiratory: No symptom reported Cardiovascular: No symptom reported Gastrointestinal: No symptom reported Genitourinary: No symptom reported Musculoskeletal: Chest pain Skin: No symptom reported Psychiatric: No symptom reported Endocrine: No symptom reported Hemotologic/Lymphatic: No symptom reported Vital Signs Vital Signs Date Time Temp Pulse Resp B/P (MAP) Pulse Ox O2 Delivery O2 Flow Rate FiO2 05/20/25 13:30 99.0 83 16 166/96 (119) 97 99.0 05/19/25 21:33 Nasal Cannula* 2 28 Physical Exam General Appearance: Cooperative. Well developed. Well nourished. In no acute distress Head Exam: Normal inspection Neck Exam: Normal inspection. Non-tender. Normal alignment Pulmonary/Respiratory: Chest non-tender. Rales to to bilateral breath sounds Cardiovascular/Chest: Regular rate and rhythm. S1, S2. NSR. No murmurs. No JVD. Peripheral Pulses: 2+ Radial (R). 2+ Radial (L). 2+ Pedal (R). 2+ Pedal (L) Abdominal Exam: Normal bowel sounds. Soft. Nontender. No hepatospenomegaly. No masses Ankle Exam: Negative ankle edema Lower extremities: Negative lower extremity edema Neuro/Mental Status: A&O x4. Coherent Thoughts/Psych: Normal thought pattern. Appropriate mood and affect. Good judgement and insight Appearance: In no acute distress Skin Exam: Normal inspection. Normal color. Warm. Dry Labs/Diagnostic Data Labs Test 05/20/25 11:42 05/20/25 06:00 05/19/25 02:51 05/19/25 00:09 Range/Units POC Glucose 111 H 70-106 mg/dl White Blood Count 7.0 4.4-10.8 10^3/uL Red Blood Count 3.83 L 4.0-5.20 10^6/uL Hemoglobin 10.7 L 12.2-16.2 g/dL Hematocrit 31.9 L 36.0-46.0 % Mean Corpuscular Volume 83.3 80.0-100.0 fL Mean Corpuscular Hemoglobin 27.9 L 28.0-32.0 pg Mean Corpuscular Hemoglobin Concent 33.5 32.0-36.0 g/dL Red Cell Distribution Width 16.6 H 11.8-14.3 % Platelet Count 101 L 140-450 10^3/uL Mean Platelet Volume 7.7 6.9-10.8 fL Neutrophils (%) (Auto) 88.7 H 37.0-80.0 % Lymphocytes (%) (Auto) 4.3 L 10.0-50.0 % Monocytes (%) (Auto) 6.7 0.0-12.0 % Eosinophils (%) (Auto) 0.0 0.0-7.0 % Basophils (%) (Auto) 0.3 0.0-2.0 % Neutrophils # (Auto) 6.2 1.6-8.6 10 ^3/uL Lymphocytes # (Auto) 0.3 L 0.4-5.4 10 ^3/uL Monocytes # (Auto) 0.5 0-1.3 10 ^3/uL Eosinophils # (Auto) 0 0-0.8 10 ^3/uL Basophils # (Auto) 0 0-0.2 10 ^3/uL Nucleated Red Blood Cells 1.1 % Sodium Level 139 136-145 mmol/L Potassium Level 4.0 3.5-5.1 mmol/L Chloride Level 99 98-107 mmol/L Carbon Dioxide Level 27 20-31 mmol/L Anion Gap 13 5-15 Blood Urea Nitrogen 27 #H 9-23 mg/dL Creatinine 3.38 #H 0.550-1.02 mg/dL Glomerular Filtration Rate Calc 18 >90 mL/min BUN/Creatinine Ratio 8.0 L 10.0-20.0 Serum Glucose 98 74-106 mg/dL Uric Acid 5.3 3.1-7.8 mg/dL Calcium Level 8.9 8.7-10.4 mg/dL Total Bilirubin 1.1 H 0.2-1.0 mg/dL Aspartate Amino Transferase (AST) 9 L 13-40 U/L Alanine Aminotransferase (ALT) < 9 7-40 U/L Alkaline Phosphatase 45 L 46-116 U/L Total Protein 5.4 L 5.7-8.2 g/dL Albumin 3.8 3.2-4.8 g/dL Troponin I High Sensitivity 119 *H </=34 ng/L B-Type Natriuretic Peptide 1536.88 0-100 pg/mL Assessment Hypertensive urgency NSTEMI, likely type 2 secondary to above Noncardiac chest pain, musculoskeletal in nature Possible lupus flare-up MELLY on CKD stage 4 on HD Renal cardiac syndrome type IV Borderline thrombocytopenia Anemia Plan/Recommendation (Dr. Grimaldo) The patient presents with noncardiac chest pain, 12 lead electrocardiogram without evidence of ST-T wave segment changes, and a heart score of 1 point placing her at a low risk for major cardiac events. A recent transthoracic echocardiogram revealed a LVEF of 65% without pericardial effusion, normal valves, and normal RV function. Likely NSTEMI type 2 secondary to hypertensive urgency. Continue aggressive blood pressure control for a target SBP <140 mmHg. There is no further cardiac workup indicated at this time. Kindly call if you need further recommendations. Signing off. Thank you for allowing us to participate in this patient's care. This medical document was created using an electronic medical record system with voice recognition software and computerized dictation system. Although this document has been carefully reviewed, there might still be some phonetic and typographical errors. Occasional wrong-word or ``sound-alike substitutions may have occurred due to the inherent limitations of voice recognition software. These areas are purely typographical due to imperfections of the software programs and do not reflect any compromise in the patient's medical care. Please read the chart carefully and recognize, using context, where these substitutions have occurred. Plan discussed with: Patient, Other NYHA Physical activity limitations: NA Date of Service: May 20, 2025 Billing Provider: VOLODYMYR GLEZ [facility] Cardiology Common Codes: [id number] INP/OBS CARE (High) GRICELDA GRIMALDO MD 05/21/25 1651: Family History: Hypertension G8 FATHER Allergies: Coded Allergies: NO KNOWN ALLERGIES (Unverified , 03/20/24) Home Meds Active Scripts Sodium Bicarbonate (Sodium Bicarbonate) 650 Mg Tab, 650 MG PO BID, #180 TAB Prov:FABIAN GIMENEZ MD 04/25/25 Hydroxychloroquine Sulfate (PLAQUENIL) 200 Mg Tab, 1 TAB PO BID, #180 TAB 3 Refi lls Prov:FABIAN GIMENEZ MD 04/25/25 Prednisone (Prednisone) 20 Mg Tab, 40 MG PO DAILY, #60 MG Prov:FABIAN GIMENEZ MD 04/25/25 Mycophenolate Mofetil (Cellcept) 500 Mg Tab, 1500 MG PO BID, #270 TAB Prov:FABIAN GIMENEZ MD 04/25/25 Sevelamer Carbonate (Sevelamer Carbonate) 800 Mg Tab, 800 MG PO TID for 30 Days, #90 TAB Prov:ALEXANDRIA GARCIA 04/10/25 Amlodipine Besylate (NORVASC TABLET) 5 Mg Tb, 10 MG PO DAILY for 30 Days, #60 TAB 3 Refills Prov:ROSS BROWN [facility] 04/10/25 Labetalol HCl (Labetalol HCl) 200 Mg Tab, 400 MG PO BID for 30 Days, #120 TAB 3 Refills Prov:ROSS BROWN [facility] 04/10/25 Mycophenolate Mofetil (Mycophenolate Mofetil) 500 Mg Tab, 1500 MG PO BID for 30 Days, #180 TAB 2 Refills Prov:ROSS BROWN [facility] 04/10/25 Sodium Bicarbonate (Sodium Bicarbonate) 650 Mg Tab, 650 MG PO QID for 30 Days, #120 [facility] 04/10/25 Prednisone (Prednisone) 20 Mg Tab, 20 MG PO TID for 30 Days, #90 TAB Prov:[facility]OSS BR[facility]ON [facility] 04/10/25 Hydroxychloroquine Sulfate (Hydroxychloroquine Sulfat) 200 Mg Tab, 200 MG PO DAILY for 30 Days, #30 TAB 3 Refills Prov:ROSS BROWN [facility] 04/10/25 Ferrous Sulfate (FERROUS SULFATE) 325 Mg Tb, 1 TAB PO DAILY for 30 Days, #30 TAB 3 Refills Prov:ROSS BROWN [facility] 04/10/25 Clonidine Hydrochloride (Clonidine Hcl) 0.2 Mg Tab, 1 TAB PO BID, #60 TAB 5 Refills Prov:JUSTIN YEPEZ [employer] 03/27/25 Reported Medications Cholecalciferol (Gnp Vitamin D) 1,000 Unit Tab, 1 TAB PO DAILY for 90 Days, #90 04/24/25 Losartan Potassium (Losartan Potassium) 25 Mg Tab, 1 TAB PO DAILY for 90 Days, #90 04/24/25 Pantoprazole Sodium Sesquihydr (Pantoprazole Sodium Dr) 40 Mg Tab, 1 TAB PO DAILY for 30 Days, #30 04/24/25 Furosemide (Furosemide) 40 Mg Tab, 1 TAB PO BID for 30 Days, #60 04/24/25 Sertraline Hcl (Sertraline Hcl) 25 Mg Tab, 1 TAB PO DAILY for 90 Days, #90 04/24/25 Folic Acid (Folic Acid) 1 Mg Tab, 1 TAB PO DAILY for 90 Days, #90 03/26/24 Plan/Recommendation repeat cardiac consults echos reviewed, pt has pleural effusion on both echos trop is 2/2 to HD and ckd signing off Plan discussed with: Patient VOLODYMYR GLEZ [facility] May 20, 2025 16:17 GRICELDA GRIMALDO MD May 21, 2025 16:51
[2025-05-20] MEDS ORDERED: MORPHINE SULFATE 4 MG/ML SYR/VIAL IV PRN (18:15)
[2025-05-20] MEDS: MORPHINE SULFATE 4 MG/ML SYR/VIAL IV ONE (18:32)
--- NOTE | 2025-05-20 18:49 | DVH ---
CHEST RADIOGRAPH INDICATION: chest pain TECHNIQUE: XY CHEST XRAY 1 VIEW COMPARISON: None FINDINGS: Right IJ catheter tip projects over the cavoatrial junction. The cardiac silhouette is enlarged. The lungs demonstrate bilateral patchy airspace opacities. The pulmonary vasculature is prominent. Moderate left and small right pleural effusions. There is no pneumothorax. IMPRESSION: Cardiomegaly with pulmonary vascular congestion and bilateral patchy airspace opacities. Moderate left and small right pleural effusions.
[2025-05-20] MEDS: EPOETIN ALFA-EPBX 10,000 UNIT/1ML VIAL SC ONE (21:28)
[2025-05-20] MEDS: CARVEDILOL 12.5 MG TAB PO SCH (21:29)
--- NOTE | 2025-05-20 21:29 | DVHINCON2 ---
Date of service: May 20, [address] Rosas Reason for Consultation ESRD and dialysis management History of Present Illness Torie Starks is a 34-year-old F with a Past Medical History pertinent for CKD Stage IV due to prior history of biopsy-proven Lupus Nephritis, Systemic Lupus Erythematosus, Hypertension, Hypertriglyceridemia and Anemia who presented to the hospital with complaint of chest pain. Patient reports a one time event of chest pain that was triggered by lying onto her left side and resolved with positional change. She was discharged hours before from [facility]. Patient denies having any more episodes of chest pain. Multiple EKGs x2 revealing a normal sinus rhythm without evidence of ST-T segment changes. Troponin elevated 106 with repeat at 119. Patient is under my care outpatient. Recently established care with [facility] for home hemodialysis. Allergies: Coded Allergies: NO KNOWN ALLERGIES (Unverified , 03/20/24) Home Meds Active Scripts Sodium Bicarbonate (Sodium Bicarbonate) 650 Mg Tab, 650 MG PO BID, #180 TAB Prov:FABIAN GIMENEZ MD 04/25/25 Hydroxychloroquine Sulfate (PLAQUENIL) 200 Mg Tab, 1 TAB PO BID, #180 TAB 3 Refills Prov:FABIAN GIMENEZ MD 04/25/25 Prednisone (Prednisone) 20 Mg Tab, 40 MG PO DAILY, #60 MG Prov:FABIAN GIMENEZ MD 04/25/25 Mycophenolate Mofetil (Cellcept) 500 Mg Tab, 1500 MG PO BID, #270 TAB Prov:FABIAN GIMENEZ MD 04/25/25 Sevelamer Carbonate (Sevelamer Carbonate) 800 Mg Tab, 800 MG PO TID for 30 Days, #90 TAB Prov:ALEXANDRIA GARCIA RESIDENT 04/10/25 Amlodipine Besylate (NORVASC TABLET) 5 Mg Tb, 10 MG PO DAILY for 30 Days, #60 TAB 3 Refills Prov:ROSS BROWN 04/10/25 Labetalol HCl (Labetalol HCl) 200 Mg Tab, 400 MG PO BID for 30 Days, #120 TAB 3 Refills Prov:ROSS BROWN 04/10/25 Mycophenolate Mofetil (Mycophenolate Mofetil) 500 Mg Tab, 1500 MG PO BID for 30 Days, #180 TAB 2 Refills Prov:ROSS BROWN 04/10/25 Sodium Bicarbonate (Sodium Bicarbonate) 650 Mg Tab, 650 MG PO QID for 30 Days, #120 TAB Prov:ROSS BROWN RESIDENT 04/10/25 Prednisone (Prednisone) 20 Mg Tab, 20 MG PO TID for 30 Days, #90 TAB Prov:ROSS BROWN RESIDENT 04/10/25 Hydroxychloroquine Sulfate (Hydroxychloroquine Sulfat) 200 Mg Tab, 200 MG PO DAILY for 30 Days, #30 TAB 3 Refills Prov:ROSS BROWN [facility] 04/10/25 Ferrous Sulfate (FERROUS SULFATE) 325 Mg Tb, 1 TAB PO DAILY for 30 Days, #30 TAB 3 Refills Prov:ROSS BROWN [facility] 04/10/25 Clonidine Hydrochloride (Clonidine Hcl) 0.2 Mg Tab, 1 TAB PO BID, #60 TAB 5 Refills Prov:JUSTIN YEPEZ [employer] 03/27/25 Reported Medications Cholecalciferol (Gnp Vitamin D) 1,000 Unit Tab, 1 TAB PO DAILY for 90 Days, #90 04/24/25 Losartan Potassium (Losartan Potassium) 25 Mg Tab, 1 TAB PO DAILY for 90 Days, #90 04/24/25 Pantoprazole Sodium Sesquihydr (Pantoprazole Sodium Dr) 40 Mg Tab, 1 TAB PO DAILY for 30 Days, #30 04/24/25 Furosemide (Furosemide) 40 Mg Tab, 1 TAB PO BID for 30 Days, #60 04/24/25 Sertraline Hcl (Sertraline Hcl) 25 Mg Tab, 1 TAB PO DAILY for 90 Days, #90 04/24/25 Folic Acid (Folic Acid) 1 Mg Tab, 1 TAB PO DAILY for 90 Days, #90 03/26/24 Current Medications Current Medications Medications (Trade) Dose Ordered Sig/Mica Route PRN Reason Start Time Stop Time Status Last Admin Carvedilol (Coreg Tablet) 12.5 mg Q12HR PO 05/20/25 22:00 05/20/25 21:29 Nifedipine (Procardia Xl (Time-Release)) 60 mg DAILY PO 05/21/25 10:00 Morphine Sulfate 2 mg [id number] PRN IV FOR CHEST PAIN 05/20/25 18:15 Family History: Hypertension G8 FATHER Review of Systems Constitutional: No symptom reported Ears, Nose, & Throat: No symptom reported Eyes: No symptom reported Neurological: No symptoms reported Pulmonary/Respiratory: No symptom reported Cardiovascular: No symptom reported Gastrointestinal: No symptom reported Genitourinary: No symptom reported Musculoskeletal: Chest pain Skin: No symptom reported Psychiatric: No symptom reported Endocrine: No symptom reported Hemotologic/Lymphatic: No symptom reported H&P Exam Vital Signs/I&O Vital Sign Date Time Temp Pulse Resp B/P (MAP) Pulse Ox O2 Delivery O2 Flow Rate FiO2 05/20/25 21:29 74 145/86 05/20/25 20:52 99.0 17 97 99.0 05/20/25 08:00 Nasal Cannula* 2 28 Intake and Output 05/19/25 05/20/25 19:00 07:00 Intake Total 100 ml 100 ml Balance 100 ml 100 ml Intake Oral 100 ml IV Total 100 ml Physical Exam Vitals and nursing notes reviewed. General Appearance: Cooperative. Well developed. Well nourished. In no acute distress Head Exam: Normal inspection Neck Exam: Normal inspection. Non-tender. Normal alignment Pulmonary/Respiratory: Chest non-tender. Rales to to bilateral breath sounds Cardiovascular/Chest: Regular rate and rhythm. S1, S2. NSR. No murmurs. No JVD. Abdominal Exam: Normal bowel sounds. Soft. Nontender. No hepatospenomegaly. No masses Ankle Exam: Negative ankle edema Lower extremities: Negative lower extremity edema Neuro/Mental Status: A&O x4. Coherent Thoughts/Psych: Normal thought pattern. Appropriate mood and affect. Good judgement and insight Skin Exam: Normal inspection. Normal color. Warm. Dry Labs/Diagnostic Data Labs/Diagnostic Data Laboratory Tests Test 05/20/25 21:33 05/20/25 19:45 05/20/25 18:30 05/20/25 11:42 Range/Units Troponin I High Sensitivity 64 *H 72 *H </=34 ng/L POC Glucose 111 H 70-106 mg/dl Test 05/20/25 06:00 05/19/25 14:32 05/19/25 05:09 05/19/25 02:51 Range/Units White Blood Count 7.0 6.6 4.4-10.8 10^3/uL Red Blood Count 3.83 L 3.67 L 4.0-5.20 10^6/uL Hemoglobin 10.7 L 10.0 L 12.2-16.2 g/dL Hematocrit 31.9 L 30.2 L 36.0-46.0 % Mean Corpuscular Volume 83.3 82.3 80.0-100.0 fL Mean Corpuscular Hemoglobin 27.9 L 27.3 L 28.0-32.0 pg Mean Corpuscular Hemoglobin Concent 33.5 33.2 32.0-36.0 g/dL Red Cell Distribution Width 16.6 H 16.7 H 11.8-14.3 % Platelet Count 101 L 127 L 140-450 10^3/uL Mean Platelet Volume 7.7 7.6 6.9-10.8 fL Neutrophils (%) (Auto) 88.7 H 83.1 H 37.0-80.0 % Lymphocytes (%) (Auto) 4.3 L 8.8 L 10.0-50.0 % Monocytes (%) (Auto) 6.7 7.2 0.0-12.0 % Eosinophils (%) (Auto) 0.0 0.1 0.0-7.0 % Basophils (%) (Auto) 0.3 0.8 0.0-2.0 % Neutrophils # (Auto) 6.2 5.5 1.6-8.6 10 ^3/uL Lymphocytes # (Auto) 0.3 L 0.6 0.4-5.4 10 ^3/uL Monocytes # (Auto) 0.5 0.5 0-1.3 10 ^3/uL Eosinophils # (Auto) 0 0 0-0.8 10 ^3/uL Basophils # (Auto) 0 0.1 0-0.2 10 ^3/uL Nucleated Red Blood Cells 1.1 0.6 % Sodium Level 139 143 136-145 mmol/L Potassium Level 4.0 3.4 L 3.5-5.1 mmol/L Chloride Level 99 102 98-107 mmol/L Carbon Dioxide Level 27 32 H 20-31 mmol/L Anion Gap 13 9 5-15 Blood Urea Nitrogen 27 #H 17 9-23 mg/dL Creatinine 3.38 #H 2.21 H 0.550-1.02 mg/dL Glomerular Filtration Rate Calc 18 30 >90 mL/min BUN/Creatinine Ratio 8.0 L 7.7 L 10.0-20.0 Serum Glucose 98 89 74-106 mg/dL Uric Acid 5.3 3.1-7.8 mg/dL Calcium Level 8.9 8.8 8.7-10.4 mg/dL Total Bilirubin 1.1 H 1.4 H 0.2-1.0 mg/dL Aspartate Amino Transferase (AST) 9 L 11 L 13-40 U/L Alanine Aminotransferase (ALT) < 9 < 9 7-40 U/L Alkaline Phosphatase 45 L 39 L 46-116 U/L Total Protein 5.4 L 5.0 L 5.7-8.2 g/dL Albumin 3.8 3.7 3.2-4.8 g/dL POC Glucose 118 H 70-106 mg/dl Troponin I High Sensitivity 119 *H </=34 ng/L Test 05/19/25 01:05 05/19/25 00:09 Range/Units Troponin I High Sensitivity 106 *H 116 *H </=34 ng/L White Blood Count 6.5 4.4-10.8 10^3/uL Red Blood Count 3.86 L 4.0-5.20 10^6/uL Hemoglobin 10.5 L 12.2-16.2 g/dL Hematocrit 31.8 L 36.0-46.0 % Mean Corpuscular Volume 82.4 80.0-100.0 fL Mean Corpuscular Hemoglobin 27.3 L 28.0-32.0 pg Mean Corpuscular Hemoglobin Concent 33.1 32.0-36.0 g/dL Red Cell Distribution Width 16.3 H 11.8-14.3 % Platelet Count 138 L 140-450 10^3/uL Mean Platelet Volume 7.4 6.9-10.8 fL Neutrophils (%) (Auto) 88.0 H 37.0-80.0 % Lymphocytes (%) (Auto) 4.0 L 10.0-50.0 % Monocytes (%) (Auto) 7.8 0.0-12.0 % Eosinophils (%) (Auto) 0.0 0.0-7.0 % Basophils (%) (Auto) 0.2 0.0-2.0 % Neutrophils # (Auto) 5.8 1.6-8.6 10 ^3/uL Lymphocytes # (Auto) 0.3 L 0.4-5.4 10 ^3/uL Monocytes # (Auto) 0.5 0-1.3 10 ^3/uL Eosinophils # (Auto) 0 0-0.8 10 ^3/uL Basophils # (Auto) 0 0-0.2 10 ^3/uL Nucleated Red Blood Cells 0.5 % Sodium Level 143 136-145 mmol/L Potassium Level 3.6 3.5-5.1 mmol/L Chloride Level 101 98-107 mmol/L Carbon Dioxide Level 32 H 20-31 mmol/L Anion Gap 10 5-15 Blood Urea Nitrogen 18 9-23 mg/dL Creatinine 2.05 H 0.550-1.02 mg/dL Glomerular Filtration Rate Calc 32 >90 mL/min BUN/Creatinine Ratio 8.8 L 10.0-20.0 Serum Glucose 95 74-106 mg/dL Calcium Level 8.7 8.7-10.4 mg/dL Total Bilirubin 1.8 H 0.2-1.0 mg/dL Aspartate Amino Transferase (AST) 10 L 13-40 U/L Alanine Aminotransferase (ALT) < 9 7-40 U/L Alkaline Phosphatase 40 L 46-116 U/L B-Type Natriuretic Peptide 1536.88 0-100 pg/mL Total Protein 5.0 L 5.7-8.2 g/dL Albumin 3.8 3.2-4.8 g/dL Assessment Acute chest pain ESRD on hemodialysis Lupus nephritis SLE exacerbation Anemia of chronic disease Respiratory failure with hypoxia Acute exacerbation of congestive heart failure Plan/Recommendation Agree with current supportive medical care. Cardiology consult. Dialysis scheduled today. UF 2L as tolerated. Epogen 10,000 u x 1 dose. Heparin 5000 for pack and prime. SpO2 to keep sats >92%. MedNeb breathing treatments. Monitor Intake/Output. DVT prophylaxis. Pain management prn. Additional plan as per the hospital course. Plan discussed with: Patient, Other (RN) JOHN CANTOR DO May 20, 2025 21:29
[2025-05-21 01:00] VITALS: BP 159/98; PULSE 78; RESP 17; TEMP 97.3; O2SAT 98
[2025-05-21 03:48] VITALS: BP 159/98; PULSE 78; RESP 18; TEMP 97.3; O2SAT 98
[2025-05-21] MEDS: predniSONE 20 MG TAB PO ONE (03:49)
[2025-05-21] MEDS: ALBUTEROL SULF 2.5 MG/0.5ML(0.5%) NEB SOLN NEB PRN (03:56)
[2025-05-21 03:57] VITALS: PULSE 73; RESP 18; O2SAT 97; O2SAT 98
[2025-05-21 05:00] VITALS: BP 155/94; PULSE 72; RESP 17; TEMP 97.2; O2SAT 100
--- NOTE | 2025-05-21 07:33 | ECG ---
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
[2025-05-21 08:00] VITALS: PULSE 73; RESP 16; O2SAT 99
[2025-05-21 09:00] VITALS: BP 170/110; PULSE 73; RESP 18; TEMP 98.7; O2SAT 99
--- NOTE | 2025-05-21 09:18 | DVHDS2 ---
Discharge Summary Date of Admission May 19, 2025 at 01:59 Date of Discharge: May 21, 2025 Labs/Diagnostic Data: Laboratory Results Test 05/20/25 21:33 05/20/25 11:42 05/20/25 06:00 05/19/25 00:09 Troponin I High Sensitivity 61 ng/L (</=34) POC Glucose 111 mg/dl (70-106) White Blood Count 7.0 10^3/uL (4.4-10.8) Red Blood Count 3.83 10^6/uL (4.0-5.20) Hemoglobin 10.7 g/dL (12.2-16.2) Hematocrit 31.9 % (36.0-46.0) Mean Corpuscular Volume 83.3 fL (80.0-100.0) Mean Corpuscular Hemoglobin 27.9 pg (28.0-32.0) Mean Corpuscular Hemoglobin Concent 33.5 g/dL (32.0-36.0) Red Cell Distribution Width 16.6 % (11.8-14.3) Platelet Count 101 10^3/uL (140-450) Mean Platelet Volume 7.7 fL (6.9-10.8) Neutrophils (%) (Auto) 88.7 % (37.0-80.0) Lymphocytes (%) (Auto) 4.3 % (10.0-50.0) Monocytes (%) (Auto) 6.7 % (0.0-12.0) Eosinophils (%) (Auto) 0.0 % (0.0-7.0) Basophils (%) (Auto) 0.3 % (0.0-2.0) Neutrophils # (Auto) 6.2 10 ^3/uL (1.6-8.6) Lymphocytes # (Auto) 0.3 10 ^3/uL (0.4-5.4) Monocytes # (Auto) 0.5 10 ^3/uL (0-1.3) Eosinophils # (Auto) 0 10 ^3/uL (0-0.8) Basophils # (Auto) 0 10 ^3/uL (0-0.2) Nucleated Red Blood Cells 1.1 % Sodium Level 139 mmol/L (136-145) Potassium Level 4.0 mmol/L (3.5-5.1) Chloride Level 99 mmol/L (98-107) Carbon Dioxide Level 27 mmol/L (20-31) Anion Gap 13 (5-15) Blood Urea Nitrogen 27 mg/dL (9-23) Creatinine 3.38 mg/dL (0.550-1.02) Glomerular Filtration Rate Calc 18 mL/min (>90) BUN/Creatinine Ratio 8.0 (10.0-20.0) Serum Glucose 98 mg/dL (74-106) Uric Acid 5.3 mg/dL (3.1-7.8) Calcium Level 8.9 mg/dL (8.7-10.4) Total Bilirubin 1.1 mg/dL (0.2-1.0) Aspartate Amino Transferase (AST) 9 U/L (13-40) Alanine Aminotransferase (ALT) < 9 U/L (7-40) Alkaline Phosphatase 45 U/L (46-116) Total Protein 5.4 g/dL (5.7-8.2) Albumin 3.8 g/dL (3.2-4.8) B-Type Natriuretic Peptide 1536.88 pg/mL (0-100) Other Laboratory Tests 05/20/25 06:00 Brief Hx & Hospital Course: 34-year-old female with past medical history on end-stage renal disease on hemodialysis, hypertension, and lupus erythematous who presented to [facility] ED with complaint of chest pain. Patient was just discharged after being admitted for 2 weeks at [facility], diagnosed with end- stage renal disease, pneumonia, and dialysis started. When she got home last night, she started experiencing left-sided chest pains, sharp in nature, nonradiating, associated with headaches, getting worse that prompted this visit. Patient was seen and evaluated in the ED, laboratory data shows WBC 6.5, hemoglobin 10.5, hematocrit 31.8, platelets 138, sodium 143, potassium 3.6, BUN 18, creatinine 2.05, GFR 32, glucose 95, calcium 8.7, troponin 116, BNP 1536.88, blood pressure 155/95, heart rate 90, temperature 98.9 F, O2 saturation 98% on room air. Please see medication orders section in the computer. On my assessment, patient denied chest pain, no headache, dizziness, diaphoresis, shortness of breaths, no abdominal pain, diarrhea, nausea, vomiting, fever, no chills. Patient was admitted for further evaluation and medical management. Came for uncontrolled BP and got better Elevated troponins from type 2 NV No further workup Condition at Discharge: Good Final Diagnosis/Problems List NSTEMI most likely type 2 NV Lupus nephritis SLE exacerbation Anemia of chronic disease ESRD needing dialysis Respiratory failure with hypoxia Acute exacerbation of congestive heart failure Discharge Disposition: Home with Health Services Discharge Instruct/Medications Diet: Regular Activity: No Restrictions, As Tolerated Follow Up/Referral: PCP in 7 days Medications: same home medications Scheduled Amlodipine Besylate (Norvasc Tablet), 10 MG PO DAILY Cholecalciferol (Gnp Vitamin D), 1 TAB PO DAILY, (Reported) Clonidine Hydrochloride (Clonidine Hcl), 1 TAB PO BID Ferrous Sulfate (Ferrous Sulfate), 1 TAB PO DAILY Folic Acid (Folic Acid), 1 TAB PO DAILY, (Reported) Furosemide (Furosemide), 1 TAB PO BID, (Reported) Hydroxychloroquine Sulfate (Hydroxychloroquine Sulfat), 200 MG PO DAILY Hydroxychloroquine Sulfate (Plaquenil), 1 TAB PO BID Labetalol HCl (Labetalol HCl), 400 MG PO BID Losartan Potassium (Losartan Potassium), 1 TAB PO DAILY, (Reported) Mycophenolate Mofetil (Mycophenolate Mofetil), 1,500 MG PO BID Mycophenolate Mofetil (Cellcept), 1,500 MG PO BID Pantoprazole Sodium Sesquihydr (Pantoprazole Sodium Dr), 1 TAB PO DAILY, (Reported) Prednisone (Prednisone), 20 MG PO TID Prednisone (Prednisone), 40 MG PO DAILY Sertraline Hcl (Sertraline Hcl), 1 TAB PO DAILY, (Reported) Sevelamer Carbonate (Sevelamer Carbonate), 800 MG PO TID Sodium Bicarbonate (Sodium Bicarbonate), 650 MG PO QID Sodium Bicarbonate (Sodium Bicarbonate), 650 MG PO BID Discharge Statement: "Patient was advised to return to the ER or call 911 if any headaches, dizziness, shortness of breath, chest pain, abdominal pain, bleeding, fevers, or worsening of medical condition. Patient was counseled about treatment plan, medications, possible side effects, patientverbalized understanding. All questions were answered to the best of my ability. This discharge took greater then 30 minutes in planning, reviewing documentation, counseling the patient, and discussing with other team members." ASSESSMENT ASSESSMENT Assessment elevated troponins due to type 2 NV hypertension urgency Date of Service: May 21, 2025 Billing Provider: NIKKO BOOTH MD Common Visit Codes: 84627-MEE/OBS DISCH DAY >30min NIKKO BOOTH MD May 21, 2025 09:18
== END 2025-05-21 09:30 | disposition left against medical advice (07) | DRG 346 ==
LOC: ER 23:50 → EDUNIT# 23:50 → EDBD 23:50 → OVERFLOW 05-19 01:59 → TELE-EAST 05-19 21:33
PROVIDERS: ADMIT Hospitalist; ATTEND Hospitalist
PROC: 5A1D70Z Performance of Urinary Filtration, Intermittent, Less than 6 Hours Per Day (ICD-10-PCS; principal; 2025-05-20)
DX: M32.9 Systemic lupus erythematosus, unspecified (principal); J96.01 Acute respiratory failure with hypoxia; G93.41 Metabolic encephalopathy; I13.2 Hypertensive heart and chronic kidney disease with heart failure and with stage 5 chronic kidney disease, or end stage renal disease; I21.A1 Myocardial infarction type 2; I50.43 Acute on chronic combined systolic (congestive) and diastolic (congestive) heart failure; N18.6 End stage renal disease; D69.6 Thrombocytopenia, unspecified; D63.8 Anemia in other chronic diseases classified elsewhere; Z99.2 Dependence on renal dialysis; M32.14 Glomerular disease in systemic lupus erythematosus; I16.0 Hypertensive urgency; Z53.29 Procedure and treatment not carried out because of patient's decision for other reasons; E78.1 Pure hyperglyceridemia; Z82.49 Family history of ischemic heart disease and other diseases of the circulatory system; Z79.899 Other long term (current) drug therapy
CPT/HCPCS: 36415; 70551; 71045; 80053; 82962; 83880; 84484; 84550; 85025; 87081; 90935; 93005; 94640; G0378; J2405